=== PATIENT | female | born 1965 | race Caucasian/White ===

== ENCOUNTER 2018-01-08 10:40 | Emergency (ER) | payer MEDICARE, MEDICAID ==
--- NOTE | 2018-01-08 12:26 | RAD ---
HISTORY: LLE edema + Jocy's sign COMPARISONS: None relevant TECHNIQUE: Multiple transverse and longitudinal ultrasound images were obtained of the left lower extremity from the level of the common femoral vein inferiorly through to the infrapopliteal veins using grayscale, color Doppler, and spectral Doppler imaging with and without compression and with augmentation. Comparison images were obtained of the contralateral common femoral vein. FINDINGS: VEINS: The venous system of the left lower extremity is compressible throughout its course, with normal flow on color Doppler imaging and normal response to augmentation on spectral Doppler imaging. SOFT TISSUES: Unremarkable. OTHER FINDINGS: There is a 4.8 x 1.5 x 3.6 cm fluid collection within the popliteal fossa consistent with a Stephenson's cyst. IMPRESSION: NO LEFT LOWER EXTREMITY DEEP VEIN THROMBOSIS STEPHENSON'S CYST
--- NOTE | 2018-01-08 13:59 | ED ---
Lower Extremity - HPI Summary HPI Summary: Patient presents with left calf and foot swelling over the past couple days. She reports this is been intermittent over the past week and also admits she's had some arthritis meniscal issues in this knee for which she is treating with physical therapy. She denies fever, chills, chest pain, palpitations, shortness of breath, bloody cough, back pain, numbness, tingling, weakness. Additionally, she denies injury to her foot or ankle and no wounds to trigger infection. She was undergoing preop for back surgery today when she mentioned this to her surgeon who 1 her to have an ultrasound to rule out DVT prior surgery. She is obese and smokes. No known history of cancer however she does have a chronically elevated white blood cell count. - History of Current Complaint Chief Complaint: EDExtremityLower Stated Complaint: LT LOWER EXTREMITY SWELLING Time Seen by Provider: 01/08/18 10:56 Hx Obtained From: Patient, Family/Manager Data - female friend Pain Intensity: 4 - Allergies/Home Medications Allergies/Adverse Reactions: Allergies Allergy/AdvReac Type Severity Reaction Status Date / Time STEROIDS AdvReac Altered Uncoded 01/08/18 10:48 Mental Status PMH/Surg Hx/FS Hx/Imm Hx Previously Healthy: Yes Endocrine/Hematology History: Reports: Hx Anemia Denies: Hx Anticoagulant Therapy, Hx Blood Disorders, Hx Diabetes, Hx Coagulopothy, Other Endocrine/Hematological Disorders Cardiovascular History: Reports: Hx Hypertension Denies: Hx Pacemaker/ICD, Other Cardiovascular Problems/Disorders Respiratory History: Reports: Hx Chronic Obstructive Pulmonary Disease (COPD), Hx Seasonal Allergies, Hx Sleep Apnea Denies: Other Respiratory Problems/Disorders GI History: Reports: Hx Gastroesophageal Reflux Disease, Other GI Disorders - gastroperisis History: Denies: Hx Renal Disease, Other Problems/Disorders Musculoskeletal History: Reports: Hx Arthritis, Hx Rheumatoid Arthritis, Hx Back Problems, Hx Bursitis, Other Musculoskeletal History - stenosis, sciatica Sensory History: Denies: Hx Hearing Aid, Other Sensory Impairments Comment Only: Hx Contacts or Glasses - reading glasses Opthamlomology History: Denies: Other Sensory Impairments Comment Only: Hx Contacts or Glasses - reading glasses Neurological History: Reports: Hx Headaches - RARE, Hx Migraine - HISTORY, Other Neuro Impairments/Disorders - Vertigo Comment Only: Hx Transient Ischemic Attacks (TIA) - pt stated when she was 20 years old Psychiatric History: Reports: Hx Anxiety - SW unable to confirm, Hx Depression - SW unable to confirm Denies: Hx Panic Disorder, Other Psychiatric Issues/Disorders - Cancer History Cancer Type, Location and Year: MELANOMA - REMOVED FROM SKIN- Rt SHOULDER Hx Chemotherapy: No Hx Radiation Therapy: No - Surgical History Surgery Procedure, Year, and Place: Bowel Resection; [place] [facility] Hx Anesthesia Reactions: No Infectious Disease History: No Infectious Disease History: Denies: Hx Clostridium Difficile, Hx Hepatitis, Hx Human Immunodeficiency Virus (HIV), Hx of Known/Suspected MRSA, Hx Shingles, Hx Tuberculosis, History Other Infectious Disease, Traveled Outside the [place] in Last 30 Days - Social History Occupation: Disabled Alcohol Use: Recovering for 13 years Hx Substance Use: No Substance Use Type: Reports: None Hx Tobacco Use: Yes Smoking Status (MU): Current Every Day Smoker Type: Cigarettes Amount Used/How Often: 1/2 PPD Have You Smoked in the Last Year: Yes Review of Systems Constitutional: Negative Negative: Fever, Chills, Fatigue Psychological: Normal All Other Systems Reviewed And Are Negative: Yes Physical Exam Vital Signs On Initial Exam: Initial Vitals Temp Pulse Resp BP Pulse Ox 98.5 F 75 16 139/81 91 01/08/18 10:41 01/08/18 10:41 01/08/18 10:41 01/08/18 10:41 01/08/18 10:41 Diagnostics - Vital Signs Vital Signs Temp Pulse Resp BP Pulse Ox 01/08/18 10:41 98.5 F 75 16 139/81 91 - Laboratory Lab Statement: Any lab studies that have been ordered have been reviewed, and results considered in the medical decision making process. Lower Extremity Course/Dx - Course Course Of Treatment: U/S no DVT - has a Stephenson's cyst - Diagnoses Provider Diagnoses: Synovial cyst of popliteal space [Stephenson], left knee Discharge - Sign-Out/Discharge Documenting (check all that apply): Patient Departure - Discharge Plan Condition: Stable Disposition: HOME Patient Education Materials: Bakers Cyst (ED) Referrals: Serafin Adamson MD [Primary Care Provider] - Additional Instructions: Follow-up with PCP *If calf pain, swelling, redness worsen, return to ED for evaluation - Billing Disposition and Condition Condition: STABLE Disposition: Home
[2018-01-08 14:05] VITALS: BP 169/89
== END 2018-01-08 14:04 | disposition home or self-care (01) ==
LOC: ED 10:40
DX: M71.22 Synovial cyst of popliteal space [Baker], left knee (principal); F17.210 Nicotine dependence, cigarettes, uncomplicated; E66.9 Obesity, unspecified; Z88.8 Allergy status to other drugs, medicaments and biological substances
CPT/HCPCS: 99281

== ENCOUNTER 2018-04-16 07:30 | Inpatient (IN) | payer MEDICARE, MEDICAID ==
[~2018-04-16 07:30] MED LIST: Buffered Lidocaine 0.9% SYRIN* 5 ML/SYR SYRINGE INTRADERM ONE; Dexamethasone IV* 4 MG/ML 1 ML (4 MG) IV SLOW PU ONE; Famotidine IV* 10 MG/ML 2 ML (20 mg) IV ONE; Levalbuterol 0.63MG/3ML NEB* UNIT OF USE INH ONE
[2018-06-08] MEDS ORDERED: Buffered Lidocaine 0.9% SYRIN* 5 ML/SYR SYRINGE INTRADERM ONE (12:26)
--- OUTSIDE RECORDS SUMMARY | 2018-06-09 05:52 | XMS REPORT | Continuity of Care Document ---
:1965 External Reference #:[id number] Author Name Alias Quinonez Care Team Providers Name Role Phone Serafin Hernandez MD Primary Care Physician Unavailable Payers Type Date Identification Numbers Payment Provider Subscriber Policy Number: [id number] Medicare Shahida A Schlarb PayID: [id number] [address] [place] [address] Expires: 2018 Policy Number: [id number] Medicare Shahida A Schlarb PayID: [id number] [address] [place] [address] Expires: 2016 Policy Number: [id number] [employer] Shahida A Schlarb PayID: [id number] [address] [place] [address] Expires: 2016 Policy Number: [id number] Medicaid Shahida A Schlarb Group Name: 1 1 [address] PayID: [id number] [place] [address] Effective: 2009 Policy Number: [id number] Medicare Shahida A Schlarb Expires: 2015 PayID: [id number] [address] [place] [address] Effective: 2015 Policy Number: [id number] Medicaid Shahida A Schlarb Expires: 2015 Group Name: 1 1 [address] PayID: [id number] [place] [address] Expires: 2015 Policy Number: [id number] Medicaid Shahida A Schlarb Group Name: 1 1 [address] PayID: [id number] [place] [address] Expires: 2016 Policy Number: [id number] Mark Anthonytrixie Botello PayID: [id number] [address] [place] [address] Policy Number: [id number] Medicaid Elizabeth A Schlarb Group Name: 1 1 [address] PayID: [id number] [place] [address] Advance Directives Description No Information Available Problems Date Description Provider Status Onset: 06/17/2011 Lumbosacral spondylosis without Serafin Hernandez Active myelopathy Jaime.Neal,FACP Onset: 06/29/2007 Acquired spondylolisthesis Serafin Hernandez Active Talita,FACP Onset: 03/08/2011 Chronic pain syndrome Serafin Hernandez Active Talita,FACP Onset: 10/17/2008 Obstructive sleep apnea syndrome Alexei Ramirez M.D.,FACP Onset: 03/08/2011 Morbid obesity Serafin Hernandez Active Talita,FACP Onset: 01/21/2013 Chronic nonalcoholic liver Serafin Hernandez Active disease M.Neal,FACP Onset: 06/29/2007 Tobacco user Serafin Hernandez Active Talita,FACP Onset: 06/17/2011 Spinal stenosis of lumbar region Serafin Hernandez Active Talita,FACP Onset: 01/21/2013 Tinnitus Serafin Hernandez Active Talita,FACP Onset: 06/14/2014 Leukocytosis Rayne Manuel, N.P. 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 M.Neal,FACP Onset: 07/21/2017 Lumbar spondylolisthesis Allyson Garner MD Active Onset: 07/21/2017 Thoracic and lumbosacral neuritis Allyson Garner MD Active Onset: 12/19/2017 Type 2 diabetes mellitus Rah Waterman NP Active Onset: 02/23/2018 Stress fracture of metatarsal Дмитрий MD Margarita Active bone Onset: 03/31/2018 Lumbar spondylosis Vassilnatalee Garner MD Active Onset: 07/06/2015 Drug withdrawal Ana Clark MD Inactive Inactive: 09/05/2015 Onset: 06/17/2011 Onychia of toe Serafin Hernandez M.D.,FACP Resolved Resolved: 03/23/2015 Onset: 03/08/2011 Amenorrhea Serafin Hernandez M.D.,FACP Resolved Resolved: 03/23/2015 Family History Date Family Member(s) Problem(s) Comments Father Hypertension Mother Uterine Cancer June 2017 Siblings 2 Social History Type Date Description Comments Sex Unknown Marital Status Single Lives With Alone Aide a couple of times weekly Occupation Disabled Tobacco Use Start: Unknown Patient is a current cigarette smoker, smokes every day Tobacco Use Start: Unknown Current Cigarette 1/2-1.5 cig/day Smoker 1 Pack Daily Smoking Status Reviewed: 06/01/18 Current Cigarette 1/2-1.5 cig/day Smoker 1 Pack Daily ETOH Use Has consumed alcohol Heavy drinker until in the past 2002-Has abstained since Recreational Drug Use Denies Drug Use Tobacco Use Start: Unknown Light tobacco smoker trying to quit, 3-12 (10 or fewer cigarettes a day cigarettes/day) Exercise Type/Frequency Does not exercise Allergies, Adverse Reactions, Alerts Date Description Reaction Status Severity Comments 07/04/2015 Prednisone extreme agitation, Active Severe negative suicidal thoughts 11/21/2016 Benadryl Active aggitation 12/10/2017 Steroids Active only as a last resort-irritation 10/16/2007 NKDA Inactive Medications Medication Date Status Form Strength Qnty SIG Indications Ordering Provider Nicotine 06/01/ Active Patches 14mg/24HR 28uni one patch G47.33 Rah 2018 24HR ts daily for STEFF Waterman 6 weeks Cpap Supplies 12/31/ Active Pls G47.33 Ana 2018 provide luis felipe Clark MD cpap supplies, mask, tubing, head gear, filters etc Commode 12/25/ Active Misc 3-In-1 1unit use as Serafin 2017 s magaly Hernandez, weight 262 M.D.,FACP lbs height 62 inches Cyclobenzaprine 05/28/ Active Tablets 10mg 90tab Take One Rah HCL 2016 s Tablet By STEFF Waterman Mouth Three Times A Day as Needed Morphine Sulfate 02/14/ Active Tablets 15mg 90tab 1 tablet Serafin 2016 s by mouth Neal Hernandez, 3x daily M.D.,FACP as needed MS Contin 01/23/ Active Tablets 30mg 90tab 1 by mouth G89.4 Serafin 2016 ER s every 8 D. Jackson, hours M.D.,FACP Bath Bench With 11/18/ Active Misc 1unit for daily G89.4 Serafin Canales 2017 s use, Neal Hernandez, weight M.D.,FACP 237lbs, M47.26 Bathtub Safety 11/18/2016 Active Misc 2units 2 safety bars G89.4 Jorge Luis De Jesus Rail for tub use Talita Hernandez,FACP weight 237lbs M47.26 Advair Diskus 05/15/2015 Active Aerosol 250-50mcg/Dose 60units inhale one Rah puff by mouth STEFF Waterman twice a day Cymbalta 01/23/[address] 60mg 90caps Take One Abdias-Irma Part Capsule By l D. Mouth Every Jackson, Day M.D.,FAC P Spiriva 09/27/2009 Active Capsules 18mcg 30caps inhale the Rah Handihaler contents of STEFF Waterman one capsule via handihaler by mouth every morning Cpap Mask And 10/10/2008 Active 1units cpap mask and Ana Acessories acessories of Amber patient's MD choice Cane 10/04/2008 Active 1units Backpain with Abdias-Irma radiculopaty savannah De Jesus and carolina Hernandez, right knee M.D.,FAC meniscus P Ibu 01/04/2008 Active Tablets 600mg 270tabs Take One G Abdias-Irma Tablet By 8 l D. Mouth Every 8 9 Jackson, Hours as . M.D.,FAC Needed For 4 P Pain Fish Oil Active Capsules 1200mg 2 po qd Unknown Burp-Less Zyrtec Active Chewtabs 10mg 1 po qd prn Unknown Iron Active Tablets 325(65Fe) mg 1 by mouth Unknown every day Multi Vitamin Active Tablets daily Unknown Proair HFA Active Aerosol 108(90Base) 25.5unit Inhale Two Cactus mcg/Act s Puffs By Pachikar Mouth Every 4 a, M.D. Hours as Needed Cromolyn Active Aerosol 5.2mg/Act One spray Unknown Sodium each nostril 2-3 times daily as needed. Nicotine Step 12/19/2017 Hx Patches 7mg/24HR 14units one patch G Rah 3 - 24HR once daily 4 STEFF Waterman 06/01/2018 for two weeks 7 . 3 3 Nicotine 11/17/2017 Hx Patches 14mg/24HR 14units 1 apply patch G Abdias- Irma - 24HR topically 4 l D. 12/19/2017 every 24 7 Jackson, hours. . M.D.,FAC 3 P 3 Cyclobenzapri 05/28/2017 Hx Tablets 10mg 90tabs take one Rah ne HCL - tablet by STEFF Waterman 06/01/2018 mouth three times a day as needed Nicotine 01/23/2017 Hx Patches 21mg/24HR 28units apply patch G Stephen - 24HR daily, remove 4 Pachikar 11/17/2017 old one at 7 a, M.D. the same time . x's 6 wks 3 3 Bathtub 11/18/2016 Hx Misc 1units install 2 G Abdias-Irma Safety Rail - bathtub 8 l D. 05/28/2017 safety rails 9 Jackson, . M.D.,FAC 4 P M47.26 Orphenadrine 09/22/2016 - Hx Tablets ER 100mg 60tabs take one tablet Serafin Citrate ER 05/28/2017 12HR by mouth twice D. Jackson, a day as needed M.D.,FACP Oxycontin 04/02/2016 - Hx Tab ER 12H 30mg 90tabs by mouth every G89. Stephen 01/23/2017 Abuse-Det 8 hours 4 Talita Membreno Oxycodone HCL 02/28/2016 - Hx Tablets 10mg 90tabs 1 tablet by Stephen 02/14/2017 mouth 3x a day Pachikara, as needed M.D. Oxycontin 01/23/2016 - Hx Tab ER 12H 20mg 90tabs by mouth every G89. Serafin 04/02/2016 Abuse-Det 8 hours 4 Neal Hernandez M.D.,FACP Morphine Sulfate 12/29/2015 - Hx Tablets ER 30mg 90tabs 1 tab by mouth G89. Serafin ER 01/23/2016 every 8 hours 4 Neal Hernandez M.D.,FACP Skelaxin 09/20/2015 - Hx Tablets 800mg 60tabs take one tablet Jorge Luis Gill 09/22/2016 by mouth three Neal Hernandez, times a day as Talita,FACP needed Nicotine 09/05/2015 - Hx Patches 14mg/2 28units topical qd G47. Jorge Luis Gill 01/23/2017 24HR 4HR 33 Neal Hernandez M.D.,FACP Amoxicillin/Clavu 07/04/2015 - Hx Tablets 875-12 20tabs 1 tablet by J01. Soren lanate Potassium 07/14/2015 5mg mouth twice a 90 [place], [employer] day x's 10 days Proair HFA 07/04/2015 - Hx Aerosol 108(90 1units 1 puff every 4 R06. Soren 07/14/2015 Base) hours as needed 2 [place], [employer] mcg/Ac for chest t tightness or wheezing Flexeril 05/16/2015 - Hx Tablets 5mg 240tabs 1 tab by mouth Soren 09/20/2015 three times a [place], [employer] day as needed muscle spasm Morphine Sulfate 05/15/2015 - Hx Tablets 15mg 90tabs 1 by mouth Jorge Luis Gill 02/28/2016 every 8 hours Neal Hernandez, as needed Talita,FACAna breakthrough pain Cromolyn Sodium 03/24/2015 - Hx Aerosol 5.2mg/ 26ml 1 spray both Jorge Luis Gill 01/23/2016 Act eyes nares Neal Hernandez, three times a MMaureenDMaureen,FACP day as needed Ketoconazole 03/23/2015 - Hx Shampoo 2% 120unit apply once a L21. Soren 05/15/2015 s day to the 9 [place], [employer] scalp Topiramate 03/23/2015 - Hx Tablets 25mg 90tabs take one tablet Jorge Luis Gill 01/23/2017 by mouth every Neal Hernandez, day Talita,FACP Lasix 04/30/2013 - Hx Tablets 40mg 90tabs Take One Tablet Serafin 04/15/2014 By Mouth Every DMaureen Hernandez, Day for 1 wk M.DMaureen,FACP then prn Potassium 03/13/2013 - Hx Tablets ER 10Meq 90tabs Take One Tablet Abdias Rodrigez Chloride Susu ER 03/23/2015 By Mouth Every DMaureen Hernandez, Day M.DMaureen,FACP Nizatidine 01/21/2013 - Hx Capsules 150mg 60caps 1 po bid 388. AbdiasElvi Jairo 06/09/2014 30 Neal Hernandez M.D.,FACP Potassium 12/29/2012 - Hx Capsules ER 10Meq 90caps Take One Serafin Chloride ER 03/13/2013 Capsule By Neal Hernandez, Mouth Every Day M.Neal,CRYSP Potassium 03/12/2012 - Hx Tablets ER 10Meq 90tabs Take One Tablet Abdias Rodrigez Chloride CR 12/29/2012 By Mouth Every DMaureen Hernandez, Day M.DMaureen,FACP Orphenadrine 09/11/2011 - Hx Tablets ER 100mg 20tabs po bid prn 721. Serafin Citrate CR 01/23/2012 12HR 3 Neal Hernandez M.D.,FACP Carisoprodol 08/29/2011 - Hx Tablets 350mg 30tabs 1 tab tid/prn 721. Serafin 09/11/2011 3 Neal Hernandez M.D.,FACP Amoxicillin 07/15/2011 - Hx Tablets 875mg 20tabs 1 po bid 462 Roberta 08/29/2011 Talita Cabrales Ciprodex 07/13/2011 - Hx Suspension 0.3-0. 1bottle otic Serafin 07/15/2011 1% 4 ggt l ear Neal Hernandez, bid for 1 wk M.DMaureen,FACP Metaxalone 06/17/2011 - Hx Tablets 800mg 90tabs take 1 tablet 3 Jorge Luis Gill 08/29/2011 times a day as Neal Hernandez needed Talita,FACP Topiramate 06/17/2011 - Hx Tablets 100mg 180tabs Take One Tablet 836. Serafin 03/23/2015 By Mouth once A 2 Janette Martinez M.D.,FACP Potassium 10/17/2010 - Hx Tablets ER 10Meq 90tabs po qday Serafin Chloride ER 03/12/2012 Neal Hernandez M.[facility].,[facility] Omeprazole 08/27/2010 - Hx Capsules 20mg 90caps Take One Serafin 12/01/2017 Capsule By Neal Hernandez, Mouth Every Day Talita,CRYSP Potassium 06/15/2010 - Hx Liquid 10Meq 30daysu po qday Serafin Chloride 10/17/2010 pply Neal Hernandez M.D.,[facility] MS Contin 05/28/2010 - Hx Tablets ER 30mg 90tabs po q8h Serafin 06/17/2011 12HR Neal Hernandez M.D.,[facility] Cymbalta 05/28/2010 - Hx Caps 60mg 30caps 1 po qd Serafin 01/23/2012 Part Neal Hernandez M.D.,[facility] Amoxicillin 05/28/2010 - Hx Tablets 500mg 40tabs 2 tabs po bid 491. Serafin 07/17/2010 for 10 days 21 Neal Hernandez M.D.,[facility] Doxycycline 03/16/2010 - Hx Tablets 100mg 14tabs po bid 466. Serafin Monohydrate 05/28/2010 0 Neal Hernandez M.D.,[facility] Prednisone 03/16/2010 - Hx Tablets 10mg 20tabs 4 po qd for 5 466. Jorge Luis Gill 05/28/2010 days 0 Neal Hernandez M.D.,[facility] Nicoderm CQ 10/04/2009 - Hx Patches 21mg/2 1mon topical qam 305. Jorge Luis Gill 03/16/2010 24HR 4HR 1 Neal Hernandez M.D.,[facility] Ciprofloxacin HCL 09/27/2009 - Hx Tablets 500mg 28tabs si bid x 14 382. Serafin 10/04/2009 days 9 Neal Hernandez M.D.,CRYSP Azithromycin 09/20/2009 - Hx Tablets 250mg 6tabs 2 tabs po on 466. Ellie 09/27/2009 day 1; 1 tab po 0 Cotton, qd on days 2-5 Talita Spiriva 09/20/2009 - Hx Capsules 18mcg 1months 1 inhalation po 466. Ellie Handihaler 09/27/2009 upply qam 0 Talita Meyer Avelox 07/18/2009 - Hx Tablets 400mg 10tabs 1 qd x 10 days 466. Jorge Luis Gill 09/20/2009 0 Neal Hernandez M.D.,CRYSP Nasonex 07/18/2009 - Hx Suspension 50mcg/ 17units spray two Serafin 03/24/2015 Act sprays in each Neal Hernandez nostril every Tailta,SHANE day Topiramate 01/09/2009 - Hx Tablets 150mg 1 po bid 836. Unknown 06/17/2011 2 Avelox 12/07/2008 - Hx Tablets 400mg 10tabs 1 qd x 10 days 461. Jorge Luis Gill 05/08/2009 9 Neal Hernandez M.D.,[facility] Walker With 10/19/2008 - Hx One dx: Serafin Pete, Seat, 05/15/2009 osteoarthritis Nyasia Martinez M.D.,FACP Meniscus tear l knee Cpap 10/10/2008 - Hx 1units cpap machine to Serafin 05/15/2009 be recalibrated Neal Hernandez M.D.,CRYSP Left Carpal 10/10/2008 - Hx 1units Use as directed Serafin Tunnel Wrist 05/15/2009 Amy Martinezr Talita,CRYSP Lasix 10/04/2008 - Hx Tablets 40mg 90tabs Take One Tablet Serafin 10/16/2012 By Mouth Every Janette Martinez M.D.,CRYSP Percocet 09/20/2008 - Hx Tablets 5-325m 180tabs 1 q 4 hours prn 738. Serafin 01/09/2009 g pain 4 Neal Hernandez M.D.,CRYSP top 05/16/2008 - Hx Tablets 25mg 60tabs 1 PO bid Serafin 05/16/2008 Neal Hernandez M.D.,CRYSP Azithromycin 04/01/2008 - Hx Tablets 500mg 7tabs 1 tab qd for 7 466. Serafin 05/16/2008 days 0 Neal Hernandez M.D.,CRYSP Cheratussin ac 04/01/2008 - Hx Syrup 6Oz 1-2 tsp qid prn 466. Jorge Luis Gill 05/16/2008 0 Neal Hernandez M.D.,CRYSP Wellbutrin 01/04/2008 - Hx Tablets 75mg 180tabs 1 PO qd Serafin 09/20/2008 Neal Hernandez M.D.,CRYSP Wellbutrin XL 01/04/2008 - Hx Tablets ER 150mg 30tabs 2 PO qd Jorge Luis Gill 09/20/2008 24HR Neal Hernandez M.D.,CRYSP Iron 01/04/2008 - Hx Tablets 325mg 30tabs 1 po qd Serafin 02/04/2013 Neal Hernandez M.D.,[facility] Lyrica 01/04/2008 - Hx Capsules 150mg 270caps 1 tid 338. Serafin 09/20/2009 4 Neal Hernandez M.D.,CRYSP Relafen 10/16/2007 - Hx Tablets 750mg 60tabs 1 bid with food 738. Jorge Luis Gill 01/04/2008 4 Neal Hernandez M.D.,SHANE Zoloft 06/29/2007 - Hx Tablets 100mg 60tabs 2 PO qd Serafin 06/17/2011 Neal Hernandez M.D.,CRYSP Wellbutrin SR 06/29/2007 - Hx Tablets ER 150mg 60tabs 2 tablets in am Serafin 01/04/2008 12HR extended 75 Neal Hernandez, mg in am Talita,[facility] Augmentin 06/29/2007 - Hx Tablets 875mg 20tabs po bid x10 days 490 Abdias Rodrigez 10/21/2007 Neal Hernandez M.D.,[facility] Lyrica 06/29/2007 - Hx Capsules 75mg 90caps 1 po tid 738. Serafin 01/04/2008 4 Neal Hernandez M.D.,SHANE Zyrtec - Hx Tablets 10mg 30tabs 1 tab po qd prn Sreafin 01/21/2013 Neal Hernandez M.D.,[facility] Cyclobenzaprine - Hx Tablets 10mg 90tabs 1 tablet po tid Serafin HCL 06/17/2011 prn Neal Hernandez M.D.,[facility] K-Dur - Hx Tablets ER 10Meq 30tabs 1 po qd Serafin 06/15/2010 Neal Hernandez M.D.,FACP Lasix - Hx Tablets 20mg 30tabs 1 po qd Serafin 10/04/2008 Neal Hernandez M.D.,FACP Abilify - Hx Tablets 5mg 1 qd 311 Serafin 09/20/2009 Neal Hernandez M.D.,FACP Wellbutrin XL - Hx Tablets ER 300mg 1 po qd Mike Hudson 06/17/2011 24HR ane,PA Topamax - Hx Tablets 100mg 60tabs 1 po bid 836. Unknown 01/09/2009 2 Oxycontin - Hx Tablets ER 20mg 10tabs 1 po bid Unknown 05/28/2010 12HR Percodan - Hx Tablets 5mg one tab six Unknown 05/15/2009 times daily Oxycodone HCL - Hx Tablets 5mg 180tabs 2 po tid prn Unknown 05/28/2010 Abilify - Hx Tablets 15mg 311 Unknown 05/28/2010 Morphine Sulfate - Hx Tablets 15mg 40tabs 1/2-1 q4h prn Unknown 01/23/2012 Reglan - Hx Tablets 10mg 360tabs 1 po 4 times a Unknown 01/23/2012 day Morphine Sulfate - Hx Tablets ER 30mg 60tabs 1 tablet every Unknown ER 08/29/2011 12HR 8 hours Fentanyl - Hx Patches 50mcg/ 10units ? dose one Unknown 01/23/2012 72HR HR every 3rd day Oxycontin - Hx Tablets ER 40mg 28tabs 1 po bid Unknown 04/23/2012 12HR Oxycodone HCL - Hx Tablets 10mg 120tabs 1 tablet po Unknown 04/23/2012 q6hrs prn Baclofen - Hx Tablets 10mg 60tabs 1 po bid prn Unknown 01/23/2012 Baclofen - Hx Tablets 10mg 1/2 tab tid Unknown 01/21/2013 Exalgo - Hx Tablets ER 32mg 30tabs 1 po qd Unknown 01/21/2013 24HR Hydromorphone HCL - Hx Tablets 4mg 60tabs 1 -3 po prn Unknown 01/21/2013 pain Morphine Sulfate - Hx Caps ER 30mg 16caps 1 po tid Unknown ER 02/09/2014 24HR Morphine Sulfate - Hx Caps ER 30mg 90caps 1 caps 8h [facility] 12/29/2015 24HR Neal Hernandez M.D.,FACP Metaxalone - Hx Tablets 800mg 30tabs take 1/2-1 pill Unknown 12/16/2013 q 8 hrs. Tizanidine HCL - Hx Tablets 4mg 60tabs take 1/2 Unknown 05/15/2015 tablet by mouth four times daily as needed Wellbutrin SR - Hx Tablets ER 200mg 90tabs Take One Tablet [facility] 03/23/2015 12HR By Mouth Every DMaureen Hernandez, Morning M.D.,FACP Methadone HCL - Hx Tablets 10mg 1 by mouth up Unknown 05/15/2015 to three times a day for pain Celebrex - Hx Capsules 100mg 1 by mouth Unknown 05/15/2015 twice a day Ventolin HFA - Hx Aerosol 108(90 18gm 2 puffs by [facility] 11/30/2015 Base) mouth four D. Snow, mcg/Ac times a day as M.D.,FACP t needed Medications Administered in Office Medication Date Status Form Strength Qnty SIG Indications Ordering Provider Depomedrol Administered Injection Dirk Johnson, 40MG 018 M.D. Immunizations CPT Code Status Date Vaccine Reaction Lot # [id number] Given 04/13/2018 Influenza Virus Vaccine, [id number] Quadrivalent, Split, Preservative Free [id number] Given 05/28/2017 Influenza Virus Vaccine, [id number] Quadrivalent, Split, Preservative Free 74864 Given 04/02/2016 Influenza Virus Vaccine, no reaction noted... [id number] Quadrivalent, Split, hh Preservative Free Q2037 Given 07/06/2015 Fluvirin Im 3Yrs And Older [id number] Given 07/06/2015 Pneumonia Vaccine [id number] Given 06/14/2014 Flu Vaccine Split Virus [id number] Preservative Free For Indiv 3Yr Older Q2037 Given 04/23/2012 Fluvirin Im 3Yrs And Older [id number] 74370 Given 08/29/2011 Pneumonia Vaccine [id number] Q2038 Given 03/08/2011 Fluzone Vaccine [id number] 96752 Given 05/28/2010 Influenza Virus 3Yrs & Over [id number] 81912 Given 05/15/2009 Influenza Virus Vaccine, [id number] Pandemic Formulation 73644 Given 05/15/2009 Administration Swine Flu Shot [id number] Given 05/16/2008 Influenza Virus 3Yrs & Over Vital Signs Date Vital Result Comment 06/01/2018 2:07pm Height 62 inches 5'2" Weight 251.00 lb Heart Rate 90 /min BP Systolic 136 mmHg BP Diastolic 82 mmHg O2 % BldC Oximetry 95 % BMI (Body Mass Index) 45.9 kg/m2 05/18/2018 2:05pm Height 62 inches 5'2" Weight 255.00 lb BP Systolic Sitting 140 mmHg BP Diastolic Sitting 80 mmHg Pain Level 8 BMI (Body Mass Index) 46.6 kg/m2 04/23/2018 3:02pm Weight 255.00 lb Heart Rate 88 /min BP Systolic Sitting 132 mmHg Rue large cuff BP Diastolic Sitting 82 mmHg Rue large cuff Ejection Fraction 60-65 echocardiogram 04/20/18 04/17/2018 9:54am Height 62 inches 5'2" Weight 254.00 lb w/ shoes Heart Rate 72 /min BP Systolic Sitting 118 mmHg lue lg cuff BP Diastolic Sitting 68 mmHg lue lg cuff BP Systolic Standing 124 mmHg lue lg cuff BP Diastolic Standing 62 mmHg lue lg cuff BMI (Body Mass Index) 46.5 kg/m2 Ejection Fraction 62% echo 09/09/2006 04/13/2018 10:10am Height 62 inches 5'2" Weight 257.00 lb Heart Rate 75 /min BP Systolic 131 mmHg BP Diastolic 79 mmHg O2 % BldC Oximetry 96 % BMI (Body Mass Index) 47.0 kg/m2 03/31/2018 1:45pm Height 62 inches 5'2" Weight 258.00 lb BP Systolic Sitting 126 mmHg BP Diastolic Sitting 70 mmHg Pain Level 4 BMI (Body Mass Index) 47.2 kg/m2 03/04/2018 9:41am Height 62 inches 5'2" Weight 258.00 lb BP Systolic Sitting 130 mmHg BP Diastolic Sitting 80 mmHg Pain Level 7 BMI (Body Mass Index) 47.2 kg/m2 02/25/2018 9:58am Height 62 inches 5'2" Weight 258.00 lb Heart Rate 88 /min BP Systolic Sitting 128 mmHg BP Diastolic Sitting 66 mmHg Respiratory Rate 14 /min O2 % BldC Oximetry 93 % BMI (Body Mass Index) 47.2 kg/m2 02/23/2018 1:26pm Height 62 inches 5'2" Heart Rate 88 /min BP Systolic Sitting 140 mmHg BP Diastolic Sitting 82 mmHg Body Temperature 98.9 F Pain Level 0 02/19/2018 9:00am Height 62 inches 5'2" Weight 258.00 lb Heart Rate 80 /min BP Systolic Sitting 147 mmHg BP Diastolic Sitting 82 mmHg O2 % BldC Oximetry 95 % BMI (Body Mass Index) 47.2 kg/m2 01/26/2018 10:49am Height 62 inches 5'2" Weight 259.75 lb Heart Rate 84 /min BP Systolic Sitting 146 mmHg BP Diastolic Sitting 78 mmHg Respiratory Rate 16 /min BMI (Body Mass Index) 47.5 kg/m2 01/19/2018 2:22pm Height 62 inches 5'2" Weight 258.75 lb Heart Rate 112 /min BP Systolic 138 mmHg BP Diastolic 92 mmHg Body Temperature 98.2 F O2 % BldC Oximetry 90 % BMI (Body Mass Index) 47.3 kg/m2 01/14/2018 11:40am Height 62 inches 5'2" Weight 262.00 lb BP Systolic Sitting 130 mmHg BP Diastolic Sitting 80 mmHg Pain Level 7 BMI (Body Mass Index) 47.9 kg/m2 12/19/2017 1:57pm Height 62 inches 5'2" Weight 262.25 lb Heart Rate 96 /min BP Systolic 138 mmHg BP Diastolic 80 mmHg Body Temperature 97.5 F O2 % BldC Oximetry 94 % BMI (Body Mass Index) 48.0 kg/m2 12/10/2017 2:22pm Height 62 inches 5'2" Weight 261.00 lb Heart Rate 88 /min BP Systolic Sitting 124 mmHg BP Diastolic Sitting 68 mmHg Respiratory Rate 16 /min Pain Level 9 O2 % BldC Oximetry 97 % ra BMI (Body Mass Index) 47.7 kg/m2 10/07/2017 3:37pm Weight 257.00 lb Heart Rate 98 /min BP Systolic Sitting 160 mmHg BP Diastolic Sitting 80 mmHg BP Systolic Recheck 152 mmHg BP Diastolic Recheck 78 mmHg Body Temperature 98.6 F O2 % BldC Oximetry 95 % 09/22/2017 2:13pm Height 62 inches 5'2" Weight 248.00 lb Heart Rate 84 /min BP Systolic Sitting 130 mmHg BP Diastolic Sitting 82 mmHg Pain Level 7 BMI (Body Mass Index) 45.4 kg/m2 07/21/2017 2:11pm Height 62 inches 5'2" Weight 248.00 lb Heart Rate 97 /min BP Systolic Sitting 130 mmHg BP Diastolic Sitting 78 mmHg Pain Level 8 BMI (Body Mass Index) 45.4 kg/m2 05/28/2017 2:12pm Weight 249.00 lb Heart Rate 81 /min BP Systolic Sitting 158 mmHg BP Diastolic Sitting 80 mmHg Body Temperature 98.7 F O2 % BldC Oximetry 96 % 03/14/2017 2:24pm Height 62 inches 5'2" Weight 242.00 lb Heart Rate 80 /min BP Systolic Sitting 138 mmHg BP Diastolic Sitting 98 mmHg Body Temperature 98.5 F BMI (Body Mass Index) 44.3 kg/m2 01/23/2017 2:12pm Height 62 inches 5'2" Weight 238.00 lb Heart Rate 75 /min BP Systolic Sitting 140 mmHg BP Diastolic Sitting 80 mmHg Body Temperature 97.8 F O2 % BldC Oximetry 96 % BMI (Body Mass Index) 43.5 kg/m2 11/21/2016 1:46pm Height 62 inches 5'2" Weight 239.00 lb Heart Rate 78 /min BP Systolic Sitting 140 mmHg right arm, large cuff BP Diastolic Sitting 84 mmHg right arm, large cuff O2 % BldC Oximetry 96 % room air BMI (Body Mass Index) 43.7 kg/m2 09/17/2016 1:46pm Weight 237.00 lb with shoes Heart Rate 91 /min BP Systolic 130 mmHg BP Diastolic 80 mmHg 07/30/2016 2:42pm Weight 234.00 lb with shoes Heart Rate 87 /min BP Systolic 150 mmHg BP Diastolic 80 mmHg O2 % BldC Oximetry 95 % 04/02/2016 1:48pm Height 62 inches 5'2" Weight 231.00 lb Heart Rate 72 /min BP Systolic 125 mmHg BP Diastolic 79 mmHg Body Temperature 99.0 F O2 % BldC Oximetry 96 % BMI (Body Mass Index) 42.2 kg/m2 03/21/2016 1:27pm Height 62 inches 5'2" Weight 231.00 lb Heart Rate 72 /min BP Systolic Sitting 144 mmHg BP Diastolic Sitting 88 mmHg Respiratory Rate 18 /min O2 % BldC Oximetry 94 % BMI (Body Mass Index) 42.2 kg/m2 01/23/2016 2:34pm Height 62 inches 5'2" Weight 231.00 lb Heart Rate 75 /min BP Systolic Sitting 148 mmHg BP Diastolic Sitting 90 mmHg Body Temperature 98.4 F O2 % BldC Oximetry 96 % BMI (Body Mass Index) 42.2 kg/m2 12/18/2015 2:34pm Weight 229.00 lb report Heart Rate 80 /min BP Systolic Sitting 148 mmHg BP Diastolic Sitting 88 mmHg Respiratory Rate 14 /min O2 % BldC Oximetry 94 % 09/26/2015 3:43pm Weight 228.00 lb reported Heart Rate 74 /min Respiratory Rate 14 /min O2 % BldC Oximetry 94 % 09/05/2015 2:06pm Weight 228.00 lb Heart Rate 85 /min BP Systolic Sitting 152 mmHg BP Diastolic Sitting 80 mmHg Body Temperature 98.8 F O2 % BldC Oximetry 96 % 07/06/2015 1:40pm Height 62 inches 5'2" Weight 232.00 lb Heart Rate 88 /min BP Systolic Sitting 148 mmHg BP Diastolic Sitting 88 mmHg O2 % BldC Oximetry 94 % BMI (Body Mass Index) 42.4 kg/m2 07/06/2015 9:20am Height 62 inches 5'2" Weight 232.38 lb Heart Rate 97 /min BP Systolic Sitting 132 mmHg BP Diastolic Sitting 70 mmHg Body Temperature 99.5 F O2 % BldC Oximetry 97 % BMI (Body Mass Index) 42.5 kg/m2 07/04/2015 4:11pm Height 62 inches 5'2" Weight 232.12 lb Heart Rate 101 /min BP Systolic Sitting 142 mmHg BP Diastolic Sitting 100 mmHg Body Temperature 99.3 F O2 % BldC Oximetry 91 % BMI (Body Mass Index) 42.5 kg/m2 05/16/2015 11:21am Height 62 inches 5'2" Weight 225.38 lb Heart Rate 100 /min BP Systolic 138 mmHg BP Diastolic 76 mmHg Body Temperature 98.6 F O2 % BldC Oximetry 95 % BMI (Body Mass Index) 41.2 kg/m2 Neck Circumference in inches 17 04/21/2015 4:07pm Weight 244.00 lb Heart Rate 92 /min BP Systolic 140 mmHg BP Diastolic 90 mmHg Respiratory Rate 18 /min Body Temperature 100.8 F O2 % BldC Oximetry 92 % 6L O2 via NC 03/23/2015 3:20pm Height 62 inches 5'2" Weight 246.00 lb Heart Rate 88 /min BP Systolic Sitting 132 mmHg BP Diastolic Sitting 90 mmHg Body Temperature 98.7 F O2 % BldC Oximetry 96 % BMI (Body Mass Index) 45.0 kg/m2 06/14/2014 2:51pm Weight 233.50 lb Heart Rate 83 /min BP Systolic Sitting 162 mmHg BP Diastolic Sitting 95 mmHg Body Temperature 98.6 F O2 % BldC Oximetry 95 % 02/04/2013 3:33pm Height 62 inches 5'2" Weight 236.00 lb Heart Rate 100 /min BP Systolic Sitting 140 mmHg BP Diastolic Sitting 90 mmHg BMI (Body Mass Index) 43.2 kg/m2 01/21/2013 2:51pm Weight 238.75 lb Heart Rate 106 /min BP Systolic Sitting 184 mmHg BP Diastolic Sitting 82 mmHg 06/11/2012 3:25pm Height 62 inches 5'2" Weight 229.00 lb Heart Rate 80 /min BP Systolic Sitting 138 mmHg BP Diastolic Sitting 88 mmHg Body Temperature 99.3 F BMI (Body Mass Index) 41.9 kg/m2 04/23/2012 3:30pm Height 62 inches 5'2" Weight 240.00 lb Heart Rate 82 /min BP Systolic Sitting 118 mmHg BP Diastolic Sitting 82 mmHg BMI (Body Mass Index) 43.9 kg/m2 01/23/2012 11:21am Height 62 inches 5'2" Weight 239.00 lb Heart Rate 82 /min BP Systolic Sitting 126 mmHg BP Diastolic Sitting 82 mmHg BMI (Body Mass Index) 43.7 kg/m2 08/29/2011 1:33pm Height 62 inches 5'2" Weight 255.25 lb Heart Rate 84 /min BP Systolic Sitting 144 mmHg BP Diastolic Sitting 78 mmHg BMI (Body Mass Index) 46.7 kg/m2 07/15/2011 1:50pm Height 62 inches 5'2" Weight 258.00 lb Heart Rate 96 /min BP Systolic Sitting 153 mmHg BP Diastolic Sitting 85 mmHg Body Temperature 99.9 F BMI (Body Mass Index) 47.2 kg/m2 06/17/2011 11:31am Height 62 inches 5'2" Weight 256.00 lb Heart Rate 74 /min BP Systolic Sitting 128 mmHg BP Diastolic Sitting 78 mmHg BMI (Body Mass Index) 46.8 kg/m2 03/08/2011 11:52am Weight 243.00 lb Heart Rate 74 /min BP Systolic Sitting 118 mmHg BP Diastolic Sitting 86 mmHg 05/28/2010 9:10am Weight 243.00 lb Heart Rate 102 /min BP Systolic Sitting 120 mmHg BP Diastolic Sitting 80 mmHg 05/07/2010 4:24pm Weight 244.00 lb Heart Rate 84 /min BP Systolic Sitting 146 mmHg BP Diastolic Sitting 88 mmHg 03/16/2010 11:05am Weight 236.00 lb Heart Rate 94 /min BP Systolic Sitting 124 mmHg BP Diastolic Sitting 76 mmHg 10/04/2009 10:51am Weight 243.00 lb Heart Rate 92 /min BP Systolic 136 mmHg BP Diastolic 90 mmHg 09/27/2009 2:26pm Heart Rate 84 /min BP Systolic Sitting 144 mmHg BP Diastolic Sitting 82 mmHg Respiratory Rate 20 /min 09/20/2009 3:16pm Weight 243.00 lb Heart Rate 88 /min BP Systolic 132 mmHg BP Diastolic 84 mmHg Respiratory Rate 16 /min Body Temperature 98.2 F 07/18/2009 8:43am Respiratory Rate 18 /min Body Temperature 97.7 F 05/15/2009 11:44am Weight 239.00 lb Heart Rate 72 /min BP Systolic Sitting 130 mmHg BP Diastolic Sitting 60 mmHg 01/09/2009 9:37am Height 62 inches 5'2" Weight 247.50 lb Heart Rate 72 /min BP Systolic Sitting 128 mmHg BP Diastolic Sitting 76 mmHg BMI (Body Mass Index) 45.3 kg/m2 12/07/2008 10:29am Weight 244.00 lb Heart Rate 78 /min BP Systolic Sitting 134 mmHg BP Diastolic Sitting 84 mmHg Body Temperature 97.3 F 10/04/2008 10:14am Weight 255.00 lb Heart Rate 76 /min BP Systolic Sitting 126 mmHg BP Diastolic Sitting 78 mmHg 09/20/2008 9:08am Height 62 inches 5'2" Weight 254.00 lb Heart Rate 76 /min BP Systolic Sitting 136 mmHg BP Diastolic Sitting 78 mmHg BMI (Body Mass Index) 46.5 kg/m2 08/08/2008 1:29pm Height 62 inches 5'2" Weight 264.00 lb Heart Rate 78 /min BP Systolic Sitting 150 mmHg BP Diastolic Sitting 82 mmHg BMI (Body Mass Index) 48.3 kg/m2 08/08/2008 1:25pm Height 62 inches 5'2" Weight 264.00 lb BMI (Body Mass Index) 48.3 kg/m2 06/17/2008 11:39am Height 62 inches 5'2" Weight 263.00 lb Heart Rate 76 /min BP Systolic Sitting 148 mmHg BP Diastolic Sitting 80 mmHg BMI (Body Mass Index) 48.1 kg/m2 05/16/2008 1:28pm Height 62 inches 5'2" Weight 263.00 lb Heart Rate 76 /min BP Systolic Sitting 134 mmHg BP Diastolic Sitting 86 mmHg BMI (Body Mass Index) 48.1 kg/m2 04/01/2008 11:35am Height 62 inches 5'2" Weight 257.00 lb Heart Rate 76 /min BP Systolic Sitting 142 mmHg BP Diastolic Sitting 86 mmHg Body Temperature 98.2 F BMI (Body Mass Index) 47.0 kg/m2 02/19/2008 9:51am Height 62 inches 5'2" Weight 259.00 lb Heart Rate 82 /min BP Systolic Sitting 168 mmHg BP Diastolic Sitting 94 mmHg BMI (Body Mass Index) 47.4 kg/m2 01/04/2008 9:20am Height 62 inches 5'2" Weight 260.00 lb Heart Rate 80 /min BP Systolic Sitting 130 mmHg BP Diastolic Sitting 80 mmHg Respiratory Rate 14 /min BMI (Body Mass Index) 47.5 kg/m2 10/16/2007 2:28pm Weight 253.00 lb Heart Rate 92 /min BP Systolic Sitting 140 mmHg BP Diastolic Sitting 76 mmHg 06/29/2007 10:51am Heart Rate 72 /min Respiratory Rate 16 /min Body Temperature 98.6 F Results Test Date Facility Test Result H/L Range Note Urine Culture And 04/09/2018 [facility] Urine Culture SEE RESULT [address] [place] [address] [phone] Urinalysis Profile 04/09/2018 [facility] Urine Color Straw [address] [place] [address] [phone] Urine Appearance Clear Urine Specific [place] 1.004 Low 1.010-1.030 Urine pH 5.0 N 5-9 Urine Urobilinogen Negative Negative Urine Ketones Negative Negative Urine Protein Negative Negative Urine Leukocytes Negative Negative Urine Blood Negative Negative Urine Nitrite Negative Negative Urine Bilirubin Negative Negative Urine Glucose Negative Negative Type & Screen 04/09/2018 [facility] Patient Blood Type O Positive [address] [place] [address] [phone] Antibody Screen NEGATIVE Laboratory test 04/09/2018 [facility] TSH (Thyroid 1.59 mcIU/mL N 0.34-5.60 finding 101 [facility] Stim Horm) [place] [address] [phone] Basic Metabolic 04/09/2018 [facility] Sodium 138 mmol/L N 135- 145 Panel [address] [place] [address] [phone] Potassium 4.6 mmol/L N 3.5-5.0 Chloride 104 mmol/L N 101-111 Co2 Carbon Dioxide 26 mmol/L N 22-32 Anion Gap 8 mmol/L N 2-11 Glucose 126 mg/dL High 70-100 Blood Urea Nitrogen 10 mg/dL N 6-24 Creatinine 0.59 mg/dL N 0.51-0.95 BUN/Creatinine Ratio 16.9 N 8-20 Calcium 9.4 mg/dL N 8.6-10.3 Egfr Non- 107.0 >60 Egfr 129.5 >60 2 Laboratory test 04/09/2018 [facility] Partial 34.5 N 26.0- 36.3 finding [address] [facility] [place] [address] PTT [phone] Inr/Protime 04/09/2018 [facility] Inr 0.85 N 0.77-1.02 [place] [address] [phone] CBC No Diff 04/09/2018 [facility] White Blood 12.6 High 3.5- 10.8 DRIVE Count 10^3/[place] [address] [phone] Red Blood Count 5.16 10^6/uL N 4.00-5.40 Hemoglobin 14.9 g/dL N 12.0-16.0 Hematocrit 44 % N 35-47 Mean Corpuscular Volume 86 fL N 80-97 Mean Corpuscular Hemoglobin 29 pg N 27-31 Mean Corpuscular HGB Conc 34 g/dL N 31-36 Red Cell Distribution Width 14 % N 10.5-15 Platelet Count 265 10^3/uL N 150-450 Mean Platelet Volume 9.4 um3 N 7.4-10.4 Urine Microalbumin 02/19/2018 [facility] Ur Microalbumin < 15.0 3 Random (mg/L) [place] [address] [phone] Urine Creatinine 15.83 mg/dL Urine Microalbumin/Creatinine TNP <31 4 Inr/Protime 12/18/2017 [facility] Inr 0.82 N 0.77-1.[address] [place] [address] [phone] Laboratory test 12/18/2017 [facility] Partial 34.2 seconds N 26.0-36.[address] [place] [address] PTT [phone] Urinalysis 12/18/2017 [facility] Urine Color [place] [address] [phone] Urine Appearance Clear Urine Specific [place] 1.003 Low 1.010-1.030 Urine pH 6.0 N 5-9 Urine Urobilinogen Negative Negative Urine Ketones Negative Negative Urine Protein Negative Negative Urine Leukocytes Negative Negative Urine Blood Negative Negative Urine Nitrite Negative Negative Urine Bilirubin Negative Negative Urine Glucose Negative Negative CBC No Diff 12/18/2017 [facility] White Blood 12.4 10^3/uL High 3.5-10.8 [place] [address] [phone] Red Blood Count 4.97 10^6/uL N 4.00-5.40 Hemoglobin 14.4 g/dL N 12.0-16.0 Hematocrit 43 % N 35-47 Mean Corpuscular Volume 86 fL N 80-97 Mean Corpuscular Hemoglobin 29 pg N 27-31 Mean Corpuscular HGB Conc 34 g/dL N 31-36 Red Cell Distribution Width 13 % N 10.5-15 Platelet Count 245 10^3/uL N 150-450 Mean Platelet Volume 9.5 um3 N 7.4-10.4 Type & Screen 12/18/2017 [facility] Patient Blood Type O Positive [address] [place] [address] [phone] Antibody Screen NEGATIVE Basic Metabolic Panel 12/18/2017 [facility] Sodium 138 mmol/L N 135-145 [place] [address] [phone] Potassium 4.5 mmol/L N 3.5-5.0 Chloride 103 mmol/L N 101-111 Co2 Carbon Dioxide 27 mmol/L N 22-32 Anion Gap 8 mmol/L N 2-11 Glucose 182 mg/dL High 70-100 Blood Urea Nitrogen 10 mg/dL N 6-24 Creatinine 0.57 mg/dL N 0.51-0.95 BUN/Creatinine Ratio 17.5 N 8-20 Calcium 9.2 mg/dL N 8.6-10.3 Egfr Non- 111.4 >60 Egfr 134.8 >60 7 Laboratory test 12/18/2017 [facility] TSH (Thyroid 2.53 N 0.34 -5.60 8 finding Stim Horm) mcIU/mL [place], [place] [id number] [phone] Urine Culture 12/18/2017 [facility] Urine Culture SEE 9 [place] [address] BELOW [phone] Laboratory test 12/18/2017 [facility] Hemoglobin A1c 6.7 % High 4.0-5.6 10 finding (Glyco HGB) [place], [place] [id number] [phone] Lipid Profile 12/04/2017 [facility] Triglycerides 214 mg/dL 11 (Trig/Chol/HDL) [place], [place] [id number] [phone] Cholesterol 220 mg/dL 12 HDL Cholesterol 35.6 mg/dL 13 LDL Cholesterol 142 mg/dL 14 Laboratory test 12/04/2017 [facility] Glucose 137 mg/dL High 70-100 finding [place], [place] [id number] [phone] CBC Auto Diff 12/04/2017 [facility] White Blood 11.7 High 3.5- 10.8 Count 10^3/[place] [address] [phone] Red Blood Count 5.22 10^6/uL N 4.0-5.4 Hemoglobin 15.0 g/dL N 12.0-16.0 Hematocrit 45 % N 35-47 Mean Corpuscular Volume 86 fL N 80-97 Mean Corpuscular Hemoglobin 29 pg N 27-31 Mean Corpuscular HGB Conc 33 g/dL N 31-36 Red Cell Distribution Width 13 % N 10.5-15 Platelet Count 290 10^3/uL N 150-450 Mean Platelet Volume 9.6 um3 N 7.4-10.4 Abs Neutrophils 6.7 10^3/uL N 1.5-7.7 Abs Lymphocytes 3.9 10^3/uL N 1.0-4.8 Abs Monocytes 0.6 10^3/uL N 0-0.8 Abs Eosinophils 0.4 10^3/uL N 0-0.6 Abs Basophils 0.1 10^3/uL N 0-0.2 Abs Nucleated RBC 0 10^3/uL Granulocyte % 57.5 % N 38-83 Lymphocyte % 33.3 % N 25-47 Monocyte % 5.4 % N 0-7 Eosinophil % 3.0 % N 0-6 Basophil % 0.8 % N 0-2 Nucleated Red Blood Cells % 0.1 Basic Metabolic 12/04/2017 [facility] Sodium 138 mmol/L Low 139-145 Panel [address] [place] [address] [phone] Potassium 4.4 mmol/L N 3.5-5.0 Chloride 103 mmol/L N 101-111 Co2 Carbon Dioxide 26 mmol/L N 22-32 Anion Gap 9 mmol/L N 2-11 Blood Urea Nitrogen 11 mg/dL N 6-24 Creatinine 0.58 mg/dL N 0.51-0.95 BUN/Creatinine Ratio 19.0 N 8-20 Calcium 9.0 mg/dL N 8.6-10.3 Egfr Non- 109.2 >60 Egfr 140.4 >60 15 Drug Abuse 20 05/28/2017 [facility] Urine Amphetamine Negative ng/mL 16 Urine [address] [place] [address] [phone] Urine Barbiturates Negative ng/mL 17 Urine Benzodiazepines Negative ng/mL 18 Urine Cocaine Negative ng/mL 19 Urine Phencyclidine Negative ng/mL Cutoff: 25 Urine Tetrahydrocannabinol Negative ng/mL Cutoff: 50 20 Creatinine, Urine 35.1 mg/dL Specific [place] 1.007 pH 6.3 Oxidants Negative 21 Adulterants Comment Normal Codeine, Ur Not Detected ng/mL Cutoff: 25 22 Rkbkgeh-5-admx-glucuronide, Ur Not Detected ng/mL 23 Morphine, Ur Present ng/mL Cutoff: 25 24 Dalwbmbh-5-qykr-glucuronide, U Present ng/mL 25 6-monoacetylmorphine, Ur Not Detected ng/mL Cutoff: 25 26 Hydrocodone, Ur Not Detected ng/mL Cutoff: 25 27 Norhydrocodone, Ur Not Detected ng/mL Cutoff: 25 28 Dihydrocodeine, Ur Not Detected ng/mL Cutoff: 25 29 Hydromorphone, Ur Not Detected ng/mL Cutoff: 25 30 Nsyvvomcltnlx4hcbuwpkypwtnhny Not Detected ng/mL 31 Oxycodone, Ur Not Detected ng/mL Cutoff: 25 32 Noroxycodone, Ur Not Detected ng/mL Cutoff: 25 33 Oxymorphone, Ur Not Detected ng/mL Cutoff: 25 34 Jyxgxuubuzm-1-rdkq-glucuronide Not Detected ng/mL 35 Noroxymorphone, Ur Not Detected ng/mL Cutoff: 25 36 Fentanyl, Ur Not Detected ng/mL Cutoff: 2 37 Norfentanyl, Ur Not Detected ng/mL Cutoff: 2 38 Meperidine, Ur Not Detected ng/mL Cutoff: 25 39 Normeperidine, Ur Not Detected ng/mL Cutoff: 25 40 Naloxone, Ur Not Detected ng/mL Cutoff: 25 41 Ekcunkvx-8-thgs-glucuronide, U Not Detected ng/mL 42 Methadone, Ur Not Detected ng/mL Cutoff: 25 43 Eddp, Ur Not Detected ng/mL Cutoff: 25 44 Propoxyphene, Ur Not Detected ng/mL Cutoff: 25 45 Norpropoxyphene, Ur Not Detected ng/mL Cutoff: 25 46 Tramadol, Ur Not Detected ng/mL Cutoff: 25 47 O-desmethyltramadol, Ur Not Detected ng/mL Cutoff: 25 48 Tapentadol, Ur Not Detected ng/mL Cutoff: 25 49 N-desmethyltapentadol, Ur Not Detected ng/mL Cutoff: 50 50 Djykauchzi-ptbx-mustvgytbjb, U Not Detected ng/mL 51 Buprenorphine, Ur Not Detected ng/mL Cutoff: 5 52 Norbuprenorphine, Ur Not Detected ng/mL Cutoff: 5 53 Norbuprenorphine glucuronide Not Detected ng/mL Cutoff: 20 54 Opioid Interpretation See Comment 55 Drug Abuse 20 01/23/2017 [facility] Urine Amphetamine Negative ng/mL N [address] [place] [address] [phone] Urine Barbiturates Negative ng/mL N 57 Urine Benzodiazepines Negative ng/mL N 58 Urine Cocaine Negative ng/mL N 59 Urine Phencyclidine Negative ng/mL N Cutoff: 25 Urine Tetrahydrocannabinol Negative ng/mL N Cutoff: 50 60 Creatinine, Urine 36.0 mg/dL N Specific [place] 1.007 N pH 5.7 N Oxidants Negative N 61 Adulterants Comment Normal N Codeine, Ur Not Detected ng/mL N Cutoff: 25 62 Zimxlyo-3-wvsu-glucuronide, Ur Not Detected ng/mL N 63 Morphine, Ur Not Detected ng/mL N Cutoff: 25 64 Vmmkarbf-6-vhby-glucuronide, U Not Detected ng/mL N 65 6-monoacetylmorphine, Ur Not Detected ng/mL N Cutoff: 25 66 Hydrocodone, Ur Not Detected ng/mL N Cutoff: 25 67 Norhydrocodone, Ur Not Detected ng/mL N Cutoff: 25 68 Dihydrocodeine, Ur Not Detected ng/mL N Cutoff: 25 69 Hydromorphone, Ur Not Detected ng/mL N Cutoff: 25 70 Eglglmaqqkbpo0ktmetewfwbihdvq Not Detected ng/mL N 71 Oxycodone, Ur Present ng/mL N Cutoff: 25 72 Noroxycodone, Ur Present ng/mL N Cutoff: 25 73 Oxymorphone, Ur Not Detected ng/mL N Cutoff: 25 74 Odhidiagozh-6-jekl-glucuronide Present ng/mL N 75 Noroxymorphone, Ur Present ng/mL N Cutoff: 25 76 Fentanyl, Ur Not Detected ng/mL N Cutoff: 2 77 Norfentanyl, Ur Not Detected ng/mL N Cutoff: 2 78 Meperidine, Ur Not Detected ng/mL N Cutoff: 25 79 Normeperidine, Ur Not Detected ng/mL N Cutoff: 25 80 Naloxone, Ur Not Detected ng/mL N Cutoff: 25 81 Hgsfisfw-8-sxpb-glucuronide, U Not Detected ng/mL N 82 Methadone, Ur Not Detected ng/mL N Cutoff: 25 83 Eddp, Ur Not Detected ng/mL N Cutoff: 25 84 Propoxyphene, Ur Not Detected ng/mL N Cutoff: 25 85 Norpropoxyphene, Ur Not Detected ng/mL N Cutoff: 25 86 Tramadol, Ur Not Detected ng/mL N Cutoff: 25 87 O-desmethyltramadol, Ur Not Detected ng/mL N Cutoff: 25 88 Tapentadol, Ur Not Detected ng/mL N Cutoff: 25 89 N-desmethyltapentadol, Ur Not Detected ng/mL N Cutoff: 50 90 Xxdoaxljhe-qlti-eyexauwwcas, U Not Detected ng/mL N 91 Buprenorphine, Ur Not Detected ng/mL N Cutoff: 5 92 Norbuprenorphine, Ur Not Detected ng/mL N Cutoff: 5 93 Norbuprenorphine glucuronide Not Detected ng/mL N Cutoff: 20 94 Opioid Interpretation See Comment N 95 CBC Auto 08/28/2016 [facility] White Blood 12.9 10^3/uL High 3.5-10.[address] [place] [address] [phone] Red Blood Count 5.23 10^6/uL N 4.0-5.4 Hemoglobin 14.7 g/dL N 12.0-16.0 Hematocrit 44 % N 35-47 Mean Corpuscular Volume 85 fL N 80-97 Mean Corpuscular Hemoglobin 28 pg N 27-31 Mean Corpuscular HGB Conc 33 g/dL N 31-36 Red Cell Distribution Width 13 % N 10.5-15 Platelet Count 236 10^3/uL N 150-450 Mean Platelet Volume 10 um3 N 7.4-10.4 Abs Neutrophils 7.4 10^3/uL N 1.5-7.7 Abs Lymphocytes 4.3 10^3/uL N 1.0-4.8 Abs Monocytes 0.6 10^3/uL N 0-0.8 Abs Eosinophils 0.4 10^3/uL N 0-0.6 Abs Basophils 0.1 10^3/uL N 0-0.2 Abs Nucleated RBC 0 10^3/uL N Granulocyte % 57.7 % N 38-83 Lymphocyte % 33.0 % N 25-47 Monocyte % 4.9 % N 1-9 Eosinophil % 3.3 % N 0-6 Basophil % 1.1 % N 0-2 Nucleated Red Blood Cells % 0 N FSH And LH 08/28/2016 [facility] FSH (Follicle Stim 26.2 mIU/mL N [address] Hormone) [place] [address] [phone] LH (Lutenizing Hormone) 4.1 ?IU/mL N 97 Lipid Profile 08/28/2016 [facility] Triglycerides 232 mg/dL N 98 (Trig/Chol/HDL) [address] [place] [address] [phone] Cholesterol 209 mg/dL N 99 HDL Cholesterol 32.9 mg/dL N 100 LDL Cholesterol 130 mg/dL N 101 Laboratory test 08/28/2016 [facility] TSH (Thyroid 1.50 N 0.34 -5.[address] Stim Horm) mcIU/[place] [address] [phone] C Reactive Protein 5.90 mg/L High < 5.00 103 Erythrocyte Sed Rate 12 mm/Hr N 0-30 104 Basic Metabolic Panel 08/28/2016 [facility] Sodium 134 mmol/L N 133-145 [address] [place] [address] [phone] Potassium 3.9 mmol/L N 3.5-5.0 Chloride 102 mmol/L N 101-111 Co2 Carbon Dioxide 24 mmol/L N 22-32 Anion Gap 8 mmol/L N 2-11 Glucose 112 mg/dL High 70-100 Blood Urea Nitrogen 12 mg/dL N 6-24 Creatinine 0.69 mg/dL N 0.51-0.95 BUN/Creatinine Ratio 17.4 N 8-20 Calcium 9.3 mg/dL N 8.6-10.3 Egfr Non- 89.7 N >60 Egfr 115.4 N >60 105 Drug Abuse 07/30/2016 [facility] Urine Amphetamine Negative ng/ mL N 106 20 Urine 101 [place] [address] [phone] Urine Barbiturates Negative ng/mL N 107 Urine Benzodiazepines Negative ng/mL N 108 Urine Cocaine Negative ng/mL N 109 Urine Phencyclidine Negative ng/mL N Cutoff: 25 Urine Tetrahydrocannabinol Negative ng/mL N Cutoff: 50 110 Creatinine 11.4 mg/dL N Specific [place] 1.001 N pH 7.1 N Oxidants Negative N 111 Adulterants Comment Normal N Codeine, Ur Not Detected ng/mL N Cutoff: 25 112 Lxzmxcd-6-oiaz-glucuronide, Ur Not Detected ng/mL N 113 Morphine, Ur Not Detected ng/mL N Cutoff: 25 114 Ndgkvmao-0-pfxb-glucuronide, U Not Detected ng/mL N 115 6-monoacetylmorphine, Ur Not Detected ng/mL N Cutoff: 25 116 Hydrocodone, Ur Not Detected ng/mL N Cutoff: 25 117 Norhydrocodone, Ur Not Detected ng/mL N Cutoff: 25 118 Dihydrocodeine, Ur Not Detected ng/mL N Cutoff: 25 119 Hydromorphone, Ur Not Detected ng/mL N Cutoff: 25 120 Zekwqmjupcewt5agerjwswwufmfiz Not Detected ng/mL N 121 Oxycodone, Ur Present ng/mL N Cutoff: 25 122 Noroxycodone, Ur Present ng/mL N Cutoff: 25 123 Oxymorphone, Ur Not Detected ng/mL N Cutoff: 25 124 Cdxmxhwyzcn-0-mvgq-glucuronide Present ng/mL N 125 Noroxymorphone, Ur Present ng/mL N Cutoff: 25 126 Fentanyl, Ur Not Detected ng/mL N Cutoff: 2 127 Norfentanyl, Ur Not Detected ng/mL N Cutoff: 2 128 Meperidine, Ur Not Detected ng/mL N Cutoff: 25 129 Normeperidine, Ur Not Detected ng/mL N Cutoff: 25 130 Naloxone, Ur Not Detected ng/mL N Cutoff: 25 131 Vquqbpsi-1-ngus-glucuronide, U Not Detected ng/mL N 132 Methadone, Ur Not Detected ng/mL N Cutoff: 25 133 Eddp, Ur Not Detected ng/mL N Cutoff: 25 134 Propoxyphene, Ur Not Detected ng/mL N Cutoff: 25 135 Norpropoxyphene, Ur Not Detected ng/mL N Cutoff: 25 136 Tramadol, Ur Not Detected ng/mL N Cutoff: 25 137 O-desmethyltramadol, Ur Not Detected ng/mL N Cutoff: 25 138 Tapentadol, Ur Not Detected ng/mL N Cutoff: 25 139 N-desmethyltapentadol, Ur Not Detected ng/mL N Cutoff: 50 140 Aybzisyshd-ptsq-jgwrjztvfmc, U Not Detected ng/mL N 141 Buprenorphine, Ur Not Detected ng/mL N Cutoff: 5 142 Norbuprenorphine, Ur Not Detected ng/mL N Cutoff: 5 143 Norbuprenorphine glucuronide Not Detected ng/mL N Cutoff: 20 144 Opioid Interpretation See Comment N 145 CBC Auto 12/18/2015 [facility] White Blood 11.6 10^3/uL High 3.5-10.[address] [place] [address] [phone] Red Blood Count 5.30 10^6/uL N 4.0-5.4 Hemoglobin 14.8 g/dL N 12.0-16.0 Hematocrit 45 % N 35-47 Mean Corpuscular Volume 84 fL N 80-97 Mean Corpuscular Hemoglobin 28 pg N 27-31 Mean Corpuscular HGB Conc 33 g/dL N 31-36 Red Cell Distribution Width 13 % N 10.5-15 Platelet Count 261 10^3/uL N 150-450 Mean Platelet Volume 9 um3 N 7.4-10.4 Abs Neutrophils 6.3 10^3/uL N 1.5-7.7 Abs Lymphocytes 4.4 10^3/uL N 1.0-4.8 Abs Monocytes 0.5 10^3/uL N 0-0.8 Abs Eosinophils 0.3 10^3/uL N 0-0.6 Abs Basophils 0 10^3/uL N 0-0.2 Abs Nucleated RBC 0 10^3/uL N Granulocyte % 54.4 % N 38-83 Lymphocyte % 37.8 % N 25-47 Monocyte % 4.6 % N 1-9 Eosinophil % 2.8 % N 0-6 Basophil % 0.4 % N 0-2 Nucleated Red Blood Cells % 0 N Basic Metabolic Panel 12/18/2015 [facility] Sodium 136 mmol/L N 133-[address] [place] [address] [phone] Potassium 4.3 mmol/L N 3.5-5.0 Chloride 103 mmol/L N 101-111 Co2 Carbon Dioxide 26 mmol/L N 22-32 Anion Gap 7 mmol/L N 2-11 Glucose 116 mg/dL High 70-100 Blood Urea Nitrogen 11 mg/dL N 6-24 Creatinine 0.72 mg/dL N 0.51-0.95 BUN/Creatinine Ratio 15.3 N 8-20 Calcium 9.3 mg/dL N 8.6-10.3 Egfr Non- 85.7 N >60 Egfr 110.3 N >60 146 Drug Abuse 07/06/2015 [facility] Urine Amphetamine Negative ng/ mL N 147 [address] [place] [address] [phone] Urine Barbiturates Negative ng/mL N 148 Urine Benzodiazepines Negative ng/mL N 149 Urine Cocaine Negative ng/mL N 150 Urine Methadone Negative ng/mL N 151 Urine Opiates Presumptive Posi <SEE NOTE> ng/mL N 152 Urine Phencyclidine Negative ng/mL N Cutoff: 25 Urine Tetrahydrocannabinol Negative ng/mL N Cutoff: 20 153 Urine Oxycodone Negative ng/mL N 154 Confirm 07/06/2015 [facility] Urine Codeine Negative ng/mL N [address] Confirmation (GC/MS) [place] [address] [phone] Urine Hydrocodone Confirm Negative ng/mL N 156 Urine Hydromorphone Confirm 234 ng/mL N 157 Urine Morphine Confirm >[id number] ng/mL N 158 Urine Oxymorphone Confirm Negative ng/mL N 159 Urine Oxycodone Confirm Negative ng/mL N 160 Urine Opiates Interpretation Positive. N 161 Laboratory test 03/23/2015 [facility] Hemoglobin A1c 6.0 5-7 finding Laboratory test 03/08/2015 [facility] Glucose 148 mg/dL High 70-100 162, [address] [place] [address] [phone] Lipid Profile 03/08/2015 [facility] Triglycerides 273 mg/dL N 164 (Trig/Chol/HDL) [address] [place] [address] [phone] Cholesterol 228 mg/dL N 165 HDL Cholesterol 39.2 mg/dL N 166 LDL Cholesterol 134 mg/dL N 167 Laboratory test 03/08/2015 [facility] Erythrocyte Sed 20 mm/Hr High 0-[address] [place] [address] [phone] C Reactive Protein 11.00 mg/L High < 5.00 168 Drug Abuse 01/04/2015 [facility] Urine Amphetamine Negative ng/ mL N [address] [place] [address] [phone] Urine Barbiturates Negative ng/mL N 170 Urine Benzodiazepines Negative ng/mL N 171 Urine Cocaine Negative ng/mL N 172 Urine Methadone Presumptive Posi <SEE NOTE> ng/mL N 173 Urine Opiates Presumptive Posi <SEE NOTE> ng/mL N 174 Urine Phencyclidine Negative ng/mL N Cutoff: 25 Urine Tetrahydrocannabinol Negative ng/mL N Cutoff: 20 175 Urine Oxycodone Negative ng/mL N 176 Methadone Confirm 01/04/2015 [facility] Urine Methadone 4220 ng/ mL N [address] [place] [address] [phone] Eddp By GC/MS 8202 ng/mL N 178 Urine Methadone Interpretation Positive. N 179 Confirm 01/04/2015 [facility] Urine Codeine Negative ng/mL N [address] Confirmation (GC/MS) [place] [address] [phone] Urine Hydrocodone Confirm Negative ng/mL N 181 Urine Hydromorphone Confirm 359 ng/mL N 182 Urine Morphine Confirm 02824 ng/mL N 183 Urine Oxymorphone Confirm Negative ng/mL N 184 Urine Oxycodone Confirm Negative ng/mL N 185 Urine Opiates Interpretation Positive. N 186 6Mamu 01/04/2015 [facility] 6Mam(6-Monoacetylmorphine) Negative N Cutoff: (6-Monoacetylmorphine) [address] ng/mL 5 [place] [address] [phone] 6Mam Interpretation Negative. N 187 CBC Auto 07/21/2014 [facility] White Blood 14.5 10^3/uL High 4.8-10.[address] [place] [address] [phone] Red Blood Count 5.53 10^6/uL High 4.0-5.4 Hemoglobin 15.6 g/dL N 12.0-16.0 Hematocrit 48 % High 35-47 Mean Corpuscular Volume 88 fL N 80-97 Mean Corpuscular Hemoglobin 28 pg N 27-31 Mean Corpuscular HGB Conc 32 g/dL N 31-36 Red Cell Distribution Width 14 % N 10.5-15 Platelet Count 293 10^3/uL N 150-450 Mean Platelet Volume 10 um3 N 7.4-10.4 Abs Neutrophils 9.5 10^3/uL High 1.5-7.7 Abs Lymphocytes 3.9 10^3/uL N 1.0-4.8 Abs Monocytes 0.7 10^3/uL N 0-0.8 Abs Eosinophils 0.4 10^3/uL N 0-0.6 Abs Basophils 0.1 10^3/uL N 0-0.2 Abs Nucleated RBC 0.01 10^3/uL N Granulocyte % 65.3 % N 38-83 Lymphocyte % 26.9 % N 25-47 Monocyte % 4.7 % N 1-9 Eosinophil % 2.4 % N 0-6 Basophil % 0.7 % N 0-2 Nucleated Red Blood Cells % 0 N Laboratory test 07/21/2014 [facility] Kasey (Anti-Nuclear Negative N Negative finding [address]) [place] [address] [phone] Rheumatoid Factor <15 IU/mL N <15 188 Cytoplasmic 07/21/2014 [facility] C-Anca Negative N Negative Neutrophilic AB [address] [place] [address] [phone] P-Anca Negative N Negative 189 Laboratory test 02/02/2014 [facility] Potassium 3.8 mmol/L N 3.7-5.6 finding [address] [place] [address] [phone] Magnesium 2.0 mg/dL N 1.9-2.7 Comp Metabolic Panel 02/18/2013 [facility] Sodium 139 mmol/L 133-[address] [place] [address] [phone] Potassium 3.9 mmol/L 3.5-5.0 Chloride 105 mmol/L 101-111 Co2 Carbon Dioxide 26.0 mmol/L 22-32 Anion Gap 8.0 mmol/L 2-11 Glucose 148 mg/dL High 70-100 Blood Urea Nitrogen 9 mg/dL 6-24 Creatinine 0.70 mg/dL 0.50-1.40 BUN/Creatinine Ratio 12.9 8-20 Calcium 9.2 mg/dL 8.1-9.9 Total Protein 6.8 g/dL 6.2-8.1 Albumin 3.8 g/dL 3.6-5.4 Globulin 3.0 g/dL 2-4 Albumin/Globulin Ratio 1.3 1-3 Total Bilirubin 0.5 mg/dL 0.4-1.5 Alkaline Phosphatase 94 U/L 30-110 Alt 18 U/L 14-54 Ast 15 U/L 12-42 Egfr Non- 89.7 >60 Egfr 115.4 >60 190 Laboratory test 02/18/2013 [facility] C Reactive 1.8 mg/dL High Less finding [address] Protein than 0.5 [place] [address] [phone] Jak2 Mutation 02/18/2013 [facility] Jak2 V617F See Comment 191 Analysis Blood [address] [place] [address] Detection [phone] Jak2 V617F Method See Comment 192 Jak2 V617F Reviewed By See Comment 193 Jak2 V617F Hpgde Dna Extract Performed Jak2 V617F Interpretation/Repo Performed 194 BCR/Abl Trans 9:22 02/18/2013 [facility] BCR/abl (Fish) Blood Fish [address] [place] [address] [phone] BCR/abl (Fish) Specimen Id [id number] BCR/abl (Fish) Order Date 20 Feb 2013 10:4 <SEE NOTE> 195 BCR/abl (Fish) Referral Reason leukocytosis BCR/abl (Fish) Method See Comment 196 BCR/abl Results See Comment 197 BCR/abl (Fish) Interpretation See Comment 198 BCR/abl (Fish) Meat Stock Clerk See Comment 199 BCR/abl (Fish) Report Date 24 Feb 2013 17:1 <SEE NOTE> 200 Leukemia/Lymphoma Flow 02/18/2013 [facility] LCMS See Comment [address] [place] [address] Description [phone] LCMS Special Studies See Comment 202 LCMS Final Diagnosis See Comment 203 Manual Differential 02/18/2013 [facility] Neutrophil % 53 % 38-[address] [place] [address] [phone] Lymphocytes % 38 % 25-47 Monocytes % 2 % 0-13 Eosinophils % 7 % High 0-6 RBC Morphology Normal Normal Laboratory test 02/18/2013 [facility] Erythrocyte Sed 36 mm/Hr High 0-14 [address] [place] [address] [phone] Oncology CBC 02/18/2013 [facility] White Blood 12.9 High 4.8- 10.[address] Count 10^3/uL [place], [place] [address] [phone] Red Blood Count 5.18 10^6/uL 4.0-5.4 Hemoglobin 14.5 g/dL 12.0-16.0 Hematocrit 46 % 35-47 Mean Corpuscular Volume 89 fL 80-97 Mean Corpuscular Hemoglobin 28 pg 27-31 Mean Corpuscular HGB Conc 31 g/dL 31-36 Red Cell Distribution Width 12 % 10.5-15 Platelet Count 284 10^3/uL 150-450 Mean Platelet Volume 9 um3 7.4-10.4 Abs Neutrophils 7.0 10^3/uL 1.5-7.7 Abs Lymphocytes 4.0 10^3/uL 1.0-4.8 Abs Monocytes 0.6 10^3/uL 0-0.8 Abs Eosinophils 0.4 10^3/uL 0-0.6 Abs Basophils 0.9 10^3/uL High 0-0.2 CBC With 01/28/2013 [facility] White Blood 15.3 10^3/uL High 4.8-10.8 Manual Diff [address] [place] [address] [phone] Red Blood Count 5.41 10^6/uL High 4.0-5.4 Hemoglobin 15.6 g/dL 12.0-16.0 Hematocrit 48 % High 35-47 Mean Corpuscular Volume 90 fL 80-97 Mean Corpuscular Hemoglobin 29 pg 27-31 Mean Corpuscular HGB Conc 32 g/dL 31-36 Red Cell Distribution Width 13 % 10.5-15 Platelet Count 310 10^3/uL 150-450 Mean Platelet Volume 10 um3 7.4-10.4 Abs Neutrophils 8.9 10^3/uL High 1.5-7.7 Abs Lymphocytes 5.1 10^3/uL High 1.0-4.8 Abs Monocytes 0.7 10^3/uL 0-0.8 Abs Eosinophils 0.4 10^3/uL 0-0.6 Abs Basophils 0.2 10^3/uL 0-0.2 Abs Nucleated RBC 0.01 10^3/uL Neutrophil % 58 % 38-83 Lymphocytes % 37 % 25-47 Monocytes % 3 % 0-13 Eosinophils % 2 % 0-6 RBC Morphology Normal Normal Basic Metabolic Panel 01/28/2013 [facility] Sodium 134 mmol/L 133-[address] [place] [address] [phone] Potassium 3.8 mmol/L 3.5-5.0 Chloride 98 mmol/L Low 101-111 Co2 Carbon Dioxide 27.0 mmol/L 22-32 Anion Gap 9.0 mmol/L 2-11 Glucose 113 mg/dL High 70-100 Blood Urea Nitrogen 13 mg/dL 6-24 Creatinine 0.90 mg/dL 0.50-1.40 BUN/Creatinine Ratio 14.4 8-20 Calcium 9.4 mg/dL 8.1-9.9 Egfr Non- 67.1 >60 Egfr 86.3 >60 205 Cortisol Free 01/28/2013 [facility] Urine Free 14 mcg/24h 3.5 -45 24HR Urine [address] [facility] [place] [address] [phone] Urine Collection Duration 24 h Urine Total Volume 6150 mL 206 Urinalysis 05/25/2012 [facility] Urine Color Yellow [address] [place] [address] [phone] Urine Appearance Clear Urine Specific [place] 1.007 Low 1.010-1.030 Urine Esterase Negative Negative Urine Nitrate Negative Negative Urine Urobilinogen Negative Negative Urine Protein Negative Negative Urine pH 6.5 5-9 Urine Blood Negative Negative Urine Ketones Negative Negative Urine Bilirubin Negative Negative Urine Glucose Negative Negative Comp Metabolic Panel 05/25/2012 [facility] Sodium 134 mmol/L 133-145 [address] [place] [address] [phone] Potassium 3.6 mmol/L 3.5-5.0 Chloride 103 mmol/L 101-111 Co2 Carbon Dioxide 23.0 mmol/L 22-32 Anion Gap 8.0 mmol/L 2-11 Glucose 103 mg/dL High 70-100 Blood Urea Nitrogen 12 mg/dL 6-24 Creatinine 0.60 mg/dL 0.50-1.40 BUN/Creatinine Ratio 20.0 8-20 Calcium 8.3 mg/dL 8.1-9.9 Total Protein 6.1 GM/DL Low 6.2-8.1 Albumin 3.5 GM/DL Low 3.6-5.4 Globulin 2.6 GM/DL 2-4 Albumin/Globulin Ratio 1.3 1-3 Total Bilirubin 0.4 mg/dL 0.1-1.0 207 Alkaline Phosphatase 88 U/L 30-110 Alt 16 U/L 14-54 Ast 12 U/L 12-42 Egfr Non- 107.6 >60 Egfr 138.4 >60 208 Laboratory test 05/25/2012 [facility] C Reactive 1.4 mg/dL High Less Than finding [address] Protein 0.5 [place] [address] [phone] CBC Auto Diff 05/25/2012 [facility] White Blood 16.6 High 4.8- 10.[address] Count 10^3/[place] [address] [phone] Red Blood Count 4.92 10^6/uL 4.0-5.4 Hemoglobin 13.8 g/dL 12.0-16.0 Hematocrit 44 % 35-47 Mean Corpuscular Volume 90 fL 80-97 Mean Corpuscular Hemoglobin 28 pg 27-31 Mean Corpuscular HGB Conc 31 g/dL 31-36 Red Cell Distribution Width 13 % 10.5-15 Platelet Count 156 10^3/uL 150-450 Mean Platelet Volume 10 um3 7.4-10.4 Abs Neutrophils 12.0 10^3/uL High 1.5-7.7 Abs Lymphocytes 3.4 10^3/uL 1.0-4.8 Abs Monocytes 0.7 10^3/uL 0-0.8 Abs Eosinophils 0.4 10^3/uL 0-0.6 Abs Basophils 0.1 10^3/uL 0-0.2 Abs Nucleated RBC 0.01 10^3/uL Manual Differential 05/25/2012 [facility] Neutrophil % 75.0 % 38-[address] [place] [address] [phone] Band % 0 % 0-8 Lymphocytes % 17.0 % Low 25-47 Monocytes % 2.0 % 0-13 Eosinophils % 0 % 0-6 Basophil % 0 % 0-2 Reactive Lymph % 6.0 % 0-6 Metamyelocytes % 0 % 0-2 Myelocytes % 0 % 0-1 Promyelocytes % 0 % Blast % 0 % RBC Morphology Normal Normal Laboratory test 03/14/2011 [facility] Clotest NEGATIVE finding [address] [place] [address] [phone] Laboratory test 03/08/2011 [facility] Hemoglobin A1c 5.8 5-7 finding Laboratory test 08/27/2010 [facility] C Reactive 1.4 mg/dL High Less finding [address] Protein Than 0.5 [place] [address] [phone] Erythrocyte Sed Rate 24 MM/HR High 0-15 CBC With 08/27/2010 [facility] White Blood 7.9 CUMM 4.8-10.8 Electronic Diff [address] [place] [address] [phone] Red Cell Count 5.15 CUMM 4.2-5.4 Hemoglobin 15.1 g/dL 12.0-16.0 Hematocrit 46 % 35-47 Mean Corpuscular Volume 89 um3 79-97 Mean Corpuscular Hemoglob 30 pg 27-31 Mean Corpuscular HGB Cone 33 g/dL 32-36 Redcell Distribution WDTH 13 % 10.5-15 Platelet Count 236 CUMM 150-450 Mean Platelet Volume 11.1 um3 High 7.4-10.4 Gran % 47.8 % 38-83 Lymph % 42.4 % 25-47 Mononuclear % 6.8 % 1-9 Eosinophil % 2.8 % 0-6 Basophil % 0.2 % 0-2 Abs Lymphs 3.4 1.0-4.8 Abs Mononuclear 0.5 0-0.8 Absolute Neutrophil Count 3.8 1.5-7.7 Abs Eosinophils 0.2 0-0.6 Abs Basophils 0 0-0.2 Laboratory 07/31/2010 [facility] Flow (SEE 209 test finding [address] Leukemia/Lymphoma NOTE) [place] [address] Panel [phone] CBC With 07/31/2010 [facility] White Blood Count 12.7 CUMM High 4.8 Manual Diff [address] -10 [place] [address] .8 [phone] Red Cell Count 5.10 CUMM 4.2-5.4 Hemoglobin 15.0 g/dL 12.0-16.0 Hematocrit 45 % 35-47 Mean Corpuscular Volume 88 um3 79-97 Mean Corpuscular Hemoglob 29 pg 27-31 Mean Corpuscular HGB Cone 33 g/dL 32-36 Redcell Distribution WDTH 13 % 10.5-15 Platelet Count 239 CUMM 150-450 Mean Platelet Volume 10.1 um3 7.4-10.4 Polysegmented Neutrophil 72 % 38-83 Lymphocyte 23 % Low 25-47 Monocyte 2 % 0-13 Eosinophil 1 % 0-6 Atypical Lymph 2 % 0-6 Absolute Neutrophil Count 9.1 RBC Morphology NORMAL Laboratory test 07/31/2010 [facility] Flow Leukemia/Lymphoma ( SEE NOTE) [address] [place] [address] [phone] FSH And LH 07/12/2010 [facility] FSH 4.[address] MIU/[place] [address] [phone] Lutenizing Hormone 0.63 MIU/ML 212 CBC With 07/12/2010 [facility] White Blood 11.0 CUMM High 4.8- 10.8 Electronic Diff [address] [place] [address] [phone] Red Cell Count 5.23 CUMM 4.2-5.4 Hemoglobin 15.8 g/dL 12.0-16.0 Hematocrit 47 % 35-47 Mean Corpuscular Volume 89 um3 79-97 Mean Corpuscular Hemoglob 30 pg 27-31 Mean Corpuscular HGB Cone 34 g/dL 32-36 Redcell Distribution WDTH 13 % 10.5-15 Platelet Count 269 CUMM 150-450 Mean Platelet Volume 9.7 um3 7.4-10.4 Gran % 61.9 % 38-83 Lymph % 30.9 % 25-47 Mononuclear % 4.6 % 1-9 Eosinophil % 1.8 % 0-6 Basophil % 0.8 % 0-2 Abs Lymphs 3.4 1.0-4.8 Abs Mononuclear 0.5 0-0.8 Absolute Neutrophil Count 6.8 1.5-7.7 Abs Eosinophils 0.2 0-0.6 Abs Basophils 0.1 0-0.2 CBC With 05/14/2010 [facility] White Blood 12.7 CUMM High 4.8- 10.8 Electronic Diff [address] [place] [address] [phone] Red Cell Count 5.16 CUMM 4.2-5.4 Hemoglobin 15.1 g/dL 12.0-16.0 Hematocrit 46 % 35-47 Mean Corpuscular Volume 89 um3 79-97 Mean Corpuscular Hemoglob 29 pg 27-31 Mean Corpuscular HGB Cone 33 g/dL 32-36 Redcell Distribution WDTH 13 % 10.5-15 Platelet Count 271 CUMM 150-450 Mean Platelet Volume 8.4 um3 7.4-10.4 Gran % 63.5 % 38-83 Lymph % 30.7 % 25-47 Mononuclear % 3.3 % 1-9 Eosinophil % 1.7 % 0-6 Basophil % 0.8 % 0-2 Abs Lymphs 3.9 1.0-4.8 Abs Mononuclear 0.4 0-0.8 Absolute Neutrophil Count 8.1 High 1.5-7.7 Abs Eosinophils 0.2 0-0.6 Abs Basophils 0.1 0-0.2 Lipid Profile 05/14/2010 [facility] Triglyceride 189 mg/dL 40 -200 (Trig/Chol/HDL) [address] [place] [address] [phone] Cholesterol 218 mg/dL High Less Than 200 213 High Density Lipoprotein 44 mg/dL 40-60 214 Cholesterol/HDL Ratio 4.95 AVERAGE High 1-4.44 Low Density Lipoprotein 136 mg/dL High Less Than 100 215 Laboratory test 05/14/2010 [facility] TSH 1.64 MIU/ML 0.34- 5.60 finding [address] [place] [address] [phone] Comp Metabolic 05/14/2010 [facility] Sodium 139 mmol/L 135- 145 Panel [address] [place] [address] [phone] Potassium 3.5 mmol/L 3.5-5.0 Chloride 101 mmol/L 101-111 Co2 (Carbon Dioxide) 27.0 mmol/L 22-32 Anion Gap 11.0 mmol/L 2-11 216 Glucose 166 mg/dL High 70-100 217 BUN 6 mg/dL 6-24 Creatinine 0.80 mg/dL 0.50-1.40 One Over Creatinine 1.20 BUN/Creatinine Ratio 7.5 Low 8-20 Calcium 9.0 mg/dL 8.1-9.9 Total Protein 7.2 GM/DL 6.2-8.1 Albumin 4.2 GM/DL 3.6-5.4 Globulin 3.0 GM/DL 2-4 Albumin/Globulin Ratio 1.4 1-3 Bilirubin Total 0.6 mg/dL 0.4-1.5 218 Alkaline Phosphatase 104 U/L 30-110 Alt (SGPT) 18 U/L 14-54 Ast (Sgot) 18 U/L 12-42 eGFR Non- 82.8 > 60 eGFR 100.2 > 60 219 Basic Metabolic Panel 09/28/2009 [facility] Sodium 137 mmol/L 135-[address] [place] [address] [phone] Potassium 3.8 mmol/L 3.5-5.0 Chloride 103 mmol/L 101-111 Co2 (Carbon Dioxide) 26.0 mmol/L 22-32 Anion Gap 8.0 mmol/L 2-11 220 Glucose 85 mg/dL 70-100 221 BUN 8 mg/dL 6-24 Creatinine 0.70 mg/dL 0.50-1.40 One Over Creatinine 1.40 BUN/Creatinine Ratio 11.4 8-20 Calcium 9.3 mg/dL 8.1-9.9 222 eGFR Non- 96.6 > 60 eGFR 116.9 > 60 223 CBC With Manual 09/28/2009 [facility] White Blood 10.4 CUMM 4.8-10.[address] [place] [address] [phone] Red Cell Count 5.09 CUMM 4.2-5.4 Hemoglobin 15.4 g/dL 12.0-16.0 Hematocrit 45 % 35-47 Mean Corpuscular Volume 89 um3 79-97 Mean Corpuscular Hemoglob 30 pg 27-31 Mean Corpuscular HGB Cone 34 g/dL 32-36 Redcell Distribution WDTH 13 % 10.5-15 Platelet Count 288 CUMM 150-450 Mean Platelet Volume 9.2 um3 7.4-10.4 Polysegmented Neutrophil 55 % 38-83 Lymphocyte 37 % 25-47 Monocyte 4 % 0-13 Eosenophil 3 % 0-6 Atypical Lymph 1 % 0-6 Absolute Neutrophil Count 5.7 RBC Morphology NORMAL Liver Function 09/28/2009 [facility] Total Protein 6.8 GM/DL 6.2-8.[address] [place] [address] [phone] Albumin 4.1 GM/DL 3.6-5.4 Globulin 2.7 GM/DL 2-4 Albumin/Globulin Ratio 1.5 1-3 Bilirubin Total 0.5 mg/dL 0.4-1.5 224 Bilirubin Direct 0.1 mg/dL 0.1-0.5 Indirect Bilirubin 0.4 mg/dL 0.1-0.75 Alkaline Phosphatase 90 U/L 30-110 Alt (SGPT) 16 U/L 14-54 Ast (Sgot) 15 U/L 12-42 Lipid Profile 09/28/2009 [facility] Triglyceride 281 mg/dL High 40-200 (Trig/Chol/HDL) [address] [place] [address] [phone] Cholesterol 242 mg/dL High Less Than 200 225 High Density Lipoprotein 33 mg/dL Low 40-60 226 Cholesterol/HDL Ratio 7.33 AVERAGE High 1-4.44 Low Density Lipoprotein 153 mg/dL High Less Than 100 227 Urinalysis W/Microscopic 09/28/2009 [facility] Ua Color YELLOW Yellow [address] [place] [address] [phone] Appearance-Urine CLEAR Clear Specific [place]-Ur 1.022 1.010-1.030 Esterase-Urine TRACE Abnormal Negative Nitrite NEGATIVE Negative [id number]-Cb-HZI NEGATIVE Negative Protein-Urine TRACE Abnormal Negative PH-Urine 7.0 5-9 Blood-Urine NEGATIVE Negative Ketones-Urine TRACE Abnormal Negative Bilirubin-Ur NEGATIVE Negative Glucose-Urine NEGATIVE Negative WBC-Urine 5-10 Abnormal 0-5 RBC-Urine 0-2 0-2 Epith Cells-Ur MANY None Bacteria-Urine TRACE None Laboratory test 01/06/2008 [facility] Vitamin B12 428 pg/mL 180-914 finding [address] [place] [address] [phone] Thyroxine Free 0.82 NG/ML 0.61-1.24 228 TSH 1.19 MIU/ML 0.34-5.60 Rheumatoid Factor < 20.0 IU/mL Less Than 20 C Reactive Protein 1.6 mg/dL High Less Than 0.5 Hemoglobin A1c 6.0 % <6.0 229 Erythrocyte Sed Rate 18 MM/HR High 0-15 Kasey (Antinuclear Antibodies) NEGATIVE Negative Anti Dna (Double Stranded Dna) NEGATIVE Negative RPR NON REACTIVE Nonreactive Methylmalonic Acid 0.13 umol/L <=0.40 230 Heavy Metals Screen 01/06/2008 [facility] Arsenic <0.05 ug/mL <0.07 [address] [place] [address] [phone] Lead 3 g/dL () 231 Mercury 2 ng/mL () 232 Cadmium 4.0 ng/mL <[address] [facility] [address] [facility] () [facility] () [facility] () [place] [address] () [facility] () Guardian First Name SHAHIDA () Guardian Last Name DOMINGUEZ () () Venous/Capillary VENOUS () Race WHITE () 234 Protein 01/06/2008 [facility] Albumin 4.02 GM/DL 3.0-4.35 Electrophoresis Serum [address] [place] [address] [phone] Alpha 1 0.18 GM/DL 0.09-0.33 Alpha 2 0.89 GM/DL 0.59-1.18 Beta 1.10 GM/DL High 0.68-1.02 Gamma 1.11 GM/DL 0.76-1.60 Albumin % 55.1 % 46-63 Alpha 1 % 2.5 % 1.2-5.3 Alpha 2 % 12.2 % 9-17 Beta % 15.1 % 10-16 Gamma % 15.2 % 12-22 A/G Ratio 1.2 0.9-2 Total Protein 7.3 GM/DL 6.2-8.1 Spep Comments (SEE NOTE) 235 1 SEE RESULT BELOW Name: EARLJAD AYALASHAHIDA A : [address]: Allyson Garner MD Acct: [id number] Unit: [id number] AGE: 52 Location: PAT Re04/09/18 SEX: F Status: REG REF SPEC: [id number] KVNG: 04/09/[address]: Allyson Garner MD REQ: [id number] RECD: 04/09/18 STATUS: MICHA[facility] DR: Serafin [place] MD _ SOURCE: URINE SPDESC: ORDERED: Urine Culture Procedure Result Reported Site Urine Culture Final 04/10/18 08 ML No Growth (<1,000 CFU/mL) * ML - Main Lab . END OF REPORT DEPARTMENT OF PATHOLOGY, [address] [place] [address] Darin Stuart M.D. Director [facility] # [id number] 2 Because ethnic data is not always readily available, this report includes an eGFR for both -Americans and non- Americans. The National Kidney Disease Education Program (NKDEP) does not endorse the use of the MDRD equation for patients that are not between the ages of 18 and 70, are , have extremes of body size, muscle mass, or nutritional status, or are non- or non-. According to the National Kidney Foundation, irrespective of diagnosis, the stage of the disease is based on the level of kidney function: Stage Description GFR(mL/min/1.73 m(2)) 1 Kidney damage with normal or decreased GFR 90 2 Kidney damage with mild decrease in GFR 60-89 3 Moderate decrease in GFR 30-59 4 Severe decrease in GFR 15-29 5 Kidney failure <15 (or dialysis) 3 [id number] 4 Unable to calculate due to low microalbumin 5 01/08 6 01/08 7 Because ethnic data is not always readily available, this report includes an eGFR for both -Americans and non- Americans. The National Kidney Disease Education Program (NKDEP) does not endorse the use of the MDRD equation for patients that are not between the ages of 18 and 70, are , have extremes of body size, muscle mass, or nutritional status, or are non- or non-. According to the National Kidney Foundation, irrespective of diagnosis, the stage of the disease is based on the level of kidney function: Stage Description GFR(mL/min/1.73 m(2)) 1 Kidney damage with normal or decreased GFR 90 2 Kidney damage with mild decrease in GFR 60-89 3 Moderate decrease in GFR 30-59 4 Severe decrease in GFR 15-29 5 Kidney failure <15 (or dialysis) 8 01/08 9 SEE RESULT BELOW Name: SHAHIDA BOTELLO : [address]: Allyson Garner MD Acct: [id number] Unit: [id number] AGE: 52 Location: [facility] Re12/18/17 SEX: F Status: REG REF SPEC: [id number] KVNG: 12/18/17-[address] [facility] [address]: Allyson Garner MD REQ: [id number] RECD: 12/18/17 STATUS: COMP _ SOURCE: URINE SPDESC: ORDERED: Urine Culture COMMENTS: JENI 01/08 QUERIES: Urine Source: Clean Catch Procedure Result Reported Site Urine Culture Final 12/19/17- 0804 ML No Growth (<1,000 CFU/mL) * ML - Main Lab . END OF REPORT DEPARTMENT OF PATHOLOGY, [address] [place] [id number] Darin Stuart M.D. Director [facility] # [id number] 10 Therapeutic target for the treatment of diabetes mellitus patients is <7% HBA1C, and in selective patients <6.0%. Please refer to [place] [employer] diabetic care guidelines for further information. 11 Desirable: <150 Borderline High: 150-199 High: 200-499 Very High: >500 12 Desirable: <200 Borderline High: 200-239 High: >239 13 Low: <40 Desirable: 40-60 High: >60 14 Desirable: <100 Near Optimal: 100-129 Borderline High: 130-159 High: 160-189 Very High: >189 15 Because ethnic data is not always readily available, this report includes an eGFR for both -Americans and non- Americans. The National Kidney Disease Education Program (NKDEP) does not endorse the use of the MDRD equation for patients that are not between the ages of 18 and 70, are , have extremes of body size, muscle mass, or nutritional status, or are non- or non-. According to the National Kidney Foundation, irrespective of diagnosis, the stage of the disease is based on the level of kidney function: Stage Description GFR(mL/min/1.73 m(2)) 1 Kidney damage with normal or decreased GFR 90 2 Kidney damage with mild decrease in GFR 60-89 3 Moderate decrease in GFR 30-59 4 Severe decrease in GFR 15-29 5 Kidney failure <15 (or dialysis) 16 REFERENCE VALUE Cutoff: 500 17 REFERENCE VALUE Cutoff: 200 18 REFERENCE VALUE Cutoff: 100 19 REFERENCE VALUE Cutoff: 150 20 ADDITIONAL INFORMATION This report is intended for use in clinical monitoring or management of patients. It is not intended for use in employment-related testing. 21 REFERENCE VALUE Cutoff: 200 mg/L 22 Tylenol 3 23 Metabolite of codeine REFERENCE VALUE Cutoff: 100 24 Dee Mosqueda MS Contin; Also a minor metabolite (10%) of codeine and can be seen in low concentrations (<2,000 ng/mL) with poppy seed ingestion. 25 Metabolite of morphine REFERENCE VALUE Cutoff: 100 26 Metabolite of heroin 27 Lortab, [place], Vicodin; Also a very minor metabolite of codeine and impurity (<1%) of oxycodone. 28 Metabolite of hydrocodone 29 Metabolite of hydrocodone 30 Dilaudid, Exalgo; Also a metabolite of hydrocodone and a minor (<5%) metabolite of morphine. 31 Metabolite of hydromorphone REFERENCE VALUE Cutoff: 100 32 Endocet, Percocet, Oxycontin 33 Metabolite of oxycodone 34 Numorphan, Opana; Also a metabolite of oxycodone. 35 Metabolite of oxymorphone REFERENCE VALUE Cutoff: 100 36 Metabolite of oxymorphone 37 Actiq, Duragesic, [place] 38 Metabolite of fentanyl 39 Demerol 40 Metabolite of meperidine 41 Narcan 42 Metabolite of naloxone REFERENCE VALUE Cutoff: 100 43 Dolophine 44 Metabolite of methadone 45 Darvon, Darvocet 46 Metabolite of propoxyphene 47 Tradol, Ultram, Ultracet 48 Metabolite of tramadol 49 Nucynta 50 Metabolite of tapentadol 51 Metabolite of tapentadol REFERENCE VALUE Cutoff: 100 52 Buprenex, Suboxone 53 Metabolite of buprenorphine 54 Metabolite of buprenorphine 55 Test detected the presence of both morphine and its metabolite ([id number]). Suspect use of morphine within the past three days. Alternatively, these results could also be suggestive of heroin use. Low levels of morphine can also be seen following poppy seed ingestion. ADDITIONAL INFORMATION This test was developed and its performance characteristics determined by [facility] in a manner consistent with CLIA requirements. This test has not been cleared or approved by the U.S. Food and Drug Administration. Test Performed by: [facility] - [facility] [address] [place] [address] 56 REFERENCE VALUE Cutoff: 500 57 REFERENCE VALUE Cutoff: 200 58 REFERENCE VALUE Cutoff: 100 59 REFERENCE VALUE Cutoff: 150 60 ADDITIONAL INFORMATION This report is intended for use in clinical monitoring or management of patients. It is not intended for use in employment-related testing. 61 REFERENCE VALUE Cutoff: 200 mg/L 62 Tylenol 3 63 Metabolite of codeine REFERENCE VALUE Cutoff: 100 64 Dee Mosqueda, Contin; Also a minor metabolite (10%) of codeine and can be seen in low concentrations (<2,000 ng/mL) with poppy seed ingestion. 65 Metabolite of morphine REFERENCE VALUE Cutoff: 100 66 Metabolite of heroin 67 Lortab, [place], Vicodin; Also a very minor metabolite of codeine and impurity (<1%) of oxycodone. 68 Metabolite of hydrocodone 69 Metabolite of hydrocodone 70 Dilaudid, Exalgo; Also a metabolite of hydrocodone and a minor (<5%) metabolite of morphine. 71 Metabolite of hydromorphone REFERENCE VALUE Cutoff: 100 72 Endocet, Percocet, Oxycontin 73 Metabolite of oxycodone 74 Numorphan, Opana; Also a metabolite of oxycodone. 75 Metabolite of oxymorphone REFERENCE VALUE Cutoff: 100 76 Metabolite of oxymorphone 77 Actiq, Duragesic, Fentora 78 Metabolite of fentanyl 79 Demerol 80 Metabolite of meperidine 81 Narcan 82 Metabolite of naloxone REFERENCE VALUE Cutoff: 100 83 Dolophine 84 Metabolite of methadone 85 Darvon, Darvocet 86 Metabolite of propoxyphene 87 Tradol, Ultram, Ultracet 88 Metabolite of tramadol 89 Nucynta 90 Metabolite of tapentadol 91 Metabolite of tapentadol REFERENCE VALUE Cutoff: 100 92 Buprenex, Suboxone 93 Metabolite of buprenorphine 94 Metabolite of buprenorphine 95 Test detected the presence of oxycodone and several metabolites (noroxycodone, noroxymorphone, and xkaxrqoqezc-5-pqen-glucuronide). Suspect use of oxycodone or possibly oxycodone and oxymorphone within the past three days. ADDITIONAL INFORMATION This test was developed and its performance characteristics determined by [facility] in a manner consistent with CLIA requirements. This test has not been cleared or approved by the U.S. Food and Drug Administration. Test Performed by: [facility] - [address] [address] 96 Normally menstruating females - Follicular phase 3 - 9 - Mid-cycle peak 4 - 23 - Luteal phase 1 - 6 Postmenopausal females 16 - 114 97 Normally menstruating females - Follicular Phase 1 - 18 - Mid-Cycle Peak 24 - 105 - Luteal Phase 0.6 - 20 Postmenopausal females 15 - 62 98 Desirable <150 Borderline high 150-199 High 200-499 Very High >500 99 Desirable <200 Borderline high 200-239 High >239 10 Low <40 0 Desirable: 40-60 High: >60 10 Desirable: <100 mg/dL 1 Near Optimal: 100-129 mg/dL Borderline High: 130-159 mg/dL High: 160-189 mg/dL Very High: >189 mg/dL 10 FASTING 10 HOUR 2 10 Acute inflammation: >10.00 3 10 FASTING 10 HOUR 4 10 Because ethnic data is not always readily available, 5 this report includes an eGFR for both -Americans and non- Americans. The National Kidney Disease Education Program (NKDEP) does not endorse the use of the MDRD equation for patients that are not between the ages of 18 and 70, are , have extremes of body size, muscle mass, or nutritional status, or are non- or non-. According to the National Kidney Foundation, irrespective of diagnosis, the stage of the disease is based on the level of kidney function: Stage Description GFR(mL/min/1.73 m(2)) 1 Kidney damage with normal or decreased GFR 90 2 Kidney damage with mild decrease in GFR 60-89 3 Moderate decrease in GFR 30-59 4 Severe decrease in GFR 15-29 5 Kidney failure <15 (or dialysis) 10 REFERENCE VALUE 6 Cutoff: 500 10 REFERENCE VALUE 7 Cutoff: 200 10 REFERENCE VALUE 8 Cutoff: 100 10 REFERENCE VALUE 9 Cutoff: 150 11 ADDITIONAL INFORMATION 0 This report is intended for use in clinical monitoring or management of patients. It is not intended for use in employment-related testing. 11 REFERENCE VALUE 1 Cutoff: 200 mg/L 11 Tylenol 3 2 11 Metabolite of codeine 3 REFERENCE VALUE Cutoff: 100 11 Dee Mosqueda, [place] Contin; Also a minor metabolite (10%) of 4 codeine and can be seen in low concentrations (<2,000 ng/mL) with poppy seed ingestion. 11 Metabolite of morphine 5 REFERENCE VALUE Cutoff: 100 11 Metabolite of heroin 6 11 Lortab, [place], Vicodin; Also a very minor metabolite of 7 codeine and impurity (<1%) of oxycodone. 11 Metabolite of hydrocodone 8 11 Metabolite of hydrocodone 9 12 Dilaudid, Exalgo; Also a metabolite of hydrocodone and a 0 minor (<5%) metabolite of morphine. 12 Metabolite of hydromorphone 1 REFERENCE VALUE Cutoff: 100 12 Endocet, Percocet, Oxycontin 2 12 Metabolite of oxycodone 3 12 Numorphan, Opana; Also a metabolite of oxycodone. 4 12 Metabolite of oxymorphone 5 REFERENCE VALUE Cutoff: 100 12 Metabolite of oxymorphone 6 12 Actiq, Duragesic, Fentora 7 12 Metabolite of fentanyl 8 12 Demerol 9 13 Metabolite of meperidine 0 13 Narcan 1 13 Metabolite of naloxone 2 REFERENCE VALUE Cutoff: 100 13 Dolophine 3 13 Metabolite of methadone 4 13 Darvon, Darvocet 5 13 Metabolite of propoxyphene 6 13 Tradol, Ultram, Ultracet 7 13 Metabolite of tramadol 8 13 Nucynta 9 14 Metabolite of tapentadol 0 14 Metabolite of tapentadol 1 REFERENCE VALUE Cutoff: 100 14 Buprenex, Suboxone 2 14 Metabolite of buprenorphine 3 14 Metabolite of buprenorphine 4 14 Test detected the presence of oxycodone and several 5 metabolites (noroxycodone, noroxymorphone, and wbvfwlaqqsv-2-amhf-glucuronide). Suspect use of oxycodone or possibly oxycodone and oxymorphone within the past three days. ADDITIONAL INFORMATION This test was developed and its performance characteristics determined by [facility] in a manner consistent with CLIA requirements. This test has not been cleared or approved by the U.S. Food and Drug Administration. Test Performed by: [facility] - [address] [address] Senior Quality Assurance Engineer: Haroon Henao II, M.D., Ph.D. 14 Because ethnic data is not always readily available, 6 this report includes an eGFR for both -Americans and non- Americans. The National Kidney Disease Education Program (NKDEP) does not endorse the use of the MDRD equation for patients that are not between the ages of 18 and 70, are , have extremes of body size, muscle mass, or nutritional status, or are non- or non-. According to the National Kidney Foundation, irrespective of diagnosis, the stage of the disease is based on the level of kidney function: Stage Description GFR(mL/min/1.73 m(2)) 1 Kidney damage with normal or decreased GFR 90 2 Kidney damage with mild decrease in GFR 60-89 3 Moderate decrease in GFR 30-59 4 Severe decrease in GFR 15-29 5 Kidney failure <15 (or dialysis) 14 REFERENCE VALUE 7 Cutoff: 500 14 REFERENCE VALUE 8 Cutoff: 200 14 REFERENCE VALUE 9 Cutoff: 200 15 REFERENCE VALUE 0 Cutoff: 150 15 REFERENCE VALUE 1 Cutoff: 150 15 Presumptive Positive 2 Drug confirmation to follow. Presumptive Positive means that the screening method is positive, but the test needs to be run by a confirmatory method before being finalized. REFERENCE VALUE Cutoff: 300 15 ADDITIONAL INFORMATION 3 This report is intended for use in clinical monitoring or management of patients. It is not intended for use in employment-related testing. 15 REFERENCE VALUE 4 Cutoff: 100 ADDITIONAL INFORMATION This report is intended for use in clinical monitoring or management of patients. It is not intended for use in employment-related testing. Test Performed by: [facility] - [address] [address] Senior Quality Assurance Engineer: Haroon Henao II M.D., Ph.D. 15 REFERENCE VALUE 5 Cutoff: 100 15 REFERENCE VALUE 6 Cutoff: 100 15 REFERENCE VALUE 7 Cutoff: 100 15 If heroin use suspected, test [address], 8 7-vnid-soinqr-morphine(6-LARA) heroin metabolite, can be added at an additional charge. REFERENCE VALUE Cutoff: 100 15 REFERENCE VALUE 9 Cutoff: 100 16 REFERENCE VALUE 0 Cutoff: 100 16 ADDITIONAL INFORMATION 1 This report is intended for use in clinical monitoring and management of patients. It is not intended for use in employment-related testing. Test Performed by: [address] [address] Senior Quality Assurance Engineer: Haroon Henao II, M.D., Ph.D. 16 FASTING 2 16 FASTING 3 16 Desirable <150 4 Borderline high 150-199 High 200-499 Very High >500 16 Desirable <200 5 Borderline high 200-239 High >239 16 Low <40 6 Desirable: 40-60 High: >60 16 Desirable: <100 mg/dL 7 Near Optimal: 100-129 mg/dL Borderline High: 130-159 mg/dL High: 160-189 mg/dL Very High: >189 mg/dL 16 Acute inflammation: >10.00 8 16 REFERENCE VALUE 9 Cutoff: 500 17 REFERENCE VALUE 0 Cutoff: 200 17 REFERENCE VALUE 1 Cutoff: 200 17 REFERENCE VALUE 2 Cutoff: 150 17 Presumptive Positive 3 Drug confirmation to follow. Presumptive Positive means that the screening method is positive, but the test needs to be run by a confirmatory method before being finalized. REFERENCE VALUE Cutoff: 150 17 Presumptive Positive 4 Drug confirmation to follow. Presumptive Positive means that the screening method is positive, but the test needs to be run by a confirmatory method before being finalized. REFERENCE VALUE Cutoff: 300 17 ADDITIONAL INFORMATION 5 This report is intended for use in clinical monitoring or management of patients. It is not intended for use in employment-related testing. 17 REFERENCE VALUE 6 Cutoff: 100 ADDITIONAL INFORMATION This report is intended for use in clinical monitoring or management of patients. It is not intended for use in employment-related testing. Test Performed by: [facility] - [address] [address] Senior Quality Assurance Engineer: Haroon Henao II, M.D., Ph.D. 17 REFERENCE VALUE 7 Cutoff: 100 17 REFERENCE VALUE 8 Cutoff: 100 17 Test Performed by: 9 [facility] [place] [address] Senior Quality Assurance Engineer: Haroon Henao II, M.D., Ph.D. 18 REFERENCE VALUE 0 Cutoff: 100 18 REFERENCE VALUE 1 Cutoff: 100 18 REFERENCE VALUE 2 Cutoff: 100 18 If heroin use suspected, test [address], 3 1-yyts-xgvxbn-morphine(6-LARA) heroin metabolite, can be added at an additional charge. REFERENCE VALUE Cutoff: 100 18 REFERENCE VALUE 4 Cutoff: 100 18 REFERENCE VALUE 5 Cutoff: 100 18 ADDITIONAL INFORMATION 6 This report is intended for use in clinical monitoring and management of patients. It is not intended for use in employment-related testing. Test Performed by: [facility] - [address] [address] Senior Quality Assurance Engineer: Haroon Henao II, M.D., Ph.D. 18 Test Performed by: [address] [place] [address] Senior Quality Assurance Engineer: Haroon Henao II, M.D., Ph.D. 18 Test Performed by: [address] [place] [address] Senior Quality Assurance Engineer: Mango Bahena M.D. 18 Negative for cANCA and pANCA patterns by immunofluorescence. 9 Test Performed by: [place] [address] Senior Quality Assurance Engineer: Mango Bahena M.D. 19 Because ethnic data is not always readily available, 0 this report includes an eGFR for both -Americans and non- Americans. The National Kidney Disease Education Program (NKDEP) does not endorse the use of the MDRD equation for patients that are not between the ages of 18 and 70, are , have extremes of body size, muscle mass, or nutritional status, or are non- or non-. According to the National Kidney Foundation, irrespective of diagnosis, the stage of the disease is based on the level of kidney function: Stage Description GFR(mL/min/1.73 m(2)) 1 Kidney damage with normal or decreased GFR 90 2 Kidney damage with mild decrease in GFR 60-89 3 Moderate decrease in GFR 30-59 4 Severe decrease in GFR 15-29 5 Kidney failure <15 (or dialysis) 19 Peripheral blood, JAK2 V617F mutation analysis: 1 Negative for JAK2 V617F. Signing Pathologist: Mango Bahena M.D. Laboratory developed test. 19 JAK2 V617F analysis: Genomic DNA was extracted and a 2 quantitative, allele-specific polymerase chain reaction (PCR) assay used to evaluate for the point mutation causing JAK2 V617F (see [facility] Interpretive Handbook for method details). 19 RESULT: Mango Bahena M.D. 3 19 Test Performed by: 4 [place] [address] Senior Quality Assurance Engineer: Randy Vickers III, M.D. 19 20 Feb 2013 10:40 5 19 Locus and probes [Strategy;#nuclei;Class] 6 9q34(ABL1), 22q11.2(BCR) [DFISH;500;ASR] Probe strategy: DFISH=dual color, double fusion. 19 Abnormality Result %Cutoff 7 BCR/ABL1 fusion Normal <0.6 NOMENCLATURE nuc natalie(ABL1,BCR)x2[500] Of 500 nuclei, 0% had fusion of BCR and ABL1. 19 The result is within normal limits for the BCR and ABL1 gene 8 regions. DISCLAIMER: Analyte Specific Reagent (ASR). This test was developed and its performance characteristics determined by [facility]. It has not been cleared or approved by the U.S. Food and Drug Administration. This FISH test does not rule out other chromosome abnormalities. 19 RESULT: Vladislav Polk MD 03 1924 Feb 2013 17:17 0 Test Performed by: [place] [address] Senior Quality Assurance Engineer: Randy Vickers III, M.D. 20 A Aavgmh-Yfpyjt-eejhvrk slide prepared from the flow 1 cytometry specimen is examined. No morphologic features of acute leukemia or lymphoma are identified. 20 WBC: 11.6 x 10(9)/L 2 %Lymphs (CBC/automated differential): 38% #Lymphs (CBC/automated differential): 4.4 x 10(9)/L Results: Blasts: No increase B-cells: No monotypic T-cells: Normal phenotype Express: CD2, CD3, CD5, CD7, mixture CD4/CD8 NK-cells: Normal phenotype Express: CD16, CD2, CD7, CD8 (partial) Viability: Acceptable Viable lymphocytes (7-AAD): 99% Quality Assessment: Specimen received within validated guidelines. Flow cytometry analysis performed with antibodies to the following antigens: Triage panel: CD3, CD10, CD16, CD19, CD34, CD45 and kappa and lambda surface light chains. T-cell panel: CD2, CD3, CD4, CD5, CD7, CD8 and gamma/delta T-cell receptors. 20 Peripheral blood, flow cytometric immunophenotypin Normal immunophenotyping results. No monotypic B-cell population, phenotypically aberrant T-cell population or increase in blasts identified. Reviewed by: Elzbieta Downing M.D. 11:41:42 Analyte Specific Reagent: This test was developed and its performance characteristics determined by [facility]. It has not been cleared or approved by the U.S. Food and Drug Administration. Test Performed by: [address] [address] Senior Quality Assurance Engineer: Randy Vickers III, M.D. 20 @02/18/13 1518: Manual Diff added. RFLXG=DIFF. 4 20 Because ethnic data is not always readily available, 5 this report includes an eGFR for both -Americans and non- Americans. The National Kidney Disease Education Program (NKDEP) does not endorse the use of the MDRD equation for patients that are not between the ages of 18 and 70, are , have extremes of body size, muscle mass, or nutritional status, or are non- or non-. According to the National Kidney Foundation, irrespective of diagnosis, the stage of the disease is based on the level of kidney function: Stage Description GFR(mL/min/1.73 m(2)) 1 Kidney damage with normal or decreased GFR 90 2 Kidney damage with mild decrease in GFR 60-89 3 Moderate decrease in GFR 30-59 4 Severe decrease in GFR 15-29 5 Kidney failure <15 (or dialysis) 20 Test Performed by: [address] [address] Senior Quality Assurance Engineer: Randy Vickers III, M.D. 20 A metabolite of Naproxen, O-desmethylnaproxen, has been 7 shown to interfere with the Jendrassik-Colleen method for measuring total bilirubin. Samples from patients who have taken Naproxen have shown spurious elevation in total bilirubin levels. 20 Because ethnic data is not always readily available, 8 this report includes an eGFR for both -Americans and non- Americans. The National Kidney Disease Education Program (NKDEP) does not endorse the use of the MDRD equation for patients that are not between the ages of 18 and 70, are , have extremes of body size, muscle mass, or nutritional status, or are non- or non-. According to the National Kidney Foundation, irrespective of diagnosis, the stage of the disease is based on the level of kidney function: Stage Description GFR(mL/min/1.73 m(2)) 1 Kidney damage with normal or decreased GFR 90 2 Kidney damage with mild decrease in GFR 60-89 3 Moderate decrease in GFR 30-59 4 Severe decrease in GFR 15-29 5 Kidney failure <15 (or dialysis) 20 This note was extracted from Version one to remove invalid patient information. [facility] Lab Support 09/04/10 9 Patient Name: SHAHIDA BOTELLO Collection Date: 07/31/2010 Ordering Physician: Abdias HERNANDEZ Received Date: 08/01/2010 Treating Physician: Not Given Report Date: 08/01/2010 Ordering Facility: [facility] at [facility] Ref #: [id number] Medical Record #: Not Given Specimen ID #: Not Given Date of ,Sex: INTERPRETATION: 1965, F Flow Cytometry Immunophenotypic Report PERIPHERAL BLOOD: NO SIGNIFICANT ABNORMALITIES DETECTED Comments: Correlation with available clinical, laboratory, and morphologic data is recommended. Clinical History: leukocytosis Submitted Dx: Evaluation for leukemia, non-Hodgkin lymphoma Viability: 96% Flow Differential Population Analysis Lymphocytes: 16% B-cells: 2%, polytypic/polyclonal sIg light chain pattern CD4+ T-cells: 8.9% (including 0.3% CD57+ cells) CD8+ T-cells: 5.0% (including 1.8% CD57+ cells) CD4:CD8=1.8 NK cells: 0.4% Monocytes: 3% No significant immunophenotypic abnormalities Neutrophils: 78% No significant immunophenotypic abnormalities Eosinophils: 2% No relative increase Morphologic Evaluation: Slide examined for food quality tester purposes only. Each antibody in this assay was utilized to assess for potential abnormalities of studied cell populations or to characterize identified abnormalities. Antibodies Performed: CD2, CD3, CD4, CD5, CD7, CD8, CD19, [place], Lambda, CD20, CD11b, CD13, CD14, CD33, CD10, CD34, CD45, HLA-DR, CD117, CD16, CD38, CD56, CD64, CD57 at LABS Andre Park M.D. [facility] at [address] [address] Page 1 of 2 [facility] Client Services: [phone] [email or web address] Patient Name: SHAHIDA BOTELLO Collection Date: 07/31/2010 Ordering Physician: Abdias HERNANDZE Received Date: 08/01/2010 Treating Physician: Not Given Report Date: 08/01/2010 Ordering Facility: [facility] Ref #: [id number] Medical Record #: Not Given Specimen ID #: Not Given Date of ,Sex: 1965, F Disclaimer This Test was performed at [address] [place] [address] Suite [facility], [place], [place], [facility] This test was developed and its performance characteristics determined by [employer]. It has not been cleared or approved by the Food and Drug Administration (FDA). The FDA has determined that such clearance or approval is not necessary. Any image(s) that accompany this report is/are a patient service representative image(s) only and should not be used to render a diagnosis. [facility] at [address] [address] Page 2 of 2 [facility] Client Services: [phone] [email or web address] Patient Name: SHAHIDA BOTELLO Collection Date: 0 07/31/2010 Ordering Physician: Abdias HERNANDEZ Received Date: 08/01/2010 Treating Physician: Not Given Report Date: 08/01/2010 Ordering Facility: [facility] [address] [facility] Ref #: [id number] Medical Record #: Not Given Specimen ID #: Not Given Date of ,Sex: INTERPRETATION: 1965, F Flow Cytometry Immunophenotypic Report PERIPHERAL BLOOD: NO SIGNIFICANT ABNORMALITIES DETECTED Comments: Correlation with available clinical, laboratory, and morphologic data is recommended. Clinical History: leukocytosis Submitted Dx: Evaluation for leukemia, non-Hodgkin lymphoma Viability: 96% Flow Differential Population Analysis Lymphocytes: 16% B-cells: 2%, polytypic/polyclonal sIg light chain pattern CD4+ T-cells: 8.9% (including 0.3% CD57+ cells) CD8+ T-cells: 5.0% (including 1.8% CD57+ cells) CD4:CD8=1.8 NK cells: 0.4% Monocytes: 3% No significant immunophenotypic abnormalities Neutrophils: 78% No significant immunophenotypic abnormalities Eosinophils: 2% No relative increase Morphologic Evaluation: Slide examined for food quality tester purposes only. Each antibody in this assay was utilized to assess for potential abnormalities of studied cell populations or to characterize identified abnormalities. Antibodies Performed: CD2, CD3, CD4, CD5, CD7, CD8, CD19, [place], Lambda, CD20, CD11b, CD13, CD14, CD33, CD10, CD34, CD45, HLA-DR, CD117, CD16, CD38, CD56, CD64, CD57 at LABS Andre Park M.D. [facility] [place] [address] Page 1 of 2 [employer] Client Services: [phone] [email or web address] Patient Name: SHAHIDA BOTELLO Collection Date: 07/31/2010 Ordering Physician: Abdias HERNANDEZ Received Date: 08/01/2010 Treating Physician: Not Given Report Date: 08/01/2010 Ordering Facility: [facility] [address] [facility] Ref #: [id number] Medical Record #: Not Given Specimen ID #: Not Given Date of ,Sex: 1965, F Disclaimer This Test was performed at [address] [place] [address] Suite [facility], [place], [place], [facility] This test was developed and its performance characteristics determined by [employer]. It has not been cleared or approved by the Food and Drug Administration (FDA). The FDA has determined that such clearance or approval is not necessary. Any image(s) that accompany this report is/are a patient service representative image(s) only and should not be used to render a diagnosis. [place] [address] Page 2 of 2 [employer] Client Services: [phone] [email or web address] NORMAL RANGE 1 MALES 1 - 20 NORMALLY MENSTRUATING FEMALES - Follicular Phase 3 - 9 - Mid-Cycle Peak 4 - 23 - Luteal Phase 1 - 6 POSTMENOPAUSAL FEMALES 16 - 114 . 21 NORMAL RANGE 2 MALES 2 - 12 NORMALLY MENSTRUATING FEMALES - Follicular Phase 1 - 18 - Mid-Cycle Peak 24 - 105 - Luteal Phase 0.6 - 20 POSTMENOPAUSAL FEMALES 15 - 62 . 21 CHOLESTEROL INTERPRETATION: 3 Desirable: Less than 200 MG/DL Borderline-High Risk: 200-239 MG/DL High-Risk: 240 MG/DL and over 21 HDL INTERPRETATION: 4 Undesirable: High Risk: Less than 40 MG/DL Desirable: Low Risk: Greater than 60 MG/DL 21 LDL INTERPRETATION: 5 Low Risk Optimal Level: LDL Less than 100 MG/DL Near or Above Optimal: LDL 100-129 MG/DL Borderline High Risk: LDL 130-159 MG/DL High Risk: LDL 160-189 MG/DL Very High Risk: LDL Greater than 189 MG/DL 21 Anion gap measurement may be of limited value in the 6 presence of any alkalosis, especially in a combined acid base disorder. . 21 Note change in reference range as of 02/18/08. The 7 change was based on recommendations from the [place] [employer]. 21 A metabolite of Naproxen, O-desmethylnaproxen, has been 8 shown to interfere with the Jenrohan-Colleen method for measuring total bilirubin. Samples from patients who have taken Naproxen have shown spurious elevation in total bilirubin levels. 21 Because ethnic data is not always readily available, 9 this report includes an eGFR for both -Americans and non- Americans. The National Kidney Disease Education Program (NKDEP) does not endorse the use of the MDRD equation for patients that are not between the ages of 18 and 70, are , have extremes of body size, muscle mass, or nutritional status, or are non- or non-. According to the National Kidney Foundation, irrespective of diagnosis, the stage of the disease is based on the level of kidney function: Stage Description GFR(mL/min/1.73 m(2)) 1 Kidney damage with normal or decreased GFR 90 2 Kidney damage with mild decrease in GFR 60-89 3 Moderate decrease in GFR 30-59 4 Severe decrease in GFR 15-29 5 Kidney failure <15 (or dialysis) 22 Anion gap measurement may be of limited value in the 0 presence of any alkalosis, especially in a combined acid base disorder. . 22 Note change in reference range as of 02/18/08. The 1 change was based on recommendations from the [place] [employer]. 22 Please note change in reference range effective 07 2 . 22 Because ethnic data is not always readily available, 3 this report includes an eGFR for both -Americans and non- Americans. The National Kidney Disease Education Program (NKDEP) does not endorse the use of the MDRD equation for patients that are not between the ages of 18 and 70, are , have extremes of body size, muscle mass, or nutritional status, or are non- or non-. According to the National Kidney Foundation, irrespective of diagnosis, the stage of the disease is based on the level of kidney function: Stage Description GFR(mL/min/1.73 m(2)) 1 Kidney damage with normal or decreased GFR 90 2 Kidney damage with mild decrease in GFR 60-89 3 Moderate decrease in GFR 30-59 4 Severe decrease in GFR 15-29 5 Kidney failure <15 (or dialysis) 22 A metabolite of Naproxen, O-desmethylnaproxen, has been 4 shown to interfere with the Jendrassik-Colleen method for measuring total bilirubin. Samples from patients who have taken Naproxen have shown spurious elevation in total bilirubin levels. 22 CHOLESTEROL INTERPRETATION: 5 Desirable: Less than 200 MG/DL Borderline-High Risk: 200-239 MG/DL High-Risk: 240 MG/DL and over 22 HDL INTERPRETATION: 6 Undesirable: High Risk: Less than 40 MG/DL Desirable: Low Risk: Greater than 60 MG/DL 22 LDL INTERPRETATION: 7 Low Risk Optimal Level: LDL Less than 100 MG/DL Near or Above Optimal: LDL 100-129 MG/DL Borderline High Risk: LDL 130-159 MG/DL High Risk: LDL 160-189 MG/DL Very High Risk: LDL Greater than 189 MG/DL 22 PLEASE NOTE NEW REFERENCE RANGES. 8 22 THERAPEUTIC TARGET FOR THE TREATMENT OF DIABETES 9 MELLITUS PATIENTS IS <7% HBA1C, AND IN SELECTIVE PATIENTS <6.0%. PLEASE REFER TO [place] [employer] DIABETIC CARE GUIDELINES FOR FURTHER INFORMATION. 23 Test Performed by: 0 [facility] [address] [place] [address] Senior Quality Assurance Engineer: Randy Vickers III, M.D. 23 -- REFERENCE VALUE -- 1 <20 (Toxic >=70) 23 -- REFERENCE VALUE -- 2 <10 (Toxic >50) 23 Test Performed by: 3 [facility] [address] [place] [address] Senior Quality Assurance Engineer: Randy Vickers III, M.D. 23 Test Performed by: 4 [facility] [address] [place] [address] Senior Quality Assurance Engineer: Randy Vickers III, M.D. 23 INCREASED BETA GLOBULIN- CONSISTENT WITH HYPERLIPO- 5 PROTEINEMIA OR IRON DEFICIENCY. Procedures Date Code Description Status 04/22/2018 73047 Treadmill Interp/Report Only Completed 04/22/2018 89501 Stress Test Supervsn W/Out I/R Completed 04/20/2018 10093 ECHO Transthoracic, Real-Time 2D With Doppler And Completed Color Flow 04/20/2018 00118 ECHO Transthoracic, Real-Time 2D With Doppler And Completed Color Flow 04/17/2018 81023 EKG Tracing & Interpretation Completed 01/26/2018 47486 Inject/Drain Joint/Bursa Major W/O US Completed 06/02/2017 29066 Biopsy Skin Lesion Single Completed 11/27/2016 [id number] Mammogram Completed 06/13/2015 20715 Polysomnography Sleep Staging 4+ Parameters Completed 03/08/2013 [id number] Mammogram Completed 05/07/2012 66571 Needle Electromyography Complete, Five Or More Muscles Completed Studied 05/07/2012 00481 Nerve Conduction, Motor W/O F-Wave Study Completed 05/07/2012 96003 Nerve Conduction, Motor W/F-Wave Study Completed 05/07/2012 15710 Nerve Conduction, Sensory Completed 06/25/2011 [id number] Diabetic Foot Exam Completed 09/13/2010 [id number] Colonoscopy Completed 02/22/2008 [id number] Mammogram Completed 09/09/2006 47406 Color Doppler Completed 09/09/2006 68258 Color Doppler Completed 09/09/2006 81853 Pulse Doppler & Continuous Wave Completed 09/09/2006 44279 Echocardiogram Completed 09/09/2006 30048 Echocardiogram Completed Encounters Type Date Location Provider Dx Diagnosis Office Visit 05/18/2018 Neurosurgery Vassilios M43.17 Spondylolisthesis, 2:00p Services Of Gail Garner MD lumbosacral region M51.16 Intervertebral disc disorders w radiculopathy, lumbar region F17.210 Nicotine dependence, cigarettes, uncomplicated E66.8 Other obesity Office Visit 04/23/2018 Radha Madrid R94.31 Abnormal 3:00p Cardiology Jaren N.PMaureen electrocardiogram [ECG] [EKG] R73.9 Hyperglycemia, unspecified Z72.0 Tobacco use E78.5 Hyperlipidemia, unspecified Z01.810 Encounter for preprocedural cardiovascular examination M43.17 Spondylolisthesis, lumbosacral region Office Visit 04/17/2018 [place] Makenna John, R94.31 Abnormal 9:40a Cardiology Of M.DMaureen electrocardiogram [facility] [place] [ECG] [EKG] R73.9 Hyperglycemia, unspecified E78.5 Hyperlipidemia, unspecified E66.8 Other obesity M43.17 Spondylolisthesis, lumbosacral region Z72.0 Tobacco use Office Visit 04/13/2018 10:20a [facility] Internal Rah Guevara, Z01.818 Encounter for other Medicine - [employer] preprocedural [place] examination M51.16 Intervertebral disc disorders w radiculopathy, lumbar region G89.4 Chronic pain syndrome G47.33 Obstructive sleep apnea (adult) (pediatric) Z23 Encounter for immunization E11.9 Type 2 diabetes mellitus without complications Office Visit 03/04/2018 Neurosurgery Vassilios E66.01 Morbid 9:30a Services Of Gail Garner MD (severe) obesity due to excess calories E78.5 Hyperlipidemia, unspecified E11.9 Type 2 diabetes mellitus without complications M51.16 Intervertebral disc disorders w radiculopathy, lumbar region M43.16 Spondylolisthesis, lumbar region Office Visit 02/25/2018 10:45a Pulmonology And Ana G47.33 Obstructive sleep Sleep Services Of MD Amber apnea (adult) [facility] (pediatric) E66.01 Morbid (severe) obesity due to excess calories Office Visit 02/23/2018 Orthopedic Дмитрий Avila, M84.375A Stress fracture , 1:00p Services Of left foot, initial C.M.A. encounter for fracture Office Visit 02/19/2018 [facility] Internal Rah Waterman NP E11.9 Type 2 diabetes 9:00a Medicine - mellitus without [place] complications E78.5 Hyperlipidemia, unspecified M79.672 Pain in left foot Office Visit 01/26/2018 10:30a Orthopedic Omer Ornelas, M71.22 Synovial cyst of Services Of Ifeoma Sanon popliteal space [Stephenson], left knee M17.12 Unilateral primary osteoarthritis, left knee Office Visit 01/19/2018 2:20p [facility] Internal Rah Waterman, M71.22 Synovial cyst of Medicine - [employer] popliteal space [place] [Stephenson], left knee Office Visit 12/19/2017 2:00p [facility] Internal Rah Waterman, Z01.818 Encounter for other Medicine - [employer] preprocedural [place] examination M51.16 Intervertebral disc disorders w radiculopathy, lumbar region G47.33 Obstructive sleep apnea (adult) (pediatric) G89.4 Chronic pain syndrome F17.210 Nicotine dependence, cigarettes, uncomplicated E11.9 Type 2 diabetes mellitus without complications Office Visit 10/07/2017 4:00p [facility] Internal Serafin De Jesus M25.562 Pain in left Medicine - Talita Hernandez,FACP knee [place] M51.16 Intervertebral disc disorders w radiculopathy, lumbar region R03.0 Elevated blood-pressure reading, w/o diagnosis of htn Office 09/22/2017 Neurosurgery Vassilios M43.16 Spondylolisthesis, Visit 2:00p Services Of Gail Garner MD lumbar region M51.16 Intervertebral disc disorders w radiculopathy, lumbar region E66.8 Other obesity F17.210 Nicotine dependence, cigarettes, uncomplicated Office 07/21/2017 Neurosurgery Vassilios M43.16 Spondylolisthesis, Visit 2:30p Services Of Gail Garner MD lumbar region M51.16 Intervertebral disc disorders w radiculopathy, lumbar region E66.8 Other obesity Office Visit 06/02/2017 2:10p [facility] Dermatology Polo Quesadazer, L82.1 Other seborrheic MD keratosis S30.861A Insect bite (nonvenomous) of abdominal wall, init encntr D22.72 Melanocytic nevi of left lower limb, including hip D48.5 Neoplasm of uncertain behavior of skin Office Visit 05/28/2017 2:00p [facility] Internal Serafin De Jesus G89.4 Chronic pain Anish Hernandez M.D.,FACP syndrome Rd F17.210 Nicotine dependence, cigarettes, uncomplicated M48.062 Spinal stenosis, lumbar region with neurogenic claudication Z23 Encounter for immunization Office Visit 03/14/2017 2:00p Orthopedic Enrique Oviedo G89.4 Chronic pain Services Of Ifeoma Sanon syndrome G47.33 Obstructive sleep apnea (adult) (pediatric) M79.671 Pain in right foot M54.31 Sciatica, right side Office Visit 01/23/2017 2:10p [facility] Hayder De Jesus Z00.01 Encounter for Anish Hernandez M.D.,FACP general adult [address] medical exam w abnormal findings G89.4 Chronic pain syndrome G47.33 Obstructive sleep apnea (adult) (pediatric) D26.7 Other benign neoplasm of other parts of uterus M79.671 Pain in right foot M47.26 Other spondylosis with radiculopathy, lumbar region Office Visit 11/21/2016 1:30p Pulmonology And Ana G47.33 Obstructive sleep Sleep Services Of MD Amber apnea (adult) [facility] (pediatric) G89.4 Chronic pain syndrome 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 Office Visit 09/17/2016 [facility] Hayder De Jesus M47.26 Other spondylosis 1:40p Anish Hernandez M.D.,FACP with radiculopathy, [place] lumbar region G89.4 Chronic pain syndrome G31.84 Mild cognitive impairment, so stated M70.22 Olecranon bursitis, left elbow Office Visit 07/30/2016 2:40p [facility] Internal Serafin De Jesus D72.829 Elevated white Anish Hernandez M.D.,FACP blood cell count, [place] unspecified N91.1 Secondary amenorrhea D48.5 Neoplasm of uncertain behavior of skin Office Visit 04/02/2016 1:40p [facility] Internal Serafin De Jesus G89.4 Chronic pain Anish Hernandez M.D.,FACP syndrome [place] D72.829 Elevated white blood cell count, unspecified G56.02 Carpal tunnel syndrome, left upper limb D17.1 Benign lipomatous neoplasm of skin, subcu of trunk Z23 Encounter for immunization Office Visit 03/21/2016 1:30p Pulmonology And Ana G47.33 Obstructive sleep Sleep Services Of MD Amber apnea (adult) [facility] (pediatric) E66.09 Other obesity due to excess calories Office Visit 01/23/2016 2:20p [facility] Internal Serafin De Jesus G89.4 Chronic pain Anish Hernandez M.D.,FACP syndrome [place] D48.5 Neoplasm of uncertain behavior of skin D72.829 Elevated white blood cell count, unspecified Office Visit 12/18/2015 2:30p Pulmonology And Ana G47.33 Obstructive sleep Sleep Services Of MD Amber apnea (adult) [facility] (pediatric) E66.09 Other obesity due to excess calories Office Visit 09/26/2015 3:30p Pulmonology And Ana G47.33 Obstructive sleep Sleep Services Of MD Amber apnea (adult) [facility] (pediatric) E66.09 Other obesity due to excess calories Office Visit 09/05/2015 [facility] Internal Serafin De Jesus M51.16 Intervertebral disc 2:00p Anish Hernandez M.D.,FACP disorders w [place] radiculopathy, lumbar region G47.33 Obstructive sleep apnea (adult) (pediatric) D72.829 Elevated white blood cell count, unspecified R73.01 Impaired fasting glucose Office Visit 07/06/2015 [facility] Internal Stephen M51.16 Intervertebral disc 9:20a Anish Membreno M.D. disorders w [address] radiculopathy, lumbar region J44.1 Chronic obstructive pulmonary disease w (acute) exacerbation F17.213 Nicotine dependence, cigarettes, with withdrawal G43.109 Migraine with aura, not intractable, w/o status migrainosus Office Visit 07/06/2015 1:30p Pulmonology And Ana G47.33 Obstructive sleep Sleep Services Of MD Amber apnea (adult) [facility] (pediatric) E66.01 Morbid (severe) obesity due to excess calories F17.213 Nicotine dependence, cigarettes, with withdrawal Office Visit 07/04/2015 4:00p [facility] Internal Soren Wade, J01.90 Acute sinusitis, Medicine - [employer] unspecified [address] R06.2 Wheezing R05 Cough Office Visit 05/16/2015 11:00a Pulmonology And Abdias Reynolds G47.33 Obstructive sleep Sleep Services Of Talita apnea (adult) [facility] (pediatric) M54.5 Low back pain Office Visit 05/03/2015 [place] Tammi Kyle J96.22 Acute and chronic 12:42p Assomkar nguyen M.D. respiratory Hospitalists failure with hypercapnia J44.1 Chronic obstructive pulmonary disease w (acute) exacerbation M54.9 Dorsalgia, unspecified Office Visit 05/02/2015 [place] Tammi Kyle J96.22 Acute and chronic 12:41p Assomkar nguyen M.D. respiratory Hospitalists failure with hypercapnia J44.1 Chronic obstructive pulmonary disease w (acute) exacerbation M54.9 Dorsalgia, unspecified Office Visit 05/01/2015 12:41p [place] Tammi Whitmore J96.22 Acute and chronic Assoc,omkar Bosch M.D. respiratory Hospitalists failure with hypercapnia J44.1 Chronic obstructive pulmonary disease w (acute) exacerbation M54.9 Dorsalgia, unspecified F17.213 Nicotine dependence, cigarettes, with withdrawal Office Visit 04/30/2015 12:40p [place] Tammi Whitmore J96.22 Acute and chronic Assoc,omkar Bosch M.D. respiratory Hospitalists failure with hypercapnia J44.1 Chronic obstructive pulmonary disease w (acute) exacerbation M54.9 Dorsalgia, unspecified F17.213 Nicotine dependence, cigarettes, with withdrawal Office Visit 04/29/2015 12:39p Radha Whitmore J96.22 Acute and chronic Assoc,omkar Bosch M.D. respiratory Hospitalists failure with hypercapnia J44.1 Chronic obstructive pulmonary disease w (acute) exacerbation M54.9 Dorsalgia, unspecified F17.213 Nicotine dependence, cigarettes, with withdrawal Office Visit 04/28/2015 12:39p [facility] Myranda J96.22 Acute and chronic Assoc,omkar Bosch M.D. respiratory Hospitalists failure with hypercapnia J44.1 Chronic obstructive pulmonary disease w (acute) exacerbation M54.9 Dorsalgia, unspecified F17.213 Nicotine dependence, cigarettes, with withdrawal Office Visit 04/27/2015 12:38p [facility] Myranda J96.22 Acute and chronic Assoc,omkar Bosch M.D. respiratory Hospitalists failure with hypercapnia J44.1 Chronic obstructive pulmonary disease w (acute) exacerbation M54.9 Dorsalgia, unspecified F17.213 Nicotine dependence, cigarettes, with withdrawal Office Visit 04/26/2015 [facility] Jesus Narayan J96.22 Acute and 12:37p omkar Falcon M.D. chronic Hospitalists respiratory failure with hypercapnia J44.1 Chronic obstructive pulmonary disease w (acute) exacerbation M54.9 Dorsalgia, unspecified F17.213 Nicotine dependence, cigarettes, with withdrawal Office Visit 04/25/2015 [facility] Jesus Narayan, J96.22 Acute and 12:36p omkar Falcon M.D. chronic Hospitalists respiratory failure with hypercapnia J44.1 Chronic obstructive pulmonary disease w (acute) exacerbation M54.9 Dorsalgia, unspecified F17.213 Nicotine dependence, cigarettes, with withdrawal Office Visit 04/24/2015 [facility] Jesus Narayan, J96.22 Acute and 12:35p Assomkar nguyen MMaureenDMaureen chronic Hospitalists respiratory failure with hypercapnia J44.1 Chronic obstructive pulmonary disease w (acute) exacerbation F17.213 Nicotine dependence, cigarettes, with withdrawal M54.9 Dorsalgia, unspecified Office Visit 04/23/2015 9:38a [facility] Jairo Samm, M54.9 Dorsalgia , Assocomkar M.D. unspecified Hospitalists J96.22 Acute and chronic respiratory failure with hypercapnia F17.213 Nicotine dependence, cigarettes, with withdrawal J44.1 Chronic obstructive pulmonary disease w (acute) exacerbation Office Visit 04/21/2015 12:32p [place] [facility] Pranav Pinorufina, J40 Bronchitis , not Assoc,pc Talita specified as acute Hospitalists or chronic J44.1 Chronic obstructive pulmonary disease w (acute) exacerbation R09.02 Hypoxemia G89.29 Other chronic pain Office Visit 04/21/2015 4:00p [facility] Internal Rah Guevara, R06.02 Shortness of Medicine - [employer] breath [place] R05 Cough R50.9 Fever, unspecified Office Visit 03/23/2015 3:00p [facility] Internal Soren Wade, Z13.1 Encounter for Medicine - [place] [employer] screening for Rd diabetes mellitus D72.829 Elevated white blood cell count, unspecified E78.5 Hyperlipidemia, unspecified R73.01 Impaired fasting glucose M47.26 Other spondylosis with radiculopathy, lumbar region L21.9 Seborrheic dermatitis, unspecified G43.109 Migraine with aura, not intractable, w/o status migrainosus Z00.01 Encounter for general adult medical exam w abnormal findings Z00.00 Encntr for general adult medical exam w/o abnormal findings Office Visit 06/14/2014 [facility] Internal Rayne Kaleb, 288.60 Leukocytosis, 2:40p Medicine - N.P. Unspecified [place] 272.4 Hyperlipidemia Other Unspec V77.1 Screening Diabetes Mellitus 782.8 Skin Texture Changes V04.81 Need For Prophylactic Vaccination & Inoculation/Influenza Office Visit 02/04/2013 [facility] Internal Serafin De Jesus 288.60 Leukocytosis, 3:20p Anish Hernandez M.D.,FACP Unspecified [place] Office Visit 01/21/2013 [facility] Internal Serafin De Jesus 255.0 Cushings Syndrome 2:40p Anish Hernandez M.D.,FACP [place] 721.3 Spondylosis Lumbar W/O Myelopathy 388.30 Tinnitus Unspecified 288.60 Leukocytosis, Unspecified Office Visit 06/11/2012 3:20p [facility] Internal Martín Harry 386.11 Vertigo Benign Anish Ahuja M.D. Paroxysmal [place] Position 389.9 Hearing Loss Unspec Office Visit 05/07/2012 1:00p [place] [facility] Milvia Poole, 729.5 Pain In Limb Services Of Gail Sanon 782.0 Skin Sensation Disturbance Office Visit 04/23/2012 3:00p [facility] Internal Serafin De Jesus 721.3 Spondylosis Anish Hernandez M.D.,FACP Lumbar W/O [place] Myelopathy 305.1 Tobacco Use Disorder V76.19 Screening Breast Exam Malignant Neoplasms Other V04.81 Need For Prophylactic Vaccination & Inoculation/Influenza Office Visit 03/23/2012 3:00p [place] [facility] Milvia Poole, 729.5 Pain In Limb Services Of Gail Sanon 346.00 Migraine Classical W/O Intractable W/O Status Migrainosus Office Visit 01/23/2012 11:10a [facility] Internal Serafin De Jesus 721.3 Spondylosis Anish Hernandez M.D.,FACP Lumbar W/O [place] Myelopathy 338.4 Chronic Pain Syndrome Office 01/08/2012 Neurosurgery Keenan Rodríguez 756.12 Spondylolisthesis Visit 9:00a Services Of Gail Herman M.D. Congenital 756.11 Spondylolysis Lumbosacral Region Congenital Office Visit 08/29/2011 1:40p [facility] Internal Serafin De Jesus 721.3 Spondylosis Anish Hernandez M.D.,FACP Lumbar W/O [place] Myelopathy V76.10 Screening For Malignant Neoplasm Breast 305.1 Tobacco Use Disorder v03.82 Streptococcus Pneumoniae Vaccination Spec Other Office Visit 07/15/2011 1:45p [facility] Roberta 465.9 URI Upper Anish Cabrales M.D. Respiratory [place] Infections Acute Unspec Sites 462 Pharyngitis Acute 389.9 Hearing Loss Unspec Office Visit 03/08/2011 11:20a DO Not Use Gail De Jesus 338.4 Chronic Pain AT Les Hernandez M.D.,FACP Syndrome 278.01 Obesity Morbid 626.0 Menstruation Absence V77.1 Screening Diabetes Mellitus V04.81 Need For Prophylactic Vaccination & Inoculation/Influenza Office Visit 08/27/2010 9:20a DO Not Use Gail De Jesus 288.60 Leukocytosis, AT Les Hernandez M.D.,FACP Unspecified 528.9 Oral Soft Tissue Diseases Other & Unspec 578.1 Blood In Stool Melena Office Visit 05/28/2010 9:00a DO Not Use Gail De Jesus 491.21 Bronchitis AT [facility] Talita Hernandez,[facility] Obstructive Chronic W/Acute Exacerbation 627.2 Menopausal Or Female Climacteric State, Symptomatic 724.9 Back Disorders Other Unspec V04.81 Need For Prophylactic Vaccination & Inoculation/Influenza Office Visit 05/07/2010 3:40p DO Not Use [facility] Stephen Membreno, 704.00 Alopecia Unspec AT [facility] Talita 272.4 Hyperlipidemia Other Unspec Office Visit 03/16/2010 11:00a DO Not Use [employer] Serafin De Jesus 466.0 Bronchitis Acute AT Veronashahana Hernandez M.D.,[facility] 492.8 Emphysema Other 305.1 Tobacco Use Disorder 626.1 Menstruation Scanty Or Infrequent Office Visit 10/04/2009 10:40a DO Not Use [facility] Serafin De Jesus 571.8 Liver Disease AT Les Hernandez M.D.,[facility] Chronic Nonalcoholic Other 305.03 Alcohol Abuse In Remission 218.1 Leiomyoma Uterus Intramural 305.1 Tobacco Use Disorder Office Visit 09/27/2009 2:30p DO Not Use [employer] Cary Hudson PA 789.03 Pain Abdominal AT [facility] Right Lower Quadrant 382.9 Otitis Media Unspec Office Visit 09/20/2009 2:40p DO Not Use [employer] Ellie 466.0 Bronchitis Acute AT [facility] Talita Meyer Office Visit 07/18/2009 8:30a DO Not Use [employer] Cary Hudson PA 466.0 Bronchitis Acute AT [facility] 382.9 Otitis Media Unspec Office Visit 05/15/2009 DO Not Use [employer] Serafin De Jesus 738.4 Spondylolisthesis 11:40a AT Les Hernandez M.D.,[facility] Acquired 278.00 Obesity Unspec 305.1 Tobacco Use Disorder V04.81 Need For Prophylactic Vaccination & Inoculation/Influenza Office Visit 01/09/2009 9:30a DO Not Use [employer] Cary Hudson PA 300.01 Panic Disorder AT [facility] W/O Agoraphobia 338.4 Chronic Pain Syndrome Office Visit 12/07/2008 10:30a DO Not Use [employer] Cary Hudson PA 461.9 Sinusitis Acute AT [facility] Unspec Office Visit 10/04/2008 10:00a DO Not Use [employer] Cary Hudson PA 836.2 Dislocation Knee AT [facility] Tear Of Cartilage Or Meniscus Current Other 724.4 Neuritis Or Radiculitis Thoracic Or Lumbosacral Unspec Office Visit 09/20/2008 DO Not Use Cary Hudson PA 738.4 Spondylolisthesis 9:30a [employer] AT Acquired [facility] 311 Depressive Disorder Not Elsewhere Spec 719.46 Pain Joint Lower Leg Office Visit 08/08/2008 1:00p DO Not Use [employer] Cary Hudson PA 338.4 Chronic Pain AT [facility] Syndrome 311 Depressive Disorder Not Elsewhere Spec Office Visit 06/17/2008 11:30a DO Not Use [employer] Cary Hudson PA 338.4 Chronic Pain AT [facility] Syndrome 738.4 Spondylolisthesis Acquired 311 Depressive Disorder Not Elsewhere Spec Office Visit 05/16/2008 1:30p DO Not Use [employer] Cary Hudson PA 338.4 Chronic Pain AT [facility] 311 Depressive Disorder Not Elsewhere Spec 738.4 Spondylolisthesis Acquired V04.81 Need For Prophylactic Vaccination & Inoculation/Influenza Office Visit 04/01/2008 11:20a DO Not Use [employer] Serafin De Jesus 466.0 Bronchitis Acute AT [facility] Talita Hernandez,FACP 305.1 Tobacco Use Disorder Office Visit 02/19/2008 10:00a DO Not Use [employer] Cary Hudson PA 786.05 Shortness Of AT [facility] Breath V76.12 Screening Mammogram Earl Reynoso Other 338.4 Chronic Pain Syndrome 311 Depressive Disorder Not Elsewhere Spec Office Visit 01/04/2008 9:00a DO Not Use [employer] Cary Hudson PA 338.4 Chronic Pain AT [facility] Syndrome 311 Depressive Disorder Not Elsewhere Spec 782.3 Edema Office Visit 10/16/2007 DO Not Use Cary Hudson PA 738.4 Spondylolisthesis 2:30p [employer] AT Acquired [facility] 311 Depressive Disorder Not Elsewhere Spec Office Visit 06/29/2007 DO Not Use [employer] Serafin De Jesus 738.4 Spondylolisthesis 10:20a AT [facility] Talita Hernandez,FAC Acquired 490 Bronchitis Acute Or Chronic Not Spec 305.1 Tobacco Use Disorder Plan of Treatment Future Appointment(s):06/17/2018 10:30 am - Allyson Garner MD at [facility]09/14/2018 2:00 pm - Allyson Garner MD at [facility]07/17/2018 11:30 am - Allyson Garner MD at [facility]06/09/2018 7:30 am - Allyson Garner MD at [facility]03/04/2019 1:45 pm - Ana Clark MD at [facility]08/24/2018 1:40 pm - Rah Waterman NP at [facility] Internal Medicine [facility]06/01/2018 - Rah Waterman NPZ01.818 Encounter for other preprocedural examinationComments:As long as your labs are normal I do not see any contraindications to your surgery.You should avoid aspirin, NSAIDs (ibuprofen, Motrin, aleve) and supplements 7 days prior to the procedure.M51.16 Intervertebral disc disorders with radiculopathy, lumbar regG89.4 Chronic pain btnquwgqA86.33 Obstructive sleep apnea (adult) (pediatric) New Medication:Nicotine 14 mg/24HR - one patch daily for 6 zbyjpY93.9 Type 2 diabetes mellitus without complications Goals 06/01/2018 - Rah Waterman NPE11.9 Type 2 diabetes mellitus without complicationsGoal Hemoglobin A1c is less than 7.0%. Goal Blood pressure is less than 130/85.
--- OUTSIDE RECORDS SUMMARY | 2018-06-09 05:53 | XMS REPORT | Continuity of Care Document ---
:1965 External Reference #:[id number] Author Name Mica Henao Care Team Providers Name Role Phone Serafin Hernandez MD Primary Care Physician Unavailable Payers Type Date Identification Numbers Payment Provider Subscriber Policy Number: [id number] Medicare Shahida A Schlarb PayID: [id number] [address] [place] [address] Expires: 2018 Policy Number: [id number] Medicare Shahida A Schlarb PayID: [id number] [address] [place] [address] Expires: 2016 Policy Number: [id number] [place] Shahida A Schlarb PayID: [id number] [address] [place] [address] Expires: 2016 Policy Number: [id number] Medicaid Shahida A Schlarb Group Name: 1 1 [address] PayID: [id number] [place] [address] Effective: 2009 Policy Number: [id number] Medicare Shahida A Schlarb Expires: 2015 PayID: [id number] [address] [place] [address] Effective: 2015 Policy Number: [id number] Medicaid Shahida A Schlarb Expires: 2015 Group Name: 1 1 [address] PayID: [id number] [place] [address] Expires: 2015 Policy Number: [id number] Medicaid Shahida A Schlarb Group Name: 1 1 [address] PayID: [id number] [place] [address] Expires: 2016 Policy Number: [id number] Mark Anthony Botello PayID: [id number] [address] [place] [address] Policy Number: [id number] Medicaid Elizabeth A Schlarb Group Name: 1 1 [address] PayID: [id number] [place] [address] Advance Directives Description No Information Available Problems Date Description Provider Status Onset: 06/17/2011 Lumbosacral spondylosis without Serafin Hernandez Active myelopathy Jaime.Neal,FACP Onset: 06/29/2007 Acquired spondylolisthesis Serafin Hernandez Active Talita,FACP Onset: 03/08/2011 Chronic pain syndrome Serafin Hernandez Active Talita,FACP Onset: 10/17/2008 Obstructive sleep apnea syndrome Serafin Hernandez Active Talita,FACP Onset: 03/08/2011 Morbid obesity Serafin Hernandez Active Talita,FACP Onset: 01/21/2013 Chronic nonalcoholic liver Serafin Hernandez Active disease MSyeda,FACP Onset: 06/29/2007 Tobacco user Serafin Hernandez Active Talita,FACP Onset: 06/17/2011 Spinal stenosis of lumbar region Alexei Ramirez M.D.,FACP Onset: 01/21/2013 Tinnitus Serafin Hernandez Active Talita,FACP [...] Active Onset: 02/23/2018 Stress fracture of metatarsal Дмитрийmatthew Avila MD Active bone Onset: 03/31/2018 Lumbar spondylosis Vassilios MD Pascual Active Onset: 07/06/2015 Drug withdrawal Ana Clark [...] Smoker 1 Pack Daily Smoking Status Reviewed: 05/18/18 Current Cigarette 1/2-1.5 cig/day Smoker 1 Pack [...] Form Strength Qnty SIG Indications Ordering Provider Cpap Supplies 12/31/ Active Pls G47.33 Ana Nichols provide luis felipe Clark MD cpap supplies, mask, tubing, head gear, filters etc Commode 12/25/ Active Misc 3-In-1 1units use as Serafin Nichols needed Neal Hernandez, weight 262 M.D.,FACP lbs height 62 inches Nicotine Step 3 12/19/ Active Patches 7mg/24HR 14unit one patch G47.33 Rah 2018 24HR s once daily STEFF Waterman for two weeks Cyclobenzaprine 05/28/ Active Tablets 10mg 90tabs take one Rah HCL 2017 tablet by STEFF Waterman mouth three times a day as needed Cyclobenzaprine 05/28/ Active Tablets 10mg 90tabs Take One Rah HCL 2017 Tablet By STEFF Waterman Mouth Three Times A Day as Needed Morphine Sulfate 02/14/ Active Tablets 15mg 90tabs 1 tablet Serafin 2016 by mouth Neal Hernandez, 3x daily M.D.,FACP as needed MS Contin 01/23/ Active Tablets 30mg 90tabs 1 by mouth G89.4 Serafin 2017 ER every 8 D. Snow, hours M.D.,FACP Bath Bench With 11/18/ Active Misc 1units for daily G89.4 Serafin Back 2017 use, D. Snow, weight M.D.,FACP 237lbs, M47.26 Bathtub Safety 11/18/2016 Active Misc 2units 2 safety bars G89.4 Jorge Luis De Jesus Rail for tub use Talita Hernandez,FACP weight 237lbs M47.26 Advair 05/15/2015 Active Aerosol 250-50mcg/Dose 60units inhale one Rah Diskus puff by mouth STEFF Waterman twice a day Cymbalta 01/23/[address] 60mg 90caps Take One Abdias-Irma Part Capsule By l DMaureen Mouth Every [place], Day M.D.,FAC P Spiriva 09/27/2009 Active Capsules 18mcg 30caps inhale the Rah Handihaler contents of STEFF Waterman one capsule via handihaler by mouth every morning Cpap Mask 10/10/2008 Active 1units cpap mask and Ana And acessories of Lashell Clark patient's MD choice Cane 10/04/2008 Active 1units Backpain with Abdias-Irma radiculopaty savannah De Jesus and carolina Hernandez, right knee M.D.,FAC meniscus P Ibu 01/04/2008 Active Tablets 600mg 270tabs Take One G Abdias-Irma Tablet By 8 l D. Mouth Every 8 9 [place], Hours as . M.D.,FAC Needed For 4 P Pain Fish Oil Active Capsules 1200mg 2 po qd Unknown Burp-Less Zyrtec Active Chewtabs 10mg 1 po qd prn Unknown Iron Active Tablets 325(65Fe) mg 1 by mouth Unknown every day Multi Active Tablets daily Unknown Vitamin Proair HFA Active Aerosol 108(90Base) 25.5unit Inhale Two Stephen mcg/Act s Puffs By Pachikar Mouth Every 4 a, M.D. Hours as Needed Nicotine 11/17/2017 - Hx Patches 14mg/24HR 14units 1 apply patch G Abdias -Irma 12/19/2017 24HR topically 4 l D. every 24 7 [place], hours. . M.D.,FAC 3 P 3 Nicotine 01/23/2017 - Hx Patches 21mg/24HR 28units apply patch G Stephen 11/17/2017 24HR daily, remove 4 Pachikar old one at 7 a, M.D. the same time . x's 6 wks 3 3 Bathtub 11/18/2016 - Hx Misc 1units install 2 G Jorge LuisIrma Safety Rail 05/28/2017 bathtub 8 l D. safety rails 9 [place], . M.D.,FAC 4 P M47.26 Orphenadrine 09/22/2016 - Hx Tablets ER 100mg 60tabs take one tablet Serafin Citrate ER 05/28/2017 12HR by mouth twice D. [place], a day as needed MSyeda,FACP Oxycontin 04/02/2016 - Hx Tab ER 12H [...] Jorge Luis Gill 09/22/2016 by mouth three D. Snow, times a day as M.D.,FACP needed Nicotine 09/05/2015 - Hx Patches 14mg/2 28units topical qd G47. Jorge Luis Gill 01/23/2017 24HR 4HR 33 Neal Hernandez M.D.,FACP Amoxicillin/Clavu 07/04/2015 - Hx Tablets 875-12 20tabs 1 tablet by J01. Soren lanate Potassium 07/14/2015 5mg mouth twice a 90 [place], RECEIVER SETTER day x's 10 days Proair HFA 07/04/2015 - Hx Aerosol 108(90 1units 1 puff every 4 R06. Soren 07/14/2015 Base) hours as needed 2 [place], RECEIVER SETTER mcg/Ac for chest t tightness or wheezing Flexeril 05/16/2015 - Hx Tablets 5mg 240tabs 1 tab by mouth Soren 09/20/2015 three times a [place], RECEIVER SETTER day as needed muscle spasm Morphine Sulfate 05/15/2015 - Hx Tablets 15mg 90tabs 1 by mouth Jorge Luis Gill 02/28/2016 every 8 hours Neal Hernandez, as needed M.D.,FACP breakthrough pain Cromolyn Sodium 03/24/2015 - Hx Aerosol 5.2mg/ 26ml 1 spray both Jorge Luis Gill 01/23/2016 Act eyes nares DMaureen Hernandez, three times a M.D.,FACP day as needed Ketoconazole 03/23/2015 - Hx Shampoo 2% 120unit apply once a L21. Soren 05/15/2015 s day to the 9 [place], RECEIVER SETTER scalp Topiramate 03/23/2015 - Hx Tablets 25mg 90tabs take one tablet Jorge Luis Gill 01/23/2017 by mouth every D. [place], day M.D.,FACP Lasix 04/30/2013 - Hx Tablets 40mg 90tabs Take One Tablet Serafin 04/15/2014 By Mouth Every D. [place], Day for 1 wk M.D.,FACP then prn Potassium 03/13/2013 - Hx Tablets ER 10Meq 90tabs Take One Tablet Abdias Rodrigez Chloride Susu ER 03/23/2015 By Mouth Every D. [place], Day M.D.,FACP Nizatidine 01/21/2013 - Hx Capsules 150mg 60caps 1 po bid 388. Abdias- Jairo 06/09/2014 30 Neal Hernandez M.D.,FACP Potassium 12/29/2012 - Hx Capsules ER 10Meq 90caps Take One Serafin Chloride ER 03/13/2013 Capsule By Neal Hernandez, Mouth Every Day M.Neal,FACP Potassium 03/12/2012 - Hx Tablets ER 10Meq 90tabs Take One Tablet Abdias -Jairo Chloride CR 12/29/2012 By Mouth Every Neal Hernandez, Janette Sandoval.Neal,FACP Orphenadrine 09/11/2011 - Hx Tablets ER 100mg [...] ear Neal Hernandez, bid for 1 wk M.Neal,FACP Metaxalone 06/17/2011 - Hx Tablets 800mg 90tabs take 1 tablet 3 Jorge Luis Gill 08/29/2011 times a day as Neal Hernandez needed Talita,FACP Topiramate 06/17/2011 - Hx Tablets 100mg 180tabs Take One Tablet 836. Serafin 03/23/2015 By Mouth once A 2 Janette Martinez M.D.,[facility] Potassium 10/17/2010 - Hx Tablets ER 10Meq 90tabs po qday Serafin Chloride ER 03/12/2012 Neal Hernandez M.D.,FACP Omeprazole 08/27/2010 - Hx Capsules DR 20mg 90caps Take One Serafin 12/01/2017 Capsule By Neal Hernnadez, Mouth Every Day MSyeda,[facility] Potassium 06/15/2010 - Hx Liquid 10Meq 30daysu po qday Serafin Chloride 10/17/2010 pply Neal Hernandez M.D.,[facility] MS Contin 05/28/2010 - Hx Tablets ER 30mg 90tabs po q8h Serafin 06/17/2011 12HR Neal Hernandez M.D.,[facility] Cymbalta 05/28/2010 - Hx Caps DR 60mg 30caps 1 po qd Serafin 01/23/2012 Part Neal Hernandez M.D.,[facility] Amoxicillin 05/28/2010 - Hx Tablets 500mg 40tabs 2 tabs po bid 491. Serafin 07/17/2010 for 10 days 21 Neal Hernandez M.D.,[facility] Doxycycline 03/16/2010 - Hx Tablets 100mg 14tabs po bid 466. Serafin Monohydrate 05/28/2010 0 Neal Hernandez M.D.,[facility] Prednisone 03/16/2010 - Hx Tablets 10mg 20tabs 4 po qd for 5 466. Jorge Luis Gill 05/28/2010 days 0 Neal Hernandez M.D.,[facility] Nicoderm CQ 10/04/2009 - Hx Patches 21mg/2 1mon topical qam 305. Jorge Luis Gill 03/16/2010 24HR 4HR 1 Neal Henrandez M.D.,[facility] Ciprofloxacin HCL 09/27/2009 - Hx Tablets 500mg 28tabs si bid x 14 382. Serafin 10/04/2009 days 9 Neal Hernandez M.D.,[facility] Azithromycin 09/20/2009 - Hx Tablets 250mg 6tabs 2 tabs po on 466. Ellie 09/27/2009 day 1; 1 tab po 0 Cotton, qd on days 2-5 MSyeda Spiriva 09/20/2009 - Hx Capsules 18mcg 1months 1 inhalation po 466. Ellie Handihaler 09/27/2009 upply qam 0 Talita Meyer Avelox 07/18/2009 - Hx Tablets 400mg 10tabs 1 qd x 10 days 466. Jorge Luis Gill 09/20/2009 0 Neal Hernandez M.D.,[facility] Nasonex 07/18/2009 - Hx Suspension 50mcg/ 17units spray two Serafin 03/24/2015 Act sprays in each Neal Hernandez nostril every Talita,SHANE day Topiramate 01/09/2009 - Hx Tablets 150mg 1 po bid 836. Unknown 06/17/2011 2 Avelox 12/07/2008 - Hx Tablets 400mg 10tabs 1 qd x 10 days 461. Jorge Luis Gill 05/08/2009 9 Neal Hernandez M.D.,[facility] Walker With 10/19/2008 - Hx One dx: Serafin Wheeltrixie, Seat, 05/15/2009 osteoarthritis Neal Hernandez Handkya Sanon,FACP Meniscus tear l knee Cpap 10/10/2008 - Hx 1units cpap machine to Serafin 05/15/2009 be recalibrated Neal Hernandez M.D.,[facility] Left Carpal 10/10/2008 - Hx 1units Use as directed Serafin Tunnel Wrist 05/15/2009 Neal Hernandez Stabilizer Talita,[facility] Lasix 10/04/2008 - Hx Tablets 40mg 90tabs Take One Tablet Serafin 10/16/2012 By Mouth Every Janette Martinez M.D.,[facility] Percocet 09/20/2008 - Hx Tablets 5-325m 180tabs 1 q 4 hours prn 738. Serafin 01/09/2009 g pain 4 Neal Hernandez M.D.,[facility] top 05/16/2008 - Hx Tablets 25mg 60tabs 1 PO bid Serafin 05/16/2008 Neal Hernandez M.D.,[facility] Azithromycin 04/01/2008 - Hx Tablets 500mg 7tabs 1 tab qd for 7 466. Serafin 05/16/2008 days 0 Neal Hernandez M.D.,[facility] Cheratussin ac 04/01/2008 - Hx Syrup 6Oz 1-2 tsp qid prn 466. Jorge Luis Gill 05/16/2008 0 Neal Hernandez M.D.,[facility] Wellbutrin 01/04/2008 - Hx Tablets 75mg 180tabs 1 PO qd Serafin 09/20/2008 Neal Hernandez M.D.,[facility] Wellbutrin XL 01/04/2008 - Hx Tablets ER 150mg 30tabs 2 PO qd Jorge Luis Gill 09/20/2008 24HR Neal Hernandez M.D.,[facility] Iron 01/04/2008 - Hx Tablets 325mg 30tabs 1 po qd Serafin 02/04/2013 Neal Hernandez M.D.,[facility] Lyrica 01/04/2008 - Hx Capsules 150mg 270caps 1 tid 338. Serafin 09/20/2009 4 Neal Hernandez M.D.,[facility] Relafen 10/16/2007 - Hx Tablets 750mg 60tabs 1 bid with food 738. Jorge Luis Gill 01/04/2008 4 Neal Hernandez M.D.,[facility] Zoloft 06/29/2007 - Hx Tablets 100mg 60tabs 2 PO qd Serafin 06/17/2011 Neal Hernandez M.D.,[facility] Wellbutrin SR 06/29/2007 - Hx Tablets ER 150mg 60tabs 2 tablets in am Serafin 01/04/2008 12HR extended 75 Neal Hernandez, mg in am Talita,[facility] Augmentin 06/29/2007 - Hx Tablets 875mg 20tabs po bid x10 days 490 Abdias Rodrigez 10/21/2007 Neal Hernandez M.D.,[facility] Lyrica 06/29/2007 - Hx Capsules 75mg 90caps 1 po tid 738. Serafin 01/04/2008 4 Neal Hernandez M.D.,[facility] Zyrtec - Hx Tablets 10mg 30tabs 1 tab po qd prn Serafin 01/21/2013 Neal Hernandez M.D.,[facility] Cyclobenzaprine - Hx Tablets 10mg 90tabs 1 tablet po tid Serafin HCL 06/17/2011 prn Neal Hernandez M.D.,[facility] K-Dur - Hx Tablets ER 10Meq 30tabs 1 po qd Serafin 06/15/2010 Neal Hernandez M.D.,[facility] Lasix - Hx Tablets 20mg 30tabs 1 po qd Serafin 10/04/2008 Neal Hernandez M.D.,[facility] Abilify - Hx Tablets 5mg 1 qd 311 Serafin 09/20/2009 Neal Hernandez M.D.,FACP Wellbutrin XL - Hx Tablets ER 300mg 1 po qd Mike Hudson 06/17/2011 24HR claudette,RAY Topamax - Hx Tablets 100mg 60tabs 1 [...] Caps ER 30mg 90caps 1 caps 8h [facility] 12/29/2015 24HR Neal Hernandez M.D.,FACP Metaxalone - Hx Tablets 800mg 30tabs take 1/2-1 pill Unknown 12/16/2013 q 8 hrs. Tizanidine HCL - Hx Tablets 4mg 60tabs take 1/2 Unknown 05/15/2015 tablet by mouth four times daily as needed Wellbutrin SR - Hx Tablets ER 200mg 90tabs Take One Tablet [facility] 03/23/2015 12HR By Mouth Every D. Snow, Morning M.DMaureen,FACP Methadone HCL - Hx Tablets 10mg 1 by mouth up Unknown 05/15/2015 to three times a day for pain Celebrex - Hx Capsules 100mg 1 by mouth Unknown 05/15/2015 twice a day Ventolin HFA - Hx Aerosol 108(90 18gm 2 puffs by [facility] 11/30/2015 Base) mouth four D. Snow, mcg/Ac times a day as M.D.,FACP t needed Medications Administered in Office Medication Date Status Form Strength Qnty SIG Indications Ordering Provider Keanu Administered Injection Dirk Johnson, 40MG 018 M.D. Immunizations CPT Code Status Date Vaccine Reaction Lot # [id number] Given 04/13/2018 Influenza Virus Vaccine, [id number] Quadrivalent, Split, Preservative Free [id number] Given 05/28/2017 Influenza Virus Vaccine, [id number] Quadrivalent, Split, Preservative Free 65580 Given 04/02/2016 Influenza Virus Vaccine, no reaction noted... [id number] Quadrivalent, Split, hh Preservative Free Q2037 Given 07/06/2015 Fluvirin Im 3Yrs And Older 38714 Given 07/06/2015 Pneumonia Vaccine 57808 Given 06/14/2014 Flu Vaccine Split Virus [id number] Preservative Free For Indiv 3Yr Older Q2037 Given 04/23/2012 Fluvirin Im 3Yrs And Older [id number] 07768 Given 08/29/2011 Pneumonia Vaccine [id number] Q2038 Given 03/08/2011 Fluzone Vaccine [id number] 67011 Given 05/28/2010 Influenza Virus 3Yrs & Over [id number] 73750 Given 05/15/2009 Influenza Virus Vaccine, [id number] Pandemic Formulation 13457 Given 05/15/2009 Administration Swine Flu Shot 18397 Given 05/16/2008 Influenza Virus 3Yrs & Over Vital Signs Date Vital Result Comment 05/18/2018 2:05pm Height 62 inches 5'2" Weight [...] Date Facility Test Result H/L Range Note CBC No Diff 04/09/2018 [facility] White Blood 12.6 10^3/uL High 3.5-10.[address] [place] [address] [phone] Red Blood Count 5.16 10^6/uL N 4.00-5.40 Hemoglobin 14.9 g/dL N 12.0-16.0 Hematocrit 44 % N 35-47 Mean Corpuscular Volume 86 fL N 80-97 Mean Corpuscular Hemoglobin 29 pg N 27-31 Mean Corpuscular HGB Conc 34 g/dL N 31-36 Red Cell Distribution Width 14 % N 10.5-15 Platelet Count 265 10^3/uL N 150-450 Mean Platelet Volume 9.4 um3 N 7.4-10.4 Inr/Protime 04/09/2018 [facility] Inr 0.85 N 0.77-1.[address] [place] [address] [phone] Laboratory test 04/09/2018 [facility] Partial 34.5 seconds N 26.0-36.[address] [place] [address] PTT [phone] Basic Metabolic 04/09/2018 [facility] Sodium 138 mmol/L N 135- [address] [place] [address] [phone] Potassium 4.6 mmol/L N 3.5-5.0 Chloride 104 mmol/L N 101-111 Co2 Carbon Dioxide 26 mmol/L N 22-32 Anion Gap 8 mmol/L N 2-11 Glucose 126 mg/dL High 70-100 Blood Urea Nitrogen 10 mg/dL N 6-24 Creatinine 0.59 mg/dL N 0.51-0.95 BUN/Creatinine Ratio 16.9 N 8-20 Calcium 9.4 mg/dL N 8.6-10.3 Egfr Non- 107.0 >60 Egfr 129.5 >60 1 Laboratory test 04/09/2018 [facility] TSH (Thyroid 1.59 mcIU/mL N 0.34-5.[address] Stim Horm) [place] [address] [phone] Type & Screen 04/09/2018 [facility] Patient Blood O Positive [address] [place] [place] [address] [phone] Antibody Screen NEGATIVE Urinalysis Profile 04/09/2018 [facility] Urine Color Straw [address] [place] [address] [phone] Urine Appearance Clear Urine Specific Edwards 1.004 Low 1.010-1.030 Urine pH 5.0 N 5-9 Urine Urobilinogen Negative Negative Urine Ketones Negative Negative Urine Protein Negative Negative Urine Leukocytes Negative Negative Urine Blood Negative Negative Urine Nitrite Negative Negative Urine Bilirubin Negative Negative Urine Glucose Negative Negative Urine Culture And 04/09/2018 [facility] Urine Culture SEE RESULT [address] [place] [address] [phone] Urine Microalbumin 02/19/2018 [facility] Ur Microalbumin < 15.[address] (mg/L) [place] [address] [phone] Urine Creatinine 15.83 mg/dL Urine Microalbumin/Creatinine TNP <31 4 Inr/Protime 12/18/2017 [facility] Inr 0.82 N 0.77-1.[address] [place] [address] [phone] Laboratory test 12/18/2017 [facility] Partial 34.2 seconds N 26.0-36.3 6 finding [address] [facility] [place] [address] PTT [phone] Urinalysis 12/18/2017 [facility] Urine Color Straw Profile [address] [place] [address] [phone] Urine Appearance Clear Urine Specific Edwards 1.003 Low 1.010-1.030 Urine pH 6.0 N 5-9 Urine Urobilinogen Negative Negative Urine Ketones Negative Negative Urine Protein Negative Negative Urine Leukocytes Negative Negative Urine Blood Negative Negative Urine Nitrite Negative Negative Urine Bilirubin Negative Negative Urine Glucose Negative Negative CBC No Diff 12/18/2017 [facility] White Blood 12.4 10^3/uL High 3.5-10.8 [address] [facility] [place] [address] [phone] Red Blood Count 4.97 10^6/uL N 4.00-5.40 [...] um3 N 7.4-10.4 Type & Screen 12/18/2017 [facility] Patient Blood Type O Positive [address] [place] [address] [phone] Antibody Screen NEGATIVE Basic Metabolic Panel 12/18/2017 [facility] Sodium 138 mmol/L N 135-[address] [place] [address] [phone] Potassium 4.5 mmol/L N 3.5-5.0 Chloride 103 mmol/L N 101-111 Co2 Carbon Dioxide 27 mmol/L N 22-32 Anion Gap 8 mmol/L N 2-11 Glucose 182 mg/dL High 70-100 Blood Urea Nitrogen 10 mg/dL N 6-24 Creatinine 0.57 mg/dL N 0.51-0.95 BUN/Creatinine Ratio 17.5 N 8-20 Calcium 9.2 mg/dL N 8.6-10.3 Egfr Non- 111.4 >60 Egfr 134.8 >60 7 Laboratory test 12/18/2017 [facility] TSH (Thyroid 2.53 N 0.34 -5.60 [address] Stim Horm) mcIU/[place] [address] [phone] Urine Culture 12/18/2017 [facility] Urine Culture SEE [address] [place] [address] BELOW [phone] Laboratory test 12/18/2017 [facility] Hemoglobin A1c 6.7 % High 4.0-5.[address] (Glyco HGB) [place], [place] [id number] [phone] Lipid Profile 12/04/2017 [facility] Triglycerides 214 mg/dL 11 (Trig/Chol/HDL) [address] [place], [place] [id number] [phone] Cholesterol 220 mg/dL 12 HDL Cholesterol 35.6 mg/dL 13 LDL Cholesterol 142 mg/dL 14 Laboratory test 12/04/2017 [facility] Glucose 137 mg/dL High 70-[address] [place], [place] [address] [phone] CBC Auto Diff 12/04/2017 [facility] White Blood 11.7 High 3.5- 10.[address] Count 10^3/[place] [address] [phone] Red Blood Count 5.22 10^6/uL N 4.0-5.4 [...] Blood Cells % 0.1 Basic Metabolic 12/04/2017 [facility] Sodium 138 mmol/L Low 139-145 Panel [address] [place] [address] [phone] Potassium 4.4 mmol/L N 3.5-5.0 Chloride 103 mmol/L N 101-111 Co2 Carbon Dioxide 26 mmol/L N 22-32 Anion Gap 9 mmol/L N 2-11 Blood Urea Nitrogen 11 mg/dL N 6-24 Creatinine 0.58 mg/dL N 0.51-0.95 BUN/Creatinine Ratio 19.0 N 8-20 Calcium 9.0 mg/dL N 8.6-10.3 Egfr Non- 109.2 >60 Egfr 140.4 >60 15 Drug Abuse 20 05/28/2017 [facility] Urine Amphetamine Negative ng/mL [address] [place] [address] [phone] Urine Barbiturates Negative ng/mL 17 Urine Benzodiazepines Negative ng/mL 18 Urine Cocaine Negative ng/mL 19 Urine Phencyclidine Negative ng/mL Cutoff: 25 Urine Tetrahydrocannabinol Negative ng/mL Cutoff: 50 20 Creatinine, Urine 35.1 mg/dL Specific Edwards 1.007 pH 6.3 Oxidants Negative 21 Adulterants Comment Normal Codeine, Ur Not Detected ng/mL Cutoff: 25 22 Blbocfe-9-pobs-glucuronide, Ur Not Detected ng/mL 23 Morphine, Ur Present ng/mL Cutoff: 25 24 Ykwtltyz-6-trrr-glucuronide, U Present ng/mL 25 6-monoacetylmorphine, Ur Not Detected ng/mL Cutoff: 25 26 Hydrocodone, Ur Not Detected ng/mL Cutoff: 25 27 Norhydrocodone, Ur Not Detected ng/mL Cutoff: 25 28 Dihydrocodeine, Ur Not Detected ng/mL Cutoff: 25 29 Hydromorphone, Ur Not Detected ng/mL Cutoff: 25 30 Mbbbiqbzowzoc1qwkresthmcysurk Not Detected ng/mL 31 Oxycodone, Ur Not Detected ng/mL Cutoff: 25 32 Noroxycodone, Ur Not Detected ng/mL Cutoff: 25 33 Oxymorphone, Ur Not Detected ng/mL Cutoff: 25 34 Giqibarlxzu-1-qhiq-glucuronide Not Detected ng/mL 35 Noroxymorphone, Ur Not Detected ng/mL Cutoff: 25 36 Fentanyl, Ur Not Detected ng/mL Cutoff: 2 37 Norfentanyl, Ur Not Detected ng/mL Cutoff: 2 38 Meperidine, Ur Not Detected ng/mL Cutoff: 25 39 Normeperidine, Ur Not Detected ng/mL Cutoff: 25 40 Naloxone, Ur Not Detected ng/mL Cutoff: 25 41 Aeryvkrd-3-pxbb-glucuronide, U Not Detected ng/mL 42 Methadone, Ur [...] Ur Not Detected ng/mL Cutoff: 50 50 Ycqxdzcjar-cidx-gevbnnhpbvg, U Not Detected ng/mL 51 Buprenorphine, Ur Not Detected ng/mL Cutoff: 5 52 Norbuprenorphine, Ur Not Detected ng/mL Cutoff: 5 53 Norbuprenorphine glucuronide Not Detected ng/mL Cutoff: 20 54 Opioid Interpretation See Comment 55 Drug Abuse 20 01/23/2017 [facility] Urine Amphetamine Negative ng/mL N [address] [place] [address] [phone] Urine Barbiturates Negative ng/mL N 57 Urine Benzodiazepines Negative ng/mL N 58 Urine Cocaine Negative ng/mL N 59 Urine Phencyclidine Negative ng/mL N Cutoff: 25 Urine Tetrahydrocannabinol Negative ng/mL N Cutoff: 50 60 Creatinine, Urine 36.0 mg/dL N Specific Edwards 1.007 N pH 5.7 N Oxidants Negative N 61 Adulterants Comment Normal N Codeine, Ur Not Detected ng/mL N Cutoff: 25 62 Rmesdkl-2-hkun-glucuronide, Ur Not Detected ng/mL N 63 Morphine, Ur Not Detected ng/mL N Cutoff: 25 64 Fpfayqdx-1-pcwe-glucuronide, U Not Detected ng/mL N 65 6-monoacetylmorphine, Ur Not Detected ng/mL N Cutoff: 25 66 Hydrocodone, Ur Not Detected ng/mL N Cutoff: 25 67 Norhydrocodone, Ur Not Detected ng/mL N Cutoff: 25 68 Dihydrocodeine, Ur Not Detected ng/mL N Cutoff: 25 69 Hydromorphone, Ur Not Detected ng/mL N Cutoff: 25 70 Lduifcvkqqlzw0roieplxqmjxgeqe Not Detected ng/mL N 71 Oxycodone, Ur Present ng/mL N Cutoff: 25 72 Noroxycodone, Ur Present ng/mL N Cutoff: 25 73 Oxymorphone, Ur Not Detected ng/mL N Cutoff: 25 74 Cenhlpnqmea-4-lcvq-glucuronide Present ng/mL N 75 Noroxymorphone, Ur Present ng/mL N Cutoff: 25 76 Fentanyl, Ur Not Detected ng/mL N Cutoff: 2 77 Norfentanyl, Ur Not Detected ng/mL N Cutoff: 2 78 Meperidine, Ur Not Detected ng/mL N Cutoff: 25 79 Normeperidine, Ur Not Detected ng/mL N Cutoff: 25 80 Naloxone, Ur Not Detected ng/mL N Cutoff: 25 81 Afmpdqic-8-racr-glucuronide, U Not Detected ng/mL N 82 Methadone, [...] Not Detected ng/mL N Cutoff: 50 90 Wipkcjrnex-cgve-unnxhvzpfcz, U Not Detected ng/mL N 91 Buprenorphine, Ur Not Detected ng/mL N Cutoff: 5 92 Norbuprenorphine, Ur Not Detected ng/mL N Cutoff: 5 93 Norbuprenorphine glucuronide Not Detected ng/mL N Cutoff: 20 94 Opioid Interpretation See Comment N 95 Laboratory test 08/28/2016 [facility] TSH (Thyroid 1.50 mcIU/mL N 0.34-5.[address] Stim Horm) [place] [address] [phone] C Reactive Protein 5.90 mg/L High < 5.00 97 Erythrocyte Sed Rate 12 mm/Hr N 0-30 98 Basic Metabolic Panel 08/28/2016 [facility] Sodium 134 mmol/L N 133-[address] [place] [address] [phone] Potassium 3.9 mmol/L N 3.5-5.0 Chloride 102 mmol/L N 101-111 Co2 Carbon Dioxide 24 mmol/L N 22-32 Anion Gap 8 mmol/L N 2-11 Glucose 112 mg/dL High 70-100 Blood Urea Nitrogen 12 mg/dL N 6-24 Creatinine 0.69 mg/dL N 0.51-0.95 BUN/Creatinine Ratio 17.4 N 8-20 Calcium 9.3 mg/dL N 8.6-10.3 Egfr Non- 89.7 N >60 Egfr 115.4 N >60 99 Lipid Profile 08/28/2016 [facility] Triglycerides 232 mg/dL N 100 (Trig/Chol/HDL) [address] [place] [address] [phone] Cholesterol 209 mg/dL N 101 HDL Cholesterol 32.9 mg/dL N 102 LDL Cholesterol 130 mg/dL N 103 FSH And LH 08/28/2016 [facility] FSH (Follicle Stim 26.2 mIU/mL N [address] Hormone) [place] [address] [phone] LH (Lutenizing Hormone) 4.1 ?IU/mL N 105 CBC Auto 08/28/2016 [facility] White Blood 12.9 10^3/uL High 3.5-10.[address] [place] [address] [phone] Red Blood Count 5.23 10^6/uL N 4.0-5.4 [...] Nucleated Red Blood Cells % 0 N Drug Abuse 07/30/2016 [facility] Urine Amphetamine Negative ng/ mL N 106 [address] [place] [address] [phone] Urine Barbiturates Negative ng/mL N 107 Urine Benzodiazepines Negative ng/mL N 108 Urine Cocaine Negative ng/mL N 109 Urine Phencyclidine Negative ng/mL N Cutoff: 25 Urine Tetrahydrocannabinol Negative ng/mL N Cutoff: 50 110 Creatinine 11.4 mg/dL N Specific Edwards 1.001 N pH 7.1 N Oxidants Negative N 111 Adulterants Comment Normal N Codeine, Ur Not Detected ng/mL N Cutoff: 25 112 Xibsflr-2-juso-glucuronide, Ur Not Detected ng/mL N 113 Morphine, Ur Not Detected ng/mL N Cutoff: 25 114 Vfmuvooc-4-nzac-glucuronide, U Not Detected ng/mL N 115 6-monoacetylmorphine, Ur Not Detected ng/mL N Cutoff: 25 116 Hydrocodone, Ur Not Detected ng/mL N Cutoff: 25 117 Norhydrocodone, Ur Not Detected ng/mL N Cutoff: 25 118 Dihydrocodeine, Ur Not Detected ng/mL N Cutoff: 25 119 Hydromorphone, Ur Not Detected ng/mL N Cutoff: 25 120 Hwtxvskupnlrz3gltoffzhefdfnuc Not Detected ng/mL N 121 Oxycodone, Ur Present ng/mL N Cutoff: 25 122 Noroxycodone, Ur Present ng/mL N Cutoff: 25 123 Oxymorphone, Ur Not Detected ng/mL N Cutoff: 25 124 Ffgmevisljd-0-nmpk-glucuronide Present ng/mL N 125 Noroxymorphone, Ur Present ng/mL N Cutoff: 25 126 Fentanyl, Ur Not Detected ng/mL N Cutoff: 2 127 Norfentanyl, Ur Not Detected ng/mL N Cutoff: 2 128 Meperidine, Ur Not Detected ng/mL N Cutoff: 25 129 Normeperidine, Ur Not Detected ng/mL N Cutoff: 25 130 Naloxone, Ur Not Detected ng/mL N Cutoff: 25 131 Qexfqbyt-6-eisv-glucuronide, U Not Detected ng/mL N 132 Methadone, [...] Not Detected ng/mL N Cutoff: 50 140 Burdphkhxa-ylxf-gntomzpfcmj, U Not Detected ng/mL N 141 Buprenorphine, Ur Not Detected ng/mL N Cutoff: 5 142 Norbuprenorphine, Ur Not Detected ng/mL N Cutoff: 5 143 Norbuprenorphine glucuronide Not Detected ng/mL N Cutoff: 20 144 Opioid Interpretation See Comment N 145 CBC Auto 12/18/2015 [facility] White Blood 11.6 10^3/uL High 3.5-10.[address] [place] [place] [address] [phone] Red Blood Count 5.30 10^6/uL N 4.0-5.4 [...] % 0 N Basic Metabolic Panel 12/18/2015 [facility] Sodium 136 mmol/L N 133-[address] [place] [address] [phone] Potassium 4.3 mmol/L N 3.5-5.0 Chloride 103 mmol/L N 101-111 Co2 Carbon Dioxide 26 mmol/L N 22-32 Anion Gap 7 mmol/L N 2-11 Glucose 116 mg/dL High 70-100 Blood Urea Nitrogen 11 mg/dL N 6-24 Creatinine 0.72 mg/dL N 0.51-0.95 BUN/Creatinine Ratio 15.3 N 8-20 Calcium 9.3 mg/dL N 8.6-10.3 Egfr Non- 85.7 N >60 Egfr 110.3 N >60 146 Drug Abuse 07/06/2015 [facility] Urine Amphetamine Negative ng/ mL N [address] [place] [address] [phone] Urine Barbiturates Negative ng/mL N 148 Urine Benzodiazepines Negative ng/mL N 149 Urine Cocaine Negative ng/mL N 150 Urine Methadone Negative ng/mL N 151 Urine Opiates Presumptive Posi <SEE NOTE> ng/mL N 152 Urine Phencyclidine Negative ng/mL N Cutoff: 25 Urine Tetrahydrocannabinol Negative ng/mL N Cutoff: 20 153 Urine Oxycodone Negative ng/mL N 154 Confirm 07/06/2015 [facility] Urine Codeine Negative ng/mL N [address] Confirmation (GC/MS) [place] [address] [phone] Urine Hydrocodone Confirm Negative ng/mL N 156 Urine Hydromorphone Confirm 234 ng/mL N 157 Urine Morphine Confirm >328463 ng/mL N 158 Urine Oxymorphone Confirm Negative ng/mL N 159 Urine Oxycodone Confirm Negative ng/mL N 160 Urine Opiates Interpretation Positive. N 161 Laboratory test 03/23/2015 [facility] Hemoglobin A1c 6.0 5-7 finding Laboratory test 03/08/2015 [facility] Erythrocyte Sed 20 mm/Hr High 0-14 [address] [place] [address] [phone] C Reactive Protein 11.00 mg/L High < 5.00 163 Lipid Profile 03/08/2015 [facility] Triglycerides 273 mg/dL N 164 (Trig/Chol/HDL) [address] [place] [address] [phone] Cholesterol 228 mg/dL N 165 HDL Cholesterol 39.2 mg/dL N 166 LDL Cholesterol 134 mg/dL N 167 Laboratory 03/08/2015 [facility] Glucose 148 mg/dL High 70- 100 168 test finding [address] [place] [address] [phone] Drug Abuse 20 01/04/2015 [facility] Urine Negative N [address] Amphetamine ng/[place] [address] [phone] Urine Barbiturates Negative ng/mL N 170 Urine Benzodiazepines Negative ng/mL N 171 Urine Cocaine Negative ng/mL N 172 Urine Methadone Presumptive Posi <SEE NOTE> ng/mL N 173 Urine Opiates Presumptive Posi <SEE NOTE> ng/mL N 174 Urine Phencyclidine Negative ng/mL N Cutoff: 25 Urine Tetrahydrocannabinol Negative ng/mL N Cutoff: 20 175 Urine Oxycodone Negative ng/mL N 176 Methadone Confirm 01/04/2015 [facility] Urine Methadone 4220 ng/ mL N [address] [place] [address] [phone] Eddp By GC/MS 8202 ng/mL N 178 Urine Methadone Interpretation Positive. N 179 Confirm 01/04/2015 [facility] Urine Codeine Negative ng/mL N [address] Confirmation (GC/MS) [place] [address] [phone] Urine Hydrocodone Confirm Negative ng/mL N 181 Urine Hydromorphone Confirm 359 ng/mL N 182 Urine Morphine Confirm 32867 ng/mL N 183 Urine Oxymorphone Confirm Negative ng/mL N 184 Urine Oxycodone Confirm Negative ng/mL N 185 Urine Opiates Interpretation Positive. N 186 6Mamu 01/04/2015 [facility] 6Mam(6-Monoacetylmorphine) Negative N Cutoff: (6-Monoacetylmorphine) [address] ng/mL 5 [place] [address] [phone] 6Mam Interpretation Negative. N 187 CBC Auto 07/21/2014 [facility] White Blood 14.5 10^3/uL High 4.8-10.[address] [place] [address] [phone] Red Blood Count 5.53 10^6/uL High 4.0-5.4 [...] Cells % 0 N Laboratory test 07/21/2014 [facility] Kasey (Anti-Nuclear Negative N Negative finding [address] AB) [place] [address] [phone] Rheumatoid Factor <15 IU/mL N <15 188 Cytoplasmic 07/21/2014 [facility] C-Anca Negative N Negative Neutrophilic AB [address] [place], [place] [id number] [phone] P-Anca Negative N Negative 189 Laboratory test 02/02/2014 [facility] Potassium 3.8 mmol/L N 3.7-5.[address] [place] [address] [phone] Magnesium 2.0 mg/dL N 1.9-2.7 Laboratory test 02/18/2013 [facility] C Reactive 1.8 mg/dL High Less finding DRIVE Protein than 0.5 [place], [place] [address] [phone] Jak2 Mutation 02/18/2013 [facility] Jak2 V617F See Comment [address] [place] [address] Detection [phone] Jak2 V617F Method See Comment 191 Jak2 V617F Reviewed By See Comment 192 Jak2 V617F Hpgde Dna Extract Performed Jak2 V617F Interpretation/Repo Performed 193 BCR/Abl Trans 9:22 02/18/2013 [facility] BCR/abl (Fish) Blood Fish [address] [place] [address] [phone] BCR/abl (Fish) Specimen Id [id number] BCR/abl (Fish) Order Date 20 Feb 2013 10:4 <SEE NOTE> 194 BCR/abl (Fish) Referral Reason leukocytosis BCR/abl (Fish) Method See Comment 195 BCR/abl Results See Comment 196 BCR/abl (Fish) Interpretation See Comment 197 BCR/abl (Fish) French Edge Operator See Comment 198 BCR/abl (Fish) Report Date 24 Feb 2013 17:1 <SEE NOTE> 199 Leukemia/Lymphoma Flow 02/18/2013 [facility] LCMS See Comment [address] [place] [address] Description [phone] LCMS Special Studies See Comment 201 LCMS Final Diagnosis See Comment 202 Manual Differential 02/18/2013 [facility] Neutrophil % 53 % 38-[address] [place] [address] [phone] Lymphocytes % 38 % 25-47 Monocytes % 2 % 0-13 Eosinophils % 7 % High 0-6 RBC Morphology Normal Normal Laboratory test 02/18/2013 [facility] Erythrocyte Sed 36 mm/Hr High 0-[address] [place], [place] [address] [phone] Comp Metabolic 02/18/2013 [facility] Sodium 139 133-[address] mmol/[place] [address] [phone] Potassium 3.9 mmol/L 3.5-5.0 Chloride 105 mmol/L [...] Egfr Non- 89.7 >60 Egfr 115.4 >60 204 Oncology CBC 02/18/2013 [facility] White Blood 12.9 10^3/uL High 4.8-10.8 Auto Diff [address] [place] [address] [phone] Red Blood Count 5.18 10^6/uL 4.0-5.4 Hemoglobin [...] 0-0.6 Abs Basophils 0.9 10^3/uL High 0-0.2 Cortisol Free 01/28/2013 [facility] Urine Free 14 mcg/24h 3.5 -45 24HR Urine [address] [place] [address] [phone] Urine Collection Duration 24 h Urine Total Volume 6150 mL 205 Basic Metabolic Panel 01/28/2013 [facility] Sodium 134 mmol/L 133-[address] [place] [address] [phone] Potassium 3.8 mmol/L 3.5-5.0 Chloride 98 mmol/L Low 101-111 Co2 Carbon Dioxide 27.0 mmol/L 22-32 Anion Gap 9.0 mmol/L 2-11 Glucose 113 mg/dL High 70-100 Blood Urea Nitrogen 13 mg/dL 6-24 Creatinine 0.90 mg/dL 0.50-1.40 BUN/Creatinine Ratio 14.4 8-20 Calcium 9.4 mg/dL 8.1-9.9 Egfr Non- 67.1 >60 Egfr 86.3 >60 206 CBC With 01/28/2013 [facility] White Blood 15.3 10^3/uL High 4.8-10.[address] [place] [address] [phone] Red Blood Count 5.41 10^6/uL High 4.0-5.4 [...] 2 % 0-6 RBC Morphology Normal Normal Urinalysis 05/25/2012 [facility] Urine Color Yellow [address] [place] [address] [phone] Urine Appearance Clear Urine Specific Edwards 1.007 Low 1.010-1.030 Urine Esterase Negative Negative Urine Nitrate Negative Negative Urine Urobilinogen Negative Negative Urine Protein Negative Negative Urine pH 6.5 5-9 Urine Blood Negative Negative Urine Ketones Negative Negative Urine Bilirubin Negative Negative Urine Glucose Negative Negative Comp Metabolic Panel 05/25/2012 [facility] Sodium 134 mmol/L 133-145 [address] [place] [address] [phone] Potassium 3.6 mmol/L 3.5-5.0 Chloride 103 mmol/L [...] Egfr 138.4 >60 208 Laboratory test 05/25/2012 [facility] C Reactive 1.4 mg/dL High Less Than finding 101 [facility] Protein 0.5 [place] [address] [phone] CBC Auto Diff 05/25/2012 [facility] White Blood 16.6 High 4.8- 10.[address] Count 10^3/[place] [address] [phone] Red Blood Count 4.92 10^6/uL 4.0-5.4 Hemoglobin [...] Nucleated RBC 0.01 10^3/uL Manual Differential 05/25/2012 [facility] Neutrophil % 75.0 % 38-[address] [place] [address] [phone] Band % 0 % 0-8 Lymphocytes % 17.0 % Low 25-47 Monocytes % 2.0 % 0-13 Eosinophils % 0 % 0-6 Basophil % 0 % 0-2 Reactive Lymph % 6.0 % 0-6 Metamyelocytes % 0 % 0-2 Myelocytes % 0 % 0-1 Promyelocytes % 0 % Blast % 0 % RBC Morphology Normal Normal Laboratory test 03/14/2011 [facility] Clotest NEGATIVE finding [address] [place] [address] [phone] Laboratory test 03/08/2011 [facility] Hemoglobin A1c 5.8 5-7 finding CBC With 08/27/2010 [facility] White Blood 7.9 CUMM 4.8-10 Electronic Diff [address] Count .8 [place] [address] [phone] Red Cell Count 5.15 CUMM 4.2-5.4 Hemoglobin [...] 0.2 0-0.6 Abs Basophils 0 0-0.2 Laboratory test 08/27/2010 [facility] C Reactive 1.4 mg/dL High Less Than finding DRIVE Protein 0.5 [place] [address] [phone] Erythrocyte Sed Rate 24 MM/HR High 0-15 Laboratory 07/31/2010 [facility] Flow (SEE [address] Leukemia/Lymphoma NOTE) [place] [address] Panel [phone] CBC With 07/31/2010 [facility] White Blood Count 12.7 CUMM High 4.[address] -10 [place] [address] .8 [phone] Red Cell Count 5.10 CUMM 4.2-5.4 Hemoglobin [...] Neutrophil Count 9.1 RBC Morphology NORMAL Laboratory 07/31/2010 [facility] Flow (SEE [address] Leukemia/Lymphoma NOTE) [place] [address] Panel [phone] CBC With 07/12/2010 [facility] White Blood Count 11.0 CUMM High 4.[address] -10 [place] [address] .8 [phone] Red Cell Count 5.23 CUMM 4.2-5.4 Hemoglobin [...] Eosinophils 0.2 0-0.6 Abs Basophils 0.1 0-0.2 FSH And LH 07/12/2010 [facility] FSH 4.57 MIU/ML [address] [place] [address] [phone] Lutenizing Hormone 0.63 MIU/ML 212 CBC With 05/14/2010 [facility] White Blood 12.7 CUMM High 4.8- 10.[address] [place] [address] [phone] Red Cell Count 5.16 CUMM 4.2-5.4 Hemoglobin [...] Abs Basophils 0.1 0-0.2 Lipid Profile 05/14/2010 [facility] Triglyceride 189 mg/dL 40 -200 (Trig/Chol/HDL) [address] [place] [address] [phone] Cholesterol 218 mg/dL High Less Than 200 213 High Density Lipoprotein 44 mg/dL 40-60 214 Cholesterol/HDL Ratio 4.95 AVERAGE High 1-4.44 Low Density Lipoprotein 136 mg/dL High Less Than 100 215 Laboratory test 05/14/2010 [facility] TSH 1.64 MIU/ML 0.34- 5.60 finding [address] [place] [address] [phone] Comp Metabolic 05/14/2010 [facility] Sodium 139 mmol/L 135- 145 Panel [address] [place] [address] [phone] Potassium 3.5 mmol/L 3.5-5.0 Chloride 101 mmol/L [...] > 60 eGFR 100.2 > 60 219 Lipid Profile 09/28/2009 [facility] Triglyceride 281 mg/dL High 40-200 (Trig/Chol/HDL) [address] [place] [address] [phone] Cholesterol 242 mg/dL High Less Than 200 220 High Density Lipoprotein 33 mg/dL Low 40-60 221 Cholesterol/HDL Ratio 7.33 AVERAGE High 1-4.44 Low Density Lipoprotein 153 mg/dL High Less Than 100 222 Liver Function 09/28/2009 [facility] Total Protein 6.8 GM/DL 6.2-8.1 Panel [address] [place] [address] [phone] Albumin 4.1 GM/DL 3.6-5.4 Globulin 2.7 GM/DL 2-4 Albumin/Globulin Ratio 1.5 1-3 Bilirubin Total 0.5 mg/dL 0.4-1.5 223 Bilirubin Direct 0.1 mg/dL 0.1-0.5 Indirect Bilirubin 0.4 mg/dL 0.1-0.75 Alkaline Phosphatase 90 U/L 30-110 Alt (SGPT) 16 U/L 14-54 Ast (Sgot) 15 U/L 12-42 CBC With Manual 09/28/2009 [facility] White Blood 10.4 CUMM 4.8-10.[address] [place] [address] [phone] Red Cell Count 5.09 CUMM 4.2-5.4 Hemoglobin [...] Absolute Neutrophil Count 5.7 RBC Morphology NORMAL Basic Metabolic Panel 09/28/2009 [facility] Sodium 137 mmol/L 135-[address] [place] [address] [phone] Potassium 3.8 mmol/L 3.5-5.0 Chloride 103 mmol/L 101-111 Co2 (Carbon Dioxide) 26.0 mmol/L 22-32 Anion Gap 8.0 mmol/L 2-11 224 Glucose 85 mg/dL 70-100 225 BUN 8 mg/dL 6-24 Creatinine 0.70 mg/dL 0.50-1.40 One Over Creatinine 1.40 BUN/Creatinine Ratio 11.4 8-20 Calcium 9.3 mg/dL 8.1-9.9 226 eGFR Non- 96.6 > 60 eGFR 116.9 > 60 227 Urinalysis W/Microscopic 09/28/2009 [facility] Ua Color YELLOW Yellow [address] [place] [address] [phone] Appearance-Urine CLEAR Clear Specific Edwards-Ur 1.022 1.010-1.030 Esterase-Urine TRACE Abnormal Negative Nitrite NEGATIVE Negative Tzrzwzpeysum-Hs-SSE NEGATIVE Negative Protein-Urine TRACE Abnormal Negative PH-Urine 7.0 5-9 Blood-Urine NEGATIVE Negative Ketones-Urine TRACE Abnormal Negative Bilirubin-Ur NEGATIVE Negative Glucose-Urine NEGATIVE Negative WBC-Urine 5-10 Abnormal 0-5 RBC-Urine 0-2 0-2 Epith Cells-Ur MANY None Bacteria-Urine TRACE None Laboratory test 01/06/2008 [facility] Vitamin B12 428 pg/mL 180-914 finding [address] [place] [address] [phone] Thyroxine Free 0.82 NG/ML 0.61-1.24 228 TSH [...] umol/L <=0.40 230 Heavy Metals Screen 01/06/2008 [facility] Arsenic <0.05 ug/mL <0.07 [address] [place] [address] [phone] Lead 3 g/dL () 231 Mercury 2 ng/mL () 232 Cadmium 4.0 ng/mL <5 233 [facility] [address] [facility] () [facility] () [facility] () [place] [address] () [facility] () Guardian First Name SHAHIDA () Guardian Last Name DOMINGUEZ () () Venous/Capillary VENOUS () Race WHITE () 234 Protein 01/06/2008 [facility] Albumin 4.02 GM/DL 3.0-4.35 Electrophoresis Serum [address] [place] [address] [phone] Alpha 1 0.18 GM/DL 0.09-0.33 Alpha 2 0.89 GM/DL 0.59-1.18 Beta 1.10 GM/DL High 0.68-1.02 Gamma 1.11 GM/DL 0.76-1.60 Albumin % 55.1 % 46-63 Alpha 1 % 2.5 % 1.2-5.3 Alpha 2 % 12.2 % 9-17 Beta % 15.1 % 10-16 Gamma % 15.2 % 12-22 A/G Ratio 1.2 0.9-2 Total Protein 7.3 GM/DL 6.2-8.1 Spep Comments (SEE NOTE) 235 1 Because ethnic data is not always readily [...] 15-29 5 Kidney failure <15 (or dialysis) 2 SEE RESULT BELOW Name: SHAHIDA BOTELLO : [address]: Allyson Garner MD Acct: [id number] Unit: [id number] AGE: 52 Location: [facility] Re04/09/18 SEX: F Status: REG REF SPEC: [id number] VKNG: 04/09/[address]: Allyson Garner MD REQ: [id number] RECD: 04/09/18 STATUS: [facility] DR: Serafin Hernandez MD _ SOURCE: URINE SPDESC: ORDERED: Urine Culture Procedure Result Reported Site Urine Culture Final 04/10/18 08 ML No Growth (<1,000 CFU/mL) * ML - Main Lab . END OF REPORT DEPARTMENT OF PATHOLOGY, [address] [place] [address] Darin Stuart M.D. Director [facility] # [id number] Unable to calculate due to low microalbumin 5 AA 01/08 6 01/08 7 Because ethnic data [...] 8 01/08 9 SEE RESULT BELOW Name: EARLYADYGENESISSHAHIDA Miesha : [address]: Allyson Garner MD Acct: [id number] Unit: [id number] AGE: 52 Location: [facility] Re12/18/17 SEX: F Status: REG REF SPEC: [id number] KVNG: 12/18/17-1057 [facility] DR: Allyson Garner MD REQ: [id number] RECD: 12/18/179649 STATUS: COMP _ SOURCE: URINE [facility]: ORDERED: Urine Culture COMMENTS: JENI 01/08 QUERIES: Urine Source: Clean Catch Procedure Result Reported Site Urine Culture Final 12/19/17- 0804 ML No Growth (<1,000 CFU/mL) * ML - Main Lab . END OF REPORT DEPARTMENT OF PATHOLOGY, [address] [place] [address] Darin Stuart M.D. Director [facility] # [id number] 10 Therapeutic target for the treatment of diabetes mellitus patients is <7% HBA1C, and in selective patients <6.0%. Please refer to [place] [employer] diabetic care guidelines for further [...] codeine REFERENCE VALUE Cutoff: 100 24 Dee Mosqueda, Contin; Also a minor metabolite (10%) of codeine and can be seen in low concentrations (<2,000 ng/mL) with poppy seed ingestion. 25 Metabolite of morphine REFERENCE VALUE Cutoff: 100 26 Metabolite of heroin 27 Lortab, [place], Vicodin; Also a very minor metabolite of [...] presence of both morphine and its metabolite (jyerzkns-9-uxoh-glucuronide). Suspect use of morphine within the past three days. Alternatively, these results could also be suggestive of heroin use. Low levels of morphine can also be seen following poppy seed ingestion. ADDITIONAL INFORMATION This test was developed and its performance characteristics determined by [facility] in a manner consistent with CLIA requirements. This test has not been cleared or approved by the U.S. Food and Drug Administration. Test Performed by: [facility] [address] [place] [address] 56 REFERENCE VALUE Cutoff: 500 57 REFERENCE [...] 100 66 Metabolite of heroin 67 Lortab, [place], Vicodin; Also a very minor metabolite of [...] oxycodone and several metabolites (noroxycodone, noroxymorphone, and vkitrffzzir-5-msxf-glucuronide). Suspect use of oxycodone or possibly oxycodone and oxymorphone within the past three days. ADDITIONAL INFORMATION This test was developed and its performance characteristics determined by [facility] in a manner consistent with CLIA requirements. This test has not been cleared or approved by the U.S. Food and Drug Administration. Test Performed by: [facility] - [address] [address] 96 FASTING 10 HOUR 97 Acute inflammation: >10.00 98 FASTING 10 HOUR 99 Because ethnic data is not always readily [...] 15-29 5 Kidney failure <15 (or dialysis) 100 Desirable <150 Borderline high 150-199 High 200-499 Very High >500 101 Desirable <200 Borderline high 200-239 High >239 102 Low <40 Desirable: 40-60 High: >60 103 Desirable: <100 mg/dL Near Optimal: 100-129 mg/dL Borderline High: 130-159 mg/dL High: 160-189 mg/dL Very High: >189 mg/dL 104 Normally menstruating females - Follicular phase 3 - 9 - Mid-cycle peak 4 - 23 - Luteal phase 1 - 6 Postmenopausal females 16 - 114 105 Normally menstruating females - Follicular Phase 1 - 18 - Mid-Cycle Peak 24 - 105 - Luteal Phase 0.6 - 20 Postmenopausal females 15 - 62 106 REFERENCE VALUE Cutoff: 500 107 REFERENCE VALUE Cutoff: 200 108 REFERENCE VALUE Cutoff: 100 109 REFERENCE VALUE Cutoff: 150 110 ADDITIONAL INFORMATION This report is intended for use in clinical monitoring or management of patients. It is not intended for use in employment-related testing. 111 REFERENCE VALUE Cutoff: 200 mg/L 112 Tylenol 3 113 Metabolite of codeine REFERENCE VALUE Cutoff: 100 114 Dee Mosqueda, Contin; Also a minor metabolite (10%) of codeine and can be seen in low concentrations (<2,000 ng/mL) with poppy seed ingestion. 115 Metabolite of morphine REFERENCE VALUE Cutoff: 100 116 Metabolite of heroin 117 Lortab, [place], Vicodin; Also a very minor metabolite of codeine and impurity (<1%) of oxycodone. 118 Metabolite of hydrocodone 119 Metabolite of hydrocodone 120 Dilaudid, Exalgo; Also a metabolite of hydrocodone and a minor (<5%) metabolite of morphine. 121 Metabolite of hydromorphone REFERENCE VALUE Cutoff: 100 122 Endocet, Percocet, Oxycontin 123 Metabolite of oxycodone 124 Numorphan, Opana; Also a metabolite of oxycodone. 125 Metabolite of oxymorphone REFERENCE VALUE Cutoff: 100 126 Metabolite of oxymorphone 127 Actiq, Duragesic, Fentora 128 Metabolite of fentanyl 129 Demerol 130 Metabolite of meperidine 131 Narcan 132 Metabolite of naloxone REFERENCE VALUE Cutoff: 100 133 Dolophine 134 Metabolite of methadone 135 Darvon, Darvocet 136 Metabolite of propoxyphene 137 Tradol, Ultram, Ultracet 138 Metabolite of tramadol 139 Nucynta 140 Metabolite of tapentadol 141 Metabolite of tapentadol REFERENCE VALUE Cutoff: 100 142 Buprenex, Suboxone 143 Metabolite of buprenorphine 144 Metabolite of buprenorphine 145 Test detected the presence of oxycodone and several metabolites (noroxycodone, noroxymorphone, and zvkbzoiwihb-9-vpfb-glucuronide). Suspect use of oxycodone or possibly oxycodone and oxymorphone within the past three days. ADDITIONAL INFORMATION This test was developed and its performance characteristics determined by [facility] in a manner consistent with CLIA requirements. This test has not been cleared or approved by the U.S. Food and Drug Administration. Test Performed by: [facility] [place] [address] Production Control Scheduler: Haroon Henao II, M.D., Ph.D. 146 Because ethnic data is not always readily [...] 15-29 5 Kidney failure <15 (or dialysis) 147 REFERENCE VALUE Cutoff: 500 148 REFERENCE VALUE Cutoff: 200 149 REFERENCE VALUE Cutoff: 200 150 REFERENCE VALUE Cutoff: 150 151 REFERENCE VALUE Cutoff: 150 152 Presumptive Positive Drug confirmation to follow. Presumptive Positive means that the screening method is positive, but the test needs to be run by a confirmatory method before being finalized. REFERENCE VALUE Cutoff: 300 153 ADDITIONAL INFORMATION This report is intended for use in clinical monitoring or management of patients. It is not intended for use in employment-related testing. 154 REFERENCE VALUE Cutoff: 100 ADDITIONAL INFORMATION This report is intended for use in clinical monitoring or management of patients. It is not intended for use in employment-related testing. Test Performed by: [facility] [place] [address] Production Control Scheduler: Haroon Henao II, M.D., Ph.D. 155 REFERENCE VALUE Cutoff: 100 156 REFERENCE VALUE Cutoff: 100 157 REFERENCE VALUE Cutoff: 100 158 If heroin use suspected, test 00163, 5-avqw-jgqgje-morphine(6-LARA) heroin metabolite, can be added at an additional charge. REFERENCE VALUE Cutoff: 100 159 REFERENCE VALUE Cutoff: 100 160 REFERENCE VALUE Cutoff: 100 161 ADDITIONAL INFORMATION This report is intended for use in clinical monitoring and management of patients. It is not intended for use in employment-related testing. Test Performed by: [facility] - [address] [address] Production Control Scheduler: Haroon Henao II, M.D., Ph.D. 162 FASTING 163 Acute inflammation: >10.00 164 Desirable <150 Borderline high 150-199 High 200-499 Very High >500 165 Desirable <200 Borderline high 200-239 High >239 166 Low <40 Desirable: 40-60 High: >60 167 Desirable: <100 mg/dL Near Optimal: 100-129 mg/dL Borderline High: 130-159 mg/dL High: 160-189 mg/dL Very High: >189 mg/dL 168 FASTING 169 REFERENCE VALUE Cutoff: 500 170 REFERENCE VALUE Cutoff: 200 171 REFERENCE VALUE Cutoff: 200 172 REFERENCE VALUE Cutoff: 150 173 Presumptive Positive Drug confirmation to follow. Presumptive Positive means that the screening method is positive, but the test needs to be run by a confirmatory method before being finalized. REFERENCE VALUE Cutoff: 150 174 Presumptive Positive Drug confirmation to follow. Presumptive Positive means that the screening method is positive, but the test needs to be run by a confirmatory method before being finalized. REFERENCE VALUE Cutoff: 300 175 ADDITIONAL INFORMATION This report is intended for use in clinical monitoring or management of patients. It is not intended for use in employment-related testing. 176 REFERENCE VALUE Cutoff: 100 ADDITIONAL INFORMATION This report is intended for use in clinical monitoring or management of patients. It is not intended for use in employment-related testing. Test Performed by: [place] [address] Production Control Scheduler: Haroon Henao II, M.D., Ph.D. 177 REFERENCE VALUE Cutoff: 100 178 REFERENCE VALUE Cutoff: 100 179 Test Performed by: [address] [address] Production Control Scheduler: Haroon Henao II, M.D., Ph.D. 180 REFERENCE VALUE Cutoff: 100 181 REFERENCE VALUE Cutoff: 100 182 REFERENCE VALUE Cutoff: 100 183 If heroin use suspected, test 22479, 0-iemy-hvvdfh-morphine(6-LARA) heroin metabolite, can be added at an additional charge. REFERENCE VALUE Cutoff: 100 184 REFERENCE VALUE Cutoff: 100 185 REFERENCE VALUE Cutoff: 100 186 ADDITIONAL INFORMATION This report is intended for use in clinical monitoring and management of patients. It is not intended for use in employment-related testing. Test Performed by: [place] [address] Production Control Scheduler: Haroon Henao II, M.D., Ph.D. 187 Test Performed by: [place] [address] Production Control Scheduler: Haroon Henao II, M.D., Ph.D. 188 Test Performed by: [place] [address] Production Control Scheduler: Mango Bahena M.D. 189 Negative for cANCA and pANCA patterns by immunofluorescence. Test Performed by: [place] [address] Production Control Scheduler: Mango Bahena M.D. 190 Peripheral blood, JAK2 V617F mutation analysis: Negative for JAK2 V617F. Signing Pathologist: Mango Bahena M.D. Laboratory developed test. 191 JAK2 V617F analysis: Genomic DNA was extracted and a quantitative, allele-specific polymerase chain reaction (PCR) assay used to evaluate for the point mutation causing JAK2 V617F (see [facility] Interpretive Handbook for method details). 192 RESULT: Mango Bahena M.D. 193 Test Performed by: [facility] [address] [place] [address] Production Control Scheduler: Randy Vickers III, M.D. 194 20 Feb 2013 10:40 195 Locus and probes [Strategy;#nuclei;Class] 9q34(ABL1), 22q11.2(BCR) [DFISH;500;ASR] Probe strategy: DFISH=dual color, double fusion. 196 Abnormality Result %Cutoff BCR/ABL1 fusion Normal <0.6 NOMENCLATURE nuc natalie(ABL1,BCR)x2[500] Of 500 nuclei, 0% had fusion of BCR and ABL1. 197 The result is within normal limits for the BCR and ABL1 gene regions. DISCLAIMER: Analyte Specific Reagent (ASR). This test was developed and its performance characteristics determined by [facility]. It has not been cleared or approved by the U.S. Food and Drug Administration. This FISH test does not rule out other chromosome abnormalities. 198 RESULT: Vladislav Polk MD 199 24 Feb 2013 17:17 Test Performed by: [address] [address] Production Control Scheduler: Randy Vickers III, M.D. 200 A Uvqovv-Amwkwb-dvsqkgc slide prepared from the flow cytometry specimen is examined. No morphologic features of acute leukemia or lymphoma are identified. 201 WBC: 11.6 x 10(9)/L %Lymphs (CBC/automated differential): 38% #Lymphs (CBC/automated differential): [...] CD5, CD7, CD8 and gamma/delta T-cell receptors. 202 Peripheral blood, flow cytometric immunophenotyping: Normal immunophenotyping results. No monotypic B-cell population, phenotypically aberrant T-cell population or increase in blasts identified. Reviewed by: Elzbieta Downing M.D. 11:41:42 Analyte Specific Reagent: This test was developed and its performance characteristics determined by [facility]. It has not been cleared or approved by the U.S. Food and Drug Administration. Test Performed by: [address] [address] Production Control Scheduler: Randy Vickers III, M.D. 203 @02/18/13 1518: Manual Diff added. RFLXG=DIFF. 204 Because ethnic data is not always readily [...] 15-29 5 Kidney failure <15 (or dialysis) 205 Test Performed by: [address] [address] Production Control Scheduler: Randy Vickers III, M.D. 206 Because ethnic data is not always readily [...] 15-29 5 Kidney failure <15 (or dialysis) 207 A metabolite of Naproxen, O-desmethylnaproxen, has been shown to interfere with the Jendrassik-Colleen method for measuring total bilirubin. Samples from patients who have taken Naproxen have shown spurious elevation in total bilirubin levels. 208 Because ethnic data is not always readily [...] 15-29 5 Kidney failure <15 (or dialysis) 209 This note was extracted from Version one to remove invalid patient information. Rajinder Uribe Lab Support 09/04/10 Patient Name: SHAHIDA BOTELLO Collection Date: 07/31/2010 Ordering Physician: Abdias HERNANDEZ Received Date: 08/01/2010 Treating Physician: Not Given Report Date: 08/01/2010 Ordering Facility: [facility] Ref #: [id number] Medical Record #: Not Given Specimen ID [...] relative increase Morphologic Evaluation: Slide examined for quality lead purposes only. Each antibody in this assay was utilized to assess for potential abnormalities of studied cell populations or to characterize identified abnormalities. Antibodies Performed: CD2, CD3, CD4, CD5, CD7, CD8, CD19, Lynden, Lambda, CD20, CD11b, CD13, CD14, CD33, CD10, CD34, CD45, HLA-DR, CD117, CD16, CD38, CD56, CD64, CD57 at [facility] Andre Park M.D. [facility] at [address] [address] Page 1 of 2 [facility] Client Services: [phone] [email or web address] Patient Name: SHAHIDA BOTELLO Collection Date: 07/31/2010 Ordering Physician: Abdias HERNANDEZ Received Date: 08/01/2010 Treating Physician: Not Given Report Date: 08/01/2010 Ordering Facility: [facility] Ref #: [id number] Medical Record #: Not Given Specimen ID #: Not Given Date of ,Sex: 1965, F Disclaimer This Test was performed at [address] [place] [address] [address], [place], [address] This test was developed and its performance characteristics determined by [facility]. It has not been cleared or approved by the Food and Drug Administration (FDA). The FDA has determined that such clearance or approval is not necessary. Any image(s) that accompany this report is/are a computer help desk representative image(s) only and should not be used to render a diagnosis. [facility] at [address] [address] Page 2 of 2 LABS Client Services: [phone] [email or web address] Patient Name: SHAHIDA BOTELLO Collection Date: 07/31/2010 Ordering Physician: Abdias HERNANDEZ Received Date: 08/01/2010 Treating Physician: Not Given Report Date: 08/01/2010 Ordering Facility: [facility] Ref #: [id number] Medical Record #: Not Given Specimen ID [...] relative increase Morphologic Evaluation: Slide examined for quality lead purposes only. Each antibody in this assay was utilized to assess for potential abnormalities of studied cell populations or to characterize identified abnormalities. Antibodies Performed: CD2, CD3, CD4, CD5, CD7, CD8, CD19, Lynden, Lambda, CD20, CD11b, CD13, CD14, CD33, CD10, CD34, CD45, HLA-DR, CD117, CD16, CD38, CD56, CD64, CD57 at LABS Andre Park M.D. [facility] at [address] [address] Page 1 of 2 [facility] Client Services: [phone] [email or web address] Patient Name: SHAHIDA BOTELLO Collection Date: 07/31/2010 Ordering Physician: Abdias HERNANDEZ Received Date: 08/01/2010 Treating Physician: Not Given Report Date: 08/01/2010 Ordering Facility: [facility] [place] [facility] Ref #: [id number] Medical Record #: Not Given Specimen ID #: Not Given Date of ,Sex: 1965, F Disclaimer This Test was performed at [address], [place], [address] This test was developed and its performance characteristics determined by [facility]. It has not been cleared or approved by the Food and Drug Administration (FDA). The FDA has determined that such clearance or approval is not necessary. Any image(s) that accompany this report is/are a computer help desk representative image(s) only and should not be used to render a diagnosis. [facility] at [address] [address] Page 2 of 2 [employer] [facility] Client Services: [phone] [email or web address] 211 NORMAL RANGE MALES 1 - 20 NORMALLY MENSTRUATING FEMALES - Follicular Phase 3 - 9 - Mid-Cycle Peak 4 - 23 - Luteal Phase 1 - 6 POSTMENOPAUSAL FEMALES 16 - 114 . 212 NORMAL RANGE MALES 2 - 12 NORMALLY MENSTRUATING FEMALES - Follicular Phase 1 - 18 - Mid-Cycle Peak 24 - 105 - Luteal Phase 0.6 - 20 POSTMENOPAUSAL FEMALES 15 - 62 . 213 CHOLESTEROL INTERPRETATION: Desirable: Less than 200 MG/DL Borderline-High Risk: 200-239 MG/DL High-Risk: 240 MG/DL and over 214 HDL INTERPRETATION: Undesirable: High Risk: Less than 40 MG/DL Desirable: Low Risk: Greater than 60 MG/DL 215 LDL INTERPRETATION: Low Risk Optimal Level: LDL Less than 100 MG/DL Near or Above Optimal: LDL 100-129 MG/DL Borderline High Risk: LDL 130-159 MG/DL High Risk: LDL 160-189 MG/DL Very High Risk: LDL Greater than 189 MG/DL 216 Anion gap measurement may be of limited value in the presence of any alkalosis, especially in a combined acid base disorder. . 217 Note change in reference range as of 02/18/08. The change was based on recommendations from the [place] [employer]. 218 A metabolite of Naproxen, O-desmethylnaproxen, has been shown to interfere with the Jendrassik-[place] method for measuring total bilirubin. Samples from patients who have taken Naproxen have shown spurious elevation in total bilirubin levels. 219 Because ethnic data is not always readily [...] 15-29 5 Kidney failure <15 (or dialysis) 220 CHOLESTEROL INTERPRETATION: Desirable: Less than 200 MG/DL Borderline-High Risk: 200-239 MG/DL High-Risk: 240 MG/DL and over 221 HDL INTERPRETATION: Undesirable: High Risk: Less than 40 MG/DL Desirable: Low Risk: Greater than 60 MG/DL 222 LDL INTERPRETATION: Low Risk Optimal Level: LDL Less than 100 MG/DL Near or Above Optimal: LDL 100-129 MG/DL Borderline High Risk: LDL 130-159 MG/DL High Risk: LDL 160-189 MG/DL Very High Risk: LDL Greater than 189 MG/DL 223 A metabolite of Naproxen, O-desmethylnaproxen, has been shown to interfere with the Jendrassik-Colleen method for measuring total bilirubin. Samples from patients who have taken Naproxen have shown spurious elevation in total bilirubin levels. 224 Anion gap measurement may be of limited value in the presence of any alkalosis, especially in a combined acid base disorder. . 225 Note change in reference range as of 02/18/08. The change was based on recommendations from the [place] [employer]. 226 Please note change in reference range effective 07 . 227 Because ethnic data is not always readily [...] 15-29 5 Kidney failure <15 (or dialysis) 228 PLEASE NOTE NEW REFERENCE RANGES. 229 THERAPEUTIC TARGET FOR THE TREATMENT OF DIABETES MELLITUS PATIENTS IS <7% HBA1C, AND IN SELECTIVE PATIENTS <6.0%. PLEASE REFER TO [place] [employer] DIABETIC CARE GUIDELINES FOR FURTHER INFORMATION. 230 Test Performed by: [facility] Dpt of Lab Med and Pathology [address] [place] [address] Production Control Scheduler: Randy Vickers III, M.D. 231 -- REFERENCE VALUE -- <20 (Toxic >=70) 232 -- REFERENCE VALUE -- <10 (Toxic >50) 233 Test Performed by: [facility] Dpt of Lab Med and Pathology [address] [place] [address] Production Control Scheduler: Randy Vickers III, M.D. 234 Test Performed by: [facility] Dpt of [facility] Med and Pathology [address] [place] [address] Production Control Scheduler: Randy Vickers III, M.D. 235 INCREASED BETA GLOBULIN- CONSISTENT WITH HYPERLIPO- PROTEINEMIA OR IRON DEFICIENCY. Procedures Date Code Description Status 04/22/2018 53645 Treadmill Interp/Report Only Completed 04/22/2018 07054 Stress Test Supervsn W/Out I/R Completed 04/20/2018 77909 ECHO Transthoracic, Real-Time 2D With Doppler And Completed Color Flow 04/20/2018 17803 ECHO Transthoracic, Real-Time 2D With Doppler And Completed Color Flow 04/17/2018 02173 EKG Tracing & Interpretation Completed 01/26/2018 07950 Inject/Drain Joint/Bursa Major W/O US Completed 06/02/2017 05688 Biopsy Skin Lesion Single Completed 11/27/2016 [id number] Mammogram Completed 06/13/2015 00111 Polysomnography Sleep Staging 4+ Parameters Completed 03/08/2013 [id number] Mammogram Completed 05/07/2012 85006 Needle Electromyography Complete, Five Or More Muscles Completed Studied 05/07/2012 30721 Nerve Conduction, Motor W/O F-Wave Study Completed 05/07/2012 25022 Nerve Conduction, Motor W/F-Wave Study Completed 05/07/2012 16350 Nerve Conduction, Sensory Completed 06/25/2011 [id number] Diabetic Foot Exam Completed 09/13/2010 [id number] Colonoscopy Completed 02/22/2008 [id number] Mammogram Completed 09/09/2006 96736 Color Doppler Completed 09/09/2006 66744 Color Doppler Completed 09/09/2006 04958 Pulse Doppler & Continuous Wave Completed 09/09/2006 60765 Echocardiogram Completed 09/09/2006 51466 Echocardiogram Completed Encounters Type Date Location Provider Dx Diagnosis Office Visit 05/18/2018 Neurosurgery Vassilios M43.17 Spondylolisthesis, 2:00p Services Of Gail Garner MD lumbosacral region M51.16 Intervertebral disc disorders w radiculopathy, lumbar region F17.210 Nicotine dependence, cigarettes, uncomplicated E66.8 Other obesity Office Visit 04/23/2018 Radha Espinozamiesha [place] R94.31 Abnormal 3:00p Cardiology Jaren, N.P. electrocardiogram [ECG] [EKG] R73.9 Hyperglycemia, unspecified Z72.0 Tobacco use E78.5 Hyperlipidemia, unspecified Z01.810 Encounter for preprocedural cardiovascular examination M43.17 Spondylolisthesis, lumbosacral region Office Visit 04/17/2018 Alondra John, R94.31 Abnormal 9:40a Cardiology Of M.Neal electrocardiogram [facility] AT [facility] [place] [ECG] [EKG] R73.9 Hyperglycemia, unspecified E78.5 Hyperlipidemia, unspecified E66.8 Other obesity M43.17 Spondylolisthesis, lumbosacral region Z72.0 Tobacco use Office Visit 04/13/2018 10:20a [facility] Internal Rah Waterman, Z01.818 Encounter for other Medicine - RECEIVER SETTER preprocedural [place] examination M51.16 Intervertebral disc disorders w radiculopathy, lumbar region G89.4 Chronic pain syndrome G47.33 Obstructive sleep apnea (adult) (pediatric) Z23 Encounter for immunization E11.9 Type 2 diabetes mellitus without complications Office Visit 03/04/2018 Neurosurgery Vassilios E66.01 Morbid 9:30a Services Of [facility] MD Pascual (severe) obesity due to excess calories E78.5 Hyperlipidemia, unspecified E11.9 Type 2 diabetes mellitus without complications M51.16 Intervertebral disc disorders w radiculopathy, lumbar region M43.16 Spondylolisthesis, lumbar region Office Visit 02/25/2018 10:45a Pulmonology And Ana G47.33 Obstructive sleep Sleep Services Of MD Amber apnea (adult) [facility] (pediatric) E66.01 Morbid (severe) obesity due to excess calories Office Visit 02/23/2018 Orthopedic Дмитрий Avila, M84.375A Stress fracture , 1:00p Services Of left foot, initial C.M.A. encounter for fracture Office Visit 02/19/2018 [facility] Hayder Waterman NP E11.9 Type 2 diabetes 9:00a Medicine - mellitus without [place] complications E78.5 Hyperlipidemia, unspecified M79.672 Pain in left foot Office Visit 01/26/2018 10:30a Orthopedic Omer Ornelas M71.22 Synovial cyst of Services Of Ifeoma Sanon popliteal space [Stephenson], left knee M17.12 Unilateral primary osteoarthritis, left knee Office Visit 01/19/2018 2:20p [facility] Randy Montes.22 Synovial cyst of Medicine - RECEIVER SETTER popliteal space [place] [Stephenson], left knee Office Visit 12/19/2017 2:00p [facility] Internal Rah Waterman, Z01.818 Encounter for other Medicine - RECEIVER SETTER preprocedural [place] examination M51.16 Intervertebral disc disorders w radiculopathy, lumbar region G47.33 Obstructive sleep apnea (adult) (pediatric) G89.4 Chronic pain syndrome F17.210 Nicotine dependence, cigarettes, uncomplicated E11.9 Type 2 diabetes mellitus without complications Office Visit 10/07/2017 4:00p [facility] Internal Serafin De Jesus M25.562 Pain in left Medicine - Talita Hernandez,FACP knee [place] M51.16 Intervertebral disc disorders w radiculopathy, lumbar [...] E66.8 Other obesity Office Visit 06/02/2017 2:10p [facility] Dermatology oPlo Quesadazer, L82.1 Other seborrheic keratosis S30.861A Insect bite (nonvenomous) of abdominal wall, init encntr D22.72 Melanocytic nevi of left lower limb, including hip D48.5 Neoplasm of uncertain behavior of skin Office Visit 05/28/2017 2:00p [facility] Internal Serafin De Jesus G89.4 Chronic pain Medicine - Nyla Hernandez M.D.,FACP syndrome Rd F17.210 Nicotine dependence, cigarettes, uncomplicated M48.062 Spinal stenosis, lumbar region with neurogenic claudication Z23 Encounter for immunization Office Visit 03/14/2017 2:00p Orthopedic Enrique Oviedo, G89.4 Chronic pain Services Of Ifeoma Sanon syndrome G47.33 Obstructive sleep apnea (adult) (pediatric) M79.671 Pain in right foot M54.31 Sciatica, right side Office Visit 01/23/2017 2:10p [facility] Internal Serafin De Jesus Z00.01 Encounter for Anish Hernandez [...] Sleep Services Of MD Amber apnea (adult) [facility] (pediatric) G89.4 Chronic pain syndrome Z79.891 FCI (current) use of opiate analgesic Office Visit 09/17/2016 [facility] Internal Serafin De Jesus M47.26 Other spondylosis 1:40p Anish Hernandez M.D.,FACP with radiculopathy, [place] lumbar region G89.4 Chronic pain syndrome G31.84 Mild cognitive impairment, so stated M70.22 Olecranon bursitis, left elbow Office Visit 07/30/2016 2:40p [facility] Internal Serafin De Jesus D72.829 Elevated white Anish Hernandez M.D.,FACP blood cell count, [place] unspecified N91.1 Secondary amenorrhea D48.5 Neoplasm of uncertain behavior of skin Office Visit 04/02/2016 1:40p [facility] Internal Serafin De Jesus G89.4 Chronic pain Anish Hernandez M.D.,FACP syndrome [place] D72.829 Elevated white blood cell count, unspecified G56.02 Carpal tunnel syndrome, left upper limb D17.1 Benign lipomatous neoplasm of skin, subcu of trunk Z23 Encounter for immunization Office Visit 03/21/2016 1:30p Pulmonology And Ana G47.33 Obstructive sleep Sleep Services Of MD Amber apnea (adult) [facility] (pediatric) E66.09 Other obesity due to excess calories Office Visit 01/23/2016 2:20p [facility] Internal Serafin De Jesus G89.4 Chronic pain Anish Hernandez M.D.,FACP syndrome [place] D48.5 Neoplasm of uncertain behavior of skin D72.829 Elevated white blood cell count, unspecified Office Visit 12/18/2015 2:30p Pulmonology And Ana G47.33 Obstructive sleep Sleep Services Of MD Amber apnea (adult) [facility] (pediatric) E66.09 Other obesity due to excess calories Office Visit 09/26/2015 3:30p Pulmonology And Ana G47.33 Obstructive sleep Sleep Services Of MD Amber apnea (adult) [facility] (pediatric) E66.09 Other obesity due to excess calories Office Visit 09/05/2015 [facility] Internal Serafin De Jesus M51.16 Intervertebral disc 2:00p Anish Hernandez M.D.,FACP disorders w [place] radiculopathy, lumbar region G47.33 Obstructive sleep apnea (adult) (pediatric) D72.829 Elevated white blood cell count, unspecified R73.01 Impaired fasting glucose Office Visit 07/06/2015 [facility] Internal Stephen M51.16 Intervertebral disc 9:20a Anish Membreno M.D. disorders w [address] radiculopathy, lumbar region J44.1 Chronic obstructive pulmonary disease w (acute) exacerbation F17.213 Nicotine dependence, cigarettes, with withdrawal G43.109 Migraine with aura, not intractable, w/o status migrainosus Office Visit 07/06/2015 1:30p Pulmonology And Ana G47.33 Obstructive sleep Sleep Services Of MD Amber apnea (adult) [facility] (pediatric) E66.01 Morbid (severe) obesity due to excess calories F17.213 Nicotine dependence, cigarettes, with withdrawal Office Visit 07/04/2015 4:00p [facility] [facility] - [facility] Internal Soren Wade, J01.90 Acute sinusitis, Medicine - RECEIVER SETTER unspecified [address] R06.2 Wheezing R05 Cough Office Visit 05/16/2015 11:00a Pulmonology And Abdias Reynolds G47.33 Obstructive sleep [facility] [place] apnea (adult) [facility] (pediatric) M54.5 Low back pain Office Visit 05/03/2015 [facility] Peggy Kyle, J96.22 Acute and chronic 12:42p Assoc,omkar Sanon respiratory Hospitalists failure with hypercapnia J44.1 Chronic obstructive pulmonary disease w (acute) exacerbation M54.9 Dorsalgia, unspecified Office Visit 05/02/2015 [facility] Peggy Kyle, J96.22 Acute and chronic 12:41p Assocomkar M.D. respiratory Hospitalists failure with hypercapnia J44.1 Chronic obstructive pulmonary disease w (acute) exacerbation M54.9 Dorsalgia, unspecified Office Visit 05/01/2015 12:41p [facility] Myranda J96.22 Acute and chronic Assoc,omkar Bosch M.D. respiratory Hospitalists failure with hypercapnia J44.1 Chronic obstructive pulmonary disease w (acute) exacerbation M54.9 Dorsalgia, unspecified F17.213 Nicotine dependence, cigarettes, with withdrawal Office Visit 04/30/2015 12:40p [facility] Myranda J96.22 Acute and chronic Assoc,omkar Bosch M.D. respiratory Hospitalists failure with hypercapnia J44.1 Chronic obstructive pulmonary disease w (acute) exacerbation M54.9 Dorsalgia, unspecified F17.213 Nicotine dependence, cigarettes, with withdrawal Office Visit 04/29/2015 12:39p [facility] Myranda J96.22 Acute and chronic Assoc,omkar Bosch M.D. respiratory Hospitalists failure with hypercapnia J44.1 Chronic obstructive pulmonary disease w (acute) exacerbation M54.9 Dorsalgia, unspecified F17.213 Nicotine dependence, cigarettes, with withdrawal Office Visit 04/28/2015 12:39p [facility] Myranda J96.22 Acute and chronic Assoc,omkar Bosch M.D. respiratory Hospitalists failure with hypercapnia J44.1 Chronic obstructive pulmonary disease w (acute) exacerbation M54.9 Dorsalgia, unspecified F17.213 Nicotine dependence, cigarettes, with withdrawal Office Visit 04/27/2015 12:38p [facility] Myranda J96.22 Acute and chronic Assoc,omkar Bosch M.D. respiratory Hospitalists failure with hypercapnia J44.1 Chronic obstructive pulmonary disease w (acute) exacerbation M54.9 Dorsalgia, unspecified F17.213 Nicotine dependence, cigarettes, with withdrawal Office Visit 04/26/2015 [facility] Jesus Narayan J96.22 Acute and 12:37p Assocomkar M.D. chronic Hospitalists respiratory failure with hypercapnia J44.1 Chronic obstructive pulmonary disease w (acute) exacerbation M54.9 Dorsalgia, unspecified F17.213 Nicotine dependence, cigarettes, with withdrawal Office Visit 04/25/2015 [facility] Jesus Abjani, J96.22 Acute and 12:36p Assoc,pc M.D. chronic Hospitalists respiratory failure with hypercapnia J44.1 Chronic obstructive pulmonary disease w (acute) exacerbation M54.9 Dorsalgia, unspecified F17.213 Nicotine dependence, cigarettes, with withdrawal Office Visit 04/24/2015 [facility] Jesus Abjani, J96.22 Acute and 12:35p Assoc,pc M.D. chronic Hospitalists respiratory failure with hypercapnia J44.1 Chronic obstructive pulmonary disease w (acute) exacerbation F17.213 Nicotine dependence, cigarettes, with withdrawal M54.9 Dorsalgia, unspecified Office Visit 04/23/2015 9:38a [facility] Jairo Quijano, M54.9 Dorsalgia , Assoc,pc M.D. unspecified Hospitalists J96.22 Acute and chronic respiratory failure with hypercapnia F17.213 Nicotine dependence, cigarettes, with withdrawal J44.1 Chronic obstructive pulmonary disease w (acute) exacerbation Office Visit 04/21/2015 12:32p [facility] Pranav Garcia, J40 Bronchitis , not Assoc,pc M.D. specified as acute Hospitalists or chronic J44.1 Chronic obstructive pulmonary disease w (acute) exacerbation R09.02 Hypoxemia G89.29 Other chronic pain Office Visit 04/21/2015 4:00p [facility] Internal Rah Guevara, R06.02 Shortness of Medicine - RECEIVER SETTER breath [place] R05 Cough R50.9 Fever, unspecified Office Visit 03/23/2015 3:00p [facility] Internal Soren Wade, Z13.1 Encounter for Medicine - [place] RECEIVER SETTER screening for Rd diabetes mellitus D72.829 Elevated white blood cell count, unspecified E78.5 Hyperlipidemia, unspecified R73.01 Impaired fasting glucose M47.26 Other spondylosis with radiculopathy, lumbar region L21.9 Seborrheic dermatitis, unspecified G43.109 Migraine with aura, not intractable, w/o status migrainosus Z00.01 Encounter for general adult medical exam w abnormal findings Z00.00 Encntr for general adult medical exam w/o abnormal findings Office Visit 06/14/2014 [facility] Internal Rayne Kaleb, 288.60 Leukocytosis, 2:40p Medicine - N.P. 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 Paroxysmal [place] Position 389.9 Hearing Loss Unspec Office Visit 05/07/2012 1:00p [facility] Milvia Poole, 729.5 Pain [facility] [place] 782.0 Skin Sensation Disturbance Office Visit 04/23/2012 3:00p [facility] Hayder De Jesus 721.3 Spondylosis Anish Hernandez M.D.,FACP Lumbar W/O [place] Myelopathy 305.1 Tobacco Use Disorder V76.19 Screening Breast Exam Malignant Neoplasms Other V04.81 Need For Prophylactic Vaccination & Inoculation/Influenza Office Visit 03/23/2012 3:00p [facility] Milvia Poole, 729.5 [facility] [place] 346.00 Migraine Classical W/O Intractable W/O Status Migrainosus Office Visit 01/23/2012 11:10a [facility] Hayder De Jesus 721.3 Spondylosis Anish Hernandez M.D.,[facility] Lumbar W/O [place] Myelopathy 338.4 Chronic Pain Syndrome Office 01/08/2012 Neurosurgery Keenan Rodríguez 756.12 Spondylolisthesis Visit 9:00a Services Of [facility] Herman M.D. Congenital 756.11 Spondylolysis Lumbosacral Region Congenital Office Visit 08/29/2011 1:40p [facility] Hayder De Jesus 721.3 Spondylosis Anish Hernandez M.D.,FACP Lumbar W/O [place] Myelopathy V76.10 Screening For Malignant Neoplasm Breast 305.1 Tobacco Use Disorder v03.82 Streptococcus Pneumoniae Vaccination Spec Other Office Visit 07/15/2011 1:45p Mechanical Test Engineer Internal Roberta 465.9 URI Iliana Cabrales M.D. Respiratory [place] Infections Acute Unspec Sites 462 Pharyngitis Acute 389.9 Hearing Loss Unspec Office Visit 03/08/2011 11:20a DO Not Use Mechanical Test Engineer Serafin De Jesus 338.4 Chronic Pain AT Les Hernandez M.D.,[facility] Syndrome 278.01 Obesity Morbid 626.0 Menstruation Absence V77.1 Screening Diabetes Mellitus V04.81 Need For Prophylactic Vaccination & Inoculation/Influenza Office Visit 08/27/2010 9:20a DO Not Use Mechanical Test Engineer Serafin De Jesus 288.60 Leukocytosis, AT Les Hernandez M.D.,[facility] Unspecified 528.9 Oral Soft Tissue Diseases Other & Unspec 578.1 Blood In Stool Melena Office Visit 05/28/2010 9:00a DO Not Use Mechanical Test Engineer Serafin De Jesus 491.21 Bronchitis AT Les Hernandez M.D.,[facility] Obstructive Chronic W/Acute Exacerbation 627.2 Menopausal Or Female Climacteric State, Symptomatic 724.9 Back Disorders Other Unspec V04.81 Need For Prophylactic Vaccination & Inoculation/Influenza Office Visit 05/07/2010 3:40p DO Not Use Mechanical Test Engineer Stephen Membreno, 704.00 Alopecia Unspec AT Les Sanon 272.4 Hyperlipidemia Other Unspec Office Visit 03/16/2010 11:00a DO Not Use Mechanical Test Engineer Serafin De Jesus 466.0 Bronchitis Acute AT Lse Hernandez M.D.,FACP 492.8 Emphysema Other 305.1 Tobacco Use Disorder 626.1 Menstruation Scanty Or Infrequent Office Visit 10/04/2009 10:40a DO Not Use Mechanical Test Engineer Serafin De Jesus 571.8 Liver Disease AT Les Hernandez M.D.,[facility] Chronic Nonalcoholic Other 305.03 Alcohol Abuse In Remission 218.1 Leiomyoma Uterus Intramural 305.1 Tobacco Use Disorder Office Visit 09/27/2009 2:30p DO Not Use Mechanical Test Engineer Cary Hudson PA 789.03 Pain Abdominal AT [facility] Right Lower Quadrant 382.9 Otitis Media Unspec Office Visit 09/20/2009 2:40p DO Not Use Mechanical Test Engineer Ellie 466.0 Bronchitis Acute AT [facility] Talita Meyer Office Visit 07/18/2009 8:30a DO Not Use Mechanical Test Engineer Cary Hudson PA 466.0 Bronchitis Acute AT [facility] 382.9 Otitis Media Unspec Office Visit 05/15/2009 DO Not Use Mechanical Test Engineer Serafin De Jesus 738.4 Spondylolisthesis 11:40a AT [facility] Talita Hernandez,FACP Acquired 278.00 Obesity Unspec 305.1 Tobacco Use Disorder V04.81 Need For Prophylactic Vaccination & Inoculation/Influenza Office Visit 01/09/2009 9:30a DO Not Use Mechanical Test Engineer Cary Hudson PA 300.01 Panic Disorder AT [facility] W/O Agoraphobia 338.4 Chronic Pain Syndrome Office Visit 12/07/2008 10:30a DO Not Use Mechanical Test Engineer Cary Hudson PA 461.9 Sinusitis Acute AT [facility] Unspec Office Visit 10/04/2008 10:00a DO Not Use Mechanical Test Engineer Cary Hudson PA 836.2 Dislocation Knee AT [facility] Tear Of Cartilage Or Meniscus Current Other 724.4 Neuritis Or Radiculitis Thoracic Or Lumbosacral Unspec Office Visit 09/20/2008 DO Not Use Cary Hudson PA 738.4 Spondylolisthesis 9:30a Mechanical Test Engineer AT Acquired [facility] 311 Depressive Disorder Not Elsewhere Spec 719.46 Pain Joint Lower Leg Office Visit 08/08/2008 1:00p DO Not Use Mechanical Test Engineer Cary Hudson PA 338.4 Chronic Pain AT [facility] Syndrome 311 Depressive Disorder Not Elsewhere Spec Office Visit 06/17/2008 11:30a DO Not Use Mechanical Test Engineer Cary Hudson PA 338.4 Chronic Pain AT [facility] Syndrome 738.4 Spondylolisthesis Acquired 311 Depressive Disorder Not Elsewhere Spec Office Visit 05/16/2008 1:30p DO Not Use Mechanical Test Engineer Cary Hudson PA 338.4 Chronic Pain AT [facility] Syndrome 311 Depressive Disorder Not Elsewhere Spec 738.4 Spondylolisthesis Acquired V04.81 Need For Prophylactic Vaccination & Inoculation/Influenza Office Visit 04/01/2008 11:20a DO Not Use Mechanical Test Engineer Serafin De Jesus 466.0 Bronchitis Acute AT [facility] Talita Hernandez,FACP 305.1 Tobacco Use Disorder Office Visit 02/19/2008 10:00a DO Not Use Mechanical Test Engineer Cary Hudson PA 786.05 Shortness Of AT [facility] Breath V76.12 Screening Mammogram Earl Edgardo Other 338.4 Chronic Pain Syndrome 311 Depressive Disorder Not Elsewhere Spec Office Visit 01/04/2008 9:00a DO Not Use Mechanical Test Engineer Cary Hudson PA 338.4 Chronic Pain AT [facility] Syndrome 311 Depressive Disorder Not Elsewhere Spec 782.3 Edema Office Visit 10/16/2007 DO Not Use Cary Hudson PA 738.4 Spondylolisthesis 2:30p Mechanical Test Engineer AT Acquired [facility] 311 Depressive Disorder Not Elsewhere Spec Office Visit 06/29/2007 DO Not Use Mechanical Test Engineer Serafin De Jesus 738.4 Spondylolisthesis 10:20a AT [facility] Talita Hernandez,FACP Acquired 490 Bronchitis Acute Or Chronic Not Spec 305.1 Tobacco Use Disorder Plan of Treatment Future Appointment(s):09/14/2018 2:00 pm - Allyson Garner MD at [facility]07/17/2018 11:30 am - Allyson Garner MD at [facility]06/16/2018 7:30 am - Allyson Garner MD at [facility]06/10/2018 1:00 pm - Rah Waterman NP at [facility] Internal Medicine [facility]03/04/2019 1:45 pm - Ana Clark MD at [facility]08/24/2018 1:40 pm - aRh Waterman NP at [facility] Internal Medicine [facility]05/18/2018 - Allyson Garner, MDM43.17 Spondylolisthesis, lumbosacral regionFollow up:Rv one week, one month, three months postop.M51.16 Intervertebral disc disorders w radiculopathy, lumbar saqtptX26.210 Nicotine dependence, cigarettes, uodwzxicleqicV70.8 Other obesity
[2018-06-09] MEDS ORDERED: Famotidine IV* 10 MG/ML 2 ML (20 mg) IV ONE (06:00)
[2018-06-09] MEDS ORDERED: Famotidine IV* 10 MG/ML 2 ML (20 mg) ONE (06:17)
[2018-06-09] MEDS ORDERED: ceFAZolin 2 GM PREMIX in ORs 2 GM/50 ML BAG IVPB ONE ×3 (06:18→16:15)
[2018-06-09] MEDS ORDERED: Lidocaine 1% MPF wEPI 200,000* 30 ML SDV ONE (06:39)
[2018-06-09] MEDS ORDERED: Thrombin 5,000 UNITS* 1 APPLIC KIT - topical use - TOPICAL ONE (06:39)
[2018-06-09] MEDS ORDERED: Bacitracin IV* 50,000 UNITS INJ ONE ×2 (06:40→17:49)
[2018-06-09] MEDS ORDERED: Dexamethasone IV* 4 MG/ML 1 ML (4 MG) ONE ×2 (07:14→14:40)
[2018-06-09] MEDS ORDERED: Lidocaine 2% PF * 5 ML VIAL ONE (07:14)
[2018-06-09] MEDS ORDERED: Propofol* 500 MG/50 ML BTL ONE ×6 (07:14→15:49)
[2018-06-09] MEDS ORDERED: Sodium Chloride 0.9%* 10 ML ONE (07:14)
[2018-06-09] MEDS ORDERED: Ondansetron INJ* 2 MG/ML VIAL ONE (07:14)
[2018-06-09] MEDS ORDERED: Propofol* 10 MG/ML 20 ML BTL ONE ×2 (07:14→17:15)
[2018-06-09] MEDS ORDERED: Cisatracurium* 2 MG/ML MDV 5 ML ONE ×2 (07:15→11:16)
[2018-06-09] MEDS ORDERED: fentaNYL* 50 MCG/ML 2 ML VIAL (100 MCG VIAL) ONE ×8 (07:15→19:38)
[2018-06-09] MEDS ORDERED: Remifentanil* 2 MG VIAL ONE ×7 (07:15→15:49)
[2018-06-09] MEDS ORDERED: Midazolam* 1 MG/ML 10 ML VIAL (10 MG) ONE (07:15)
[2018-06-09] MEDS ORDERED: Artificial Tear OPHTH.OINT* 3.5 GM ONE (07:17)
[2018-06-09] MEDS ORDERED: Levalbuterol HFA INHALER* 1 PUFF MDI ONE (08:47)
[2018-06-09] MEDS ORDERED: Vancomycin(*) 1,000 MG VIAL ONE (09:15)
[2018-06-09] MEDS ORDERED: Metoclopramide IV* 5 MG/ML 2 ML VIAL ONE (15:28)
[2018-06-09] MEDS ORDERED: HYDROmorphone INJ1* 1 MG/ML SYRINGE ONE ×3 (17:54→19:39)
[2018-06-09] MEDS ORDERED: Magnesium Hydroxide LIQ* 30 ML UDC PO PRN (18:46)
[2018-06-09] MEDS ORDERED: Ondansetron INJ* 2 MG/ML VIAL IV PRN ×2 (18:46→19:25)
[2018-06-09] MEDS ORDERED: Nicotine Inhaler* 10 MG AMP INH PRN (18:53)
[2018-06-09] MEDS ORDERED: hydrALAZINE IV* 20 MG/ML VIAL ONE (18:57)
[2018-06-09] MEDS ORDERED: fentaNYL* 50 MCG/ML 2 ML VIAL (100 MCG VIAL) IV PRN (19:25)
[2018-06-09] MEDS ORDERED: Levalbuterol 0.63MG/3ML NEB* UNIT OF USE INH PRN (19:25)
[2018-06-09] MEDS ORDERED: Naloxone* 0.4 MG/ML 1 ML VIAL IV PRN (19:25)
[2018-06-09] MEDS: HYDROmorphone INJ1* 1 MG/ML SYRINGE IV PRN ×2 (19:43→19:59)
[2018-06-09] MEDS ORDERED: Albuterol 2.5 MG/3 ML NEB.SOL* (0.083%) INH PRN (20:43)
[2018-06-09] MEDS ORDERED: Morphine VIAL* 4 MG/ML VIAL (1 ml vial) IV PRN (20:43)
[2018-06-09] MEDS ORDERED: NS 0.9% 1000 ML* 1,000 ML IV SCH (20:45)
[2018-06-09] MEDS ORDERED: Morphine ORAL.SOLN 10 mg* 2 MG/ML UDC 5 ml PO PRN (21:00)
[2018-06-09] MEDS ORDERED: Spiriva Inhaler DEVICE* 1 EACH DEVICE SCH (21:00)
--- NOTE | 2018-06-09 21:10 | CONSULT ---
Subjective Date of Service: 06/09/18 Interval History: code status full referring specialty neurosurg hpi this is a 52 yr old wf chronically debilated home bound for at least one yr due to chronic lbp went for lubmar spine surgery this afternoon. as per neurosurg, her surgery has been extensive multiple level of fusion l4 to s1. pt has sig hx of charlie has been on cpap 18 at home and has been compliant ( would still get 5-6 episodes of apena on cpap as per neurosurg) she also has chronic pain syndrome on morphine around the clock since 2007. pt tolerated surgery and was going to icu post op due to chronic lung condition phx type ii dm but not on meds uses diet control morbid obesity charlie on cpap 18 htn copd cig smoker still 5-6 cig daily has been smoking since age 14 chronic pain syndrome due to lbp since 2007 home bound for one yr will crawl to bathroom can walk min with carolyn/walker hx of etoh dep has been sober for the past 15 yrs pshx s/p large bowel resection ( 12 inch ) after perf s/p partial colectomy at young age s/p appy social 5-6 cig daily no etoh sober for past 15 yrs no ivda occ pod but last use was 2002 fhx htn grandparents + cad/dm Review of Systems - Measurements Intake and Output: Intake and Output Last 24 Hours 06/07/18 06/08/18 06/09/18 06/10/18 06:59 06:59 06:59 06:59 Intake Total 100 Output Total 980 Balance -880 Weight 256 lb 3.2 oz Intake: IV Fluids 100 CEFAZOLIN 2G 50 NS 50ML, Cefazolin 2G 50 Output: MARY #1 20 MARY #2 60 Luna 900 - Review of Systems General Comments: pertinent as per hpi Objective Active Medications: Acetaminophen (Tylenol Tab*) 650 mg PO Q6H PRN PRN Reason: FEVER/PAIN Albuterol (Ventolin Hfa Inhaler*) 1 puff INH QAM EARL Diazepam (Valium Tab(*)) 5 mg PO Q8H PRN PRN Reason: muscle spasm Docusate Sodium (Colace Cap*) 100 mg PO BID EARL Duloxetine HCl (Cymbalta Cap*) 60 mg PO QAM EARL Fentanyl Citrate (Fentanyl*) 50 mcg IV Q5M PRN PRN Reason: PAIN - MODERATE Hydromorphone HCl (Dilaudid Inj1s*) 1 mg IV SLOW PU Q4H PRN PRN Reason: PAIN Hydromorphone HCl (Dilaudid Inj1s*) 0.5 mg IV Q10M PRN PRN Reason: PAIN - SEVERE Last Admin: 06/09/18 19:59 Dose: 0.5 mg Lactated Ringer's (Lactated Ringers 1000 Ml Bag*) 1,000 mls @ 125 mls/hr IV PER RATE [facility] Last Admin: 06/09/18 06:35 Dose: 125 mls/hr Lactated Ringer's (Lactated Ringers 1000 Ml Bag*) 1,000 mls @ 75 mls/hr IV .per rate [facility] Levalbuterol HCl (Xopenex 0.63mg/3ml Neb*) 0.63 mg INH ONCE PRN PRN Reason: SOB/WHEEZING Levalbuterol HCl (Xopenex 1.25 Mg/0.5 Ml Neb.Samantha*) 1.25 mg INH Q4H [facility] Magnesium Hydroxide (Milk Of Magnaileen Liq*) 30 ml PO DAILY PRN PRN Reason: CONSTIPATION Mometasone Furoate/Formoterol Fumar (Dulera 200/5 Mdi*) 2 puff INH BID [facility] Morphine Sulfate (Morphine Tab (Nf)) 15 mg PO TID [facility] Morphine Sulfate (Ms Contin(*)) 30 mg PO Q8H [facility] Naloxone HCl (Narcan*) 0.08 mg IV Q2M PRN PRN Reason: severe induced resp depression Nicotine (Nicotine Inhaler*) 10 mg INH Q2H PRN PRN Reason: CRAVING Nicotine (Nicotine Patch 21 Mg/24 Hr*) 1 patch TRANSDERM DAILY [facility] Ondansetron HCl (Zofran Inj*) 4 mg IV Q6H PRN PRN Reason: NAUSEA/VOMITING Ondansetron HCl (Zofran Inj*) 4 mg IV ONCE PRN PRN Reason: NAUSEA/VOMITING Pharmacy Profile Note (Nicotine Patch Removal Note*) 1 note FOLLOW UP 0600 [facility] Tiotropium Mcrae (Spiriva Cap.Inh*) cap INH QAM [facility] Vital Signs - 8 hr 06/09/18 06/09/18 06/09/18 19:23 19:24 19:25 Temperature 98.1 F Pulse Rate 111 110 Respiratory 18 14 20 Rate Blood Pressure 107/90 (mmHg) O2 Sat by Pulse 96 96 Oximetry 06/09/18 06/09/18 06/09/18 19:26 19:30 19:35 Temperature Pulse Rate 110 108 107 Respiratory 20 15 16 Rate Blood Pressure 123/59 123/68 138/82 (mmHg) O2 Sat by Pulse 97 97 97 Oximetry 06/09/18 06/09/18 06/09/18 19:40 19:43 19:45 Temperature Pulse Rate 106 102 Respiratory 18 21 17 Rate Blood Pressure 120/80 155/85 (mmHg) O2 Sat by Pulse 99 99 Oximetry 06/09/18 06/09/18 06/09/18 19:59 20:00 20:15 Temperature Pulse Rate 106 106 Respiratory 21 20 23 Rate Blood Pressure 164/88 167/93 (mmHg) O2 Sat by Pulse 97 96 Oximetry Oxygen Devices in Use Now: Nasal Cannula Appearance: nad Eyes: No Scleral Icterus, PERRLA Ears/Nose/Mouth/Throat: Clear Oropharnyx, Mucous Membranes Moist, - - eyelid edema Neck: NL Appearance and Movements; NL JVP, Trachea Midline Respiratory: Symmetrical Chest Expansion and Respiratory Effort, Clear to Auscultation Cardiovascular: NL Sounds; No Murmurs; No JVD, RRR Abdominal: NL Sounds; No Tenderness; No Distention Extremities: - - + pedal edema able to raise ue against gravity Skin: - - groin rashes Neurological: Alert and Oriented x 3, - - crainial n 2-12 grossly intact able to raise ue b/l against gravity plantar reflex downwards Result Diagrams: 06/09/18 23:05 06/09/18 23:05 EKG Data: ekg ns no acute st t change Assessment/Plan - Billing this is a 52 yr old wf with morbid obesity hx charlie on cpap type ii dm not on med had extensive lumbar fusion done this afternoon. neurosurg requested medical consult to be involved due to her overall pul condition and charlie hx plan 1 chronic lbp s/p extensive lubmar fusion surgery - neurosurg f/u 2 charlie with copd hx still smokes resp treatment and cpap support overnight 3 type ii dm ck a1c in am 4 chronic pain syndrome continue home pain meds ortho already ordered dialaudid 5 anxiety depression continue home psy meds 6 dvt prophylaxis as per ortho protocol Code Status: full
[2018-06-09] MEDS ORDERED: Mouth Piece, Nicotine* 1 EACH CARTRIDGE INH PRN (21:18)
[2018-06-09] MEDS: HYDROmorphone INJ1* 1 MG/ML SYRINGE IV SLOW PU PRN (21:51)
[2018-06-09 21:56] LABS: Urine Appearance Clear; Urine Blood 2+ (Negative); Urine Color Yellow; Urine Ketones Trace (Negative); Urine Protein Negative (Negative); Urine Red Blood Cell 3+(>10/hpf) (Absent); Urine Specific Gravity 1.014 (1.010-1.030); Urine Urobilinogen Negative (Negative); Urine White Blood Cell Trace(0-5/hpf) (Absent)
[2018-06-09 23:18] LABS: ABS Basophils 0 10^3/ul (0-0.2); ABS Eosinophils 0 10^3/ul (0-0.6); ABS Lymphocytes 1.2 10^3/ul (1.0-4.8); ABS Monocytes 0.4 10^3/ul (0-0.8); ABS Neutrophils 18.8 10^3/ul (1.5-7.7); ABS Nucleated RBC 0 10^3/ul; Eosinophil % 0 %; Hematocrit 41 % (35-47); Hemoglobin 13.4 g/dl (12.0-16.0); Mean Corpuscular HGB Conc 33 g/dl (31-36); Mean Corpuscular Hemoglobin 28 pg (27-31); Mean Corpuscular Volume 87 fL (80-97); Mean Platelet Volume 8.8 fL (7.4-10.4); Nucleated Red Blood Cells % 0; Platelet Count 298 10^3/ul (150-450); Red Blood Count 4.75 10^6/ul (4.00-5.40); Red Cell Distribution Width 13 % (10.5-15); White Blood Count 20.4 10^3/ul (3.5-10.8)
[2018-06-09 23:40] LABS: EGFR Non-African American 97.4 (>60)
[2018-06-10] MEDS: Docusate CAP* 100 MG PO SCH ×3 (00:24→20:36)
[2018-06-10] MEDS: Mometasone/Formoter 200/5 MDI INH SCH ×3 (00:28→19:28)
[2018-06-10] MEDS: Diazepam TAB(*) 5 MG PO PRN ×3 (00:59→20:37)
[2018-06-10] MEDS: HYDROmorphone INJ1* 1 MG/ML SYRINGE IV SLOW PU PRN ×2 (01:51→07:58)
[2018-06-10] MEDS: Levalbuterol 1.25MG/0.5ML NEB INH SCH ×4 (04:37→07:41)
[2018-06-10] MEDS ORDERED: Morphine TAB Extended Release (*) 30 MG TAB.ER PO SCH (06:00)
[2018-06-10] MEDS ORDERED: LORazepam INJ* 2 MG/ML 1 ML VIAL IV PUSH ONE (06:30)
[2018-06-10] MEDS ORDERED: LORazepam INJ* 2 MG/ML 1 ML VIAL ONE (06:34)
[2018-06-10 06:35] LABS: ABS Basophils 0.2 10^3/ul (0-0.2); ABS Eosinophils 0 10^3/ul (0-0.6); ABS Lymphocytes 2.2 10^3/ul (1.0-4.8); ABS Neutrophils 14.5 10^3/ul (1.5-7.7); ABS Nucleated RBC 0 10^3/ul; Eosinophil % 0 %; Hematocrit 38 % (35-47); Hemoglobin 12.5 g/dl (12.0-16.0); Lymphocyte % 12.4 %; Mean Corpuscular HGB Conc 33 g/dl (31-36); Mean Corpuscular Hemoglobin 28 pg (27-31); Mean Corpuscular Volume 86 fL (80-97); Mean Platelet Volume 8.9 fL (7.4-10.4); Nucleated Red Blood Cells % 0; Platelet Count 272 10^3/ul (150-450); Red Blood Count 4.45 10^6/ul (4.00-5.40); Red Cell Distribution Width 13 % (10.5-15); White Blood Count 17.9 10^3/ul (3.5-10.8)
[2018-06-10 06:55] LABS: EGFR Non-African American 111.4 (>60)
[2018-06-10] MEDS ORDERED: Spiriva Inhaler DEVICE* 1 EACH DEVICE INH ONE (09:00)
[2018-06-10] MEDS ORDERED: Tiotropium CAP.INH* CAP.INH/18 MCG (USE ORDER SET !) INH SCH (09:00)
[2018-06-10] MEDS ORDERED: Levalbuterol 1.25MG/0.5ML NEB INH PRN (09:48)
[2018-06-10] MEDS: Tiotropium CAP.INH* CAP.INH/18 MCG (USE ORDER SET !) INH SCH (10:30)
--- NOTE | 2018-06-10 11:01 | PN ---
Date of Service: 06/10/18 Critical Care Services: 52F with htn, dm, chronic pain, charlie on cpap qhs, smoker, presented for elective lumbar decompression and laminectomy. Patient tolerated her procedure well. 06/10: Awake, pain improved. Denies any difficulty breathing. Vital Signs: Temp Pulse Resp BP SpO2 FiO2 98.4 F 89 13 166/132 98 95 06/10/18 07:48 06/10/18 10:01 06/10/18 10:01 06/10/18 10:01 06/10/18 10:01 06/09 21:30 Physical Exam: Gen - nad heent - ncat, eomi, perrl neck - no jvd, no thyromegaly cv - s1/s2, no murmur lungs - cta, no wheeze abd - soft, nt back - + dressing in place, jesus drain x 2 ext - no cce neuro - non-focal Fluid Balance (Past 24 Hours): I= O= Net Intake & Output 06/08/18 06/09/18 06/10/18 06/11/18 06:59 06:59 06:59 06:59 Intake Total 460 Output Total 2250 490 Balance -1790 -490 Weight 116.21 kg 117.1 kg Intake: IV Fluids 460 CEFAZOLIN 2G 50 LR 360 NS 50ML, Cefazolin 2G 50 Output: MARY #1 240 55 MARY #2 110 10 Luna 1900 425 Labs: Laboratory Results - last 24 hr 06/09/18 06/09/18 06/09/18 20:37 21:35 23:05 WBC 20.4 H RBC 4.75 Hgb 13.4 Hct 41 MCV 87 MCH 28 MCHC 33 RDW 13 Plt Count 298 MPV 8.8 Neut % (Auto) 92.0 Lymph % (Auto) 6.0 Jerome % (Auto) 1.9 Eos % (Auto) 0 Baso % (Auto) 0.1 Absolute Neuts (auto) 18.8 H Absolute Lymphs (auto) 1.2 Absolute Monos (auto) 0.4 Absolute Eos (auto) 0 Absolute Basos (auto) 0 Absolute Nucleated RBC 0 Nucleated RBC % 0 Sodium Potassium Chloride Carbon Dioxide Anion Gap BUN Creatinine Est GFR ( Amer) Est GFR (Non-Af Amer) BUN/Creatinine Ratio Glucose POC Glucose (mg/dL) 253 H Lactic Acid Calcium Phosphorus Magnesium Total Bilirubin AST ALT Alkaline Phosphatase Troponin I Total Protein Albumin Globulin Albumin/Globulin Ratio Triglycerides Cholesterol LDL Cholesterol HDL Cholesterol Urine Color Yellow Urine Appearance Clear Urine pH 6.0 Ur Specific [place] 1.014 Urine Protein Negative Urine Ketones Trace A Urine Blood 2+ A Urine Nitrate Negative Urine Bilirubin Negative Urine Urobilinogen Negative Ur Leukocyte Esterase Negative Urine WBC (Auto) Trace(0-5/hpf) Urine RBC (Auto) 3+(>10/hpf) A Ur Squamous Epith Cells Present A Urine Bacteria Absent Urine Glucose 2+(150 mg/dl) A 06/09/18 06/09/18 06/10/18 23:05 23:05 06:15 WBC RBC Hgb Hct MCV MCH MCHC RDW Plt Count MPV Neut % (Auto) Lymph % (Auto) Jerome % (Auto) Eos % (Auto) Baso % (Auto) Absolute Neuts (auto) Absolute Lymphs (auto) Absolute Monos (auto) Absolute Eos (auto) Absolute Basos (auto) Absolute Nucleated RBC Nucleated RBC % Sodium 135 136 Potassium 4.2 3.9 Chloride 101 101 Carbon Dioxide 25 29 Anion Gap 9 6 BUN 10 9 Creatinine 0.64 0.57 Est GFR ( Amer) 117.9 134.8 Est GFR (Non-Af Amer) 97.4 111.4 BUN/Creatinine Ratio 15.6 15.8 Glucose 251 H 193 H POC Glucose (mg/dL) Lactic Acid 1.9 Calcium 8.4 L 8.5 L Phosphorus 4.0 Magnesium 2.2 Total Bilirubin 0.40 AST 53 H ALT 34 Alkaline Phosphatase 65 Troponin I 0.03 Total Protein 6.6 Albumin 3.9 Globulin 2.7 Albumin/Globulin Ratio 1.4 Triglycerides 237 Cholesterol 203 LDL Cholesterol 123 HDL Cholesterol 33.0 Urine Color Urine Appearance Urine pH Ur Specific [place] Urine Protein Urine Ketones Urine Blood Urine Nitrate Urine Bilirubin Urine Urobilinogen Ur Leukocyte Esterase Urine WBC (Auto) Urine RBC (Auto) Ur Squamous Epith Cells Urine Bacteria Urine Glucose 06/10/18 06:15 WBC 17.9 H RBC 4.45 Hgb 12.5 Hct 38 MCV 86 MCH 28 MCHC 33 RDW 13 Plt Count 272 MPV 8.9 Neut % (Auto) 81.1 Lymph % (Auto) 12.4 Jerome % (Auto) 5.5 Eos % (Auto) 0 Baso % (Auto) 1.0 Absolute Neuts (auto) 14.5 H Absolute Lymphs (auto) 2.2 Absolute Monos (auto) 1.0 H Absolute Eos (auto) 0 Absolute Basos (auto) 0.2 Absolute Nucleated RBC 0 Nucleated RBC % 0 Sodium Potassium Chloride Carbon Dioxide Anion Gap BUN Creatinine Est GFR ( Amer) Est GFR (Non-Af Amer) BUN/Creatinine Ratio Glucose POC Glucose (mg/dL) Lactic Acid Calcium Phosphorus Magnesium Total Bilirubin AST ALT Alkaline Phosphatase Troponin I Total Protein Albumin Globulin Albumin/Globulin Ratio Triglycerides Cholesterol LDL Cholesterol HDL Cholesterol Urine Color Urine Appearance Urine pH Ur Specific [place] Urine Protein Urine Ketones Urine Blood Urine Nitrate Urine Bilirubin Urine Urobilinogen Ur Leukocyte Esterase Urine WBC (Auto) Urine RBC (Auto) Ur Squamous Epith Cells Urine Bacteria Urine Glucose Impression: 52F with htn, dm, chronic pain, charlie on cpap qhs, smoker, presented for elective lumbar decompression and laminectomy. Plan: Low back pain - s/p decompression/laminectomy and fusion - tolerated procedure well - management per neurosurgery CHARLIE - stable - c/w home cpap copd - no wheezing on exam - c/w home inhalers - smoking cessation education leukocytosis - no evidence of infection - likely reactive - continue to monitor anxiety/depression - c/w cymbalta dvt ppx full code Stable for transfer to surgical unit when cleared by neurosurgery
[2018-06-10] MEDS: Nicotine PATCH 21 MG/24 HR* PATCH TRANSDERM SCH (12:00)
--- NOTE | 2018-06-10 12:14 | CONSULT ---
Consult Consult: INPATIENT PAIN CONSULTATION Shahida Botello is a 52 year old female with a medical history significant for COPD and ЮЛИЯ. She developed back pain when she was 21. In her mid-30s the pain got worse. in her mid-40's it got significantly worse. She was started on Lyrica but gained 100 lbs and had to go off it. She was [facility]. She tried acupuncture and chiropractic. SHe tried PT. SHe was changed to methadone by [facility] in [place]. She was having trouble breathing and went to Dr. Adamson who changed her methadone to OxyContin and then MS COntin. She was also started on Cymbalta. She was taking MS Contin, 30 mg Q8H and MS IR 15 mg up to 4 times a day for breakthrough. She saw Dr. Garner who ordered new imaging and discovered a spondylolisthesis at L5/S1. She was scheduled for a fusion in December but it was postponed twice. She had a lumbar fusion at L5/S1 yesterday. Initially on Dilaudid alone, she was uncomfortable. Her MS Contin was resumed this am. Last BM was Friday PAST MEDICAL HISTORY: COPD, ЮЛИЯ Allergies Allergy/AdvReac Type Severity Reaction Status Date / Time diphenhydramine AdvReac Altered Verified 06/02/18 12:34 [From Mateusz] Mental Status STEROIDS AdvReac Altered Uncoded 06/02/18 12:34 Mental Status Current Medications Acetaminophen (Tylenol Tab*) 650 mg PO Q6H PRN PRN Reason: FEVER/PAIN Albuterol (Ventolin Hfa Inhaler*) 1 puff INH QAM [facility] Device (Nicotine Mouth Piece*) 1 each INH ONCE PRN PRN Reason: CRAVINGS Diazepam (Valium Tab(*)) 5 mg PO Q8H PRN PRN Reason: muscle spasm Last Admin: 06/10/18 00:59 Dose: 5 mg Docusate Sodium (Colace Cap*) 100 mg PO BID [facility] Last Admin: 06/10/18 07:58 Dose: 100 mg Duloxetine HCl (Cymbalta Cap*) 60 mg PO QAM [facility] Lactated Ringer's (Lactated Ringers 1000 Ml Bag*) 1,000 mls @ 75 mls/hr IV .per rate [facility] Last Admin: 06/10/18 01:50 Dose: 75 mls/hr Levalbuterol HCl (Xopenex 1.25 Mg/0.5 Ml Neb.Samantha*) 1.25 mg INH Q6H PRN PRN Reason: SOB/WHEEZING Magnesium Hydroxide (Milk Of Magnesia Liq*) 30 ml PO DAILY PRN PRN Reason: CONSTIPATION Mometasone Furoate/Formoterol Fumar (Dulera 200/5 Mdi*) 2 puff INH BID [facility] Last Admin: 06/10/18 10:30 Dose: 2 puff Morphine Sulfate (Morphine Oral.Soln 10 Mg*) 15 mg PO TID PRN PRN Reason: PAIN Last Admin: 06/10/18 00:40 Dose: 15 mg Morphine Sulfate (Ms Contin(*)) 30 mg PO Q8HR [facility] Last Admin: 06/10/18 06:41 Dose: 30 mg Nicotine (Nicotine Inhaler*) 10 mg INH Q2H PRN PRN Reason: CRAVING Nicotine (Nicotine Patch 21 Mg/24 Hr*) 1 patch TRANSDERM DAILY [facility] Ondansetron HCl (Zofran Inj*) 4 mg IV Q6H PRN PRN Reason: NAUSEA/VOMITING Last Admin: 06/10/18 00:40 Dose: 4 mg Pharmacy Profile Note (Nicotine Patch Removal Note*) 1 note PATCH OFF 2100 [facility] Tiotropium Oral (Spiriva Cap.Inh*) 1 cap INH QAM [facility] Last Admin: 06/10/18 10:30 Dose: 1 cap SOCIAL HISTORY: 07/03 ppd smoker, non drinker, lives by herself in a townhouse. Bathroom upstairs Vital Signs Temp Pulse Resp BP Pulse Ox 99.4 F 94 16 164/111 90 06/10/18 11:56 06/10/18 12:00 06/10/18 12:00 06/10/18 11:01 06/10/18 12:00 EXAM: GENERAL: Some mild distress LUNGS: CLear HEART: Reg rhythm ABDOMEN: Soft, non tender EXTREMITIES: Trace edema NEUROLOGIC: Alert, oriented. Moves all 4 extremities ASSESSMENT: 1. Lumbar Fusion for Spondylolisthesis 2. Chronic pain, on chronic opioids PLAN: For the next 5 days, she may need a bit more than her baseline medications. I will increase her MS Contin to 45 mg Q8 and her PRN MSIR to 15 Q 4 PRN. I have added bowel medications to her pain regimen.
[2018-06-10] MEDS ORDERED: Senna TAB PO PRN (12:24)
[2018-06-10] MEDS: Morphine TAB Extended Release (*) 15 MG TAB.ER PO SCH ×2 (13:18→22:00)
[2018-06-10] MEDS: DULoxetine DR CAP* 60 MG CAP.DR PO SCH (13:24)
[2018-06-10] MEDS: Albuterol HFA INHALER* 8 gm MDI INH SCH (13:25)
--- NOTE | 2018-06-10 16:11 | PN ---
Subjective Date of Service: 06/10/18 Interval History: Patient states she had some withdrawal but that has gone away since she got more morphine. Objective Active Medications: Acetaminophen (Tylenol Tab*) 650 mg PO Q6H PRN PRN Reason: FEVER/PAIN Albuterol (Ventolin Hfa Inhaler*) 1 puff INH QAM [facility] Last Admin: 06/10/18 13:25 Dose: Not Given Device (Nicotine Mouth Piece*) 1 each INH ONCE PRN PRN Reason: CRAVINGS Diazepam (Valium Tab(*)) 5 mg PO Q8H PRN PRN Reason: muscle spasm Last Admin: 06/10/18 13:13 Dose: 5 mg Docusate Sodium (Colace Cap*) 100 mg PO BID [facility] Last Admin: 06/10/18 07:58 Dose: 100 mg Duloxetine HCl (Cymbalta Cap*) 60 mg PO QAM [facility] Last Admin: 06/10/18 13:24 Dose: 60 mg Lactated Ringer's (Lactated Ringers 1000 Ml Bag*) 1,000 mls @ 75 mls/hr IV .per rate [facility] Last Admin: 06/10/18 01:50 Dose: 75 mls/hr Levalbuterol HCl (Xopenex 1.25 Mg/0.5 Ml Neb.Samantha*) 1.25 mg INH Q6H PRN PRN Reason: SOB/WHEEZING Magnesium Hydroxide (Milk Of Magnesia Liq*) 30 ml PO DAILY PRN PRN Reason: CONSTIPATION Mometasone Furoate/Formoterol Fumar (Dulera 200/5 Mdi*) 2 puff INH BID [facility] Last Admin: 06/10/18 10:30 Dose: 2 puff Morphine Sulfate (Morphine Oral.Soln 10 Mg*) 15 mg PO Q4H PRN PRN Reason: PAIN - SEVERE Morphine Sulfate (Ms Contin(*)) 45 mg PO Q8HR [facility] Last Admin: 06/10/18 13:18 Dose: 45 mg Nicotine (Nicotine Inhaler*) 10 mg INH Q2H PRN PRN Reason: CRAVING Nicotine (Nicotine Patch 21 Mg/24 Hr*) 1 patch TRANSDERM DAILY [facility] Last Admin: 06/10/18 12:00 Dose: 1 patch Nystatin (Nystatin Top Powder*) 1 applic TOPICAL BID [facility] Ondansetron HCl (Zofran Inj*) 4 mg IV Q6H PRN PRN Reason: NAUSEA/VOMITING Last Admin: 06/10/18 00:40 Dose: 4 mg Pharmacy Profile Note (Nicotine Patch Removal Note*) 1 note PATCH OFF 2100 [facility] Senna (Senokot Tab*) 2 tab PO BEDTIME PRN PRN Reason: CONSTIPATION Tiotropium [place] (Spiriva Cap.Inh*) 1 cap INH QAM [facility] Last Admin: 06/10/18 10:30 Dose: 1 cap Vital Signs - 8 hr 06/10/18 06/10/18 06/10/18 09:00 10:00 10:01 Temperature Pulse Rate 89 88 89 Respiratory 14 16 13 Rate Blood Pressure 149/86 166/132 (mmHg) O2 Sat by Pulse 98 97 98 Oximetry 06/10/18 06/10/18 06/10/18 11:00 11:01 11:56 Temperature 99.4 F Pulse Rate 90 90 Respiratory 19 18 Rate Blood Pressure 164/111 (mmHg) O2 Sat by Pulse 93 94 Oximetry 06/10/18 06/10/18 06/10/18 12:00 13:13 13:26 Temperature Pulse Rate 94 Respiratory 16 18 18 Rate Blood Pressure (mmHg) O2 Sat by Pulse 90 Oximetry 06/10/18 15:52 Temperature 99 F Pulse Rate Respiratory Rate Blood Pressure (mmHg) O2 Sat by Pulse Oximetry Oxygen Devices in Use Now: None Appearance: Alert, partly up in recliner chair in ICU. In fair spirits, looks a little uncomfortable. Eyes: No Scleral Icterus Respiratory: Symmetrical Chest Expansion and Respiratory Effort, Clear to Auscultation, Clear to Percussion Cardiovascular: NL Sounds; No Murmurs; No JVD, RRR, No Edema, - Neurological: Alert and Oriented x 3, NL Sensation Result Diagrams: 06/10/18 06:15 06/10/18 06:15 Microbiology and Other Data: Microbiology 06/09/18 21:35 Urine Culture - Final Urine No Growth (<1,000 CFU/mL) 06/09/18 20:54 Nasal Screen MRSA (PCR) - Final Nasal Mrsa Detected EKG Data: ekg ns no acute st t change Assess/Plan/Problems-Billing this is a 52 yr old wf with morbid obesity hx юлия on cpap type ii dm not on med had extensive lumbar fusion done this afternoon. neurosurg requested medical consult to be involved due to her overall pul condition and юлия hx plan 1 chronic lbp s/p extensive lubmar fusion surgery - neurosurg f/u 2 юлия with copd hx still smokes resp treatment and cpap support overnight 3 type ii dm ck a1c in am 4 chronic pain syndrome continue home pain meds ortho already ordered dialaudid 5 anxiety depression continue home psy meds 6 dvt prophylaxis as per ortho protocol Code Status: full - Patient Problems (1) ЮЛИЯ (obstructive sleep apnea) Current Visit: Yes Status: Acute Code(s): G47.33 - OBSTRUCTIVE SLEEP APNEA ( ADULT) (PEDIATRIC) SNOMED Code(s): 57364215 Comment: Pt has her CPAP here and is very compliant with using it during sleep and naps. (2) Tobacco abuse Current Visit: No Status: Acute Code(s): Z72.0 - TOBACCO USE SNOMED Code(s ): 100981904 Comment: - Educated about importance of tobaco cessation. - Continue Nicotine patch and nicotine inhaler PRN. (3) Morbid obesity Current Visit: Yes Status: Acute Code(s): E66.01 - MORBID (SEVERE) OBESITY DUE TO EXCESS CALORIES SNOMED Code(s): 310247063 Comment: BMI 47.2 06/10/18.
[2018-06-10] MEDS: Morphine ORAL.SOLN 10 mg* 2 MG/ML UDC 5 ml PO PRN (19:05)
[2018-06-10] MEDS: Nystatin TOP POWDER* 15 GM BTL TOPICAL SCH (20:38)
--- NOTE | 2018-06-10 21:28 | PN ---
Progress Note - Progress Note Date of Service: 06/10/18 SOAP: Subjective: [] No events ON. In ICU awaiting for floor bed. Patient tolerated procedure well. Tolerates PO well. Arita. Able to get OOB to chair today. Preop RLE numbness resolved. Preop back pain significantly improved, was able to get OOB with significant improvement compared to preop. Has incision pain. Appreciate Dr Magana's help with pain control. Objective: [] VSS, Afebrile Wound s,c,d Drains in place. Output noted. AAOx3 POWER, CN II-XII grossly intact. Motor 5/5 all extremities. Sensory grossly intact to light touch. Assessment: []52 yof POD#1 L4-S1 arthrodesis for DDD and GradeII spondylolisthesis Plan: []Monitor VS, Neurochecks Monitor drain output. OOB with assistance DC arita in am. Advance diet as tolerated. Nutrition consult in am. PT DC planning. Appreciate IM, Dr Magana's care. Abhishek Garner MD
[2018-06-10] MEDS: Nicotine Patch Removal NOTE PATCH OFF SCH (21:55)
[2018-06-10] MEDS: Acetaminophen TAB* 325 MG PO PRN (22:58)
[2018-06-11] MEDS: Morphine ORAL.SOLN 10 mg* 2 MG/ML UDC 5 ml PO PRN ×4 (02:28→21:43)
[2018-06-11] MEDS: Diazepam TAB(*) 5 MG PO PRN ×2 (04:53→19:57)
[2018-06-11] MEDS: Morphine TAB Extended Release (*) 15 MG TAB.ER PO SCH ×3 (06:17→21:43)
[2018-06-11] MEDS: DULoxetine DR CAP* 60 MG CAP.DR PO SCH (08:02)
[2018-06-11] MEDS: Docusate CAP* 100 MG PO SCH ×2 (08:02→19:57)
[2018-06-11] MEDS: Nicotine PATCH 21 MG/24 HR* PATCH TRANSDERM SCH (08:02)
[2018-06-11] MEDS: Acetaminophen TAB* 325 MG PO PRN ×2 (08:05→14:37)
--- NOTE | 2018-06-11 08:08 | PN ---
Subjective Date of Service: 06/11/18 Interval History: Pain control OK. Patient apprehensive about her condition. Objective Active Medications: Acetaminophen (Tylenol Tab*) 650 mg PO Q6H PRN PRN Reason: FEVER/PAIN Last Admin: 06/10/18 22:58 Dose: 650 mg Albuterol (Ventolin Hfa Inhaler*) 1 puff INH QAM [facility] Last Admin: 06/10/18 13:25 Dose: Not Given Device (Nicotine Mouth Piece*) 1 each INH ONCE PRN PRN Reason: CRAVINGS Diazepam (Valium Tab(*)) 5 mg PO Q8H PRN PRN Reason: muscle spasm Last Admin: 06/11/18 04:53 Dose: 5 mg Docusate Sodium (Colace Cap*) 100 mg PO BID [facility] Last Admin: 06/10/18 20:36 Dose: 100 mg Duloxetine HCl (Cymbalta Cap*) 60 mg PO QAM [facility] Last Admin: 06/10/18 13:24 Dose: 60 mg Levalbuterol HCl (Xopenex 1.25 Mg/0.5 Ml Neb.Samantha*) 1.25 mg INH Q6H PRN PRN Reason: SOB/WHEEZING Magnesium Hydroxide (Milk Of Magnesia Liq*) 30 ml PO DAILY PRN PRN Reason: CONSTIPATION Mometasone Furoate/Formoterol Fumar (Dulera 200/5 Mdi*) 2 puff INH BID [facility] Last Admin: 06/10/18 19:28 Dose: 2 puff Morphine Sulfate (Morphine Oral.Soln 10 Mg*) 15 mg PO Q4H PRN PRN Reason: PAIN - SEVERE Last Admin: 06/11/18 02:28 Dose: 15 mg Morphine Sulfate (Ms Contin(*)) 45 mg PO Q8HR [facility] Last Admin: 06/11/18 06:17 Dose: 45 mg Nicotine (Nicotine Inhaler*) 10 mg INH Q2H PRN PRN Reason: CRAVING Nicotine (Nicotine Patch 21 Mg/24 Hr*) 1 patch TRANSDERM DAILY [facility] Last Admin: 06/10/18 12:00 Dose: 1 patch Nystatin (Nystatin Top Powder*) 1 applic TOPICAL BID [facility] Last Admin: 06/10/18 20:38 Dose: 1 applic Ondansetron HCl (Zofran Inj*) 4 mg IV Q6H PRN PRN Reason: NAUSEA/VOMITING Last Admin: 12/12/18 00:40 Dose: 4 mg Pharmacy Profile Note (Nicotine Patch Removal Note*) 1 note PATCH OFF 2100 [facility] Last Admin: 06/10/18 21:55 Dose: 1 note Senna (Senokot Tab*) 2 tab PO BEDTIME PRN PRN Reason: CONSTIPATION Tiotropium [place] (Spiriva Cap.Inh*) 1 cap INH QAM [facility] Last Admin: 06/10/18 10:30 Dose: 1 cap Vital Signs - 8 hr 06/11/18 06/11/18 06/11/18 01:00 02:00 03:00 Temperature Pulse Rate 89 83 85 Respiratory 15 17 17 Rate Blood Pressure 127/65 (mmHg) O2 Sat by Pulse 94 94 93 Oximetry 06/11/18 06/11/18 06/11/18 03:01 03:46 04:00 Temperature 99.1 F Pulse Rate 84 93 Respiratory 19 16 Rate Blood Pressure 107/64 (mmHg) O2 Sat by Pulse 93 95 Oximetry 06/11/18 04:53 Temperature Pulse Rate Respiratory 16 Rate Blood Pressure (mmHg) O2 Sat by Pulse Oximetry Oxygen Devices in Use Now: None - Alert, in recliner chair. In fair spirits. Looks comfortable. , CPAP Respiratory: Symmetrical Chest Expansion and Respiratory Effort, Clear to Auscultation, Clear to Percussion Cardiovascular: NL Sounds; No Murmurs; No JVD, RRR, No Edema, - Neurological: Alert and Oriented x 3, NL Sensation Result Diagrams: 06/10/18 06:15 06/10/18 06:15 Microbiology and Other Data: Microbiology 06/09/18 21:35 Urine Culture - Final Urine No Growth (<1,000 CFU/mL) 06/09/18 20:54 Nasal Screen MRSA (PCR) - Final Nasal Mrsa Detected EKG Data: ekg ns no acute st t change Assess/Plan/Problems-Billing this is a 52 yr old wf with morbid obesity hx charlie on cpap type ii dm not on med had extensive lumbar fusion done this afternoon. neurosurg requested medical consult to be involved due to her overall pul condition and charlie hx plan 1 chronic lbp s/p extensive lubmar fusion surgery - neurosurg f/u 2 charlie with copd hx still smokes resp treatment and cpap support overnight 3 type ii dm ck a1c in am 4 chronic pain syndrome continue home pain meds ortho already ordered dialaudid 5 anxiety depression continue home psy meds 6 dvt prophylaxis as per ortho protocol Code Status: full - Patient Problems (1) CHARLIE (obstructive sleep apnea) Current Visit: Yes Status: Acute Code(s): G47.33 - OBSTRUCTIVE SLEEP APNEA ( ADULT) (PEDIATRIC) SNOMED Code(s): 53520448 Comment: Pt has her CPAP here and is very compliant with using it during sleep and naps. (2) Tobacco abuse Current Visit: No Status: Acute Code(s): Z72.0 - TOBACCO USE SNOMED Code(s ): 373235063 Comment: - Continue Nicotine patch and nicotine inhaler PRN. (3) Morbid obesity Current Visit: Yes Status: Acute Code(s): E66.01 - MORBID (SEVERE) OBESITY DUE TO EXCESS CALORIES SNOMED Code(s): 042878779 Comment: BMI 47.2 06/10/18. (4) Hyperglycemia Current Visit: Yes Status: Acute Code(s): R73.9 - HYPERGLYCEMIA, UNSPECIFIED SNOMED Code(s): 65326865 Comment: Likely related to stress of surgery. A1C 6.9 on 06/10/18, similar to 12/18/17 and 06/02/18.
--- NOTE | 2018-06-11 10:23 | OP ---
DATE OF SURGERY: 06/09/18 - ROOM #351 DATE OF : 65 SURGEON: Allyson Garner MD COOK JELLY: RAY Morales ANESTHESIA: General. PRE-OP DIAGNOSES: Degenerative disk disease and spondylolisthesis L5-S1. POST-OP DIAGNOSES: Degenerative disk disease and spondylolisthesis L5-S1. OPERATIVE PROCEDURE: The patient underwent L4 through S1 posterolateral arthrodesis with L4 and L5 decompressive laminectomies with right L4-5 and L5- S1 TLIF with PEEK interbody expandable cages, DBX local bone graft, and instrumentation with bilateral L4, L5, S1 and S2 AI screws with intraoperative navigation and intraoperative monitoring. ESTIMATED BLOOD LOSS: 350 cc. COMPLICATIONS: None. SUMMARY: The patient is a very pleasant 52-year-old female with complaints of back pain radiating to the lower extremities with MRI findings consistent with severe degenerative disk disease at L5-S1 with a grade 2 spondylolisthesis with significant stenosis. The patient felt severe impairment of her daily activities and was not able to ambulate or stand for prolonged periods of time and after failing all conservative treatment modalities, she was offered the option of surgical intervention for the above procedure. After explaining all expectations, limitations, and possible complication of the procedure to the patient and her sister with complications including, but not limited to, bleeding, infection, risk of injury to adjacent structures, coma, paralysis, , need for additional procedures, anesthesia risk, stroke, blindness, cancer, instability, hardware failure, adjacent level disease, pseudoarthrosis, spinal fluid leak, instability, hardware failure, hardware malposition or displacement, injury to intraabdominal organs, injury to the large vessels, hematoma formation, anesthesia risks, loss of blood and bowel function, loss of use of limbs. The patient was agreeable to proceed with surgery and informed consent was obtained. The patient understood that her condition may not improve and in fact may get worse after surgery and that she may need to have additional procedure in the future. She also understood that the operative plan may be modified according to intraoperative findings and conditions and that the procedure may be abandoned, done in more stages, or modified. The patient also understood that bone grafting from bone bank will be used with the possibility of adverse reactions or transmission of the series. DESCRIPTION OF PROCEDURE: The patient was brought to the operating room and was placed under general anesthesia by the anesthesia team. She was carefully positioned prone on the Greg table and all bony prominences were meticulously padded. Her skin was prepped and draped in the standard fashion and after appropriate surgical pause and patient identification, a midline incision was marked from the skin from approximately L2 to S2. Skin was infiltrated with local anesthetic and a #10 surgical blade was used to incise the skin. The incision was carried down to the subcutaneous tissue with the use of Bovie cautery and self- retaining retractors were introduced further into the field. The dorsal fascia was then identified and divided in both sides of midline with the use of Bovie cautery. The paraspinal musculature was elevated with the use of Bovie cautery and periosteal elevators and under sharp periosteal dissection, the lamina, facets, and the transverse processes of L4 through approximately S2 was carefully exposed. The sacral ala were also carefully exposed as well as the S1 and S2 sacral foramina. During the exposure , operative level was confirmed with intraoperative fluoroscopic imaging. The clamp for the navigation star was secured over the spinous process of approximately S2 and an intraoperative OR imaging was obtained. The patient's data was transferred to the navigation platform and under stereotactic navigation, the left S2AI screw was positioned as well as the left pedicle screws of S1, L5 and L4 after cannulating the pedicles and creating the trajectory for the S2A1 screw. The same procedure was repeated for placement of the screws on the opposite side. While the left L5 pedicle screw was carefully redirected slightly medial to achieve optimal placement of all hardware. The lamina of L4 and L5 were then identified and a complete laminectomy of L5 and a near complete laminectomy of L4 was performed in order to decompress the thecal sac and the nerve roots. The laminectomy was performed with use of Leksell rongeurs, Kerrison punches and a high speed drill. Of note, meticulous dissection and technique was used as the facets of L4-5 and especially on the right side had significant hypertrophy with medial perception, compressing significantly into the thecal sac as expected from the preoperative imaging. Also the area of the pars defect of L5 was identified and a high speed drill was used to decorticate the bone surfaces to prepare for the arthrodesis part. Extensive foraminotomies were performed, there was right L4, L5, S1 and left L5 and S1 nerve roots and then attention was brought in order to perform a preparation of the disk space on the right L4-5 in order to perform a transforaminal lumbar interbody fusion. The sacral sac was gently retracted medially with nerve root retractor and a #15 surgical blade was used to incise the annulus fibrosus. The standard diskectomy was performed with the use of pituitary rongeurs and the disk space was prepared for the arthrodesis with the use of scrapers, pituitary rongeurs, Kerrison punches and also high speed drill was used to skeletonize the medial and superior pedicle of L4 as well as do a partial osteotomy in the posterior edge of L4 in order to accommodate the insertion of the interbody cage without any retraction on the neural elements. ELEVATE 28 x 8 to 12 mm height Medtronic interbody cage was inserted after being filled with locally harvested bone graft from the laminectomy and facetectomy part as well as DBX while the prepared interbody space was packed with graft material prior to the insertion of the cage. The cage was then gently expanded. Then, attention was brought to perform a similar procedure for the L5-S1 disk space. Of note, the L5-S1 disk space was found to be extremely collapsed as was expected from the preoperative imaging and a partial osteotomy of S1 was performed with high speed drill and Kerrison punches in order to obtain access into the L5-S1 disk space and accommodate the preparation of the disk space and insertion of the cage without any pressure on the neural elements. After the diskectomy and preparation of the disk space was performed with use of pituitary rongeurs, Kerrison punches and disk space dilator, an ELEVATE expandable cage was then inserted after being filled with autograft and allograft as well as disk space was also packed with graft material prior to the insertion of the case. Attention was then brought in order to perform placement of the 2 rods and after securing the rods with screw fit cups, intraoperative OR imaging confirmed excellent placement of all hardware. High speed drill was used to decorticate the exposed bony surfaces and posterolateral arthrodesis between the transverse processes of L4 through the sacral ala and the superior part of S2 was then performed with the remaining bone graft material. After insertion of the MARY and Hector drains, which were done through separate surgical incision, the incision was copiously irrigated and after confirmation of decreased hemostasis and meticulous inspection, the wound was closed by layers after placing vancomycin powder. The 0 Vicryl interrupted sutures were used to approximate the dorsal fascia while the subcutaneous tissue was approximated with the use of inverted interrupted 2-0 Vicryl sutures. The skin was then approximated with #1 Prolene running interrupted sutures. At the end of the procedure, all counts were reported to be correct. The patient remained hemodynamically stable throughout the case. I was present and scrubbed for the entirety of the case. The patient was then turned supine, was extubated and then was transferred to the Recovery in excellent condition. The case was done with the assistance of surgical PA because of the complexity of the case. ADDENDUM: The instrumentation that was used for fixation were Medtronic Solera pedicle screws, 6.5 x 40 for the L4 and L5 levels, 7.5 x 30 for the right S1, 9.5 x 13 for the left S1, and 8.5 x 80 for the S2A1 screws. [id number]/CPS #: [id number] MTDD
[2018-06-11] MEDS: Tiotropium CAP.INH* CAP.INH/18 MCG (USE ORDER SET !) INH SCH (10:38)
[2018-06-11] MEDS: Mometasone/Formoter 200/5 MDI INH SCH ×2 (10:38→19:35)
[2018-06-11] MEDS: Albuterol HFA INHALER* 8 gm MDI INH SCH (10:38)
--- NOTE | 2018-06-11 10:39 | PN ---
Progress Note - Progress Note Date of Service: 06/11/18 SOAP: Subjective: [S/p L4-5, L5-S1 TLIF, POD#2. Ambulating with assistance of walker. Denies lower extremity pain with ambulation. Feeling well, pain better controlled now. Denies nausea, headache. ] Objective: [ Vital Signs: Temp Pulse Resp BP Pulse Ox 99 F 106 13 111/51 91 06/11/18 08:00 06/11/18 08:11 06/11/18 08:11 06/11/18 07:01 06/11/18 08:11 General: Alert and NAD, sitting up in chair. Neuro: Motor and sensory intact. Incision: Intact, no swelling. Dressing in place. Wound drains intact and functioning. Wound drain output 06/09/18 06/09/18 06/10/18 19:45 22:00 03:00 Output, MARY #1 20 60 100 Output, MARY #2 60 20 20 06/10/18 06/10/18 06/10/18 06:48 10:18 14:08 Output, MARY #1 60 55 50 Output, MARY #2 10 10 10 06/10/18 06/10/18 06/10/18 18:49 19:15 22:00 Output, MARY #1 75 75 30 Output, MARY #2 20 20 5 06/11/18 06/11/18 02:32 06:25 Output, MARY #1 20 30 Output, MARY #2 5 10 ] Assessment: [Satisfactory post-op] Plan: [1. Transfer to [facility] when bed available 2. DC arita catheter 3. PT and OT evaluation today 4. Standing AP/lat lumbar xrays 5. Lumbar corset brace to be worn when OOB 6. Continue pain management 7. Encourage ambulation and OOB to chair]
[2018-06-11] MEDS: Nystatin TOP POWDER* 15 GM BTL TOPICAL SCH ×2 (11:15→21:47)
[2018-06-11] MEDS ORDERED: LACTATED RINGERS IV SCH (19:00)
[2018-06-11] MEDS: Nicotine Patch Removal NOTE PATCH OFF SCH (21:47)
[2018-06-12] MEDS: Acetaminophen TAB* 325 MG PO PRN ×2 (00:56→21:00)
[2018-06-12] MEDS: Morphine ORAL.SOLN 10 mg* 2 MG/ML UDC 5 ml PO PRN ×5 (03:16→22:26)
[2018-06-12] MEDS: Morphine TAB Extended Release (*) 15 MG TAB.ER PO SCH ×3 (05:58→22:25)
[2018-06-12] MEDS: Diazepam TAB(*) 5 MG PO PRN (05:58)
[2018-06-12] MEDS: Tiotropium CAP.INH* CAP.INH/18 MCG (USE ORDER SET !) INH SCH (08:07)
[2018-06-12] MEDS: Mometasone/Formoter 200/5 MDI INH SCH ×2 (08:07→20:06)
[2018-06-12] MEDS: Albuterol HFA INHALER* 8 gm MDI INH SCH (08:07)
--- NOTE | 2018-06-12 08:18 | PN ---
Progress Note - Progress Note Date of Service: 06/12/18 SOAP: Subjective: [S/p L4-5, L5-S1 TLIF, POD #3 Reports increased back pain and soreness this morning. Was ambulating yesterday, has not been up yet this morning. Lower extremity pain with ambulation resolved post-op. Denies headache, nausea. Eating, drinking and voiding without difficulty.] Objective: [ Vital Signs: Temp Pulse Resp BP Pulse Ox 98.0 F 79 16 146/61 97 06/12/18 03:22 06/12/18 03:22 06/12/18 06:07 06/12/18 03:22 06/12/18 03:22 General: Alert, NAD. Neuro: Motor and sensory intact. Incision: Dressing changed today. Incision intact with suture, no swelling or erythema. Drains in place and functioning well. ] Assessment: [Satisfactory post-op.] Plan: [1. PT and OT evaluations today 2. Lumbar corset brace 3. OOB and ambulation frequently 4. Possible discharge tomorrow]
[2018-06-12] MEDS: Docusate CAP* 100 MG PO SCH ×2 (08:58→20:26)
[2018-06-12] MEDS: Nicotine PATCH 21 MG/24 HR* PATCH TRANSDERM SCH (08:58)
[2018-06-12] MEDS: DULoxetine DR CAP* 60 MG CAP.DR PO SCH (08:58)
[2018-06-12] MEDS: Nystatin TOP POWDER* 15 GM BTL TOPICAL SCH ×2 (08:58→20:32)
--- NOTE | 2018-06-12 17:05 | PN ---
Subjective Date of Service: 06/12/18 Interval History: Pain control is adequate. She walked some in the [place] even though her brace has not yet arrived. She requests a laxative but did have a BM yesterday. Objective Active Medications: Acetaminophen (Tylenol Tab*) 650 mg PO Q6H PRN PRN Reason: FEVER/PAIN Last Admin: 06/12/18 00:56 Dose: 650 mg Albuterol (Ventolin Hfa Inhaler*) 1 puff INH QAM [facility] Last Admin: 06/12/18 08:07 Dose: Not Given Device (Nicotine Mouth Piece*) 1 each INH ONCE PRN PRN Reason: CRAVINGS Diazepam (Valium Tab(*)) 5 mg PO Q8H PRN PRN Reason: muscle spasm Last Admin: 06/12/18 05:58 Dose: 5 mg Docusate Sodium (Colace Cap*) 100 mg PO BID [facility] Last Admin: 06/12/18 08:58 Dose: 100 mg Duloxetine HCl (Cymbalta Cap*) 60 mg PO QAM [facility] Last Admin: 06/12/18 08:58 Dose: 60 mg Levalbuterol HCl (Xopenex 1.25 Mg/0.5 Ml Neb.Samantha*) 1.25 mg INH Q6H PRN PRN Reason: SOB/WHEEZING Magnesium Hydroxide (Milk Of Magnesia Liq*) 30 ml PO DAILY PRN PRN Reason: CONSTIPATION Mometasone Furoate/Formoterol Fumar (Dulera 200/5 Mdi*) 2 puff INH BID [facility] Last Admin: 06/12/18 08:07 Dose: Not Given Morphine Sulfate (Morphine Oral.Soln 10 Mg*) 15 mg PO Q4H PRN PRN Reason: PAIN - SEVERE Last Admin: 06/12/18 14:19 Dose: 15 mg Morphine Sulfate (Ms Contin(*)) 45 mg PO Q8HR [facility] Last Admin: 06/12/18 14:19 Dose: 45 mg Nicotine (Nicotine Inhaler*) 10 mg INH Q2H PRN PRN Reason: CRAVING Nicotine (Nicotine Patch 21 Mg/24 Hr*) 1 patch TRANSDERM DAILY [facility] Last Admin: 06/12/18 08:58 Dose: 1 patch Nystatin (Nystatin Top Powder*) 1 applic TOPICAL BID [facility] Last Admin: 06/12/18 08:58 Dose: 1 applic Ondansetron HCl (Zofran Inj*) 4 mg IV Q6H PRN PRN Reason: NAUSEA/VOMITING Last Admin: 06/10/18 00:40 Dose: 4 mg Pharmacy Profile Note (Nicotine Patch Removal Note*) 1 note PATCH OFF 2100 [facility] Last Admin: 06/11/18 21:47 Dose: Not Given Polyethylene Glycol/Electrolytes (Miralax*) 17 gm PO BEDTIME [facility] Senna (Senokot Tab*) 2 tab PO BEDTIME PRN PRN Reason: CONSTIPATION Tiotropium Shelby (Spiriva Cap.Inh*) 1 cap INH QAM [facility] Last Admin: 06/12/18 08:07 Dose: Not Given Vital Signs - 8 hr 06/12/18 06/12/18 06/12/18 10:10 12:32 13:07 Temperature Pulse Rate 84 Respiratory 18 18 16 Rate Blood Pressure (mmHg) O2 Sat by Pulse 94 Oximetry 06/12/18 06/12/18 06/12/18 14:19 15:53 16:33 Temperature 98.5 F Pulse Rate 79 Respiratory 18 16 18 Rate Blood Pressure 128/62 (mmHg) O2 Sat by Pulse 94 Oximetry 06/12/18 16:34 Temperature Pulse Rate Respiratory 18 Rate Blood Pressure (mmHg) O2 Sat by Pulse Oximetry Oxygen Devices in Use Now: CPAP Appearance: Alert, supine in bed. In good spirits. Looks comfortable. Eyes: No Scleral Icterus Neurological: Alert and Oriented x 3, NL Sensation Result Diagrams: 06/10/18 06:15 06/10/18 06:15 Microbiology and Other Data: Microbiology 06/09/18 21:35 Urine Culture - Final Urine No Growth (<1,000 CFU/mL) 06/09/18 20:54 Nasal Screen MRSA (PCR) - Final Nasal Mrsa Detected EKG Data: ekg ns no acute st t change Assess/Plan/Problems-Billing this is a 52 yr old wf with morbid obesity hx charlie on cpap type ii dm not on med had extensive lumbar fusion done this afternoon. neurosurg requested medical consult to be involved due to her overall pul condition and charlie hx plan 1 chronic lbp s/p extensive lubmar fusion surgery - neurosurg f/u 2 charlie with copd hx still smokes resp treatment and cpap support overnight 3 type ii dm ck a1c in am 4 chronic pain syndrome continue home pain meds ortho already ordered dialaudid 5 anxiety depression continue home psy meds 6 dvt prophylaxis as per ortho protocol Code Status: full - Patient Problems (1) CHARLIE (obstructive sleep apnea) Current Visit: Yes Status: Acute Code(s): G47.33 - OBSTRUCTIVE SLEEP APNEA ( ADULT) (PEDIATRIC) SNOMED Code(s): 54728222 Comment: Pt has her CPAP here and is very compliant with using it during sleep and naps. (2) Tobacco abuse Current Visit: No Status: Acute Code(s): Z72.0 - TOBACCO USE SNOMED Code(s ): 999372423 Comment: - Continue Nicotine patch and nicotine inhaler PRN. (3) Morbid obesity Current Visit: Yes Status: Acute Code(s): E66.01 - MORBID (SEVERE) OBESITY DUE TO EXCESS CALORIES SNOMED Code(s): 152914851 Comment: BMI 47.2 06/10/18. (4) Hyperglycemia Current Visit: Yes Status: Acute Code(s): R73.9 - HYPERGLYCEMIA, UNSPECIFIED SNOMED Code(s): 29837094 Comment: Likely related to stress of surgery. A1C 6.9 on 06/10/18, similar to 12/18/17 and 06/02/18. BID FS glucose checks ordered with parameters. (5) Constipation Current Visit: Yes Status: Acute Code(s): K59.00 - CONSTIPATION, UNSPECIFIED SNOMED Code(s): 74814400 Comment: PEG 17 gm hs start 06/12.
[2018-06-12] MEDS: Nicotine Patch Removal NOTE PATCH OFF SCH (20:32)
[2018-06-12] MEDS ORDERED: Polyethylene Glycol 3350* 17 GM PACKET PO SCH (21:00)
[2018-06-13] MEDS: Acetaminophen TAB* 325 MG PO PRN (03:10)
[2018-06-13] MEDS: Morphine ORAL.SOLN 10 mg* 2 MG/ML UDC 5 ml PO PRN ×2 (03:11→08:04)
[2018-06-13] MEDS: Morphine TAB Extended Release (*) 15 MG TAB.ER PO SCH ×2 (05:40→14:24)
[2018-06-13] MEDS: Tiotropium CAP.INH* CAP.INH/18 MCG (USE ORDER SET !) INH SCH (07:52)
[2018-06-13] MEDS: Mometasone/Formoter 200/5 MDI INH SCH (07:52)
[2018-06-13] MEDS: Albuterol HFA INHALER* 8 gm MDI INH SCH (07:52)
[2018-06-13] MEDS: Nicotine PATCH 21 MG/24 HR* PATCH TRANSDERM SCH (08:05)
[2018-06-13] MEDS: DULoxetine DR CAP* 60 MG CAP.DR PO SCH (08:05)
[2018-06-13] MEDS: Docusate CAP* 100 MG PO SCH (08:05)
--- NOTE | 2018-06-13 09:49 | PN ---
Progress Note - Progress Note Date of Service: 06/13/18 SOAP: Subjective: []Patient was seen today and yesterday. No events ON. Tolerates PO well. Luna. Ambulates well. Preop RLE numbness resolved. Preop back pain significantly improved, was able to ambulate better compared to preop. Her incision pain has significantly improved. Patient wants to go home. Appreciate Dr Magana's help with pain control. Objective: []VSS, Afebrile Wound s,c,d Drains output noted. Drains removed. Catheters appear to be intact. Patient tolerated procedure well. AAOx3 POWER, CN II-XII grossly intact. Motor 5/5 all extremities. Sensory grossly intact to light touch. Assessment: []52 yof POD#4 L4-S1 arthrodesis for DDD and GradeII spondylolisthesis Plan: [] Monitor VS, Neurochecks DC planning today Full instructions were given. Appreciate IM, Dr Magana's care. Abhishek Garner MD
[2018-06-13] MEDS: Nystatin TOP POWDER* 15 GM BTL TOPICAL SCH (10:29)
[2018-06-13 15:51] VITALS: BP 154/84
--- NOTE | 2018-06-13 22:19 | DS ---
DISCHARGE SUMMARY: DATE OF ADMISSION: 06/09/18 DATE OF DISCHARGE: 06/13/18 ADMISSION DIAGNOSES: Degenerative disk disease and grade 2 spondylolisthesis, L5- S1. DISCHARGE DIAGNOSES: Degenerative disk disease and grade 2 spondylolisthesis, L5- S1. PROCEDURE: The patient underwent an L4 through S1 posterolateral arthrodesis. DISPOSITION: Home. CONDITION ON DISCHARGE: Good. HOSPITAL COURSE: The patient is a very pleasant 52-year-old female with complaints of severe back pain radiating to the lower extremities, right worse than left, with weakness and numbness in the right lower extremity with MRI findings consistent with severe degenerative disk disease at L5-S1 with grade 2 spondylolisthesis with significant stenosis. After failing conservative treatment modalities and because of debilitating back pain that made her unable to walk, she was offered the option of the above procedure. The patient underwent the above procedure, which she tolerated very well. She was monitored overnight in the intensive care unit because of her history of morbid obesity and obstructive sleep apnea. The patient did extremely well and she was transferred to the floor. She continued to improve. Dr. Corea kindly consulted for her pain medication needs as she was on chronic pain medication. On 06/13/18, the patient was doing very well. She was able to ambulate well. She was tolerating p.o. well and she was able to void. Her pain was very well controlled and wanted to go home. The patient was found to be ready to be discharge home. Full discharge instructions were given. After contacting Dr. Corea, 30 tabs of MS Contin 15 mg were given to supplement her chronic pain medication needs for the next few days and she was instructed to contact Dr. Corea's office on Friday for further instructions. [id number]/[facility] #: [id number] DENA
== END 2018-06-13 14:55 | disposition home or self-care (01) | DRG 460 ==
LOC: AA 06-09 05:47 → ICU 06-09 20:48 → SSU 06-11 16:44
PROVIDERS: ADMIT Neurological Surgery; ATTEND Neurological Surgery
PROC: 0SG30AJ Fusion of Lumbosacral Joint with Interbody Fusion Device, Posterior Approach, Anterior Column, Open Approach (ICD-10-PCS; 2018-06-09)
PROC: 0SG00AJ Fusion of Lumbar Vertebral Joint with Interbody Fusion Device, Posterior Approach, Anterior Column, Open Approach (ICD-10-PCS; principal; 2018-06-09 07:30)
DX: M43.16 Spondylolisthesis, lumbar region (principal); Z68.42 Body mass index [BMI] 45.0-49.9, adult; M51.16 Intervertebral disc disorders with radiculopathy, lumbar region; F17.210 Nicotine dependence, cigarettes, uncomplicated; F32.9 Major depressive disorder, single episode, unspecified; E66.01 Morbid (severe) obesity due to excess calories; M48.061 Spinal stenosis, lumbar region without neurogenic claudication; G47.33 Obstructive sleep apnea (adult) (pediatric); M40.46 Postural lordosis, lumbar region; G89.4 Chronic pain syndrome; K76.89 Other specified diseases of liver; I10 Essential (primary) hypertension; J44.9 Chronic obstructive pulmonary disease, unspecified; F41.9 Anxiety disorder, unspecified; E11.65 Type 2 diabetes mellitus with hyperglycemia; K59.00 Constipation, unspecified; Z90.49 Acquired absence of other specified parts of digestive tract; Z86.73 Personal history of transient ischemic attack (TIA), and cerebral infarction without residual deficits; Z85.820 Personal history of malignant melanoma of skin; Z82.49 Family history of ischemic heart disease and other diseases of the circulatory system; Z83.3 Family history of diabetes mellitus; Z88.8 Allergy status to other drugs, medicaments and biological substances
CPT/HCPCS: 36415; 72100; 76001; 80048; 80053; 80061; 81003; 81015; 83036; 83605; 83735; 84100; 84484; 85025; 87086; 87641; 93005; 94640; A9270-GY; C1713; C1776; C9359; G8978-GP-CK; G8979-GP-CH; G8987-GO-CI; G8988-GO-CI; G8989-GO-CI; J0360; J0690; J1100; J1170; J2001; J2060; J2250; J2405; J2704; J2765; J3010; J3370

== ENCOUNTER 2019-05-11 07:30 | Inpatient (IN) | payer MEDICARE, MEDICAID ==
[2019-05-17] MEDS ORDERED: Buffered Lidocaine 1% SYRIN* 1 ML/SYRINGE INTRADERM ONE (13:58)
[2019-05-18] MEDS ORDERED: Tranexamic Acid 1,000 MG in NS 0.9% 50 ML* (outpatient use) IV SCH ×2
--- OUTSIDE RECORDS SUMMARY | 2019-05-18 05:47 | XMS REPORT | Continuity of Care Document ---
:1965 External Reference #:[id number] Author Name Makenna John M.D. (transmitted by agent of provider Estefany Villegast) Address [address] [place] [address] Care Team Providers Name Role Phone Guero Corea MD - Physical Care Team Information [facility] [employer] [facility] Nic Osorio MD - Neurological Care Team Information [employer] Surgery Coreen Mercado MD - Hematology & Care Team Information [employer] Oncology Rah Waterman NP - Internal Medicine Care Team Information [employer] Problems Active Problems Provider Date Lumbosacral spondylosis without Serafin Adamson M.D.,FACP Onset: 2010 myelopathy Acquired spondylolisthesis Serafin Adamson M.D.,FACP Onset: 06/29/2007 Chronic pain syndrome Serafin Adamson M.D.,FACP Onset: 03/08/2011 Obstructive sleep apnea syndrome Serafin Adamson M.D.,FACP Onset: 2008 Morbid obesity Serafin Adamson M.D.,FACP Onset: 03/08/2011 Chronic nonalcoholic liver disease Serafin Adamson M.D.,FACP Onset: 2012 Tobacco user Serafin Adamson M.D.,FACP Onset: 06/29/2007 Spinal stenosis of lumbar region Serafin Adamson M.D.,FACP Onset: 2010 Tinnitus Serafin Adamson M.D.,FACP Onset: 01/21/2013 Leukocytosis Samuel Soriano.Ana. Onset: 06/14/2014 Obesity Ana Clark MD Onset: 09/26/2015 Severe recurrent major depression Serafin Adamson M.D.,FACP Onset: 2016 without psychotic features Lumbar spondylolisthesis Allyson Garner MD Onset: 07/21/2017 Thoracic and lumbosacral neuritis Allyson Garner MD Onset: 07/21/2017 Type 2 diabetes mellitus Rah Waterman NP Onset: 12/19/2017 Stress fracture of metatarsal bone Дмитрий Avila MD Onset: 02/23/2018 Lumbar spondylosis Allyson Garner MD Onset: 03/31/2018 Social History Type Date Description Comments Sex Unknown Tobacco Use Start: Unknown Patient is a current cigarette smoker, smokes every day Tobacco Use Start: Unknown Current Cigarette 1/2-1.5 cig/day Smoker 1 Pack Daily Smoking Status Reviewed: 04/16/19 Current Cigarette 1/2-1.5 cig/day Smoker 1 Pack Daily ETOH Use Has consumed alcohol Heavy drinker until in the past 2002-Has abstained since Recreational Drug Use Denies Drug Use Tobacco Use Start: Unknown Light tobacco smoker trying to quit, <10 (10 or fewer cigarettes a day cigarettes/day) Exercise Type/Frequency Exercises regularly physical therapy exercises done regularly per pt Allergies, Adverse Reactions, Alerts Active Allergies Reaction Severity Comments Date Prednisone extreme agitation, Severe 07/04/2015 negative suicidal thoughts Benadryl aggitation 11/21/2016 Steroids only as a last 12/10/2017 resort-irritation Inactive Allergies NKDA 10/16/2007 Medications Active Medications SIG Qnty Indications Ordering Date Provider Metformin HCL take 1 tablet by 60tabs E11.9 Rah Waterman NP 03/10/2019 500mg mouth twice a Tablets day-pt notes that she has not started this yet Cpap Mask And Supplies pls provide 1units G47.33 Ana Clark, 2018 necessary cpap Device supplies, mask to fit, tubing, head gear, filters, humidifier etc Omeprazole 1 by mouth once 30caps Rah Waterman NP 02/08/[address] Fluticasone Propionate use 2 sprays in 16units J30.9 Rah Waterman NP 2018 each nostril one 50mcg/Act Suspension time a day-prn [facility] [place] one application 30ml J30.9 Trishaofihellen Ellis, 09/30/2018 0.05% each nostril 3-4 x 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-prn Bupropion one tablet once 60tabs F17.210 Rah Waterman NP 09/02/2018 Hydrochloride ER (SR) daily 150mg Tablets ER 12HR Cpap Supplies Pls provide G47.33 Ana Clark, 12/31/2017 necessary cpap MD supplies, mask, tubing, head gear, filters etc-pt notes that she uses Bipap Commode use as needed 1unaurelio De Jesus 12/25/2017 3-In-1 [facility] weight 262 lbs Talita Adamson,FACP height 62 inches Cyclobenzaprine HCL Take One Tablet By 90tabs Rah Waterman NP 05/28/2017 10mg Mouth Three Times Tablets A Day as Needed Bath Bench With Back for daily use, 1unaurelio Cardenas4 Serafin De Jesus 11/18/2016 weight 237lbs, Talita Adamson,[facility] M47.26 Bathtub Safety Rail 2 safety bars for 2unaurelio Cannon89.4 Serafin Adamson, tub use weight M.D.,[facility] 237lbs M47.26 Advair Diskus inhale one puff by 60units Rah Waterman NP 05/15/2015 mouth once a day 250-50mcg/Dose Aerosol Cymbalta Take One Capsule By 90caps Rah Waterman NP 01/23/[address] Mouth Every Day Part Spiriva Handihaler Inhale The Contents 30captrixie Waterman NP 09/27/2009 18mcg Of One Capsule Via Capsules Handihaler By Mouth Every Morning Cpap Mask And cpap mask and 1units Ana Clark, 10/10/2008 Acessories acessories of MD patient's choice Cane Backpain with 1unaurelio De Jesus 10/04/2008 radiculopaty and [place], M.D.,FACP torn right knee meniscus Fish Oil Burp-Less 1 po qd Unknown 1200mg Capsules Zyrtec 1/2 tab po qd prn Unknown 10mg Chewtabs Multi Vitamin daily Unknown Tablets MS Contin 1 by mouth every 8 G89.4 Unknown 30mg Tablets ER hours Morphine Sulfate 1 tablet by mouth 3x Unknown 15mg daily as needed Tablets Proair HFA inhale two puffs by 25.5units Barbara Reese, 108(90Base) mouth every 4 hours N.P. mcg/Act Aerosol as needed Cromolyn Sodium One spray each Unknown 5.2mg/Act nostril 2-3 times Aerosol daily as needed. Walker Auto Glides/5 disp 1 walker ht71 Unknown Adjustment wt258 Holes/-07/07" 1-07/07" Misc History Medications Amoxicillin/Clavulanate take one 10tabs H66.91 Rah Waterman NP 01/29/2019 - Potassium tablet q12 02/03/2019 875-125mg Tablets hours for 5 days Ciprodex 4 drops into 7.500ml H60.8x1 Rah Waterman NP 01/29/2019 - 0.3-0.1% Suspension affected ear 02/05/2019 twice daily for 7 days Omeprazole 1 by mouth 30caps Rah Waterman NP 01/07/2019 - 40mg Capsules DR every day 02/08/2019 Omeprazole 1 by mouth 60caps Rah Waterman NP 01/06/2019 - 20mg Capsules DR twice daily 01/07/2019 Lumbar Brace When out of M43.17 Vassilios 12/14/2018 - bed for MD Pascual 04/15/2019 comfort Medications Administered in Office Medication SIG Qnty Indications Ordering Provider Date Depomedrol 40MG Omer Ornelas M.D. 02/10/2019 Injection Johnomedrol 40MG Omer Ornelas M.D. 02/10/2019 Injection Depomedrol 40MG Omer Ornelas M.D. 11/09/2018 Injection Depomedrol 40MG Omer Ornelas M.D. 11/09/2018 Injection Depomedrol 40MG APOLONIA Haley 08/10/2018 Injection Depomedrol 40MG Susana Sanderson, RPA-C 08/10/2018 Injection Depomedrol 40MG Omer Ornelas M.D. 01/26/2018 Injection Immunizations CPT Code Status Date Vaccine Reaction Lot # [id number] Given 03/10/2019 Tdap - No immediate 2E3EH Tetanus/Diptheria/Acellular reaction..jh Pertussis 05978 Given 04/13/2018 Influenza Virus Vaccine, [id number] Quadrivalent, Split, Preservative Free 26467 Given 05/28/2017 Influenza Virus Vaccine, [id number] Quadrivalent, Split, Preservative Free 93270 Given 04/02/2016 Influenza Virus Vaccine, no reaction noted... [id number] Quadrivalent, Split, hh Preservative Free Q2037 Given 07/06/2015 Fluvirin Im 3Yrs And Older 28409 Given 07/06/2015 Pneumonia Vaccine 45583 Given 06/14/2014 Flu Vaccine Split Virus [id number] Preservative Free For Indiv 3Yr Older Q2037 Given 04/23/2012 Fluvirin Im 3Yrs And Older [id number] 74332 Given 08/29/2011 Pneumonia Vaccine [id number] Q2038 Given 03/08/2011 Fluzone Vaccine [id number] 27197 Given 05/28/2010 Influenza Virus 3Yrs & Over [id number] 71464 Given 05/15/2009 Influenza Virus Vaccine, [id number] Pandemic Formulation 85265 Given 05/15/2009 Administration Swine Flu Shot 68928 Given 05/16/2008 Influenza Virus 3Yrs & Over Vital Signs Date Vital Result Comment 04/16/2019 10:56am Height 62 inches 5'2" Weight 245.00 lb with shoes Heart Rate 88 /min left radial BP Systolic Sitting 148 mmHg ule LG cuff BP Diastolic Sitting 86 mmHg ule LG cuff BP Systolic Standing 142 mmHg ule LG cuff BP Diastolic Standing 84 mmHg ule LG cuff BMI (Body Mass Index) 44.8 kg/m2 Ejection Fraction 60-65% Echo 04/20/18 03/10/2019 1:24pm Height 62 inches 5'2" Weight 246.00 lb Heart Rate 87 /min BP Systolic 150 mmHg BP Diastolic 84 mmHg Body Temperature 98.5 F O2 % BldC Oximetry 95 % BMI (Body Mass Index) 45.0 kg/m2 Results Test Date Facility Test Result H/L Range Note Urine Microalbumin 03/10/2019 [facility] Ur Microalbumin < 15.0 mg/L [facility] [address] (mg/L) [place] [address] [phone] Urine Creatinine 32.54 mg/dL Urine Microalbumin/Creatinine TNP <31 1 Laboratory test finding 03/10/2019 [facility] In House Hemoglobin A1c 7.1 High 5 -7 1 Unable to calculate due to low microalbumin Procedures Date Code Description Status 04/16/2019 92185 EKG Tracing & Interpretation Completed 03/31/2019 [id number] Mammogram Completed 02/10/2019 79641 Inject/Drain Joint/Bursa Major W/O US Completed 11/09/2018 82075 Inject/Drain Joint/Bursa Major W/O US Completed 11/27/2016 [id number] Mammogram Completed 03/08/2013 16369830 Mammogram Completed 06/25/2011 563608947 Diabetic Foot Exam Completed 09/13/2010 97168712 Colonoscopy Completed 02/22/2008 [id number] Mammogram Completed Medical Devices Description No Information Available Encounters Type Date Location Provider Dx Diagnosis Office Visit 03/10/2019 [facility] Internal Rah Waterman, STEFF Z00.01 Encounter for 1:00p Medicine - [facility] general adult medical exam w abnormal findings G47.33 Obstructive sleep apnea (adult) (pediatric) G89.4 Chronic pain syndrome F17.210 Nicotine dependence, cigarettes, uncomplicated F41.9 Anxiety disorder, unspecified J44.9 Chronic obstructive pulmonary disease, unspecified E78.5 Hyperlipidemia, unspecified Z23 Encounter for immunization Z12.31 Encntr screen mammogram for malignant neoplasm of breast F33.0 Major depressive disorder, recurrent, mild E11.65 Type 2 diabetes mellitus with hyperglycemia Office Visit 03/04/2019 1:45p Pulmonology And Ana G47.33 Obstructive sleep [facility] Amber apnea (adult) [facility] (pediatric) Office Visit 02/10/2019 11:15a [facility] Omer Ornelas, M17.11 Unilateral at [place] primary osteoarthritis, right knee M17.12 Unilateral primary osteoarthritis, left knee Office Visit 01/29/2019 2:20p [facility] Internal Rah Waterman, H60.8x1 Other otitis Medicine - [facility] PUBLIC RELATIONS REPRESENTATIVE externa, right ear H66.91 Otitis media, unspecified, right ear Office Visit 01/06/2019 10:40a [facility] Internal Rah Guevara PUBLIC RELATIONS REPRESENTATIVE M54.6 [facility] Chronic pain syndrome R10.9 Unspecified abdominal pain F17.210 Nicotine dependence, cigarettes, uncomplicated F32.89 Other specified depressive episodes F41.9 Anxiety disorder, unspecified Office 12/14/2018 Neurosurgery [facility] M43.17 Spondylolisthesis, Visit 1:00p Services Of Gail Garner MD lumbosacral region M48.061 Spinal stenosis, lumbar region without neurogenic laure Office Visit 11/09/2018 Radha Tello Johnson, M17.11 Unilateral primary 1:30p Orthopedics at [facility] osteoarthritis, right [place] knee M17.12 Unilateral primary osteoarthritis, left knee Assessments Date Code Description Provider 04/16/2019 Z01.810 Encounter for preprocedural Makenna John M.D. cardiovascular examination 04/16/2019 J44.9 Chronic obstructive pulmonary disease, Makenna John M.D. unspecified 04/16/2019 R94.31 Abnormal electrocardiogram [ECG] [EKG] Makenna John M.D. 04/16/2019 Z72.0 Tobacco use Makenna John M.D. 04/16/2019 E78.5 Hyperlipidemia, unspecified Makenna John M.D. 03/10/2019 Z00.01 Encounter for general adult medical Rah Waterman NP examination with abnormal findings 03/10/2019 G47.33 Obstructive sleep apnea (adult) Rah Waterman NP (pediatric) 03/10/2019 G89.4 Chronic pain syndrome Rah Waterman NP 03/10/2019 F17.210 Nicotine dependence, cigarettes, Rah Waterman, PUBLIC RELATIONS REPRESENTATIVE uncomplicated 03/10/2019 F41.9 Anxiety disorder, unspecified Rahwang Waterman NP 03/10/2019 J44.9 Chronic obstructive pulmonary disease, Rahwang Waterman, PUBLIC RELATIONS REPRESENTATIVE unspecified 03/10/2019 E78.5 Hyperlipidemia, unspecified Rahwang Waterman, PUBLIC RELATIONS REPRESENTATIVE 03/10/2019 Z23 Encounter for immunization Rah Waterman NP 03/10/2019 Z12.31 Encounter for screening mammogram for Rah Waterman NP malignant neoplasm of breast 03/10/2019 F33.0 Major depressive disorder, recurrent, Rahwang Waterman, PUBLIC RELATIONS REPRESENTATIVE mild 03/10/2019 E11.65 Type 2 diabetes mellitus with Rah Waterman NP hyperglycemia 03/04/2019 G47.33 Obstructive sleep apnea (adult) Ana Clark MD (pediatric) 02/10/2019 M17.11 Unilateral primary osteoarthritis, right Omer Ornelas M.D. knee 02/10/2019 M17.12 Unilateral primary osteoarthritis, left Omer Ornelas M.D. knee 01/29/2019 H60.8x1 Other otitis externa, right ear Rah Guevara, PUBLIC RELATIONS REPRESENTATIVE 01/29/2019 H66.91 Otitis media, unspecified, right ear Rah Guevara, PUBLIC RELATIONS REPRESENTATIVE 01/06/2019 M54.6 Pain in thoracic spine Rah Guevara, PUBLIC RELATIONS REPRESENTATIVE 01/06/2019 G89.4 Chronic pain syndrome Rah Guevara, PUBLIC RELATIONS REPRESENTATIVE 01/06/2019 R10.9 Unspecified abdominal pain Rah Guevara, PUBLIC RELATIONS REPRESENTATIVE 01/06/2019 F17.210 Nicotine dependence, cigarettes, Rah Guevara, PUBLIC RELATIONS REPRESENTATIVE uncomplicated 01/06/2019 F32.89 Other specified depressive episodes Rah Guevara, PUBLIC RELATIONS REPRESENTATIVE 01/06/2019 F41.9 Anxiety disorder, unspecified Rah Guevara, PUBLIC RELATIONS REPRESENTATIVE 12/14/2018 M43.17 Spondylolisthesis, lumbosacral region Allyson Garner MD 12/14/2018 M48.061 Spinal stenosis, lumbar region without Allyson Garner MD neurogenic claudicati 11/09/2018 M17.11 Unilateral primary osteoarthritis, right Omer Ornelas M.D. knee 11/09/2018 M17.12 Unilateral primary osteoarthritis, left Omer Ornelas M.D. knee Plan of Treatment Future Appointment(s):06/15/2019 10:20 am - Rah Waterman NP at [facility] Internal Medicine - [facility]04/29/2019 1:00 pm - Rah Waterman NP at [facility] Internal Medicine - [facility]05/18/2019 7:30 am - Omer Ornelas M.D. at [facility]05/03 9:30 am - Omer Ornelas M.D. at [facility] at [id number]/09/2019 11: 00 am - Allyson Garner MD at [facility]04/16/2019 - Makenna John M.D.Z01.810 Encounter for preprocedural cardiovascular examinationComments:Normal heart and lung examination today. Your functional capacity is also improving from last year which is reassuring.J44.9 Chronic obstructive pulmonary disease, clmyfeigbsaY97.31 Abnormal electrocardiogram [ECG ] [EKG]Comments:You don't need further cardiac tests before operation.Z72.0 Tobacco useComments:I strongly recommend completely stopping cigarettes.E78.5 Hyperlipidemia, unspecifiedComments:Please keep healthy diet, low fat, reduced refined carbonhydrate intake. Functional Status Description No Information Available Mental Status Description No Information Available Referrals Refer to Reason for Referral Status Appt Date Stephanie Ramos LCSW Sent 01/13/[address] [place] [id number] [phone]
--- OUTSIDE RECORDS SUMMARY | 2019-05-18 05:47 | XMS REPORT | Continuity of Care Document ---
:1965 External Reference #:[id number] Author Name Omer Ornelas M.D. (transmitted by agent of provider Pao Etienne) Address [address] [place] [address] Care Team Providers Name Role Phone Guero Corea MD - Physical Care Team Information [facility] Nic Osorio MD - Neurological Care Team Information [facility] Coreen Mercado MD - Hematology & Care Team Information [facility] Ellie Meyer MD - Internal Care Team Information [facility] Problems Active Problems Provider Date Lumbosacral spondylosis [...] Tinnitus Serafin Adamson M.D.,FACP Onset: 01/21/2013 Leukocytosis Rayne Manuel, N.P. Onset: 06/14/2014 Obesity Ana Clark MD Onset: 09/26/2015 Severe recurrent major depression Serafin Adamson M.D.,FACP Onset: 2016 without psychotic features Lumbar spondylolisthesis Allyson Garner MD Onset: 07/21/2017 Thoracic and lumbosacral neuritis Allyson Garner MD Onset: 07/21/2017 Type 2 diabetes mellitus Rah Waterman NP Onset: 12/19/2017 Stress fracture of metatarsal bone Дмитрий Avial MD Onset: 02/23/2018 Lumbar spondylosis Allyson Garner MD Onset: 03/31/2018 Social History Type Date Description Comments Sex Unknown Tobacco Use Start: Unknown Patient is a current cigarette smoker, smokes every day Tobacco Use Start: Unknown Current Cigarette 1/2-1.5 cig/day Smoker 1 Pack Daily Smoking Status Reviewed: 05/03/19 Current Cigarette 1/2-1.5 cig/day Smoker 1 Pack [...] Medications SIG Qnty Indications Ordering Date Provider Nicotine one patch daily 28units G47.33 Rah Waterman NP 04/29/2019 14mg/24HR for 6 weeks Patches 24HR Metformin HCL take 1 tablet by 60tabs E11.9 Rah Waterman NP 03/10/2019 500mg mouth twice a Tablets day-pt notes that she has not started this yet Cpap Mask And Supplies pls provide 1units G47.33 Ana Clark, 2018 necessary cpap MD Device supplies, mask to fit, tubing, head gear, filters, humidifier etc Omeprazole 1 by mouth once 30caps Rah Guevara, LATHE PULLER 02/08/2019 20mg Capsules daily Fluticasone Propionate use 2 sprays in 16units J30.9 Rah Waterman NP 2018 each nostril one 50mcg/Act Suspension time a day-prn [facility] one application 30ml J30.9 Trishaofihellen Ellis, 09/30/2018 0.05% each nostril 3-4 x 4 H [employer] Solution daily-prn Bupropion one tablet once 60tabs F17.210 Rah Waterman NP 09/02/2018 Hydrochloride ER (SR) daily 150mg Tablets ER 12HR Cpap Supplies Pls provide G47.33 Ana Clark, 12/31/2017 necessary cpap MD supplies, mask, tubing, head gear, filters etc-pt notes that she uses Bipap Commode use as needed 1unaurelio De Jesus 12/25/2017 [place] [facility] [place] Talita Adamson,FAC height 62 inches Cyclobenzaprine HCL Take One Tablet By 90tabs Rah Waterman NP 05/28/2017 10mg Mouth Three Times Tablets A Day as Needed Bath Bench With Back for daily use, 1unaurelio G89.4 Serafin De Jesus 11/18/2016 weight 237lbs, Talita Adamson,[facility] M47.26 Bathtub Safety Rail 2 safety bars for 2units G89.4 Serafin Adamson, tub use weight M.Nancy.,[facility] 237lbs M47.26 Advair Diskus inhale one puff by 60units Rah Waterman NP 05/15/2015 mouth once a day 250-50mcg/Dose Aerosol Cymbalta Take One Capsule By 90caps Rah Waterman NP 01/23/[address] Mouth Every Day Part Spiriva Handihaler Inhale The Contents 30caps Rah Waterman NP 09/27/2009 18mcg Of One Capsule Via Capsules Handihaler By Mouth Every Morning Cpap Mask And cpap mask and 1units Ana Clark, 10/10/2008 Acessories acessories of MD patient's choice Cane Backpain with 1units Serafin De Jesus 10/04/2008 sunny and Talita Adamson,FACP torn right knee meniscus Fish Oil Burp-Less 1 po qd Unknown 1200mg Capsules Zyrtec 1/2 tab po qd prn Unknown 10mg Chewtabs Multi Vitamin daily Unknown Tablets MS Contin 1 by mouth every 8 G89.4 Unknown 30mg Tablets ER hours Morphine Sulfate 1 tablet by mouth 3x Unknown 15mg daily as needed Tablets Proair HFA inhale two puffs by 25.5units Barbara Mary Ann, 108(90Base) mouth every 4 hours N.P. mcg/Act [...] Depomedrol 40MG Omer Ornelas M.D. 02/10/2019 Injection Depomedrol 40MG Omer Ornelas M.D. 02/10/2019 Injection Depomedrol 40MG Omer Ornelas M.D. 11/09/2018 Injection Depomedrol 40MG Omer Ornelas M.D. 11/09/2018 Injection Depomedrol 40MG APOLONIA Haley 08/10/2018 Injection Depomedrol 40MG APOLONIA Haley 08/10/2018 Injection Depomedrol 40MG Omer Ornelas M.D. 01/26/2018 Injection Immunizations CPT Code Status Date Vaccine Reaction Lot # [id number] Given 04/29/2019 Influenza Virus Vaccine, No immediate reaction [id number] Quadrivalent ([id number]), Derived From Cell 25682 Given 03/10/2019 Tdap - No immediate [id number] Tetanus/Diptheria/Acellular reaction..jh Pertussis 38645 Given 04/13/2018 Influenza Virus Vaccine, [id number] Quadrivalent, Split, Preservative Free 36560 Given 05/28/2017 Influenza Virus Vaccine, [id number] Quadrivalent, Split, Preservative Free 72569 Given 04/02/2016 Influenza Virus Vaccine, no reaction noted... [id number] Quadrivalent, Split, hh Preservative Free Q2037 Given 07/06/2015 Fluvirin Im 3Yrs And Older 58438 Given 07/06/2015 Pneumonia Vaccine 47898 Given 06/14/2014 Flu Vaccine Split Virus [id number] Preservative Free For Indiv 3Yr Older Q2037 Given 04/23/2012 Fluvirin Im 3Yrs And Older [id number] 11166 Given 08/29/2011 Pneumonia Vaccine [id number] Q2038 Given 03/08/2011 Fluzone Vaccine [id number] 95818 Given 05/28/2010 Influenza Virus 3Yrs & Over [id number] 07029 Given 05/15/2009 Influenza Virus Vaccine, [id number] Pandemic Formulation 67498 Given 05/15/2009 Administration Swine Flu Shot 41833 Given 05/16/2008 Influenza Virus 3Yrs & Over Vital Signs Date Vital Result Comment 05/03/2019 9:19am Height 62 inches 5'2" Weight 246.00 lb Heart Rate 74 /min BP Systolic 156 mmHg BP Diastolic 96 mmHg Respiratory Rate 19 /min Body Temperature 99.6 F Pain Level 7 BMI (Body Mass Index) 45.0 kg/m2 04/29/2019 12:56pm Height 62 inches 5'2" Weight 244.00 lb Heart Rate 86 /min BP Systolic 135 mmHg BP Diastolic 70 mmHg Body Temperature 98.9 F O2 % BldC Oximetry 95 % BMI (Body Mass Index) 44.6 kg/m2 Results Test Acquired Date Facility Test Result H/L Range Note Urine 03/10/2019 [facility] Ur Microalbumin < 15.[address] (mg/L) mg/[place] [address] [phone] Urine Creatinine 32.54 mg/dL Urine Microalbumin/Creatinine TNP <31 1 Laboratory test finding 03/10/2019 [facility] In House Hemoglobin A1c 7.1 High 5 -7 1 Unable to calculate due to low microalbumin Procedures Date Code Description Status 04/16/2019 17790 EKG Tracing & Interpretation Completed 03/31/2019 [id number] Mammogram Completed 02/10/201959550 Inject/Drain Joint/Bursa Major W/O US Completed 11/09/2018 39137 Inject/Drain Joint/Bursa Major W/O US Completed 11/27/2016 [id number] Mammogram Completed 03/08/2013 [id number] Mammogram Completed 06/25/2011 [id number] Diabetic Foot Exam Completed 09/13/2010 [id number] Colonoscopy Completed 02/22/2008 [id number] Mammogram Completed Medical Devices Description No Information Available Encounters Type Date Location Provider Dx Diagnosis Office Visit 04/16/2019 [facility] Makenna John, Z01.810 Encounter for 11:00a [place] [employer] [facility] [place] preprocedural cardiovascular examination J44.9 Chronic obstructive pulmonary disease, unspecified R94.31 Abnormal electrocardiogram [ECG] [EKG] Z72.0 Tobacco use E78.5 Hyperlipidemia, unspecified M17.12 Unilateral primary osteoarthritis, left knee Office Visit 03/10/2019 1:00p [facility] Internal Rah Guevara, Z00.01 Encounter for Medicine - [facility] LATHE PULLER general adult medical exam w abnormal findings [...] [facility] Of MD Amber apnea (adult) [facility] (pediatric) Office Visit 02/10/2019 11:15a [facility] Omer Ornelas, M17.11 Unilateral at [place] M.D. primary osteoarthritis, right knee M17.12 Unilateral primary osteoarthritis, left knee Office Visit 01/29/2019 2:20p [facility] Internal Rah Guevara, H60.8x1 Other [facility] externa, right ear H66.91 Otitis media, unspecified, right ear Office Visit 01/06/2019 10:40a [facility] Internal Rah Guevara, LATHE PULLER M54.6 Pain in thoracic [facility] spine G89.4 Chronic pain syndrome R10.9 Unspecified abdominal pain F17.210 Nicotine dependence, cigarettes, uncomplicated F32.89 Other specified depressive episodes F41.9 Anxiety disorder, unspecified Office 12/14/2018 [facility] M43.17 Spondylolisthesis, Visit 1:00p [facility] MD Pascual lumbosacral region M48.061 Spinal stenosis, lumbar region without neurogenic laure Office Visit 11/09/2018 [facility] Omer Ornelas, M17.11 Unilateral primary 1:30p Orthopedics at .DM[facility]ureen osteoarthritis, right [place] knee M17.12 Unilateral primary osteoarthritis, left knee Assessments Date Code Description Provider 05/03/2019 Z01.818 Encounter for other preprocedural Omer Ornelas M.D. examination 05/03/2019 M25.562 Pain in left knee Omer Ornelas M.D. 04/29/2019 Z01.818 Encounter for other preprocedural Rah STEFF Waterman examination 04/29/2019 M25.562 Pain in left knee Rah Guevara LATHE PULLER 04/29/2019 J44.9 Chronic obstructive pulmonary disease, Rah Guevara, LATHE PULLER unspecified 04/29/2019 Z72.0 Tobacco use Rah Guevara, LATHE PULLER 04/29/2019 E78.5 Hyperlipidemia, unspecified Rah Guevara, LATHE PULLER 04/29/2019 G47.33 Obstructive sleep apnea (adult) Rahwang Waterman NP (pediatric) 04/29/2019 E11.65 Type 2 diabetes mellitus with Rah Guevara, STEFF hyperglycemia 04/29/2019 Z23 Encounter for immunization Rahwang Waterman, LATHE PULLER 04/16/2019 Z01.810 Encounter for preprocedural Makenna John M.D. cardiovascular examination 04/16/2019 J44.9 Chronic obstructive pulmonary disease, Makenna John M.D. unspecified 04/16/2019 R94.31 Abnormal electrocardiogram [ECG] [EKG] Makenna John M.D. 04/16/2019 Z72.0 Tobacco use Makenna John M.D. 04/16/2019 E78.5 Hyperlipidemia, unspecified Makenna John M.D. 04/16/2019 M17.12 Unilateral primary osteoarthritis, left Makenna John M.D. knee 03/10/2019 Z00.01 Encounter for general adult medical Rah Waterman NP examination with abnormal findings 03/10/2019 G47.33 Obstructive sleep apnea (adult) Rah Waterman NP (pediatric) 03/10/2019 G89.4 Chronic pain syndrome Rahwang Waterman, LATHE PULLER 03/10/2019 F17.210 Nicotine dependence, cigarettes, Rahwang Waterman, LATHE PULLER uncomplicated 03/10/2019 F41.9 Anxiety disorder, unspecified Rahwang Waterman, LATHE PULLER 03/10/2019 J44.9 Chronic obstructive pulmonary disease, Rahwang Waterman, LATHE PULLER unspecified 03/10/2019 E78.5 Hyperlipidemia, unspecified Rah Guevara, LATHE PULLER 03/10/2019 Z23 Encounter for immunization Rah Waterman, LATHE PULLER 03/10/2019 Z12.31 Encounter for screening mammogram for Rah Waterman NP malignant neoplasm of breast 03/10/2019 F33.0 Major depressive disorder, recurrent, Rahwang Waterman, LATHE PULLER mild 03/10/2019 E11.65 Type 2 diabetes mellitus with Rahwang Waterman, LATHE PULLER hyperglycemia 03/04/2019 G47.33 Obstructive sleep apnea (adult) Ana Clark MD (pediatric) 02/10/2019 M17.11 Unilateral primary osteoarthritis, right Omer Ornelas M.D. knee 02/10/2019 M17.12 Unilateral primary osteoarthritis, left Omer Ornelas M.D. knee 01/29/2019 H60.8x1 Other otitis externa, right ear Rahwang Waterman, LATHE PULLER 01/29/2019 H66.91 Otitis media, unspecified, right ear Rah Guevara, LATHE PULLER 01/06/2019 M54.6 Pain in thoracic spine Rah Guevara, LATHE PULLER 01/06/2019 G89.4 Chronic pain syndrome Rah Guevara, LATHE PULLER 01/06/2019 R10.9 Unspecified abdominal pain Rah Guevara, LATHE PULLER 01/06/2019 F17.210 Nicotine dependence, cigarettes, Rah Guevara, LATHE PULLER uncomplicated 01/06/2019 F32.89 Other specified depressive episodes Rah Guevara, LATHE PULLER 01/06/2019 F41.9 Anxiety disorder, unspecified Rah Guevara, LATHE PULLER 12/14/2018 M43.17 Spondylolisthesis, lumbosacral region Allyson Garner MD 12/14/2018 M48.061 Spinal stenosis, lumbar region without Allyson Garner MD neurogenic claudicati 11/09/2018 M17.11 Unilateral primary osteoarthritis, right Omer Ornelas M.D. knee 11/09/2018 M17.12 Unilateral primary osteoarthritis, left Omer Ornelas M.D. knee Plan of Treatment Future Appointment(s):05/31/2019 10:30 am - Omer Ornelas M.D. at [facility] at [id number]/15/2019 10:20 am - Rah Waterman NP at [facility] Internal Medicine - [facility]05/18/2019 7:30 am - Omer Ornelas M.D. at [facility] at [id number]/09/2019 11:00 am - Allyson Garner MD at [facility]05/03/2019 - Omer Ornelas M.D.Z01.818 Encounter for other preprocedural examinationFollow up:Follow up: 10 - 14 days post opM25.562 Pain in left knee Functional Status Description No Information Available Mental Status Description No Information Available Referrals Refer to Reason for Referral Status Appt Date Stephanie Ramos LCSW Sent 01/13/[address] [place] [id number] [phone]
--- OUTSIDE RECORDS SUMMARY | 2019-05-18 05:47 | XMS REPORT | Continuity of Care Document ---
:1965 External Reference #:[id number] Author Name Rah Waterman NP (transmitted by agent of provider Trista Chappell) Address [address], [place] [address] Care Team Providers Name Role Phone Guero Corea MD - Physical Care Team Information Coding Auditor Medicine & Rehabilitation Nic Osorio MD - Neurological Care Team Information Coding Auditor Surgery Coreen Mercado MD - Hematology & Care Team Information Coding Auditor [phone] Oncology Rah Waterman NP - Internal Medicine Care Team Information Coding Auditor [phone] Problems Active Problems Provider Date Lumbosacral spondylosis [...] Serafin Adamson M.D.,FACP Onset: 01/21/2013 Leukocytosis Rayne Manuel N.P. Onset: 06/14/2014 Obesity Ana Clark MD [...] Smoker 1 Pack Daily Smoking Status Reviewed: 04/29/19 Current Cigarette 1/2-1.5 cig/day Smoker 1 Pack [...] Rah Waterman NP 02/08/2019 20mg Capsules daily Fluticasone Propionate use 2 sprays in 16units J30.9 Rah Waterman NP 2018 each nostril one 50mcg/Act Suspension time a day-prn [facility] [place] one application 30ml J30.9 Trishaofihellen Ellis, 09/30/2018 0.05% each nostril 3-4 x SECURITY OPERATIONS SPECIALIST Solution daily-prn Bupropion one tablet once 60tabs F17.210 Rah Waterman NP 09/02/2018 Hydrochloride ER (SR) daily 150mg Tablets ER 12HR Cpap Supplies Pls provide G47.33 Ana Clark, 12/31/2017 necessary cpap MD supplies, mask, tubing, head gear, filters etc-pt notes that she uses Bipap Commode use as needed 1unaurelio De Jesus 12/25/2017 3-In-1 [facility] weight 262 lbs Talita Adamson,FAC height 62 inches Cyclobenzaprine HCL Take One Tablet By 90tabs Rah Waterman NP 05/28/2017 10mg Mouth Three Times Tablets A Day as Needed Bath Bench With Back for daily use, 1unaurelio G89.4 Serafin De Jesus 11/18/2016 weight 237lbs, Talita Adamson,[facility] M47.26 Bathtub Safety Rail 2 safety bars for 2unaurelio G89.4 Serafin Adamson, tub use weight M.D.,[facility] 237lbs M47.26 Advair Diskus inhale one puff by 60units Rah Waterman NP 05/15/2015 mouth once a day 250-50mcg/Dose Aerosol Cymbalta Take One Capsule By 90caps Rah Waterman NP 01/23/2012 60mg Caps Mouth Every Day Part Spiriva Handihaler Inhale The Contents 30captrixie Waterman NP 09/27/2009 18mcg Of One Capsule Via Capsules Handihaler By Mouth Every Morning Cpap Mask And cpap mask and 1units Ana Clark, 10/10/2008 Acessories acessories of MD patient's choice Cane Backpain with 1unaurelio De Jesus 10/04/2008 sunny and Talita Adamson,FACP [...] APOLONIA Haley 08/10/2018 Injection Depomedrol 40MG Susana Sanderson RPA-Neelima 08/10/2018 Injection Depomedrol 40MG Omer Ornelas M.D. 01/26/2018 Injection Immunizations CPT Code Status Date Vaccine Reaction Lot # [id number] Given 04/29/2019 Influenza Virus Vaccine, No immediate reaction [id number] Quadrivalent (Cciiv4), Derived From Cell 86500 Given 03/10/2019 Tdap - No immediate 2E3EH Tetanus/Diptheria/Acellular reaction..jh Pertussis 42721 Given 04/13/2018 Influenza Virus Vaccine, [id number] Quadrivalent, Split, Preservative Free 77019 Given 05/28/2017 Influenza Virus Vaccine, [id number] Quadrivalent, Split, Preservative Free 40558 Given 04/02/2016 Influenza Virus Vaccine, no reaction noted... [id number] Quadrivalent, Split, hh Preservative Free Q2037 Given 07/06/2015 Fluvirin Im 3Yrs And Older 71671 Given 07/06/2015 Pneumonia Vaccine 01220 Given 06/14/2014 Flu Vaccine Split Virus [id number] Preservative Free For Indiv 3Yr Older Q2037 Given 04/23/2012 Fluvirin Im 3Yrs And Older [id number] 08057 Given 08/29/2011 Pneumonia Vaccine [id number] Q2038 Given 03/08/2011 Fluzone Vaccine [id number] 47581 Given 05/28/2010 Influenza Virus 3Yrs & Over [id number] 89809 Given 05/15/2009 Influenza Virus Vaccine, [id number] Pandemic Formulation 00270 Given 05/15/2009 Administration Swine Flu Shot 86046 Given 05/16/2008 Influenza Virus 3Yrs & Over Vital Signs Date Vital Result Comment 04/29/2019 12:56pm Height 62 inches 5'2" Weight 244.00 lb Heart Rate 86 /min BP Systolic 135 mmHg BP Diastolic 70 mmHg Body Temperature 98.9 F O2 % BldC Oximetry 95 % BMI (Body Mass Index) 44.6 kg/m2 04/16/2019 10:56am Height 62 inches 5'2" Weight 245.00 lb with shoes Heart Rate 88 /min left radial BP Systolic Sitting 148 mmHg ule LG cuff BP Diastolic Sitting 86 mmHg ule LG cuff BP Systolic Standing 142 mmHg ule LG cuff BP Diastolic Standing 84 mmHg ule LG cuff BMI (Body Mass Index) 44.8 kg/m2 Ejection Fraction 60-65% Echo 04/20/18 Results Test Acquired Date Facility Test Result H/L Range Note Urine 03/10/2019 [facility] Ur Microalbumin < 15.[address] (mg/L) mg/[place] [address] [phone] Urine Creatinine 32.54 mg/dL Urine Microalbumin/Creatinine TNP <31 1 Laboratory test finding 03/10/2019 [facility] Hemoglobin A1c 7.1 High 5 -7 1 Unable to calculate due to low microalbumin Procedures Date Code Description Status 04/16/2019 10930 EKG Tracing & Interpretation Completed 03/31/2019 [id number] Mammogram Completed 02/10/2019 87779 Inject/Drain Joint/Bursa Major W/O US Completed 11/09/2018 41033 Inject/Drain Joint/Bursa Major W/O US Completed 11/27/2016 [id number] Mammogram Completed 03/08/2013 [id number] Mammogram Completed 06/25/2011 702291505 Diabetic Foot Exam Completed 09/13/2010 [id number] Colonoscopy Completed 02/22/2008 [id number] Mammogram Completed Medical Devices Description No Information Available Encounters Type Date Location Provider Dx Diagnosis Office Visit 04/16/2019 [facility] Makenna John, Z01.810 Encounter for 11:00a Of Customer Quality Specialist [facility] [place]ita preprocedural cardiovascular examination J44.9 Chronic obstructive pulmonary disease, unspecified R94.31 Abnormal electrocardiogram [ECG] [EKG] Z72.0 Tobacco use E78.5 Hyperlipidemia, unspecified M17.12 Unilateral primary osteoarthritis, left knee Office Visit 03/10/2019 1:00p [facility] Internal Rah Guevara, Z00.01 Encounter for Medicine - [facility] LOGGING ASSISTANT general adult medical exam w abnormal findings [...] [facility] Amber apnea (adult) [facility] (pediatric) Office Visit 02/10/2019 11:15a [facility] Omer Ornelas, M17.11 Unilateral at [facility] primary osteoarthritis, right knee M17.12 Unilateral primary osteoarthritis, left knee Office Visit 01/29/2019 2:20p [facility] Internal Rah Guevara, H60.8x1 [facility] externa, right ear H66.91 Otitis media, unspecified, right ear Office Visit 01/06/2019 10:40a [facility] Internal Rahwang Waterman LOGGING ASSISTANT M54.6 Pain in thoracic Medicine - [facility] spine G89.4 Chronic pain syndrome R10.9 Unspecified abdominal pain F17.210 Nicotine dependence, cigarettes, uncomplicated F32.89 Other specified depressive episodes F41.9 Anxiety disorder, unspecified Office 12/14/2018 [facility] M43.17 Spondylolisthesis, Visit 1:00p Services Of [facility] MD Pascual lumbosacral region M48.061 Spinal stenosis, lumbar region without neurogenic laure Office Visit 11/09/2018 [facility] Omer Ornel[facility], M17.11 Unilateral primary 1:30p Orthopedics at [facility] osteoarthritis, right [facility] knee M17.12 Unilateral primary osteoarthritis, left knee Assessments Date Code Description Provider 04/29/2019 Z01.818 Encounter for other preprocedural Rahwang Waterman LOGGING ASSISTANT examination 04/29/2019 M25.562 Pain in left knee Rahwang Waterman, LOGGING ASSISTANT 04/29/2019 J44.9 Chronic obstructive pulmonary disease, Rahwang Waterman, LOGGING ASSISTANT unspecified 04/29/2019 Z72.0 Tobacco use Rah Waterman LOGGING ASSISTANT 04/29/2019 E78.5 Hyperlipidemia, unspecified Rahwang Waterman, LOGGING ASSISTANT 04/29/2019 G47.33 Obstructive sleep apnea (adult) Rah Waterman NP (pediatric) 04/29/2019 E11.65 Type 2 diabetes mellitus with Rahwang Waterman NP hyperglycemia 04/29/2019 Z23 Encounter for immunization Rah Waterman NP 04/16/2019 Z01.810 Encounter for preprocedural Maeknna John M.D. cardiovascular examination 04/16/2019 J44.9 Chronic [...] 03/10/2019 F17.210 Nicotine dependence, cigarettes, Rah Waterman, LOGGING ASSISTANT uncomplicated 03/10/2019 F41.9 Anxiety disorder, unspecified Rahwang Waterman, LOGGING ASSISTANT 03/10/2019 J44.9 Chronic obstructive pulmonary disease, Rah Waterman, LOGGING ASSISTANT unspecified 03/10/2019 E78.5 Hyperlipidemia, unspecified Rah Guevara, LOGGING ASSISTANT 03/10/2019 Z23 Encounter for immunization Rah Waterman, LOGGING ASSISTANT 03/10/2019 Z12.31 Encounter for screening mammogram for Rah Waterman NP malignant neoplasm of breast 03/10/2019 F33.0 Major depressive disorder, recurrent, Rahwang Waterman, LOGGING ASSISTANT mild 03/10/2019 E11.65 Type 2 diabetes mellitus with Rahwang Waterman, STEFF hyperglycemia 03/04/2019 G47.33 Obstructive sleep apnea (adult) Ana Clark MD (pediatric) 02/10/2019 M17.11 Unilateral primary osteoarthritis, right Omer Ornelas M.D. knee 02/10/2019 M17.12 Unilateral primary osteoarthritis, left Omer Ornelas M.D. knee 01/29/2019 H60.8x1 Other otitis externa, right ear Rah Guevara, STEFF 01/29/2019 H66.91 Otitis media, unspecified, right ear Rah Guevara, STEFF 01/06/2019 M54.6 Pain in thoracic spine Rah Waterman NP 01/06/2019 G89.4 Chronic pain syndrome Rah Waterman NP 01/06/2019 R10.9 Unspecified abdominal pain Rah Waterman NP 01/06/2019 F17.210 Nicotine dependence, cigarettes, Rah Waterman NP uncomplicated 01/06/2019 F32.89 Other specified depressive episodes Rah Waterman NP 01/06/2019 F41.9 Anxiety disorder, unspecified Rah Waterman NP 12/14/2018 M43.17 Spondylolisthesis, lumbosacral region Allyson Garner MD 12/14/2018 M48.061 Spinal stenosis, lumbar region without Allyson Garner MD neurogenic claudicati 11/09/2018 M17.11 Unilateral primary osteoarthritis, right Omer Ornelas M.D. knee 11/09/2018 M17.12 Unilateral primary osteoarthritis, left Omer Ornelas M.D. knee Plan of Treatment Future Appointment(s):06/15/2019 10:20 am - Rah Waterman NP at [facility] Internal Medicine - [facility]05/18/2019 7:30 am - Omer Ornelas M.D. at [facility] at Igifsw3305/03/2019 9:30 am - Omer Ornelas M.D. at [facility] at Lbumav1204/2019 11:00 am - Allyson Garner MD at [facility]04/29 - Rah Waterman NPZ01.818 Encounter for other preprocedural shjfotxylytI92.562 Pain in left kneeJ44.9 Chronic obstructive pulmonary disease , hjbbmcmvprlS43.0 Tobacco useComments:It is important that you continue to try to quit.E78.5 Hyperlipidemia, ayaaiiqxheiC99.33 Obstructive sleep apnea (adult) (pediatric)New Medication:Nicotine 14 mg/24HR - one patch daily for 6 weeksComments:If you will be spending the night in the hospital it is important to bring your CPAP with you to thehospital.E11.65 Type 2 diabetes mellitus with hyperglycemiaFollow up:Mid to late May DM f/uZ23 Encounter for immunizationImmunizations/Injections:Influenza Virus Vaccine, Quadrivalent ( Cciiv4), Derived From Cell Functional Status Description No Information Available Mental Status Description No Information Available Referrals Refer to Reason for Referral Status Appt Date Stephanie Ramos LCSW Sent 01/13/[address] [place] [phone]
[2019-05-18] MEDS ORDERED: Acetaminophen TAB* 325 MG PO ONE (06:00)
[2019-05-18] MEDS ORDERED: Lactated Ringers 1000 ML Bag* 1,000 ML IV SCH (06:00)
[2019-05-18] MEDS ORDERED: Famotidine IV* 10 MG/ML 2 ML (20 mg) IV ONE (06:00)
[2019-05-18] MEDS ORDERED: Gabapentin CAP(*) 400 MG PO ONE ×2 (06:00→06:12)
[2019-05-18] MEDS ORDERED: Acetaminophen TAB* 325 MG ONE (06:12)
[2019-05-18] MEDS ORDERED: Famotidine IV* 10 MG/ML 2 ML (20 mg) ONE (06:13)
[2019-05-18] MEDS ORDERED: ceFAZolin 2 GM in NS PREMIX(*) 2 GM/100 ML BAG IVPB ONE (06:13)
[2019-05-18] MEDS ORDERED: Bupivacaine 0.5%* 50 ML MDV VIAL ONE ×2 (07:03→08:24)
[2019-05-18] MEDS ORDERED: fentaNYL* 50 MCG/ML 2 ML VIAL (100 MCG VIAL) ONE (07:07)
[2019-05-18] MEDS ORDERED: Midazolam* 1 MG/ML 2 ML VIAL (2 MG) ONE (07:07)
[2019-05-18] MEDS ORDERED: Ondansetron INJ* 2 MG/ML VIAL ONE (07:42)
[2019-05-18] MEDS ORDERED: Lidocaine 2% PF * 5 ML VIAL ONE (07:42)
[2019-05-18] MEDS ORDERED: Succinylcholine* 20 MG/ML 10 ML VIAL ONE (07:42)
[2019-05-18] MEDS ORDERED: Propofol* 10 MG/ML 20 ML BTL ONE (07:42)
[2019-05-18] MEDS ORDERED: Acetaminophen IV 1GM/100ML * 100 ML ONE (07:42)
[2019-05-18] MEDS ORDERED: Ketorolac INJ* 30 MG/ML 1 ML VIAL ONE (07:42)
[2019-05-18] MEDS ORDERED: Cisatracurium* 2 MG/ML MDV 5 ML ONE (07:43)
[2019-05-18] MEDS ORDERED: Dexmedetomidine* 200 MCG/2 ML 2 ML VIAL ONE (08:26)
[2019-05-18] MEDS ORDERED: fentaNYL* 50 MCG/ML 5 ML VIAL (250 MCG VIAL) ONE (08:31)
[2019-05-18] MEDS ORDERED: Morphine 4 MG/ML VIAL (1 ml) 4 MG/ML VIAL IV PRN (09:00)
[2019-05-18] MEDS ORDERED: Naloxone* 0.4 MG/ML 1 ML VIAL IV PRN (09:00)
[2019-05-18] MEDS ORDERED: Ondansetron INJ* 2 MG/ML VIAL IV PRN ×2 (09:00→10:29)
[2019-05-18] MEDS ORDERED: Levalbuterol 1.25MG/0.5ML NEB INH PRN (09:00)
[2019-05-18] MEDS ORDERED: Phenylephrine 40 MCG/ML SYRINGE ONE (09:42)
[2019-05-18] MEDS ORDERED: HYDROmorphone INJ1* 1 MG/ML SYRINGE ONE ×2 (10:01→11:41)
[2019-05-18] MEDS ORDERED: diPHENhydraMINE PO* 25 MG PO PRN (10:29)
[2019-05-18] MEDS ORDERED: diPHENhydraMINE IV* 50 MG/ML 1 ml VIAL (BENADRYL) IV PRN (10:29)
[2019-05-18] MEDS ORDERED: Ondansetron ODT TAB* 4 MG PO PRN (10:29)
[2019-05-18] MEDS ORDERED: oxyCODONE TAB* 5 MG TAB PO PRN (10:29)
[2019-05-18] MEDS ORDERED: Morphine INJ* 2 MG/ML 1 ML SYRINGE (TWO MG - NEW SYRINGE VERSION) IV PRN (10:29)
[2019-05-18] MEDS ORDERED: Magnesium Hydroxide LIQ* 30 ML UDC PO PRN (10:29)
[2019-05-18] MEDS ORDERED: Saline NASAL SPRAY 0.65%* BTL BOTH NARES PRN (10:33)
[2019-05-18] MEDS ORDERED: Albuterol HFA INHALER* 8 gm MDI INH PRN (10:33)
[2019-05-18] MEDS ORDERED: CROMOLYN INTRANASAL PRN (10:33)
[2019-05-18] MEDS ORDERED: Levalbuterol 1.25MG/0.5ML NEB ONE (10:58)
[2019-05-18] MEDS ORDERED: Nicotine PATCH 14 MG/24 HR* PATCH TRANSDERM SCH (11:00)
[2019-05-18] MEDS: HYDROmorphone INJ1* 1 MG/ML SYRINGE IV PRN ×5 (11:40→12:00)
[2019-05-18] MEDS ORDERED: Dextrose 50% VIAL 50 ml IV PUSH PRN (13:04)
--- NOTE | 2019-05-18 14:00 | CONS ---
CONSULTATION REPORT: DATE OF CONSULT: 05/18/19 PRIMARY CARE PROVIDER: Dr. Ellie Meyer, Rah Waterman, STEFF. REQUESTING PHYSICIAN IN CONSULTATION: Dr. Omer Ornelas. ATTENDING PHYSICIAN: Dr. Joey Lama (dictated by RAY Molina). REASON FOR CONSULTATION: Co-medical management. HISTORY OF PRESENT ILLNESS/HOSPITAL COURSE: I refer you to Dr. Ornelas's history and physical dictated on 05/18/19 for full and complete details, but in short, Ms. Botello is a 53-year-old female with a past medical history of diabetes, COPD, and chronic pain, who presented to [facility] today for an elective left total knee arthroplasty. She is seen postoperatively in the PACU. She states that her knee feels "weird" and painful. She rates her pain at 8-9/10. She feels that her mouth is dry and this is causing her some difficulty with speaking. Otherwise, she has no complaints today. PAST MEDICAL HISTORY: 1. Diabetes mellitus type 2. 2. COPD. 3. History of CVA x2 in 20s. 4. Gastroparesis. 5. Diverticulitis, status post colectomy. 6. Chronic pain. 7. Depression. 8. Obstructive sleep apnea. PAST SURGICAL HISTORY: L4-S1 arthrodesis, partial colectomy due to diverticulitis. HOME MEDICATIONS: 1. Albuterol inhaler 2 puff inhalation q.4 hours p.r.n. 2. Bupropion 150 mg p.o. daily. 3. Cetirizine 5 mg p.o. daily. 4. Cromolyn 1 spray to both nares t.i.d. p.r.n. 5. Cyclobenzaprine 10 mg p.o. t.i.d. 6. Duloxetine 60 mg p.o. daily. 7. Advair Diskus 250/50 one puff inhalation b.i.d. 8. Metformin 500 mg p.o. b.i.d. 9. Miconazole nitrate 1 application topically q.a.m. p.r.n. 10. Morphine sulfate 15 mg p.o. t.i.d. p.r.n. pain. 11. Morphine ER 30 mg p.o. q.8 hours, MDD 3. 12. Multivitamins 1 cap p.o. daily. 13. Fish oil 1200 mg softgel 1 tab p.o. daily. 14. Omeprazole 20 mg p.o. daily. 15. Sodium chloride spray to both nares b.i.d. p.r.n. allergy symptoms. 16. Tiotropium capsule 1 cap inhalation daily. DRUG ALLERGIES: STEROIDS, DIPHENHYDRAMINE. FAMILY HISTORY: Sister had skin cancer. Father had heart disease/[place], squamous cell carcinoma. No family history of diabetes mellitus or CVA. SOCIAL HISTORY: The patient states she smokes 1 pack of cigarettes per day for approximately 40 years. She does not use alcohol or any other illicit drugs. She does not work as she is disabled and has been for approximately 15 years. She lives alone with her cat. She does have a home health aide. In the event that she is unable to make her own medical decisions, she has appointed her sister, Anahy Botello to be her surrogate decision maker. REVIEW OF SYSTEMS: A 14-point review of systems has been performed and all the pertinent positives and negatives are in the HPI. All other systems are negative. PHYSICAL EXAM: General: Ms. Botello is a well-developed, well-nourished, obese , middle-aged white woman who is sitting up in bed. She is somewhat groggy and her speech slurs a little. She appears to be in no acute distress. HEENT: PERRL. Nonicteric sclerae. Hearing is grossly intact. Oral mucous membranes are dry. The pharynx is clear. There are no lesions. The tongue is at midline. The palate elevates symmetrically. Cardiovascular: Regular rate and rhythm with S1, S2 present without murmurs, rubs, clicks, or gallops. There is no JVD. There is no peripheral edema. Radial and pedal pulses are palpable. Pulmonary: Symmetrical chest expansion without use of accessory muscles. Lungs with diffuse end- expiratory wheezing without rhonchi or rales. Abdomen: Obese. Bowel sounds in all quadrants. Soft, nontender to palpation. Musculoskeletal: The left knee has a clean, dry and intact dressing in place. Sensation intact distally. Capillary refill intact. The patient is able to move the distal digits bilaterally in the lower extremities. Neuro: The patient is awake, but groggy. She is oriented x3. Cranial nerves are grossly intact. ASSESSMENT AND PLAN: Ms. Botello is a 53-year-old female with a past medical history of diabetes, chronic obstructive pulmonary disease, chronic pain, who presented to [facility] today for an elective left total knee arthroplasty. She will be admitted for: 1. Left total knee arthroplasty. Management per Orthopedics team. 2. Diabetes mellitus. The patient is on metformin at home, this will be held. She will be started on lispro sliding scale. 3. Chronic obstructive pulmonary disease. Continue home inhalers. 4. Chronic pain. Continue home medications. 5. Depression. Continue duloxetine. 6. Obstructive sleep apnea. Patient has BiPAP machine with her. Continue BiPAP at night. 7. Tobacco abuse. Nicotine patch 14 mg. 8. DVT prophylaxis: Per Orthopedics, Lovenox. 9. Code status: Full code. TIME SPENT: Approximately 30 minutes was spent on this consultation, greater than half that time was spent with the patient and her sister obtaining history , performing physical, and reviewing the plan of care. The case has been reviewed with my attending, Dr. Lama, who is in agreement with plan of care. RAY MCCOY [id number]/CPS #: [id number] DENA
[2019-05-18] MEDS: Lactated Ringers 1000 ML Bag* 1,000 ML IV SCH (14:15)
[2019-05-18] MEDS: traMADol TAB* 50 MG PO PRN (14:25)
[2019-05-18] MEDS: Morphine TAB Extended Release (*) 30 MG TAB.ER PO SCH ×2 (14:25→22:51)
[2019-05-18] MEDS: Acetaminophen TAB* 325 MG PO SCH ×2 (15:14→23:38)
[2019-05-18] MEDS: ceFAZolin 1 GM ADVAN(*) 1 GM in NS 0.9% 50 ML* 50 ML IVPB SCH (16:18)
[2019-05-18] MEDS: Insulin LISPRO* 1 UNITS UNIT SUBCUT SCH ×2 (16:30→23:32)
--- NOTE | 2019-05-18 16:48 | OP ---
CC: [facility] Internal Medicine, RAY Delaney * DATE OF OPERATION: 05/18/19 - ROOM #350 DATE OF : 65 SURGICAL CARE: Left knee. SURGEON: Omer Ornelas MD ASSISTANTS: Shanda Cassidy, haris campbell and RAY Head ANESTHESIOLOGIST: Dr. Damien Johnson. ANESTHESIA: Endotracheal tube, general. PRE-OP DIAGNOSIS: Severe arthritis of the left knee. POST-OP DIAGNOSIS: Severe arthritis of the left knee. OPERATIVE PROCEDURE: Left total knee replacement with Nancy Persona knee was utilized, a size 7 femur, a 32 patella, a size E tibia and a 10 articular surface. A small extension was placed on the tibial component. All components were cemented. COMPLICATIONS: There were no complications. DRAINS: There were no drains. TOURNIQUET: Tourniquet control was utilized on the left leg just during the cleanup and cementing phase of the case for 30 to 40 minutes. BLOOD LOSS: 200 mL. REPLACEMENT: Crystalloid fluids. CONDITION: Stable to the recovery room. DRAINS: No drains. Tranexamic acid 1 g was utilized at the start of the case. INDICATION: Severe knee arthritis, no longer responsive to nonoperative care. DESCRIPTION OF PROCEDURE: The patient was brought to the operating room and placed on the operating table in supine position. Following the administration of the anesthetic, insertion of an endotracheal tube, a Luna catheter was inserted. The left proximal thigh was wrapped to the tourniquet and the left leg was given a preliminary chlorhexidine prep and then a formal ChloraPrep from the tourniquet to the tips of the toes. After prepping, draping, and sealing off, we did our universal protocol time-out confirming Shahida Schrezarb and a plan for left total knee replacement. All agreed and we proceeded. The surgical care was done with the hip and knee acutely flexed with the left foot on a padded food piece. The skin incision went from the medial aspect of the tibial tubercle to 2 fingerbreadths proximal to the superior pole of the patella going over the proximally medial patella. Skin and subcu divided down to the prepatellar bursa. The knee was then entered medial. Parapatellar divided and the quad tendon at the junction in the rectus femoris and the vastus medialis tendon staying as close to vastus medialis muscle as possible going 3 to 4 cm proximal to superior pole of the patella. On the tibia, we went down to the bone at the medial joint line, and then going distally approximately 2 cm medial to the tibial tubercle to bone, the medial soft tissues on the tibia were elevated subperiosteally going around at the deep MCL and then to the posteromedial corner of the knee. The knee had clear goldish synovial fluid. There was complete eburnation of bone, medial femoral condyle, medial tibial plateau. Degenerative changes were marked on the lateral femoral condyle, lateral tibial plateau and mild on the patella. The patella was made so that could be everted. The remains of the medial meniscus were removed anteriorly. We removed osteophytes on the intercondylar notch. The ACL and PCL were uplifted from their femoral origins. The tibia was made so it could be subluxated forward from under the femur. The PCL was carefully excised. Peripatellar synovectomy was completed and the lateral meniscus was then carefully excised with careful hemostasis at its periphery. The distal anterior femur was exposed subperiosteally for referencing and measuring. At this point, we made our proximal tibial cut. Our goal here was to have the tibial surface that would be perpendicular to the long axis of the tibia with a slight posterior slope removing just a couple of millimeters on the medial side and 1 cm on the lateral side. The femoral intramedullary drill was then utilized. The femoral canal was centered and the femoral canal was suctioned to discourage embolization. The distal femoral cutting guide was applied on 1 with 6 degrees of valgus and the distal femoral cut was completed. The extension gap was good with 10 mm block. The femur was measured for a size 7. The anterior, posterior, and chamfering cuts were completed. We then finished removal of the posterior horn of the medial meniscus carefully preserving the medial collateral ligament, the PCL, posterior horn, lateral meniscus. At this point, we had a nice flexion gap of 10 at 90 degrees. The femur was completed with the intercondylar cut out. The femur was cleaned x6, suctioned empty and bone plug inserted. The tibia was completed for a size E. The knee was articulated and extended with an E tibia 10 articular surface and 7 femur with full knee extension, stable ligaments in extension and stable ligaments in 90 degrees of flexion. The patella was cut flat. Some extra cartilage was removed from the lateral facet. A 32 was chosen. Three drill holes were also made and these were under cut. A lateral release was not necessary. The knee was cycled in extension and flexion past 130 degrees several times at this stage. The leg was then exsanguinated. The final components were opened and the tourniquet was elevated at 275. The knee was cleaned entirely in extension with pulsed saline irrigation. The knee was then put into flexion, retractors in place, and all the bony surfaces were cleaned with pulsed saline. All surfaces were dried. The cement was mixed and the components were cemented into position. Patella, followed by tibia, followed by femur, each was impacted. Excess cement was removed and the knee was articulated and extended during the final hardening. We did extensive saline irrigation during closure. Careful hemostasis was achieved. We did not think drains were necessary. The pericapsular soft tissues infiltrated with 0.5% Marcaine with epinephrine 20 cc posteriorly, 20 cc medially and 10 to 20 cc in the skin and subcutaneous tissues. Closure was done with #1 Vicryl, [id number] on the quad tendon and the medial retinaculum going to 0 Vicryl more distally. Deep and superficial fascia bursa closed with 0 Vicryl and then 3-0 Vicryl on the superficial, subcu, and michael on the skin. The knee was extended and flexed several times during the closure with the flexion past 90 degrees and the extension 0. The skin was closed with michael and then washed and dried and covered with Betadine-soaked release followed by sterile gauze, sterile Webril, cryotherapy cuff, ABD pads and then a 6-inch Melo bandage loosely applied. The patient was returned to the recovery room in stable and satisfactory condition, having tolerated the procedure very well. [id number]/[facility] #: [id number] DENA
[2019-05-18] MEDS: Morphine ORAL.SOLN 10 mg* 2 MG/ML UDC 5 ml PO PRN (19:31)
[2019-05-18] MEDS: Mometasone/Formoter 200/5 MDI INH SCH (19:53)
[2019-05-18] MEDS: Cyclobenzaprine TAB* 10 MG PO PRN (20:47)
[2019-05-18] MEDS: Docusate CAP* 100 MG PO SCH (22:50)
[2019-05-18] MEDS: Magnesium Hydroxide LIQ* 30 ML UDC PO SCH (22:51)
[2019-05-18] MEDS: Ketorolac INJ* 30 MG/ML 1 ML VIAL IV PRN (22:52)
[2019-05-18] MEDS: Nystatin TOP POWDER* 15 GM BTL TOPICAL SCH (23:29)
[2019-05-18] MEDS: Nicotine PATCH 14 MG/24 HR* PATCH TRANSDERM SCH (23:39)
[2019-05-19] MEDS: ceFAZolin 1 GM ADVAN(*) 1 GM in NS 0.9% 50 ML* 50 ML IVPB SCH ×2 (00:41→08:11)
[2019-05-19] MEDS: Morphine ORAL.SOLN 10 mg* 2 MG/ML UDC 5 ml PO PRN ×4 (01:29→19:51)
[2019-05-19] MEDS: traMADol TAB* 50 MG PO PRN ×2 (01:30→08:37)
[2019-05-19] MEDS: Lactated Ringers 1000 ML Bag* 1,000 ML IV SCH (02:14)
[2019-05-19 05:29] LABS: Hematocrit 36 % (35-47); Hemoglobin 11.7 g/dL (12.0-16.0); Mean Platelet Volume 9.1 fL (7.4-10.4); Platelet Count 225 10^3/uL (150-450)
[2019-05-19 06:00] LABS: BUN/Creatinine Ratio 15.3 (8-20); Calcium 8.4 mg/dL (8.6-10.3); EGFR Non-African American 106.6 (>60); Potassium 3.9 mmol/L (3.5-5.0)
[2019-05-19] MEDS: Morphine TAB Extended Release (*) 30 MG TAB.ER PO SCH (06:24)
[2019-05-19] MEDS: Acetaminophen TAB* 325 MG PO SCH ×3 (06:24→22:20)
[2019-05-19] MEDS: Insulin LISPRO* 1 UNITS UNIT SUBCUT SCH ×4 (07:03→21:29)
[2019-05-19] MEDS: Cyclobenzaprine TAB* 10 MG PO PRN ×2 (08:04→16:58)
[2019-05-19] MEDS: Ketorolac INJ* 30 MG/ML 1 ML VIAL IV PRN ×2 (08:05→16:58)
[2019-05-19] MEDS: buPROPion SR TAB.SR* 150 MG PO SCH (08:37)
[2019-05-19] MEDS: Magnesium Hydroxide LIQ* 30 ML UDC PO SCH ×2 (08:37→20:47)
[2019-05-19] MEDS: DULoxetine DR CAP* 60 MG CAP.DR PO SCH (08:37)
[2019-05-19] MEDS: Cetirizine* 10 MG TAB PO SCH (08:38)
[2019-05-19] MEDS: Pantoprazole TAB * 40 MG TAB PO SCH (08:39)
[2019-05-19] MEDS: Nystatin TOP POWDER* 15 GM BTL TOPICAL SCH ×2 (08:39→21:28)
[2019-05-19] MEDS: Vitamin THERAPEUTIC TAB PO SCH (08:39)
[2019-05-19] MEDS: Docusate CAP* 100 MG PO SCH ×2 (08:39→20:48)
[2019-05-19] MEDS: FISH OIL PO SCH (09:27)
[2019-05-19] MEDS: EPA PO SCH (09:27)
[2019-05-19] MEDS: DHA PO SCH (09:27)
[2019-05-19] MEDS: OMEGA PO SCH (09:27)
[2019-05-19] MEDS: Mometasone/Formoter 200/5 MDI INH SCH ×2 (09:50→20:37)
[2019-05-19] MEDS: SPIRIVA Respimat* (tiotropium) 2.5 mcg/inh Inhaler INH SCH (09:50)
[2019-05-19] MEDS ORDERED: Enoxaparin(*) 30 MG/0.3 ML SYR SUBCUT ONE (11:00)
--- NOTE | 2019-05-19 12:40 | PN ---
Progress Note - Progress Note Date of Service: 05/19/19 SOAP: Subjective: []Pt seen at bedside, she feels nauseous but has not vomit. Denies CP, SOB, dizziness, nausea. Knee is painful but tolerable pain. Dr Corea saw her this morning and will be changing her pain medications in house as well as sending outpt RX for DC. Pt complains of L posterior knee pain she is concerned about DVT Objective: []Gen: NAD appears well LLE: Left knee dressing CDI, thigh soft, DF/PF intact, DP2+, sensation intact to light touch distally Calves supple without erythema, edema or palpable cords. L proximal calf tender. Assessment: [] SP LTK Plan: []WBAT PT. lovenox 30 mg sq today, 40 mg sq tomorrow. Patient is somewhat slow moving so will not use asa 325 mg qd alone for DVT prophy. Anticipate DC on eliquis 2.5 mg po BID x remainder of 30 days post op Dopplar ordered, low suspicion of DVT DC home tomorrow Vital Signs Temp 99.6 F 05/19/19 12:27 Pulse 80 05/19/19 12:27 Resp 18 05/19/19 12:27 BP 176/80 05/19/19 12:27 Pulse Ox 94 05/19/19 12:27 Intake & Output 05/18/19 05/19/19 05/19/19 18:59 06:59 18:59 Intake Total 1800 2465 Output Total 2650 4550 900 Balance -850 -2085 -900 Intake: IV Fluids 1800 1115 ABX - CEFAZOLIN 165 LR 1800 950 Oral 1350 Output: Urine 900 Luna 2450 4550 Estimated Blood Loss 200 Laboratory Last Values Hgb 11.7 g/dL (12.0-16.0) L 05/19/19 04:50 Hct 36 % (35-47) 05/19/19 04:50 Plt Count 225 10^3/uL (150-450) 05/19/19 04:50 MPV 9.1 fL (7.4-10.4) 05/19/19 04:50 Sodium 139 mmol/L (135-145) 05/19/19 04:50 Potassium 3.9 mmol/L (3.5-5.0) 05/19/19 04:50 Chloride 104 mmol/L (101-111) 05/19/19 04:50 Carbon Dioxide 30 mmol/L (22-32) 05/19/19 04:50 Anion Gap 5 mmol/L (2-11) 05/19/19 04:50 BUN 9 mg/dL (6-24) 05/19/19 04:50 Creatinine 0.59 mg/dL (0.51-0.95) 05/19/19 04:50 Est GFR ( Amer) 129.0 (>60) 05/19/19 04:50 Est GFR (Non-Af Amer) 106.6 (>60) 05/19/19 04:50 BUN/Creatinine Ratio 15.3 (8-20) 05/19/19 04:50 Glucose 117 mg/dL (70-100) H 05/19/19 04:50 POC Glucose (mg/dL) 104 mg/dL (70-100) H 05/18/19 23:09 Calcium 8.4 mg/dL (8.6-10.3) L 05/19/19 04:50
[2019-05-19] MEDS: Morphine TAB Extended Release (*) 15 MG TAB.ER PO SCH ×2 (13:37→22:19)
--- NOTE | 2019-05-19 13:37 | CONSULT ---
Consult Consult: INPATIENT PAIN CONSULTATION Shahida Botello is a 53 year old female. She has a medical history significant for ЮЛИЯ and COPD. She developed back pain when she was 21. In her mid-30's she got worse. In her mid-40's it continued to worsen. She was started on Lyrica but she gained 100 pounds and this was stopped. She was sent to a pain clinic. She tried acupuncture and chiropractic. She was seen in a pain clinic in [place] and started on Methadone. She had trouble breathing on Methadone. She transferred her care to Dr. Adamson. Her Methadone was changed to OxyContin and later MS Contin. She was started on MSIR. She had back surgery last May and began to see me. Prior to her left knee surgery, she was on MS Contin 30 mg Q8H and MSIR 15 mg TID PRN. After her back surgery, her MS Contin was increased to 45 mg Q8H. She took this for a month and weaned down to 30 mg Q8H. She was admitted to [facility] 05/18/19 and underwent a left TKA. She has had a lot of pain post-op. I am asked to see her in consult PAST MEDICAL HISTORY: ЮЛИЯ, COPD Allergies Allergy/AdvReac Type Severity Reaction Status Date / Time diphenhydramine AdvReac Altered Verified 05/18/19 06:36 [From Mateusz] Mental Status STEROIDS AdvReac Altered Uncoded 05/18/19 06:36 Mental Status Current Medications Acetaminophen (Tylenol Tab*) 975 mg PO Q8HR [facility] Last Admin: 05/19/19 06:24 Dose: 975 mg Albuterol (Ventolin Hfa Inhaler*) 2 puff INH Q4H PRN PRN Reason: WHEEZING Bisacodyl (Dulcolax Supp*) 10 mg [place] DAILY PRN PRN Reason: CONSTIPATION Bupropion HCl (Wellbutrin Sr Tab*) 150 mg PO QAM [facility] Last Admin: 05/19/19 08:37 Dose: 150 mg Cetirizine HCl (Zyrtec*) 5 mg PO QAM [facility] Last Admin: 05/19/19 08:38 Dose: 5 mg Cromolyn Sodium (Cromolyn [place](Nf)) 1 spray INTRANASAL TID PRN PRN Reason: CONGESTION Cyclobenzaprine HCl (Flexeril Tab*) 10 mg PO Q6H PRN PRN Reason: SPASMS Last Admin: 05/19/19 08:04 Dose: 10 mg Dextrose (Dextrose 50% Vial 50 Ml*) 25 ml IV PUSH .FOR FS < 60 - SS PRN PRN Reason: FS < 60 Diphenhydramine HCl (Benadryl Iv*) 25 mg IV Q6H PRN PRN Reason: PRURITIS Diphenhydramine HCl (Benadryl Po*) 25 mg PO Q6H PRN PRN Reason: PRURITIS Docusate Sodium (Colace Cap*) 100 mg PO BID [facility] Last Admin: 05/19/19 08:39 Dose: 100 mg Duloxetine HCl (Cymbalta Cap*) 60 mg PO QAM [facility] Last Admin: 05/19/19 08:37 Dose: 60 mg Enoxaparin Sodium (Lovenox(*)) 40 mg SUBCUT Q24H ONE Stop: 05/20/19 11:01 Lactated Ringer's (Lactated Ringers 1000 Ml Bag*) 1,000 mls @ 100 mls/hr IV .PER RATE [facility] Last Admin: 05/19/19 02:14 Dose: 100 mls/hr Insulin Human Lispro (Humalog*) 0 units SUBCUT [facility]; Protocol Last Admin: 05/19/19 11:30 Dose: Not Given Ketorolac Tromethamine (Toradol Inj*) 30 mg IV Q6H PRN PRN Reason: PAIN - MILD Stop: 05/23/19 10:28 Last Admin: 05/19/19 08:05 Dose: 30 mg Lactulose (Lactulose*) 30 ml PO BID PRN PRN Reason: CONSTIPATION Magnesium Hydroxide (Milk Of Magnesia Liq*) 30 ml PO BID [facility] Last Admin: 05/19/19 08:37 Dose: 30 ml Magnesium Hydroxide (Milk Of Magnesia Liq*) 30 ml PO Q6H PRN PRN Reason: CONSTIPATION Mometasone Furoate/Formoterol Fumar (Dulera 200/5 Mdi*) 2 puff INH BID [facility] Last Admin: 05/19/19 09:50 Dose: Not Given Morphine Sulfate (Morphine Inj (Syringe))*) 2 mg IV Q4H PRN PRN Reason: Pain - Unrelieved Last Admin: 05/18/19 20:48 Dose: 2 mg Morphine Sulfate (Ms Contin(*)) 45 mg PO Q8HR [facility] Morphine Sulfate (Morphine Oral.Soln 10 Mg*) 15 mg PO Q4H PRN PRN Reason: PAIN - SEVERE Multivitamins (Theragran Tab*) 1 tab PO DAILY [facility] Last Admin: 05/19/19 08:39 Dose: 1 tab Nicotine (Nicotine Patch 14 Mg/24 Hr*) 1 patch TRANSDERM QAM [facility] Last Admin: 05/18/19 23:39 Dose: 1 patch [place]-3s/Dha/Epa/Fish Oil [Fish Oil 1 ,200 Mg Softgel] 1 Each 1 each PO QAM [facility] Last Admin: 05/19/19 09:27 Dose: Not Given Nystatin (Nystatin Top Powder*) 1 applic TOPICAL BID [facility] Last Admin: 05/19/19 08:39 Dose: 1 applic Ondansetron HCl (Zofran Inj*) 4 mg IV Q6H PRN PRN Reason: NAUSEA Last Admin: 05/19/19 00:03 Dose: 4 mg Ondansetron HCl (Zofran Odt Tab*) 4 mg PO Q6H PRN PRN Reason: NAUSEA Pantoprazole Sodium (Protonix Tab*) 40 mg PO QAM [facility] Last Admin: 05/19/19 08:39 Dose: 40 mg Pharmacy Profile Note (Nicotine Patch Removal Note*) 1 note PATCH OFF 2100 [facility] Sodium Chloride (Sodium Chloride 0.65% Nasal [place]*) 1 spray BOTH NARES BID PRN PRN Reason: Allergy Symptoms Last Admin: 05/18/19 21:06 Dose: 1 spray Tiotropium [place] (Spiriva Respimat 2.5 Mcg) 2 puff INH QAM [facility] Last Admin: 05/19/19 09:50 Dose: Not Given Tramadol HCl (Ultram*) 50 mg PO Q6H PRN PRN Reason: PAIN - MODERATE Last Admin: 05/19/19 08:37 Dose: 50 mg SOCIAL HISTORY: 1/4 ppd smoker, non drinker. Lives by herself in a townhouse, bathroom upstairs ROS: No CP or SOB. Vital Signs Temp Pulse Resp BP Pulse Ox 99.6 F 80 18 176/80 94 05/19/19 12:27 05/19/19 12:27 05/19/19 12:27 05/19/19 12:27 05/19/19 12:27 EXAM: GENERAL: mild distress LUNGS: Clear HEART: reg rhythm ABDOMEN: Soft EXTREMITIES: Left knee bandaged NEUROLOGIC: Sensation appears intact. Moves all 4 extremities ASSESSMENT: 1. Left TKR 2. Chronic opioid use PLAN: I will increase her MS COntin to 45 mg Q8 hours and increase her liquid morphine to 15 mg Q4 PRN. We do not carry her usual MSIR in the hospital. She had received Toradol but this is finished. I will follow. She has the MS Contin 30 mg tabs at home so I can send in the MS Contin 15 mg tabs.
[2019-05-19] MEDS ORDERED: hydrALAZINE IV* 20 MG/ML VIAL IV SLOW PU PRN (16:19)
[2019-05-19] MEDS ORDERED: Scopolamine 1.5 mg* PATCH TRANSDERM PRN (16:30)
[2019-05-19] MEDS ORDERED: Scopolamine PATCH Remove* 1 NOTE MISC PATCH OFF SCH (17:00)
--- NOTE | 2019-05-19 19:44 | PN ---
Subjective Date of Service: 05/19/19 Interval History: Ms. Botello c/o throbbing pain in L posterior knee. She also c/o dry mouth, nausea, and mildly elevated temperature of 99.0; she denies fever, chills, sweats, difficulty urinating, abd pain, cough. She had a BM yesterday. She c/ o numbness in hands, arms, which is chronic. She is eating and drinking OK. She is using nicotine patch, which she states is working great. She is using her home bipap while inpatient. She has no other complaints today. Objective Active Medications: Acetaminophen (Tylenol Tab*) 975 mg PO Q8HR [facility] Last Admin: 05/19/19 13:37 Dose: 975 mg Albuterol (Ventolin Hfa Inhaler*) 2 puff INH Q4H PRN PRN Reason: WHEEZING Bisacodyl (Dulcolax Supp*) 10 mg [place] DAILY PRN PRN Reason: CONSTIPATION Bupropion HCl (Wellbutrin Sr Tab*) [facility] Last Admin: 05/19/19 08:37 Dose: 150 mg Cetirizine HCl (Zyrtec*) [facility] [place] Last Admin: 05/19/19 08:38 Dose: 5 mg Cromolyn Sodium (Cromolyn [place](Nf)) 1 spray INTRANASAL TID PRN PRN Reason: CONGESTION Cyclobenzaprine HCl (Flexeril Tab*) 10 mg PO Q6H PRN PRN Reason: SPASMS Last Admin: 05/19/19 16:58 Dose: 10 mg Dextrose (Dextrose 50% Vial 50 Ml*) 25 ml IV PUSH .FOR FS < 60 - SS PRN PRN Reason: FS < 60 Diphenhydramine HCl (Benadryl Iv*) 25 mg IV Q6H PRN PRN Reason: PRURITIS Diphenhydramine HCl (Benadryl Po*) 25 mg PO Q6H PRN PRN Reason: PRURITIS Docusate Sodium (Colace Cap*) 100 mg PO BID [facility] Last Admin: 05/19/19 08:39 Dose: 100 mg Duloxetine HCl (Cymbalta Cap*) 60 mg PO QAM [facility] Last Admin: 05/19/19 08:37 Dose: 60 mg Enoxaparin Sodium (Lovenox(*)) 40 mg SUBCUT Q24H ONE Stop: 05/20/19 11:01 Hydralazine HCl (Apresoline Iv*) 5 mg IV SLOW PU Q6H PRN PRN Reason: SBP >170 Last Admin: 05/19/19 16:38 Dose: 5 mg Lactated Ringer's (Lactated Ringers 1000 Ml Bag*) 1,000 mls @ 100 mls/hr IV .PER RATE [facility] Last Admin: 05/19/19 02:14 Dose: 100 mls/hr Insulin Human Lispro (Humalog*) 0 units SUBCUT ACHS [facility]; Protocol Last Admin: 05/19/19 16:42 Dose: Not Given Ketorolac Tromethamine (Toradol Inj*) 30 mg IV Q6H PRN PRN Reason: PAIN - MILD Stop: 05/23/19 10:28 Last Admin: 05/19/19 16:58 Dose: 30 mg Lactulose (Lactulose*) 30 ml PO BID PRN PRN Reason: CONSTIPATION Magnesium Hydroxide (Milk Of Magnesia Liq*) 30 ml PO BID [facility] Last Admin: 05/19/19 08:37 Dose: 30 ml Magnesium Hydroxide (Milk Of Magnesia Liq*) 30 ml PO Q6H PRN PRN Reason: CONSTIPATION Mometasone Furoate/Formoterol Fumar (Dulera 200/5 Mdi*) 2 puff INH BID [facility] Last Admin: 05/19/19 09:50 Dose: Not Given Morphine Sulfate (Morphine Inj (Syringe))*) 2 mg IV Q4H PRN PRN Reason: Pain - Unrelieved Last Admin: 05/18/19 20:48 Dose: 2 mg Morphine Sulfate (Ms Contin(*)) 45 mg PO Q8HR [facility] Last Admin: 05/19/19 13:37 Dose: 45 mg Morphine Sulfate (Morphine Oral.Soln 10 Mg*) 15 mg PO Q4H PRN PRN Reason: PAIN - SEVERE Last Admin: 05/19/19 15:43 Dose: 15 mg Multivitamins (Theragran Tab*) 1 tab PO DAILY [facility] Last Admin: 05/19/19 08:39 Dose: 1 tab Nicotine (Nicotine Patch 14 Mg/24 Hr*) 1 patch TRANSDERM QAM [facility] Last Admin: 05/18/19 23:39 Dose: 1 patch [place]-3s/Dha/Epa/Fish Oil [Fish Oil 1 ,200 Mg Softgel] 1 Each 1 each PO QAM [facility] Last Admin: 05/19/19 09:27 Dose: Not Given Nystatin (Nystatin Top Powder*) 1 applic TOPICAL BID [facility] Last Admin: 05/19/19 08:39 Dose: 1 applic Ondansetron HCl (Zofran Inj*) 4 mg IV Q6H PRN PRN Reason: NAUSEA Last Admin: 05/19/19 00:03 Dose: 4 mg Ondansetron HCl (Zofran Odt Tab*) 4 mg PO Q6H PRN PRN Reason: NAUSEA Last Admin: 05/19/19 13:37 Dose: 4 mg Pantoprazole Sodium (Protonix Tab*) 40 mg PO QAM [facility] Last Admin: 05/19/19 08:39 Dose: 40 mg Pharmacy Profile Note (Nicotine Patch Removal Note*) 1 note PATCH OFF 2099 [facility] Scopolamine (Transderm-Scop 1.5 Mg Patch*) 1 patch TRANSDERM Q72H PRN PRN Reason: NAUSEA Sodium Chloride (Sodium Chloride 0.65% Nasal [place]*) 1 spray BOTH NARES BID PRN PRN Reason: Allergy Symptoms Last Admin: 05/18/19 21:06 Dose: 1 spray Tiotropium [place] (Spiriva Respimat 2.5 Mcg) 2 puff INH QAM [facility] Last Admin: 05/19/19 09:50 Dose: Not Given Tramadol HCl (Ultram*) 50 mg PO Q6H PRN PRN Reason: PAIN - MODERATE Last Admin: 05/19/19 08:37 Dose: 50 mg Vital Signs: Temp Pulse Resp BP Pulse Ox 99.4 F 78 18 178/74 93 05/19/19 16:05 05/19/19 16:05 05/19/19 19:15 05/19/19 16:05 05/19/19 16:05 Oxygen Devices in Use Now: CPAP Appearance: Ms. Botello is a middle-aged, obese white woman who is sitting up in bed. She appears to be in no acute distress. She moves with some mild discomfort. Eyes: No Scleral Icterus, PERRLA Ears/Nose/Mouth/Throat: NL Teeth, Lips, Gums, Clear Oropharnyx, Mucous Membranes Moist Neck: NL Appearance and Movements; NL JVP, Trachea Midline Respiratory: Symmetrical Chest Expansion and Respiratory Effort, Clear to Auscultation Cardiovascular: NL Sounds; No Murmurs; No JVD, RRR, No Edema Abdominal: NL Sounds; No Tenderness; No Distention, No Hepatosplenomegaly Extremities: No Edema, No Clubbing, Cyanosis, - - CDI dressing in place to L knee. Sensation intact distally in b/l LE; able to move distal digits. Neurological: Alert and Oriented x 3 Result Diagrams: 05/19/19 04:50 05/19/19 04:50 Assess/Plan/Problems-Billing Assessment: 53yof PMHx DM, COPD, depression, chronic pain presents for LTKA. - Patient Problems (1) Status post total left knee replacement Comment: -management per ortho team -WBAT -PT/OT (2) Diabetes Comment: -well controlled -metformin on hold -lispro ss and fingersticks AC (3) Chronic pain Comment: -continue home medications -additional pain control medications per pain management (4) Depression Comment: -continue home buproprion, duloxetine (5) ЮЛИЯ (obstructive sleep apnea) Comment: -continue home BiPAP (6) Tobacco abuse Comment: -continue nicotine patch (7) DVT prophylaxis Comment: -per ortho: lovenox (8) Full code status Status and Disposition: Inpatient. Discharge per ortho team.
[2019-05-19] MEDS ORDERED: Nicotine Patch Removal NOTE PATCH OFF SCH (21:00)
[2019-05-20] MEDS: Morphine ORAL.SOLN 10 mg* 2 MG/ML UDC 5 ml PO PRN ×2 (01:49→07:27)
[2019-05-20 05:23] LABS: Hematocrit 36 % (35-47); Hemoglobin 11.9 g/dL (12.0-16.0); Platelet Count 236 10^3/uL (150-450)
[2019-05-20] MEDS: Acetaminophen TAB* 325 MG PO SCH (06:06)
[2019-05-20] MEDS: Morphine TAB Extended Release (*) 15 MG TAB.ER PO SCH (06:07)
[2019-05-20] MEDS: Insulin LISPRO* 1 UNITS UNIT SUBCUT SCH ×2 (07:32→12:18)
[2019-05-20 07:47] VITALS: BP 168/84
[2019-05-20] MEDS: EPA PO SCH (08:25)
[2019-05-20] MEDS: FISH OIL PO SCH (08:25)
[2019-05-20] MEDS: OMEGA PO SCH (08:25)
[2019-05-20] MEDS: DHA PO SCH (08:25)
[2019-05-20] MEDS: Magnesium Hydroxide LIQ* 30 ML UDC PO SCH (08:28)
[2019-05-20] MEDS: Vitamin THERAPEUTIC TAB PO SCH (08:28)
[2019-05-20] MEDS: Mometasone/Formoter 200/5 MDI INH SCH (08:28)
[2019-05-20] MEDS: SPIRIVA Respimat* (tiotropium) 2.5 mcg/inh Inhaler INH SCH (08:28)
[2019-05-20] MEDS: DULoxetine DR CAP* 60 MG CAP.DR PO SCH (08:29)
[2019-05-20] MEDS: Cetirizine* 10 MG TAB PO SCH (08:29)
[2019-05-20] MEDS: buPROPion SR TAB.SR* 150 MG PO SCH (08:29)
[2019-05-20] MEDS: Docusate CAP* 100 MG PO SCH (08:29)
[2019-05-20] MEDS: Nicotine PATCH 14 MG/24 HR* PATCH TRANSDERM SCH (08:29)
[2019-05-20] MEDS: Pantoprazole TAB * 40 MG TAB PO SCH (08:29)
[2019-05-20] MEDS: Nystatin TOP POWDER* 15 GM BTL TOPICAL SCH (08:35)
--- NOTE | 2019-05-20 09:22 | DS ---
Orthopedic Discharge Summary - Discharge Summary Date of Admission:05/18/19 Date of Discharge: 05/20/19 Date of Surgery: 05/18/19 Attending Orthopedic Provider: Dr Ornelas Pre-operative Diagnosis: Left knee osteoarthritis Operative Procedure: left total knee replacement Disposition of Patient: home with VNS Condition of Patient: stable History: PERNELL MIX is a 53 year old F with years of increasingly severe left knee pain. Patient has failed conservative management and has elected to undergo a left total knee replacement Hospital Course: PERNELL was admitted to [facility] on 05/18/19. Patient underwent a left total knee replacement without complication followed by a brief recovery in PACU and transfer to the Short Stay Surgical Unit in stable condition. Our hospitalist service, Pain service, physical therapy and also participated in this patients care. Post-op day 1: patient was alert and in no acute distress. Dressing was clean, dry and intact. Operative extremity dorsiflexion and plantarflexion intact, sensation intact to light touch distally , DP2+. Post-op day two: dressing was changed, incision was clean, dry and intact. Patient was deemed to be medically and orthopedically stable for discharge. Physical therapy goals were met. Pain RX sent by Dr Corea Home Medications Medication Instructions Recorded Confirmed Type Tiotropium CAPSULE (NF) [Spiriva 1 cap.inh INH QAM 04/21/15 05/18/19 History CAPSULE (NF)] Cetirizine* [ZyrTEC 10 MG TAB*] 5 mg PO QAM 12/18/17 05/18/19 History Cyclobenzaprine (NF) 10 mg PO TID 12/18/17 05/18/19 History [Cyclobenzaprine 5 MG (NF)] Fluticasone-Salmeterol 250-50* 1 puff INH BID 12/18/17 05/18/19 History [Advair Diskus 250-50*] Multivitamin [Multivitamins] 1 cap PO QAM 12/18/17 05/18/19 History Duloxetine HCl [Cymbalta] 60 mg PO QAM 01/08/18 05/18/19 History Morphine Sulfate 15 mg PO TID PRN 01/08/18 05/18/19 History Miconazole Nitrate [Anti-Fungal 1 applic TOPICAL QAM PRN 04/09/18 05/18/19 History Powder] Sodium Chloride [Saline Nasal 1 spray BOTH NARES BID PRN 04/09/18 05/18/19 History [place]] Albuterol inh POWDER (NF) [Proair 2 inh INH Q4H PRN 05/04/19 05/18/19 History [place]] Cromolyn SPRAY 5.2 MG/ACT(NF) 1 spray BOTH NARES TID PRN 05/04/19 05/18/19 History [Cromolyn SPRAY(NF)] Metformin HCl [Fortamet] 500 mg PO BID 05/04/19 05/18/19 History Morphine TAB Extended Rel(*) [Ms 30 mg PO Q8HR MDD 3 05/04/19 05/18/19 History Contin(*)] [place]-3S/Dha/Epa/Fish Oil [Fish 1 each PO QAM 05/04/19 05/18/19 History Oil 1,200 mg Softgel] Omeprazole 20 mg PO QAM 05/04/19 05/18/19 History buPROPion HCl [Bupropion HCl Sr] 150 mg PO QAM 05/04/19 05/18/19 History Nystatin 05/18/19 History Acetaminophen TAB* [Tylenol TAB*] 975 mg PO Q8HR tab 05/20/19 Rx Apixaban* [Eliquis*] 2.5 mg PO Q12HR #60 tab 05/20/19 Rx Docusate CAP* [Colace Cap*] 100 mg PO BID PRN #90 cap 05/20/19 Rx Discharge Instructions following Orthopedic Surgery: Activity: * Weight Bearing as tolerated * Continue physical therapy and occupational therapy exercises as shown * Home PT Wound care: * OK to shower on post-op day 3, no bathing, swimming, or submerging wound. * Use gentle soap, pat dry. Cover with gauze, SHERYL wrap or tape. * Visiting home nurse to do wound checks and removed sutures/michael in 2 weeks. Call Orthopedic office for: * Increased drainage * Redness * Increased pain * Fever Go to ER with shortness of breath or chest pain. Diet: * Regular diet * Increase fluids and fiber to prevent constipation. * Continue to use stool softeners, call office if no bowel motion within 48 hours. Medications See Home Medication List in your packet for medications that you should take after discharge. DVT Prophylaxis: Eliquis Dosin.5 mg, 1 tab every 12 hours x 30 days post op. Increases bleeding tendency Pain Control: Pain medications sent per pain management. Please contact Dr Corea for any questions or concerns Antibiotics are required prior to any dental work. FOLLOW UP: Follow up with [Johnson] Within 4 weeks, call for appointment Please call our office with any questions or concerns ([phone]) RX [facility]
[2019-05-20] MEDS ORDERED: Bisacodyl SUPP* 10 MG SUPP PR PRN (10:29)
[2019-05-20] MEDS ORDERED: Enoxaparin(*) 40 MG/0.4 ML SYR SUBCUT ONE (11:00)
[2019-05-20] MEDS: traMADol TAB* 50 MG PO PRN (11:04)
== END 2019-05-20 12:30 | disposition home health service (06) | DRG 470 ==
LOC: AA 05-18 05:43 → SSU 05-18 13:50
PROVIDERS: ADMIT Orthopaedic Surgery; ATTEND Orthopaedic Surgery
PROC: 0SRD0J9 Replacement of Left Knee Joint with Synthetic Substitute, Cemented, Open Approach (ICD-10-PCS; principal; 2019-05-18 07:30)
DX: M17.12 Unilateral primary osteoarthritis, left knee (principal); Z68.42 Body mass index [BMI] 45.0-49.9, adult; F32.9 Major depressive disorder, single episode, unspecified; M43.16 Spondylolisthesis, lumbar region; M48.00 Spinal stenosis, site unspecified; G47.33 Obstructive sleep apnea (adult) (pediatric); F17.210 Nicotine dependence, cigarettes, uncomplicated; G89.4 Chronic pain syndrome; F41.9 Anxiety disorder, unspecified; E66.01 Morbid (severe) obesity due to excess calories; J44.9 Chronic obstructive pulmonary disease, unspecified; K76.89 Other specified diseases of liver; E78.5 Hyperlipidemia, unspecified; R11.0 Nausea; E11.43 Type 2 diabetes mellitus with diabetic autonomic (poly)neuropathy; K31.84 Gastroparesis; Z79.84 Long term (current) use of oral hypoglycemic drugs; Z79.899 Other long term (current) drug therapy; Z88.8 Allergy status to other drugs, medicaments and biological substances; Z86.73 Personal history of transient ischemic attack (TIA), and cerebral infarction without residual deficits
CPT/HCPCS: 36415; 80048; 85014; 85018; 85049; 94640; A9270-GY; C1776; G8978-GP-CK; G8979-GP-CI; J0330; J0360; J0690; J1170; J1650; J1885; J2250; J2270; J2405; J2704; J3010; J3490; J3535

== ENCOUNTER 2022-01-29 07:43 | Inpatient (IN) ==
[2022-01-29] MEDS ORDERED: NS 0.9% 1000 ml BAG 1,000 ML IV ONE (08:48)
[2022-01-29 09:43] LABS: Hematocrit 38 % (35-47); Hemoglobin 12.9 g/dL (12.0-16.0); Mean Corpuscular HGB Conc 35 g/dL (31-36); Mean Corpuscular Hemoglobin 28 pg (27-31); Mean Corpuscular Volume 82 fL (80-97); Mean Platelet Volume 8.4 fL (7.4-10.4); Platelet Count 539 10^3/uL (150-450); Red Blood Count 4.56 10^6 /uL (3.70-4.87); Red Cell Distribution Width 14 % (10-15); White Blood Count 29.5 10^3/uL (3.5-10.8)
[2022-01-29 10:27] LABS: Urine Appearance Clear; Urine Color Yellow; Urine Ketones Negative (Negative); Urine Protein Negative (Negative); Urine Specific Gravity 1.025 (1.005-1.030); Urine Urobilinogen 0.2 (Negative) (Negative); Urine pH 5.5 (5.0-9.0)
[2022-01-29 10:28] LABS: Urine Bilirubin Negative (Negative); Urine Glucose Negative (Negative); Urine Nitrite Negative (Negative)
[2022-01-29 10:31] LABS: ALT 12 U/L (7-52); Albumin 2.7 g/dL (3.2-5.2); Albumin/Globulin Ratio 0.9 (1-3); Alkaline Phosphatase 225 U/L (35-149); Blood Urea Nitrogen 31 mg/dL (6-24); CO2 Carbon Dioxide 27 mmol/L (22-32); Calcium 9.2 mg/dL (8.6-10.3); Chloride 84 mmol/L (101-111); Glucose 79 mg/dL (70-100); Lipase 40 U/L (11.0-82.0); Sodium 123 mmol/L (135-145); Total Protein 5.7 g/dL (6.4-8.9); eGFR CKD-EPI 68.6 (>60)
[2022-01-29 10:33] LABS: ABS Basophils 0.1 10^3/ul (0-0.2); ABS Lymphocytes 2.3 10^3/ul (1.0-4.8); ABS Monocytes 2.6 10^3/ul (0-0.8); ABS Neutrophils 24.5 10^3/ul (1.5-7.7); Eosinophil % 0.1 %; Lymphocyte % 7.6 %
[2022-01-29 10:40] LABS: Urine Bacteria Absent (Absent); Urine Red Blood Cell 1+(3-5/hpf) (Absent); Urine Transitional Epithelial Present (Absent); Urine White Blood Cell 3+(>20/hpf) (Absent)
[2022-01-29 10:51] LABS: Anion Gap 12 mmol/L (2-11)
[2022-01-29] MEDS ORDERED: Piperacillin/Tazobac ADVAN 3.375 GM in NS 0.9% 100 ml BAG 100 ML IV ONE (10:55)
[2022-01-29] MEDS ORDERED: Morphine 10 MG/ML VIAL (1 ml) IV ONE (11:00)
[2022-01-29] MEDS ORDERED: Ondansetron 4 mg VIAL 2 MG/ML 2 ml VIAL IV ONE (11:00)
[2022-01-29] MEDS ORDERED: Iodixanol (CONTRAST) 320 MG/ML 100 ML SDV IV ONE (11:04)
[2022-01-29] MEDS ORDERED: Magnesium Hydroxide LIQ 30 ML UDC PO PRN (12:39)
[2022-01-29 13:20] LABS: GGTP 77 U/L (9-64.0)
[2022-01-29] MEDS ORDERED: Senna TAB 8.6 mg TAB PO PRN (14:40)
[2022-01-29] MEDS ORDERED: Saline NASAL SPRAY 0.65% BTL BOTH NARES PRN (14:40)
[2022-01-29] MEDS ORDERED: Methylnaltrexone 150 MG TAB PO SCH (15:00)
[2022-01-29] MEDS ORDERED: Methylnaltrexone SQ (NF) 12 MG/0.6 ML VIAL SUBCUT ONE (15:00)
[2022-01-29 15:12] LABS: TSH Ultra Thyroid Stim Horm 1.71 mcIU/mL (0.34-5.60)
[2022-01-29 15:14] LABS: PCO2 Arterial 50 mmHg (35-45); PO2 Arterial 97 mmHg (80-100)
[2022-01-29] MEDS ORDERED: Morphine ORAL.SOLN 10 mg 2 mg/ml UDC 5 ml (10 mg) PO PRN (15:58)
[2022-01-29] MEDS: Polyethylene Glycol 3350 17 GM PACKET PO SCH ×2 (16:15→17:08)
[2022-01-29 16:19] LABS: Urine Osmo 413 mOsm/kg (150-1150)
[2022-01-29] MEDS: SPIRIVA Respimat (tiotropium) 2.5 mcg/inh Inhaler INH SCH (16:33)
[2022-01-29] MEDS: Albuterol HFA INHALER 8 gm MDI INH PRN (16:35)
[2022-01-29] MEDS ORDERED: cefTRIAXone 1 gm/50 mL D5W 1 GM/50 ML BAG IV SCH (17:00)
[2022-01-29] MEDS: Nicotine PATCH 14 MG/24 HR PATCH TRANSDERM SCH (17:28)
[2022-01-29] MEDS: Enoxaparin 40 MG/0.4 ML SYR SUBCUT SCH (17:28)
[2022-01-29 18:02] LABS: C Reactive Protein 376.38 mg/L (<8.01)
[2022-01-29] MEDS: NS 0.9% 1000 ml BAG 1,000 ML IV SCH ×2 (18:03→19:24)
[2022-01-29] MEDS: Morphine ER 30 mg TAB ** extended release PO SCH (19:18)
[2022-01-29] MEDS: Morphine ER 15 mg TAB ** extended release PO SCH (19:18)
[2022-01-29] MEDS: Nystatin SUSPENSION 100,000 UNITS/ML UDC PO SCH (19:18)
[2022-01-29 19:33] LABS: Erythrocyte Sed Rate 111 mm/Hr (0-29)
[2022-01-29 20:25] LABS: Osmolality Serum 266 mOsm/kg (275-295)
[2022-01-29] MEDS: HYDROmorphone 1 MG/1 ML SYRINGE IV SLOW PU PRN (20:56)
[2022-01-29] MEDS: Acetaminophen IV 1 GM/100ML 100 ML IV SCH (20:56)
[2022-01-29] MEDS ORDERED: Ketamine 500 mg in 500 mL NS for Continuous Infusion IV SCH (21:00)
[2022-01-29 22:26] LABS: Calcium 8.9 mg/dL (8.6-10.3); eGFR CKD-EPI 105.3 (>60)
[2022-01-29 22:28] LABS: Potassium 5.2 mmol/L (3.5-5.0)
[2022-01-30] MEDS: Acetaminophen IV 1 GM/100ML 100 ML IV SCH ×4 (03:31→21:51)
[2022-01-30] MEDS: Morphine ORAL.SOLN 10 mg 2 mg/ml UDC 5 ml (10 mg) PO PRN ×3 (03:55→15:04)
[2022-01-30 04:50] LABS: Hematocrit 38 % (35-47); Hemoglobin 12.8 g/dL (12.0-16.0); Mean Corpuscular HGB Conc 34 g/dL (31-36); Mean Corpuscular Hemoglobin 29 pg (27-31); Mean Corpuscular Volume 84 fL (80-97); Mean Platelet Volume 8.5 fL (7.4-10.4); Platelet Count 476 10^3/uL (150-450); Red Cell Distribution Width 14 % (10-15)
[2022-01-30 04:54] LABS: ABS Basophils 0.1 10^3/ul (0-0.2); ABS Lymphocytes 1.9 10^3/ul (1.0-4.8); ABS Monocytes 2.4 10^3/ul (0-0.8); ABS Neutrophils 23.5 10^3/ul (1.5-7.7); Eosinophil % 0.1 %; Lymphocyte % 6.8 %
[2022-01-30 05:00] LABS: Albumin 2.5 g/dL (3.2-5.2); Albumin/Globulin Ratio 0.9 (1-3); Calcium 8.9 mg/dL (8.6-10.3); Globulin 2.8 g/dL (2-4); Magnesium 2.4 mg/dL (1.9-2.7); Phosphorus 3.7 mg/dL (2.5-5.0); Total Bilirubin 0.4 mg/dL (0.2-1.0); Total Protein 5.3 g/dL (6.4-8.9); eGFR CKD-EPI 101.8 (>60)
[2022-01-30 05:02] LABS: Potassium 5.5 mmol/L (3.5-5.0)
[2022-01-30] MEDS ORDERED: NS 0.9% 1000 ml BAG 1,000 ML IV ONE (05:40)
[2022-01-30] MEDS: Morphine ER 15 mg TAB ** extended release PO SCH (07:17)
[2022-01-30] MEDS: Morphine ER 30 mg TAB ** extended release PO SCH ×2 (07:17→19:26)
[2022-01-30] MEDS: NS 0.9% 1000 ml BAG 1,000 ML IV SCH (07:31)
[2022-01-30] MEDS: HYDROmorphone 1 MG/1 ML SYRINGE IV SLOW PU PRN ×3 (07:46→16:12)
[2022-01-30] MEDS: Nicotine PATCH 14 MG/24 HR PATCH TRANSDERM SCH (07:47)
[2022-01-30] MEDS: Nystatin SUSPENSION 100,000 UNITS/ML UDC PO SCH ×4 (07:47→21:50)
[2022-01-30] MEDS: Polyethylene Glycol 3350 17 GM PACKET PO SCH (08:09)
[2022-01-30] MEDS: SPIRIVA Respimat (tiotropium) 2.5 mcg/inh Inhaler INH SCH (08:12)
[2022-01-30] MEDS: Albuterol HFA INHALER 8 gm MDI INH PRN (08:13)
[2022-01-30] MEDS ORDERED: ZOSYN 3.375 GM x ONE DOSE over 30 miuntes IV (09:00)
[2022-01-30] MEDS ORDERED: Zosyn per Pharmacy NOTE FOLLOW UP SCH (09:00)
[2022-01-30] MEDS: Senna TAB 8.6 mg TAB PO SCH (12:09)
[2022-01-30] MEDS: ZOSYN 3.375 GM Q8H per EXTENDED INFUSION IV SCH ×2 (15:04→23:16)
[2022-01-30] MEDS: Enoxaparin 40 MG/0.4 ML SYR SUBCUT SCH (16:11)
[2022-01-30 17:42] LABS: Calcium 8.8 mg/dL (8.6-10.3)
[2022-01-30 17:58] LABS: Potassium 5.6 mmol/L (3.5-5.0)
[2022-01-30] MEDS ORDERED: SODIUM ZIRCONIUM CYCLOSILICATE 10 GM PACKET PO ONE (18:08)
[2022-01-30] MEDS ORDERED: Dextrose 50% Syringe 50 ml 25 GM/50 ML SYRINGE IV PUSH PRN ×2 (18:08→18:09)
[2022-01-30] MEDS ORDERED: Dextrose 50% Syringe 50 ml 25 GM/50 ML SYRINGE IV PUSH ONE (18:08)
[2022-01-30] MEDS: HYDROmorphone 0.5 MG/0.5 ML SYRINGE IV SLOW PU PRN ×3 (19:25→23:16)
[2022-01-31] MEDS: HYDROmorphone 1 MG/1 ML SYRINGE IV SLOW PU PRN ×8 (01:30→20:54)
[2022-01-31] MEDS: HYDROmorphone 0.5 MG/0.5 ML SYRINGE IV SLOW PU PRN ×8 (01:30→20:54)
[2022-01-31] MEDS: Morphine ER 30 mg TAB ** extended release PO SCH ×3 (03:19→20:54)
[2022-01-31] MEDS: Acetaminophen IV 1 GM/100ML 100 ML IV SCH ×4 (03:20→21:38)
[2022-01-31 04:55] LABS: Hematocrit 38 % (35-47); Hemoglobin 13.1 g/dL (12.0-16.0); Mean Corpuscular HGB Conc 34 g/dL (31-36); Mean Corpuscular Hemoglobin 29 pg (27-31); Mean Corpuscular Volume 84 fL (80-97); Mean Platelet Volume 7.9 fL (7.4-10.4); Platelet Count 537 10^3/uL (150-450); Red Blood Count 4.56 10^6 /uL (3.70-4.87); Red Cell Distribution Width 15 % (10-15); White Blood Count 30.7 10^3/uL (3.5-10.8)
[2022-01-31 05:15] LABS: Magnesium 2.5 mg/dL (1.9-2.7); Phosphorus 3.3 mg/dL (2.5-5.0); eGFR CKD-EPI 106.1 (>60)
[2022-01-31 05:34] LABS: Potassium 5.2 mmol/L (3.5-5.0)
[2022-01-31 06:25] LABS: Anisocytosis 1+
[2022-01-31 06:26] LABS: ABS Lymphocytes 1.6 10^3/ul (1.0-4.8); ABS Monocytes 2.1 10^3/ul (0-0.8); ABS Neutrophils 27.1 10^3/ul (1.5-7.7); Lymphocyte % 5.2 %
[2022-01-31] MEDS: Albuterol HFA INHALER 8 gm MDI INH PRN (07:21)
[2022-01-31] MEDS: SPIRIVA Respimat (tiotropium) 2.5 mcg/inh Inhaler INH SCH (07:21)
[2022-01-31] MEDS: ZOSYN 3.375 GM Q8H per EXTENDED INFUSION IV SCH ×3 (07:40→23:10)
[2022-01-31] MEDS ORDERED: HYDROmorphone 1 MG/1 ML SYRINGE IV SLOW PU ONE (07:40)
[2022-01-31] MEDS: Nystatin SUSPENSION 100,000 UNITS/ML UDC PO SCH ×4 (09:00→20:54)
[2022-01-31] MEDS: Nicotine PATCH 14 MG/24 HR PATCH TRANSDERM SCH (11:23)
[2022-01-31] MEDS: Senna TAB 8.6 mg TAB PO SCH (11:23)
[2022-01-31] MEDS: Polyethylene Glycol 3350 17 GM PACKET PO SCH (11:24)
[2022-01-31] MEDS: NS 0.9% 1000 ml BAG 1,000 ML IV SCH (11:35)
[2022-01-31] MEDS: SODIUM ZIRCONIUM CYCLOSILICATE 5 GM PACKET PO SCH (11:38)
[2022-01-31] MEDS: DULoxetine DR 60 mg CAP PO SCH (16:24)
[2022-01-31] MEDS: Enoxaparin 40 MG/0.4 ML SYR SUBCUT SCH (16:24)
[2022-02-01] MEDS: HYDROmorphone 1 MG/1 ML SYRINGE IV SLOW PU PRN ×7 (01:46→20:48)
[2022-02-01] MEDS: HYDROmorphone 0.5 MG/0.5 ML SYRINGE IV SLOW PU PRN ×6 (01:47→20:48)
[2022-02-01] MEDS: Acetaminophen IV 1 GM/100ML 100 ML IV SCH ×4 (02:59→20:45)
[2022-02-01] MEDS: Morphine ER 30 mg TAB ** extended release PO SCH ×3 (02:59→18:06)
[2022-02-01] MEDS: SPIRIVA Respimat (tiotropium) 2.5 mcg/inh Inhaler INH SCH (07:32)
[2022-02-01] MEDS: Albuterol HFA INHALER 8 gm MDI INH PRN ×2 (07:32→14:37)
[2022-02-01] MEDS: DULoxetine DR 60 mg CAP PO SCH (07:59)
[2022-02-01] MEDS: Polyethylene Glycol 3350 17 GM PACKET PO SCH (07:59)
[2022-02-01] MEDS: Senna TAB 8.6 mg TAB PO SCH (07:59)
[2022-02-01] MEDS: SODIUM ZIRCONIUM CYCLOSILICATE 5 GM PACKET PO SCH (07:59)
[2022-02-01] MEDS: Nystatin SUSPENSION 100,000 UNITS/ML UDC PO SCH ×5 (08:00→22:46)
[2022-02-01] MEDS: ZOSYN 3.375 GM Q8H per EXTENDED INFUSION IV SCH ×3 (09:01→23:00)
[2022-02-01 09:12] LABS: Hematocrit 40 % (35-47); Hemoglobin 12.4 g/dL (12.0-16.0); Mean Corpuscular HGB Conc 31 g/dL (31-36); Mean Corpuscular Hemoglobin 26 pg (27-31); Mean Corpuscular Volume 84 fL (80-97); Mean Platelet Volume 7.9 fL (7.4-10.4); Platelet Count 647 10^3/uL (150-450); Red Blood Count 4.74 10^6 /uL (3.70-4.87); Red Cell Distribution Width 15 % (10-15); White Blood Count 33.9 10^3/uL (3.5-10.8)
[2022-02-01] MEDS: Nicotine PATCH 14 MG/24 HR PATCH TRANSDERM SCH (09:25)
[2022-02-01 09:53] LABS: Calcium 9.6 mg/dL (8.6-10.3); Magnesium 2.8 mg/dL (1.9-2.7); Phosphorus 4.8 mg/dL (2.5-5.0); eGFR CKD-EPI 70.3 (>60)
[2022-02-01 10:11] LABS: ABS Basophils 0.1 10^3/ul (0-0.2); ABS Lymphocytes 1.7 10^3/ul (1.0-4.8); ABS Monocytes 1.8 10^3/ul (0-0.8); ABS Neutrophils 30.3 10^3/ul (1.5-7.7); Hypochromasia 1+; Polychromasia 1+; Potassium 6.4 mmol/L (3.5-5.0)
[2022-02-01] MEDS ORDERED: CALCIUM GLUCONATE 1GM/50ML NS 1 GM/50 ML BAG IV ONE (10:14)
[2022-02-01] MEDS ORDERED: Dextrose 50% Syringe 50 ml 25 GM/50 ML SYRINGE IV PUSH ONE (10:14)
[2022-02-01] MEDS ORDERED: Dextrose 50% VIAL 50 ml IV ONE (10:14)
[2022-02-01] MEDS ORDERED: SODIUM ZIRCONIUM CYCLOSILICATE 5 GM PACKET PO ONE (10:15)
[2022-02-01] MEDS ORDERED: Dextrose 50% Syringe 50 ml 25 GM/50 ML SYRINGE ONE (10:17)
[2022-02-01 11:31] LABS: PCO2 Arterial 37 mmHg (35-45); PO2 Arterial 79 mmHg (80-100)
[2022-02-01 12:44] LABS: Cancer Ag (CA 125), S 375 U/mL (<46)
[2022-02-01 13:46] LABS: Calcium 9.9 mg/dL (8.6-10.3); Uric Acid 11.2 mg/dL (2.3-6.6); eGFR CKD-EPI 71.2 (>60)
[2022-02-01 13:47] LABS: Myoglobin 37.3 ng/mL (14.3-65.8)
[2022-02-01 13:50] LABS: Urine Appearance Clear; Urine Bilirubin 1+ (Small) (Negative); Urine Blood Negative (Negative); Urine Color Yellow; Urine Glucose Negative (Negative); Urine Ketones Negative (Negative); Urine Nitrite Negative (Negative); Urine Protein Negative (Negative); Urine Urobilinogen 0.2 (Negative) (Negative); Urine pH 5.5 (5.0-9.0)
[2022-02-01 13:50] LABS: Potassium 5.5 mmol/L (3.5-5.0)
[2022-02-01] MEDS: Enoxaparin 40 MG/0.4 ML SYR SUBCUT SCH (15:09)
[2022-02-01] MEDS: SODIUM ZIRCONIUM CYCLOSILICATE 10 GM PACKET PO SCH ×2 (15:16→20:53)
[2022-02-01] MEDS ORDERED: Sodium Bicarb 8.4% Vial 50 ML 150 MEQ in D5W 1000 ml BAG 850 ML IV SCH (18:00)
[2022-02-01 21:19] LABS: Hematocrit 39 % (35-47); Mean Corpuscular HGB Conc 33 g/dL (31-36); Mean Corpuscular Hemoglobin 28 pg (27-31); Mean Corpuscular Volume 84 fL (80-97); Platelet Count 597 10^3/uL (150-450); Red Blood Count 4.71 10^6 /uL (3.70-4.87); Red Cell Distribution Width 15 % (10-15); White Blood Count 33.5 10^3/uL (3.5-10.8)
[2022-02-01 21:42] LABS: Calcium 9.7 mg/dL (8.6-10.3); eGFR CKD-EPI 67.7 (>60)
[2022-02-01 21:43] LABS: Potassium 5.6 mmol/L (3.5-5.0)
[2022-02-01 22:34] LABS: Anisocytosis 1+; Target Cells 1+
[2022-02-01 22:35] LABS: ABS Basophils 0.1 10^3/ul (0-0.2); ABS Eosinophils 0.1 10^3/ul (0-0.6); ABS Lymphocytes 1.4 10^3/ul (1.0-4.8); ABS Monocytes 2.3 10^3/ul (0-0.8); ABS Neutrophils 29.5 10^3/ul (1.5-7.7); Eosinophil % 0.3 %; Lymphocyte % 4.3 %
[2022-02-02] MEDS ORDERED: HYDROmorphone 0.5 MG/0.5 ML SYRINGE IV SLOW PU PRN (00:54)
[2022-02-02] MEDS: HYDROmorphone 1 MG/1 ML SYRINGE IV SLOW PU PRN ×2 (01:02→03:05)
[2022-02-02] MEDS: Acetaminophen IV 1 GM/100ML 100 ML IV SCH ×3 (02:38→17:22)
[2022-02-02] MEDS: Morphine ER 30 mg TAB ** extended release PO SCH (02:38)
[2022-02-02] MEDS ORDERED: Ondansetron 4 mg VIAL 2 MG/ML 2 ml VIAL IV PRN (03:25)
[2022-02-02] MEDS ORDERED: Furosemide 40 mg/4 ml IV VIAL IV SLOW PU ONE (04:18)
[2022-02-02] MEDS ORDERED: Furosemide 40 mg/4 ml IV VIAL ONE (04:19)
[2022-02-02] MEDS ORDERED: Rocuronium 50 mg VIAL 10 mg/ml 5 ml VIAL (50 mg) ONE ×3 (04:25→13:38)
[2022-02-02] MEDS ORDERED: Succinylcholine 200 mg VIAL 20 mg/ml 10 ml VIAL (200 mg) ONE (04:25)
[2022-02-02] MEDS ORDERED: Etomidate 40 mg/20 ml (2 MG/ML) 20 ml VIAL (40 mg) ONE (04:30)
[2022-02-02] MEDS ORDERED: Propofol 10 mg/ml 100 ML BTL 100 ML ONE (04:30)
[2022-02-02] MEDS ORDERED: fentaNYL INFUSION 50 mcg/mL VL 2,500 MCG/50 ML VIAL IV SCH ×3 (05:00→11:48)
[2022-02-02 05:34] LABS: Hematocrit 41 % (35-47); Hemoglobin 12.6 g/dL (12.0-16.0); Mean Corpuscular HGB Conc 31 g/dL (31-36); Mean Corpuscular Hemoglobin 26 pg (27-31); Mean Corpuscular Volume 85 fL (80-97); Mean Platelet Volume 8.1 fL (7.4-10.4); Platelet Count 646 10^3/uL (150-450); Red Blood Count 4.77 10^6 /uL (3.70-4.87); Red Cell Distribution Width 15 % (10-15); White Blood Count 38.3 10^3/uL (3.5-10.8)
[2022-02-02 05:41] LABS: PCO2 Arterial 55 mmHg (35-45); PO2 Arterial 111 mmHg (80-100)
[2022-02-02 05:42] LABS: INR 1.06 (0.89-1.11)
[2022-02-02 06:17] LABS: Magnesium 3.3 mg/dL (1.9-2.7); Phosphorus 7.6 mg/dL (2.5-5.0); eGFR CKD-EPI 43.8 (>60)
[2022-02-02] MEDS ORDERED: Dextrose 50% Syringe 50 ml 25 GM/50 ML SYRINGE IV PUSH ONE ×3 (06:22→12:24)
[2022-02-02 06:24] LABS: Potassium 6.4 mmol/L (3.5-5.0)
[2022-02-02] MEDS ORDERED: CALCIUM GLUCONATE 1GM/50ML NS 1 GM/50 ML BAG IV ONE ×2 (06:28→09:13)
[2022-02-02] MEDS: fentaNYL 100 mcg/2 ml 50 MCG/ML VIAL IV SLOW PU PRN ×2 (06:35→09:18)
[2022-02-02] MEDS: SPIRIVA Respimat (tiotropium) 2.5 mcg/inh Inhaler INH SCH (07:06)
[2022-02-02] MEDS ORDERED: PHENYLEPHRINE DRIP IVPREMIX 50 MG/250 ML BAG IV ONE (07:21)
[2022-02-02] MEDS ORDERED: PHENYLEPHRINE DRIP IVPREMIX 50 MG/250 ML BAG IV SCH (08:00)
[2022-02-02 08:13] LABS: RBC Morphology Normal (Normal)
[2022-02-02 08:14] LABS: ABS Basophils 0.1 10^3/ul (0-0.2); ABS Lymphocytes 1.9 10^3/ul (1.0-4.8); ABS Monocytes 1.6 10^3/ul (0-0.8); ABS Neutrophils 34.6 10^3/ul (1.5-7.7); Eosinophil % 0.1 %; Lymphocyte % 5.1 %; Nucleated Red Blood Cells % 0.1
[2022-02-02] MEDS ORDERED: Albuterol 2.5mg/3 ml (0.083%) NEB.SOLN INH PRN (08:26)
[2022-02-02] MEDS ORDERED: Sodium Bicarb 8.4% Vial 50 ML 150 MEQ in D5W 1000 ml BAG 850 ML IV SCH ×2 (08:28→11:48)
[2022-02-02] MEDS: DULoxetine DR 60 mg CAP PO SCH (08:30)
[2022-02-02] MEDS: Propofol 10 mg/ml 100 ML BTL 100 ML IV SCH ×2 (08:32→13:53)
[2022-02-02] MEDS: Polyethylene Glycol 3350 17 GM PACKET PO SCH (08:40)
[2022-02-02] MEDS: Nystatin SUSPENSION 100,000 UNITS/ML UDC PO SCH ×2 (08:41→16:23)
[2022-02-02] MEDS: Chlorhexidine MOUTHWASH 0.12% 15 ML UDC SWISH SPIT SCH ×3 (08:42→16:33)
[2022-02-02] MEDS: ZOSYN 3.375 GM Q8H per EXTENDED INFUSION IV SCH ×2 (08:42→16:34)
[2022-02-02] MEDS: Albuterol/Ipratropium NEB.SOL (2.5/0.5 MG) 3 ML NEB.SOLN INH SCH ×3 (08:52→15:01)
[2022-02-02 09:00] LABS: Calcium 9.8 mg/dL (8.6-10.3); eGFR CKD-EPI 36.8 (>60)
[2022-02-02] MEDS ORDERED: RASBURICASE IVPB SCH (09:00)
[2022-02-02] MEDS ORDERED: Rasburicase 1.5 MG VIAL(NF) IVPB SCH (09:00)
[2022-02-02] MEDS ORDERED: NS 0.9% IVPB SCH (09:00)
[2022-02-02] MEDS ORDERED: Pantoprazole VIAL 40 MG VIAL IV SCH ×2 (09:00)
[2022-02-02 09:08] LABS: Potassium 6.4 mmol/L (3.5-5.0)
[2022-02-02] MEDS ORDERED: Dextrose 50% VIAL 50 ml IV PRN (09:11)
[2022-02-02] MEDS ORDERED: Sodium Polystyrene ORAL.SUSP 15 GM/60 ML BTL ONE (09:12)
[2022-02-02] MEDS: SODIUM ZIRCONIUM CYCLOSILICATE 10 GM PACKET PO SCH ×2 (09:26→17:46)
[2022-02-02 09:42] LABS: INR 1.01 (0.89-1.11)
[2022-02-02] MEDS ORDERED: NS 0.9% IVPB ONE (10:00)
[2022-02-02] MEDS ORDERED: RASBURICASE IVPB ONE (10:00)
[2022-02-02] MEDS ORDERED: FENTANYL PCA PCA SCH (11:00)
[2022-02-02] MEDS ORDERED: Vancomycin 1,000 MG in NS 0.9% 250 ml 250 ML IVPB ONE (11:49)
[2022-02-02 12:21] LABS: Calcium 10.1 mg/dL (8.6-10.3)
[2022-02-02] MEDS ORDERED: Dextrose 50% Syringe 50 ml 25 GM/50 ML SYRINGE IV PUSH PRN (12:24)
[2022-02-02 12:30] LABS: Potassium 6.1 mmol/L (3.5-5.0)
[2022-02-02] MEDS: Carboxymethylcellulose/Glyceri 10 ML OPHTH.GEL lubricant eye gel BOTH EYES SCH ×2 (12:58→16:05)
[2022-02-02] MEDS ORDERED: Sodium Bicarbonate 8.4% SYR 50 ml SYRINGE IV ONE (13:03)
[2022-02-02] MEDS ORDERED: Sodium Bicarbonate 8.4% SYR 50 ml SYRINGE ONE ×2 (13:07→13:13)
[2022-02-02 13:17] LABS: Venous Bicarbonate HCO3 19.7 mmol/L (24-28)
[2022-02-02] MEDS ORDERED: Vasopressin 100 UNITS in D5W 250 ml BAG 245 ML IV SCH (14:00)
[2022-02-02] MEDS ORDERED: Hydrocortisone INJ 250 MG VIAL IV SCH (15:00)
[2022-02-02] MEDS ORDERED: Rocuronium 50 mg VIAL 10 mg/ml 5 ml VIAL (50 mg) IV ONE (15:33)
[2022-02-02] MEDS ORDERED: diazePAM INJ CARPUJECT 5 MG/ML SYRINGE IV PRN (15:42)
[2022-02-02] MEDS ORDERED: Morphine 10 MG/ML VIAL (1 ml) IV ONE (15:42)
[2022-02-02] MEDS ORDERED: Hydrocortisone INJ 100 MG/2ML 2 ML VIAL IV SCH (16:00)
[2022-02-02 16:13] VITALS: BP 95/61
[2022-02-02] MEDS ORDERED: Morphine PCA ADULT 5 MG/ML 30 ML PCA SCH (16:45)
== END 2022-02-02 17:36 | disposition expired | DRG 871 ==
LOC: ED 07:43 → EDHOLD 12:39 → ICU 13:30
PROVIDERS: ADMIT Internal Medicine; ATTEND Internal Medicine